=== PATIENT | male | born 1980 | race Two or more races ===

== ENCOUNTER 2024-10-01 05:12 | Inpatient (IN) | payer MEDICAID, SELFPAY ==
[2024-10-01] VITALS (96 sets, daily range): BP systolic 46–151; BP diastolic 32–135; PULSE 30–187; RESP 13–54; TEMP 36.1–38.1; O2SAT 85–100; BMI 24.4
--- NOTE | 2024-10-01 05:17 | XR_ITS ---
Examination: CT brain head without contrast. 2-D sagittal coronal reconstructions Date and time of exam:October 01, 2024, 0542 hours INDICATIONS: Onset altered mental status today CTDI: vol (mGy):58.2 DLP: (mGycm):1070 Technique: Multiple CT axial sections of the brain have been obtained, 5 mm slice thickness. Contrast has not been administered. 2-D sagittal, coronal reconstructions have been obtained Low dose protocols were performed. One or more of the following dose reduction techniques were used; automated exposure control, adjustment of the mA and/or KV according to patient size, use of iterative reconstruction technique. Findings: No significant ventricular enlargement. Intra-axial or extra-axial hemorrhage density is not seen. No mass effect or midline shift Basal cisterns are not remarkable. Fourth ventricle is midline. Cranial vault intact. Impression: Negative for acute hemorrhage, mass effect or midline shift Advise clinical correlation and follow up accordingly
--- NOTE | 2024-10-01 05:17 | XR_ITS ---
Examination: AP chest single view TECHNIQUE: AP portable semiupright chest single view Exam date and time: October 01, 2024 0558 hours Comparison January 14, 2024 INDICATIONS: Altered mental status SOB today. FINDINGS: Poor inspiratory effort Normal heart size Mild vascular congestion. No aspiration pneumonia IMPRESSION: Poor inspiratory effort chest x-ray
--- NOTE | 2024-10-01 05:20 | PD.EDAMS ---
Altered Mental Status RME/HPI General Chief Complaint: Altered Mental Status Stated Complaint: AMS Time Seen by Provider: 10/01/24 05:16 Arrival date/time: 10/01/24 05:12 RME / HPI RME / HPI narrative: Dr. Horvath?s Main ED Evaluation: 43yo male with a history of DM, HTN, HLD BIBA from home presents to the ED for a chief complaint of AMS. Patient was seen by me immediately upon arrival. Per EMS, patient was possibly drinking alcohol for the last 2 days. Family called 911 due to the patient having persistent AMS for the last 2 days. Blood sugar en route read as high . Full ROS is unobtainable due to the patient being altered. Related Data Home Medications ?Medication ?Instructions ?Recorded ?Confirmed amlodipine 10 mg tablet 10 mg PO QDAY 01/15/24 01/15/24 lisinopril 20 mg tablet 20 mg PO DAILY 01/15/24 01/15/24 ondansetron 8 mg disintegrating 8 mg PO Q12H PRN Nausea 01/15/24 01/15/24 tablet tadalafil 5 mg tablet 5 mg PO DAILY 01/15/24 01/15/24 Held on 01/16/24. Instructions: hold until follow up with pcp Allergies Allergy/AdvReac Type Severity Reaction Status Date / Time No Known Allergies Allergy Verified 10/01/24 05:21 Review of Systems Review of Systems ROS Unobtainable: unobtainable due to mental status Past Medical History Past Medical History NEUROLOGIC: Negative Neurological Disorders or Cerebrovascular Accident CARDIAC: Positive Cardiac Disorders, Hypercholesterolemia and Hypertension; Negative Congestive Heart Failure RESPIRATORY: Negative Chronic Obstructive Pulmonary Disease (COPD) or Asthma GASTROINTESTINAL: Positive Gastrointestinal Disorders and Pancreatitis GENITOURINARY: Negative Renal Disease MUSCULOSKELETAL: Negative Musculoskeletal Disorders or Arthritis ENDOCRINE: Positive Diabetes Mellitus Type 2; Negative Diabetes Mellitus Type 1, Hyperthyroidism or Hypothyroidism HEMATOLOGIC: Negative Blood Disorders, Anemia or Sickle Cell Disease PSYCHO/SOCIAL: Positive Anxiety OTHER HISTORY: Negative Cancer Social History SMOKING STATUS: Unknown if ever smoked ED Exam Narrative Physical exam: GENERAL APPEARANCE: Awake, eyes are open, does not respond to his name, generally well-appearing, no acute distress. HEENT: NC, AT. MMM. EOMI, clear conjunctiva, oropharynx clear. NECK: Supple without lymphadenopathy. No stiffness or restricted ROM. HEART: Normal rate and regular rhythm, normal S1/S1, no m/r/g LUNGS: CTAB, moving air well. No crackles or wheezes are heard. Tachypneic without Kussmaul's breathing. ABDOMEN: Soft, nontender, nondistended with good bowel sounds heard. BACK: No midline C/T/L spine pain or deformity, No CVAT, no obvious deformity. EXTREMITIES: Without cyanosis, clubbing or edema. MUSCULOSKELETAL: Slow spontaneous movements of all 4 extremities, no chest tenderness NEUROLOGICAL: Awake, does not respond to his name. Skin: Warm and dry without any rash. Course Course Course Narrative: CXR is ordered for determining the etiology of AMS. Quality Measures none Orders Category Date Time Status Bedside Blood Glucose NOW Care 10/01/24 05:17 Active COVID-19 Screening Questionnaire NOW Care 10/01/24 07:41 Active Decision to Admit X1 Care 10/01/24 07:41 Completed EKG (ED ONLY) *Do not use* NOW Care 10/01/24 05:17 Completed Rodriguez [Urinary Catheter] QS Care 10/01/24 06:42 Active Insert IV NOW Care 10/01/24 05:[address] head/brain wo con Stat Exams 10/01/24 05:17 Completed EKG (ED Only) Stat Exams 10/01/24 05:17 Ordered XR chest 1V Stat Exams 10/01/24 05:17 Completed Alcohol, Blood Medical Stat Lab 10/01/24 05:30 Completed Beta Hydroxybutyrate Stat Lab 10/01/24 05:30 Completed Blood Culture (Lab) Stat Lab 10/01/24 08:00 Received CBC Stat Lab 10/01/24 05:30 Completed CMP [Comprehensive Metabolic Panel] Stat Lab 10/01/24 05:30 Completed Drug Screen,Urine Stat Lab 10/01/24 05:30 Completed Lactate (Lactic Acid) Stat Lab 10/01/24 05:30 Completed Partial Thromboplastin Time Stat Lab 10/01/24 05:30 Completed Procalcitonin Stat Lab 10/01/24 05:30 Completed Prothrombin Time with INR Stat Lab 10/01/24 05:30 Completed Troponin I Stat Lab 10/01/24 05:30 Completed Urinalysis Stat Lab 10/01/24 05:30 Completed Azithromycin Inj [Zithromax Inj] 500 mg Med 10/02/24 09:00 Active Sodium Chloride 0.9% 250 ml [Ns] 250 ml IV QDAY Azithromycin Inj [Zithromax Inj] 500 mg Med 10/01/24 08:00 Discontinued Sodium Chloride 0.9% 250 ml [Ns] 250 ml IV X1 Insulin Reg 100 Units/100 ml [Myxredlin] Med 10/01/24 07:40 Active 100 unit in 100 ml IV 0.1 unit/kg/hr Insulin Regular Med 10/01/24 07:39 Discontinued 10 unit IV X1 ONE LORazepam [Ativan Inj] Med 10/01/24 05:48 Discontinued 1 mg IVP X1 ONE Sodium Chloride 0.9% 1000 ml [Ns] 1,000 ml Med 10/01/24 05:16 Discontinued IV 999 mls/hr Sodium Chloride 0.9% 1000 ml [Ns] 1,000 ml Med 10/01/24 05:33 Discontinued IV 999 mls/hr cefTRIAXone [Rocephin] 2 gm Med 10/01/24 07:45 Discontinued SODIUM CHLORIDE 0.9% (Popper) [Ns 0.9% (P)] 50 ml IV X1 cefTRIAXone/D5w 2gm [Rocephin/d5w 2gm] Med 10/02/24 09:00 Discontinued 2 gm in 50 ml IV QDAY Vital Signs Vital signs: Vital Signs Temperature 98.1 F 10/01/24 05:21 Pulse Rate 117 H 10/01/24 05:21 Respiratory Rate 54 H 10/01/24 05:21 Blood Pressure 96/60 10/01/24 05:21 Pulse Oximetry (%) 99 10/01/24 05:21 Oxygen Delivery Method Room Air 10/01/24 05:21 Altered Mental Status MDM Narrative MDM Narrative:: Scribe Attestation: 10/01/24 Becca Bates am scribing for and in the presence of Dr. Horvath. Patient data External records reviewed:: [facility] previous records (Per chart review, patient was admitted here on 01/14/24 for VEL.) Clinical information provided by:: EMS Social determinants that could affect healthcare access:: alcohol use (possible) Patient has the following chronic illnesses:: DM, HTN, HLD How is presenting disease/condition affected by chronic disease/condition?: uneffected by Evaluation data The following diagnostics were reviewed and interpreted by me:: lab results, radiology exam(s) and EKG tracing(s) Lab and/or radiology exams considered but not ordered:: none Interpretation Summary: Labs and imaging are pending at signout. EKG done at 0524, sinus tachycardia, rate of 117, normal intervals, normal axis, no acute ST or T wave changes, according to my interpretation. Medications / Prescriptions Medications or Prescriptions considered but not ordered:: none Medication administrations:: Medication Administration History Acetaminophen (Acetaminophen 325 Mg Tablet) 650 mg PO Q6HR PRN PRN Reason: FEVER >101 Stop: 10/31/24 21:34 Last Admin: 10/02/24 01:47 Dose: 650 mg Documented By: Dextrose (Dextrose 50%-Water Inj 50 Ml Syringe) 25 ml IV [id number] PRN PRN Reason: Blood Sugar - Low Folic Acid (Folic Acid 1 Mg Tablet) 1 mg NG QDAY [facility] Stop: 10/31/24 14:44 Last Admin: 10/01/24 15:01 Dose: 1 mg Documented By: Heparin Sodium (Porcine) (Heparin Sod Inj 5000 Unit/Ml Vial) 5,000 unit SC Q8HR [facility] Stop: 10/15/24 14:59 Last Admin: 10/01/24 21:11 Dose: 5,000 unit Documented By: Co-signed By: ELPIDIO Admin: 10/01/24 15:01 Dose: 5,000 unit Documented By: Co-signed By: YESENIA Insulin Human Regular (Myxredlin) 100 unit in 100 mls @ 6.89 mls/hr IV .[id number] PRN; Protocol PRN Reason: PER PROTOCOL Stop: 10/31/24 07:39 Last Titration: 10/02/24 02:00 Dose: 0.05 unit/kg/hr, 3.445 mls/hr Documented By: Co-signed By: CHIP Titration: 10/02/24 01:00 Dose: 0.05 unit/kg/hr, 3.445 mls/hr Documented By: Co-signed By: SRIKANTH Titration: 10/02/24 00:00 Dose: 0.05 unit/kg/hr, 3.445 mls/hr Documented By: Co-signed By: SRIKANTH Admin: 10/01/24 23:14 Dose: 0.025 unit/kg/hr, 1.723 mls/hr Documented By: Co-signed By: SRIKANTH Titration: 10/01/24 23:14 Dose: Infused Documented By: Co-signed By: RH Titration: 10/01/24 23:00 Dose: 0.025 unit/kg/hr, 1.723 mls/hr Documented By: Co-signed By: CMN Titration: 10/01/24 22:00 Dose: 0.1 unit/kg/hr, 6.89 mls/hr Documented By: Co-signed By: MAGALLANES Titration: 10/01/24 21:00 Dose: 0.05 unit/kg/hr, 3.445 mls/hr Documented By: Co-signed By: MAGALLANES Titration: 10/01/24 20:00 Dose: 0.05 unit/kg/hr, 3.445 mls/hr Documented By: Co-signed By: RH Titration: 10/01/24 19:00 Dose: 0.025 unit/kg/hr, 1.723 mls/hr Documented By: Co-signed By: GE Titration: 10/01/24 18:00 Dose: 0.05 unit/kg/hr, 3.445 mls/hr Documented By: GE Co-signed By: MR Titration: 10/01/24 17:00 Dose: 0.05 unit/kg/hr, 3.445 mls/hr Documented By: GE Co-signed By: MR Titration: 10/01/24 16:00 Dose: 0.05 unit/kg/hr, 3.445 mls/hr Documented By: GE Co-signed By: MR Titration: 10/01/24 15:00 Dose: 0.1 unit/kg/hr, 6.89 mls/hr Documented By: GE Co-signed By: MR Titration: 10/01/24 14:00 Dose: 0.1 unit/kg/hr, 6.89 mls/hr Documented By: GE Co-signed By: MR Titration: 10/01/24 13:00 Dose: 0.1 unit/kg/hr, 6.89 mls/hr Documented By: GE Co-signed By: MR Titration: 10/01/24 12:00 Dose: 0.1 unit/kg/hr, 6.89 mls/hr Documented By: GE Co-signed By: MR Titration: 10/01/24 11:00 Dose: 0.1 unit/kg/hr, 6.89 mls/hr Documented By: GE Co-signed By: MR Titration: 10/01/24 09:47 Dose: 0.1 unit/kg/hr, 6.89 mls/hr Documented By: BRODY Co-signed By: MM Admin: 10/01/24 08:40 Dose: 0.1 unit/kg/hr, 6.89 mls/hr Documented By: CG Co-signed By: FC Azithromycin 500 mg/ Sodium (Chloride) 250 mls @ 250 mls/hr IV QDAY [facility] Stop: 10/09/24 08:59 Norepinephrine/Dextrose (Levophed In D5w 8mg/250ml) 8 mg in 250 mls @ 6.459 mls/hr IV .Q24H PRN; Protocol PRN Reason: PER PROTOCOL Stop: 10/31/24 09:51 Last Titration: 10/02/24 01:45 Dose: 0 mcg/kg/min, 0 mls/hr Documented By: Titration: 10/02/24 01:00 Dose: 0.01 mcg/kg/min, 1.292 mls/hr Documented By: Titration: 10/02/24 00:30 Dose: 0.03 mcg/kg/min, 3.876 mls/hr Documented By: Titration: 10/02/24 00:15 Dose: 0.05 mcg/kg/min, 6.459 mls/hr Documented By: Titration: 10/01/24 16:00 Dose: 0 mcg/kg/min, 0 mls/hr Documented By: Titration: 10/01/24 15:37 Dose: 0.02 mcg/kg/min, 2.584 mls/hr Documented By: Titration: 10/01/24 15:00 Dose: 0.04 mcg/kg/min, 5.168 mls/hr Documented By: Titration: 10/01/24 14:15 Dose: 0.04 mcg/kg/min, 5.168 mls/hr Documented By: Titration: 10/01/24 13:27 Dose: 0.06 mcg/kg/min, 7.751 mls/hr Documented By: Titration: 10/01/24 13:15 Dose: 0.08 mcg/kg/min, 10.335 mls/hr Documented By: Titration: 10/01/24 12:45 Dose: 0.1 mcg/kg/min, 12.919 mls/hr Documented By: Titration: 10/01/24 12:15 Dose: 0.12 mcg/kg/min, 15.503 mls/hr Documented By: Titration: 10/01/24 12:10 Dose: 0.14 mcg/kg/min, 18.087 mls/hr Documented By: Titration: 10/01/24 12:00 Dose: 0.16 mcg/kg/min, 20.67 mls/hr Documented By: Titration: 10/01/24 11:58 Dose: 0.16 mcg/kg/min, 20.67 mls/hr Documented By: Titration: 10/01/24 11:49 Dose: 0.18 mcg/kg/min, 23.254 mls/hr Documented By: Titration: 10/01/24 11:04 Dose: 0.2 mcg/kg/min, 25.838 mls/hr Documented By: Titration: 10/01/24 11:00 Dose: 0.15 mcg/kg/min, 19.378 mls/hr Documented By: Titration: 10/01/24 10:30 Dose: 0.1 mcg/kg/min, 12.919 mls/hr Documented By: Titration: 10/01/24 10:22 Dose: 0.1 mcg/kg/min, 12.919 mls/hr Documented By: Titration: 10/01/24 10:01 Dose: 0.5 mcg/kg/min, 64.595 mls/hr Documented By: Admin: 10/01/24 09:51 Dose: 0.05 mcg/kg/min, 6.459 mls/hr Documented By: BRODY Potassium Chloride (Kcl Ivpb) 10 meq in 100 mls @ 100 mls/hr IV .Q1H PRN PRN Reason: IF POTASSIUM LESS THAN 3.3 Stop: 10/31/24 11:01 Magnesium Sulfate (Magnesium Sulfate Ivpb) 2 gm in 50 mls @ 25 mls/hr IV .Q2H PRN PRN Reason: PER DKA PROTOCOL Stop: 10/31/24 11:01 Dextrose/Lactated Ringer's (D5-Lr) 1,000 mls @ 250 mls/hr IV .Q4H PRN PRN Reason: PER PROTOCOL Stop: 10/31/24 11:01 Lactated Ringer's (Lactated Ringers) 1,000 mls @ 250 mls/hr IV .Q4H PRN PRN Reason: PER PROTOCOL Stop: 10/02/24 11:01 Potassium Chloride 20 meq/ (Lactated Ringer's) 1,010 mls @ 250 mls/hr IV .Q4H3M PRN PRN Reason: K LEVEL 3.3 TO 5.3mM/L Stop: 10/31/24 11:01 Last Infusion: 10/01/24 23:00 Dose: 0 mls/hr Documented By: Infusion: 10/01/24 22:00 Dose: 250 mls/hr Documented By: Infusion: 10/01/24 19:05 Dose: 0 mls/hr Documented By: Admin: 10/01/24 16:16 Dose: 250 mls/hr Documented By: Infusion: 10/01/24 15:37 Dose: Infused Documented By: Admin: 10/01/24 11:34 Dose: 250 mls/hr Documented By: Potassium Chloride 40 meq/ (Lactated Ringer's) 1,020 mls @ 250 mls/hr IV .Q4H5M PRN PRN Reason: K LEVEL < 3.3 mM/L Stop: 10/31/24 11:01 Potassium Chloride 40 meq/ (Dextrose/Lactated Ringer's) 1,020 mls @ 250 mls/hr IV .Q4H5M PRN PRN Reason: K LEVEL < 3.3mM/L Stop: 10/31/24 11:01 Potassium Cl/Dextrose/Lact Ringer's (Kcl 20 Meq/L In D5-Lr) 20 meq in 1,000 mls @ 250 mls/hr IV .Q4H PRN PRN Reason: K LEVEL 3.3 TO 5.3 mM/L Stop: 10/31/24 11:01 Last Admin: 10/02/24 00:55 Dose: 250 mls/hr Documented By: Infusion: 10/02/24 00:05 Dose: Infused Documented By: Infusion: 10/01/24 23:00 Dose: 250 mls/hr Documented By: Infusion: 10/01/24 22:00 Dose: 0 mls/hr Documented By: Admin: 10/01/24 19:05 Dose: 250 mls/hr Documented By: Potassium Chloride (Kcl Ivpb) 10 meq in 100 mls @ 50 mls/hr IV PRN PRN PRN Reason: K LEVEL 3.3 to 5.3 & BG > 200 Stop: 10/31/24 11:01 Potassium Phosphate (Pot Phos 15 Mmol In Ns 250 Ml) 15 mmol in 250 mls @ 62.5 mls/hr IV PRN PRN PRN Reason: Phosphate <= 1mg/dL Stop: 10/31/24 11:01 Sodium Phosphate 15 mmol/ (Sodium Chloride) 255 mls @ 62.5 mls/hr IV .Q4H5M PRN PRN Reason: Phosphate <= 1mg/dL and K> than 5.3 Stop: 10/31/24 11:01 Vasopressin/Sodium Chloride (Vasostrict/Ns Ivpb) 20 unit in 100 mls @ 9 mls/hr IV .Q11H7M PRN; Protocol PRN Reason: PER PROTOCOL Stop: 10/31/24 11:02 Last Admin: 10/01/24 20:39 Dose: 0.03 unit/min, 9 mls/hr Documented By: Titration: 10/01/24 20:39 Dose: Infused Documented By: Admin: 10/01/24 11:00 Dose: 0.03 unit/min, 9 mls/hr Documented By: Fentanyl Citrate (Sublimaze Inj 2,500 Mcg/250 Ml Bag) 2,500 mcg in 250 mls @ 2.5 mls/hr IV .Q24H PRN; Protocol PRN Reason: PER PROTOCOL Stop: 10/06/24 11:24 Last Admin: 10/02/24 01:52 Dose: 250 mcg/hr, 25 mls/hr Documented By: Co-signed By: CHIP Titration: 10/02/24 01:52 Dose: Infused Documented By: Co-signed By: CHIP Titration: 10/02/24 01:00 Dose: 250 mcg/hr, 25 mls/hr Documented By: Titration: 10/02/24 00:00 Dose: 250 mcg/hr, 25 mls/hr Documented By: Titration: 10/01/24 23:00 Dose: 200 mcg/hr, 20 mls/hr Documented By: Titration: 10/01/24 22:00 Dose: 200 mcg/hr, 20 mls/hr Documented By: Titration: 10/01/24 21:00 Dose: 200 mcg/hr, 20 mls/hr Documented By: Titration: 10/01/24 20:00 Dose: 150 mcg/hr, 15 mls/hr Documented By: Titration: 10/01/24 19:00 Dose: 150 mcg/hr, 15 mls/hr Documented By: Titration: 10/01/24 18:00 Dose: 150 mcg/hr, 15 mls/hr Documented By: Titration: 10/01/24 17:30 Dose: 150 mcg/hr, 15 mls/hr Documented By: Titration: 10/01/24 17:00 Dose: 100 mcg/hr, 10 mls/hr Documented By: Titration: 10/01/24 16:00 Dose: 100 mcg/hr, 10 mls/hr Documented By: Titration: 10/01/24 15:00 Dose: 100 mcg/hr, 10 mls/hr Documented By: Titration: 10/01/24 14:00 Dose: 100 mcg/hr, 10 mls/hr Documented By: Titration: 10/01/24 13:00 Dose: 100 mcg/hr, 10 mls/hr Documented By: Titration: 10/01/24 12:00 Dose: 100 mcg/hr, 10 mls/hr Documented By: Admin: 10/01/24 10:48 Dose: 100 mcg/hr, 10 mls/hr Documented By: Co-signed By: ANATOLY Thiamine HCl 500 mg/ Sodium (Chloride) 105 mls @ 205 mls/hr IV Q8HR [facility] Stop: 10/31/24 14:44 Last Admin: 10/01/24 21:11 Dose: 205 mls/hr Documented By: Infusion: 10/01/24 15:33 Dose: Infused Documented By: Admin: 10/01/24 15:02 Dose: 205 mls/hr Documented By: Ceftriaxone Sodium/Dextrose (Rocephin/D5w 1gm Iv Premix) 1 gm in 50 mls @ 100 mls/hr IV QDAY [facility] Stop: 10/09/24 08:59 Propofol (Diprivan Ivpb) 1,000 mg in 100 mls @ 2.067 mls/hr IV .Q24H PRN; Protocol PRN Reason: PER PROTOCOL Stop: 11/01/24 00:09 Last Titration: 10/02/24 01:00 Dose: 20 mcg/kg/min, 8.268 mls/hr Documented By: Admin: 10/02/24 00:26 Dose: 20 mcg/kg/min, 8.268 mls/hr Documented By: Co-signed By: SRIKANTH Pantoprazole Sodium (Pantoprazole Inj 40 Mg Vial) 40 mg IVP QDAY [facility] Stop: 10/31/24 14:59 Last Admin: 10/01/24 15:01 Dose: 40 mg Documented By: Pharmacy Consult (Pharmacy Renal Dose Adjustment 1 Ea) 1 each XX QDAY PRN PRN Reason: CONSULT Stop: 10/31/24 08:59 Phenobarbital (Phenobarbital Elix 20 Mg/5 Ml Udc) 65 mg NG TID [facility] Stop: 10/15/24 21:59 Last Admin: 10/01/24 21:10 Dose: 65 mg Documented By: Sodium Bicarbonate (Sodium Bicarb Inj 8.4% Syr 50 Ml Syringe) 50 ml IV PRN PRN PRN Reason: For ph <= to 7.0 Stop: 10/31/24 11:01 Discontinued Medications Amiodarone HCl (Amiodarone Inj 50 Mg/Ml Vial 3 Ml) Confirm Administered Dose 150 mg IV .STK-MED ONE Stop: 10/01/24 10:49 Last Admin: 10/01/24 11:20 Dose: Not Given Documented By: Non-Admin Reason: STK MED Atropine Sulfate (Atropine Sulf Inj 0.1 Mg/Ml Syr 10 Ml) 1 mg IV X1 ONE Stop: 10/01/24 09:59 Last Admin: 10/01/24 09:58 Dose: 1 mg Documented By: SHREE Epinephrine HCl (Epinephrine Inj 0.1 Mg/Ml Syringe 10ml) 1 mg IV X1 ONE Stop: 10/01/24 09:59 Last Admin: 10/01/24 09:58 Dose: 1 mg Documented By: SHREE Etomidate (Etomidate Inj 2 Mg/Ml Vial 10 Ml) 20 mg IVP X1 ONE Stop: 10/01/24 10:01 Last Admin: 10/01/24 10:05 Dose: 20 mg Documented By: SHREE Etomidate (Etomidate Inj 2 Mg/Ml Vial 10 Ml) Confirm Administered Dose 20 mg .ROUTE .STK-MED ONE Stop: 10/01/24 09:58 Last Admin: 10/01/24 10:51 Dose: Not Given Documented By: CG Non-Admin Reason: Duplicate Medication on eMAR Fentanyl Citrate (Fentanyl Cit Inj 50 Mcg/Ml Amp 2ml) 50 mcg IVP X1 ONE Stop: 10/01/24 10:19 Last Admin: 10/01/24 10:20 Dose: 50 mcg Documented By: SHREE Fentanyl Citrate (Fentanyl Cit Inj 50 Mcg/Ml Amp 2ml) Confirm Administered Dose 100 mcg .ROUTE .STK-MED ONE Stop: 10/01/24 10:17 Last Admin: 10/01/24 10:52 Dose: Not Given Documented By: CG Non-Admin Reason: Duplicate Medication on eMAR Folic Acid (Folic Acid 1 Mg Tablet) 1 mg PO QDAY [facility] Stop: 10/31/24 14:44 Sodium Chloride (Ns) 1,000 mls @ 999 mls/hr IV .Q1H1M ONE Stop: 10/01/24 06:16 Last Infusion: 10/01/24 08:14 Dose: Infused Documented By: Admin: 10/01/24 06:05 Dose: 999 mls/hr Documented By: EDGAR Sodium Chloride (Ns) 1,000 mls @ 999 mls/hr IV .Q1H1M ONE Stop: 10/01/24 06:33 Last Infusion: 10/01/24 08:14 Dose: Infused Documented By: Admin: 10/01/24 06:06 Dose: 999 mls/hr Documented By: EDGAR Ceftriaxone Sodium 2 gm/ (Sodium Chloride) 50 mls @ 100 mls/hr IV X1 ONE Stop: 10/01/24 08:14 Last Infusion: 10/01/24 08:35 Dose: Infused Documented By: Admin: 10/01/24 08:07 Dose: 100 mls/hr Documented By: SHREE Ceftriaxone Sodium/Dextrose (Rocephin/D5w 2gm) 2 gm in 50 mls @ 100 mls/hr IV QDAY [facility] Stop: 10/08/24 07:35 Azithromycin 500 mg/ Sodium (Chloride) 250 mls @ 250 mls/hr IV X1 ONE Stop: 10/01/24 08:59 Last Infusion: 10/01/24 09:26 Dose: Infused Documented By: Admin: 10/01/24 08:22 Dose: 250 mls/hr Documented By: CG Lactated Ringer's (Lactated Ringers) 1,000 mls @ 999 mls/hr IV .Q1H1M ONE Stop: 10/01/24 09:17 Last Infusion: 10/01/24 10:00 Dose: Infused Documented By: Admin: 10/01/24 08:40 Dose: 999 mls/hr Documented By: CG Lactated Ringer's (Lactated Ringers) 1,000 mls @ 999 mls/hr IV .Q1H1M ONE Stop: 10/01/24 10:22 Last Infusion: 10/01/24 10:00 Dose: Infused Documented By: Admin: 10/01/24 09:24 Dose: 999 mls/hr Documented By: SHREE Sodium Bicarbonate (Sodium Bicarb 8.4% 50ml Vial*) Confirm Administered Dose 100 mls @ ud .ROUTE .STK-MED ONE Stop: 10/01/24 09:39 Last Admin: 10/01/24 10:35 Dose: Not Given Documented By: BRODY Non-Admin Reason: Duplicate Medication on eMAR Norepinephrine/Dextrose (Levophed In D5w 8mg/250ml) Confirm Administered Dose 8 mg in 250 mls @ ud IV .STK-MED ONE Stop: 10/01/24 09:39 Last Admin: 10/01/24 10:34 Dose: Not Given Documented By: BRODY Non-Admin Reason: Duplicate Medication on eMAR Fentanyl Citrate (Sublimaze Inj 2,500 Mcg/250 Ml Bag) Confirm Administered Dose 2,500 mcg in 250 mls @ ud IV .STK-MED ONE Stop: 10/01/24 10:36 Last Admin: 10/01/24 11:20 Dose: Not Given Documented By: Non-Admin Reason: STK MED Amiodarone HCl/Dextrose (Nexterone Ivpb) 150 mg in 100 mls @ 600 mls/hr IV .Q10M ONE Stop: 10/01/24 11:10 Last Infusion: 10/01/24 12:13 Dose: Infused Documented By: Admin: 10/01/24 11:08 Dose: 600 mls/hr Documented By: MR Amiodarone HCl/Dextrose (Nexterone Ivpb) 360 mg in 200 mls @ 33.333 mls/hr IV .Q6H ONE Stop: 10/01/24 17:10 Last Admin: 10/01/24 11:22 Dose: 33.333 mls/hr Documented By: MR Amiodarone HCl/Dextrose (Nexterone Ivpb) 360 mg in 200 mls @ 16.667 mls/hr IV .Q12H [facility] Stop: 10/02/24 17:10 Insulin Human Regular 100 unit (/ IV Miscellaneous Supplies) 100 mls @ 6.89 mls/hr IV .[id number] PRN; Protocol PRN Reason: PER PROTOCOL Stop: 10/31/24 11:01 Vasopressin/Sodium Chloride (Vasostrict/Ns Ivpb) Confirm Administered Dose 20 unit in 100 mls @ ud IV .STK-MED ONE Stop: 10/01/24 10:57 Last Admin: 10/01/24 11:14 Dose: Not Given Documented By: MR Non-Admin Reason: STK MED Amiodarone HCl 150 mg/ (Dextrose) 103 mls @ 600 mls/hr IV X1 ONE Stop: 10/01/24 10:58 Last Admin: 10/01/24 11:22 Dose: Not Given Documented By: MR Non-Admin Reason: Discontinued Potassium Phosphate 15 mmol/ (Sodium Chloride) 250 mls @ 62.5 mls/hr IV X1 ONE Stop: 10/01/24 20:13 Potassium Phosphate (Pot Phos 15 Mmol In Ns 250 Ml) 15 mmol in 250 mls @ 62.5 mls/hr IV X1 ONE Stop: 10/01/24 20:14 Last Admin: 10/01/24 16:21 Dose: 62.5 mls/hr Documented By: ANATOLY Propofol (Diprivan Ivpb) Confirm Administered Dose 1,000 mg in 100 mls @ ud IV .STK-MED ONE Stop: 10/01/24 23:59 Last Admin: 10/02/24 00:53 Dose: Not Given Documented By: Non-Admin Reason: stock med Insulin Human Regular (Insulin Hum Regular 1 Unit/0.01 Ml (Per Unit)) 10 unit IV X1 ONE Stop: 10/01/24 07:40 Last Admin: 10/01/24 08:14 Dose: 10 unit Documented By: CG Co-signed By: SHANIA Lorazepam (Lorazepam 2 Mg/Ml Vial) 1 mg IVP X1 ONE Stop: 10/01/24 05:49 Last Admin: 10/01/24 08:06 Dose: 1 mg Documented By: Admin: 10/01/24 06:31 Dose: Not Given Documented By: Non-Admin Reason: Other, see note Midazolam HCl (Midazolam Inj 1 Mg/Ml Vial 2 Ml) 5 mg IVP X1 ONE Stop: 10/01/24 10:01 Last Admin: 10/01/24 10:10 Dose: 5 mg Documented By: CG Midazolam HCl (Midazolam Inj 1 Mg/Ml Vial 2 Ml) Confirm Administered Dose 6 mg .ROUTE .STK-MED ONE Stop: 10/01/24 10:00 Last Admin: 10/01/24 10:51 Dose: Not Given Documented By: SHREE Non-Admin Reason: Duplicate Medication on eMAR Phenobarbital Sodium (Phenobarbital Inj 130 Mg/1 Ml Vial) 130 mg IVP X1 ONE Stop: 10/01/24 15:01 Last Admin: 10/01/24 15:02 Dose: 130 mg Documented By: Potassium Chloride (Potassium Chloride 10% 20 Meq/15 Ml Udc) 40 meq GT X1 ONE Stop: 10/01/24 16:15 Last Admin: 10/01/24 16:20 Dose: 40 meq Documented By: ANATOLY Rocuronium [place] (Rocuronium Inj 10 Mg/Ml Vial 10 Ml) 70 mg IV X1 ONE Stop: 10/01/24 10:02 Last Admin: 10/01/24 10:05 Dose: 70 mg Documented By: SHREE Co-signed By: SHANIA Rocuronium [place] (Rocuronium Inj 10 Mg/Ml Vial 10 Ml) Confirm Administered Dose 100 mg .ROUTE .STK-MED ONE Stop: 10/01/24 10:02 Last Admin: 10/01/24 10:52 Dose: Not Given Documented By: SHREE Non-Admin Reason: Duplicate Medication on eMAR Sodium Bicarbonate (Sodium Bicarb Inj 8.4% Syr 50 Ml Syringe) 50 ml IV X1 ONE Stop: 10/01/24 09:47 Last Admin: 10/01/24 09:47 Dose: 50 ml Documented By: BRODY Sodium Bicarbonate (Sodium Bicarb Inj 8.4% Syr 50 Ml Syringe) 50 ml IV X1 ONE Stop: 10/01/24 09:49 Last Admin: 10/01/24 09:48 Dose: 50 ml Documented By: BRODY Sodium Chloride (Sodium Chloride Rt 10% 15 Ml Nebu) 5 ml INH X1 ONE Stop: 10/01/24 10:48 Last Admin: 10/01/24 14:50 Dose: Not Given Documented By: MR Non-Admin Reason: pt arrived to unit at 1030 see above Consultations Consultation(s) initiated? (list below): No Diagnosis Differential diagnosis altered mental status: other (hyperglycemia, hyperosmolar state, DKA, alcohol intoxication, ICH, seizure) Most likely diagnosis given after review of the tests above:: final dx pending at signout Admission Indicated Admission indicated?: not indicated Admission Request Was there a request for admission?: No Disposition Plan Disposition Plan: other (specify) (Signed out to Dr. Bosch at [phone] pending work-up.) Critical Care Time Critical Care Time Critical Care Time: Yes Total Critical Care Time (min.): 35 Attestation: excluding billable procedures for the rapid response, analysis, management, treatment and documentation to prevent the very possible risk of metabolic decompensation and/or Discharge Plan Plan Patient Disposition: Admit Acute Care w/in Hospital Problem List Clinical Impression: Altered mental status, DKA (diabetic ketoacidosis), Elevated troponin, Acute renal failure, UTI (urinary tract infection), Right lower lobe pneumonia
[2024-10-01 05:38] LABS: Collection Type, Urine Catheter; Squamous Epithelial Cell,Urine 0 /hpf (0-5)
[2024-10-01 05:41] LABS: Lactate (Lactic Acid) 1.5 mMol/L (0.4-2.0)
[2024-10-01 05:51] LABS: Basophils # (Auto) 0.1 Thou/mm3 (0.0-0.2); Basophils % (Auto) 0 % (0-2.5); Eosinophils # (Auto) 0.3 Thou/mm3 (0.0-0.5); Eosinophils % (Auto) 2 % (0-10); Hematocrit 38.2 % (41.0-53.0); Hemoglobin 13.5 g/dL (13.5-16.0); Immature Granulocytes % (Auto) 3 % (0-0); Immature Granulocytes Auto 0.56 Thou/mm3 (0.00-0.00); Lymphocytes # (Auto) 0.4 Thou/mm3 (1.0-4.8); Lymphocytes % (Auto) 2 % (10-50); Mean Corpuscular HGB Conc 35.3 g/dl (31.0-37.0); Mean Corpuscular Hemoglobin 31.5 pg (25.0-35.0); Mean Corpuscular Volume 89 fL (80-100); Monocytes # (Auto) 1.9 Thou/mm3 (0.0-0.8); Monocytes % (Auto) 10 % (0-12); Neutrophils # (Auto) 15.1 Thou/mm3 (1.8-7.7); Neutrophils % (Auto) 82 % (37-80); Nucleated Red Blood Cell # 0.08 Thou/mm3 (0.00-0.00); Nucleated Red Blood Cell % 0 /100 WBC (0); Platelet Count 126 Thou/mm3 (140-440); RDW Standard Deviation 41.8 fL (35.1-43.9); Red Blood Count 4.29 Miln/mm3 (4.50-5.90); White Blood Count 18.3 Thou/mm3 (3.8-10.6)
[2024-10-01 05:53] LABS: Bilirubin,Urine 1+ (Negative); Blood,Urine 3+ (Negative); Clarity,Urine Turbid (Clear/Hazy); Color,Urine Yellow (Lt Yel-Yel); Glucose, Urine 4+ (Negative); Ketones,Urine 1+ (Negative); Leukocyte Esterase,Urine Positive (Negative); Nitrite,Urine Negative (Negative); Protein,Urine 2+ (Neg - Trace); RBC,Urine 635 /hpf (0-3); Specific Gravity,Urine 1.022 (1.001-1.035); Transitional Epi Cells,Urine 3 /hpf (0-5); Urobilinogen,Urine Negative mg/dL (0.0-1.0); WBC,Urine 63 /hpf (0-5)
[2024-10-01 05:56] LABS: Amphetamine/Methamp Scrn,U Negative (Negative); Barbiturate Screen,Urine Negative (Negative); Benzodiazepines Screen,Urine Negative (Negative); Benzoylecgonine Screen, Ur Negative (Negative); Fentanyl Screen,Urine Negative (Negative); Opiate Screen,Urine Negative (Negative); THC Screen,Urine Negative (Negative)
[2024-10-01 05:59] LABS: Partial Thromboplastin Time 26.8 Seconds (22.0-36.0)
[2024-10-01] MEDS: SODIUM CHLORIDE 0.9% 1000 ML 1,000 ML 999 ML IV ×2 (06:05→06:06)
[2024-10-01 06:28] LABS: Alanine Aminotransferase 29 U/L (10-49); Albumin, Serum 4.8 gm/dL (3.5-5.0); Albumin/Globulin Ratio 1.6 (1.2-2.2); Alcohol, Blood Medical < 10.0 mg/dL (0-10.0); Alkaline Phosphatase 113 U/L (46-116); Anion Gap 25 (7-16); Aspartate Amino Transferase 26 U/L (0-34); BUN/Creatinine Ratio 16 Ratio (12-20); Bilirubin,Total 0.8 mg/dL (0.3-1.2); Blood Urea Nitrogen 81 mg/dL (9-23); Calcium 8.1 mg/dL (8.3-10.6); Calcium (Corrected) 8.1 mg/dL (8.5-10.1); Chloride 94 mMol/L (98-107); Creatinine (Component) 5.2 mg/dL (0.6-1.3); Procalcitonin 5.09 ng/ml (0.0-0.49); Sodium 129 mMol/L (136-145); Total Protein 7.8 gm/dL (5.7-8.2); eGFR 13 See Note
--- NOTE | 2024-10-01 06:34 | PRELIM_ITS ---
CT scan of the head without intravenous contrast (axial sections with sagittal and coronal reformats). October 01, 2024 at 0542 hours Clinical History: Altered mental status. Comparison: No prior study is available for comparison. Findings: There is no evidence of intracranial hemorrhage, mass effect or midline shift. The ventricles, sulci and basal cisterns are unremarkable. The mastoid air cells and visualized paranasal sinuses are clear. Impression: No evidence of intracranial hemorrhage or mass effect. Report Electronically Signed By: Malcolm Bennett 10/01/2024 6:33:53 AM [EST]
--- NOTE | 2024-10-01 06:45 | PD.EDADDENDU ---
Emergency Room Addendum Addendum Narrative: 0600: Care assumed from Dr. Horvath, the previous shift emergency physician. Past medical, surgical, social and family history reviewed. Vitals and home medications reviewed. I will assume the care of the patient at this time, pending work-up and final disposition. Please refer to the emergency department record for history and examination from initial visit.?The following addendum documentation note is intended to reflect any pending information, findings, or radiology results not included in the patient?s initial chart. EMS notes reviewed by me. Nursing notes reviewed by me. Vital signs reviewed by me. [place] medical records reviewed by me. I reviewed admission from through for DKA and VEL. DIAGNOSIS: Altered mental status Acute DKA Acute renal failure Elevated troponin UTI Right lower lobe pneumonia
[2024-10-01 06:55] LABS: Osmolality,Calculated 317 (275-295)
[2024-10-01 07:06] LABS: Carbon Dioxide < 10.0 mMol/L (20.0-31.0)
[2024-10-01 07:07] LABS: Troponin I 0.127 ng/mL (0.0-0.045)
[2024-10-01 07:08] LABS: Beta Hydroxybutyrate 4.9 mmol/L (<0.6)
[2024-10-01 08:00] LABS: Glucose > 700 mg/dL (74-106)
[2024-10-01] MEDS: LORazepam 2 MG/ML VIAL 1 MG IVP (08:06)
[2024-10-01] MEDS: cefTRIAXone 2 GM in SODIUM CHLORIDE 0.9% (Popper) 50 ML IV (08:07)
[2024-10-01] MEDS: INSULIN HUM REGULAR 1 UNIT/0.01 ML (PER UNIT) 10 UNIT IV (08:14)
[2024-10-01] MEDS: AZITHROMYCIN INJ 500 MG in SODIUM CHLORIDE 0.9% 250 ML 250 ML 250 MG IV (08:22)
[2024-10-01] MEDS: INSULIN REG 100 UNITS/100 ML 100 UNIT/100 ML BAG 6.89 UNIT IV (08:40)
[2024-10-01] MEDS: RINGERS LACTATED 1000 ML 1,000 ML 999 ML IV ×2 (08:40→09:24)
--- NOTE | 2024-10-01 09:12 | PC.NURSE ---
Called ICU Dr Arroyo. Notified that pt has had 2L of NS and is now on LR bolus. Cureent B/P is 74/38. Pt is currently in [facility].
--- NOTE | 2024-10-01 09:37 | PC.NURSE ---
ICU Dr Arroyo at bedside. Plan to insert central line.
[2024-10-01] MEDS: Sodium Bicarb Inj 8.4% SYR 50 ML SYRINGE IV ×2 (09:47→09:48)
[2024-10-01] MEDS: Norepinephrine/D5W 8mg/250ml 8 MG/250 ML BAG 6.459 MG IV (09:51)
--- NOTE | 2024-10-01 09:57 | PC.NURSE ---
Central Line inserted. Patient became bradycardic and started agonal breathing. ICU Dr Tellez currently still at bedside. Verbal orders being received.
[2024-10-01] MEDS: ATROPINE SULF INJ 0.1 MG/ML SYR 10 ML 1 MG IV (09:58)
[2024-10-01] MEDS: EPINEPHrine INJ 0.1 MG/ML SYRINGE 10ML 1 MG IV (09:58)
[2024-10-01] MEDS: ROCURONIUM INJ 10 MG/ML VIAL 10 ML 70 MG IV (10:05)
[2024-10-01] MEDS: ETOMIDATE INJ 2 MG/ML VIAL 10 ML 20 MG IVP (10:05)
--- NOTE | 2024-10-01 10:08 | PC.NURSE ---
Patient intubated at this time.
[2024-10-01] MEDS: MIDAZOLAM INJ 1 MG/ML VIAL 2 ML 5 MG IVP (10:10)
[2024-10-01] MEDS: fentaNYL CIT INJ 50 mCg/ML AMP 2ML IVP (10:20)
--- NOTE | 2024-10-01 10:22 | PC.NURSE ---
Patient connected to [facility]. Peer Dr Arroyo order patient received shock at 100 joles.
--- NOTE | 2024-10-01 10:30 | PC.NURSE ---
Patient moved to ICU. Updated report given to [employer] CLERK at bedside.
[2024-10-01 10:40] LABS: Anion Gap 19 (7-16); BUN/Creatinine Ratio 15 Ratio (12-20); Blood Urea Nitrogen 76 mg/dL (9-23); Chloride 106 mMol/L (98-107); Magnesium 2.3 mg/dL (1.6-2.6); Phosphorous 4.4 mg/dL (2.4-5.1); Potassium 3.5 mMol/L (3.4-5.1); Sodium 138 mMol/L (136-145); eGFR 14 See Note
[2024-10-01 10:45] LABS: Carbon Dioxide 12.7 mMol/L (20.0-31.0)
[2024-10-01] MEDS: fentaNYL 2,500 MCG/250 ML BAG 2,500 MCG/250 ML BAG 10 MCG IV (10:48)
[2024-10-01] MEDS: VASOPRESSIN IN NS IVPB 20 UNIT/100 ML BAG 9 UNIT IV ×2 (11:00→20:39)
--- NOTE | 2024-10-01 11:02 | XR_ITS ---
Examination: AP chest single view Technique one AP portable semiupright chest single view Exam date and time: October 01, 2024 1134 hours Comparison October 01, 2024 0558 hours INDICATIONS: Coughing congestion this week. FINDINGS: Early bibasilar pneumonia Endotracheal tube tip 4.9 cm above jacqui Orogastric tube in stomach IMPRESSION: Bibasilar pneumonia
[2024-10-01] MEDS: AMIODARONE 150 MG IVPB 150 MG/100 ML BAG 600 MG IV (11:08)
[2024-10-01 11:09] LABS: Base Excess -17 (-3-3); HCO3 13 mEq/L (20-26); Inspired Oxygen, FIO2 50 %; O2 Saturation 93 % (91-98); PCO2 46 mmHg (32.0-48.0); PO2 70 mmHg (83-108)
[2024-10-01 11:16] LABS: Allen Test Not Performed; Puncture Site Arterial Line; pH, Arterial 7.05 (7.35-7.45)
[2024-10-01 11:19] LABS: Osmolality,Calculated 318 (275-295)
[2024-10-01] MEDS: AMIODARONE 360 MG IVPB 360 MG/200 ML BAG 33.333 MG IV (11:22)
[2024-10-01 11:29] LABS: Glucose 462 mg/dL (74-106)
[2024-10-01] MEDS: POT CHL ADDITIVE 20 MEQ in RINGERS LACTATED 1000 ML 1,000 ML 250 MEQ IV ×2 (11:34→16:16)
--- NOTE | 2024-10-01 14:27 | PD.INTHP ---
Documentation for date of: 10/01/24 Collator HPI History of Present Illness History of present illness: Patient is a 43-year-old male with past medical history significant for hypertension, diabetes, alcohol use disorder, and pancreatitis who presented with acute encephalopathy. Patient emergent department was found to be altered with moderate agitation. Required multiple doses of Ativan for potential alcohol withdrawal syndrome. Patient also found to have significant diabetic ketoacidosis with potential underlying infection as precipitant. Notably patient has been drinking heavily for the last 3 to 4 days and was found altered by family who brought him into. He is unable to provide any additional history at this time. Unclear when was last drink. He typically drinks beer. Patient was staying with his parents last few days though family at bedside is unable to corroborate what may have changed. Arcelia? was able to relate that about 1 month ago he did have a seizure after he tried to cut back on alcohol. Patient's course in ED complicated by impending respiratory failure and arrest. Patient had severe bradycardia though he did not lose his pulse. Required 1 mg of atropine and 1 mg of epinephrine with maintenance of circulation but subsequently requiring intubation for airway protection and ventilatory support. Patient started on vasopressor support with Levophed and given 2 amp of bicarb to compensate for metabolic acidosis secondary to DKA. Patient's course further complicated by SVT with initial failed cardioversion. Amiodarone was subsequently given as likely 150 mg bolus with reattempt at cardioversion with 250 J which returned rhythm to sinus tachycardia. Patient without evidence of focal neurologic deficit. Pupillary reflex remains intact. Not sedated after the use of etomidate and rocuronium with follow-up Versed for patient's comfort. Remained stable on fentanyl drip at this point unable to provide any additional history. Review of Systems Review of Systems ROS Unobtainable: unobtainable due to mental status, unobtainable due to medical condition and due to endotracheal tube Past Medical History Past Medical History NEUROLOGIC: Positive Seizures CARDIAC: Positive Hypertension GASTROINTESTINAL: Positive Pancreatitis ENDOCRINE: Positive Diabetes Mellitus Type 1 Family History OTHER FAMILY HX: No significant family history of alcohol abuse Surgical History OTHER SURGICAL HX: No pertinent surgical history Social History SMOKING STATUS: Never smoker ALCOHOL: Current ALCOHOL FREQUENCY: 3 or More Drinks per Day ALCOHOL LAST INTAKE: Days (ago) (1) HOUSING: House LIVES WITH: Family Meds Home Medications and Allergies Home Medications ?Medication ?Instructions ?Recorded ?Confirmed ?Type amlodipine 10 mg tablet 10 mg PO QDAY 01/15/24 01/15/24 History lisinopril 20 mg tablet 20 mg PO DAILY 01/15/24 01/15/24 History ondansetron 8 mg disintegrating 8 mg PO Q12H PRN Nausea 01/15/24 01/15/24 History tablet tadalafil 5 mg tablet 5 mg PO DAILY 01/15/24 01/15/24 History Held on 01/16/24. Instructions: hold until follow up with pcp Allergies Allergy/AdvReac Type Severity Reaction Status Date / Time No Known Allergies Allergy Verified 10/01/24 05:21 Exam Vital Signs Temp Pulse Resp BP Pulse Ox O2 Del Method FiO2 98 F 103 H 25 H 111/51 L 97 Room Air 60 10/01/24 06:35 10/01/24 14:21 10/01/24 09:50 10/01/24 11:22 10/01/24 14:21 10/01/24 06:29 10/01/24 14:21 Narrative Exam General: Intubated and sedated HEENT: Moist mucous membranes, conjunctiva clear, PERRL Cardiovascular: S1, S2, radial pulses +2 bilat, tachycardic with regular rhythm Pulmonary: CTAB bilat GI: bowel sounds present in all four quadrants, nontender to palpation, no significant distention Extremities: No presence of trace or pitting edema in lower extremities bilaterally, dorsalis pedis pulses +2 bilaterally Neuro: Not responsive to verbal command, spontaneous movement of all limbs but not opening eyes. Grossly no focal motor deficit. Gag/cough reflex intact Psych: Unable to participate Physical Exam Completion Physical Exam Complete?: Yes Results: Labs 10/01/24 05:30 10/01/24 10:00 Labs: Short CBC 10/01/24 Range/Units 05:30 WBC 18.3 H (3.8-10.6) Thou/mm3 Hgb 13.5 (13.5-16.0) g/dL Hct 38.2 L (41.0-53.0) % Plt Count 126 L (140-440) Thou/mm3 BMP 10/01/24 10/01/24 05:30 10:00 Sodium 129 L 138 Potassium 4.0 3.5 D Chloride 94 L 106 Carbon Dioxide < 10.0 L* 12.7 L* BUN 81 H 76 H Creatinine 5.2 H* 5.0 H* Glucose > 700 H* 462 H* D Calcium 8.1 L 7.0 L Cardiac Enzymes 10/01/24 Range/Units 05:30 Troponin I 0.127 H* (0.0-0.045) ng/mL Liver Function 10/01/24 Range/Units 05:30 Total Bilirubin 0.8 (0.3-1.2) mg/dL AST 26 (0-34) U/L ALT 29 (10-49) U/L Alkaline Phosphatase 113 (46-116) U/L Albumin 4.8 (3.5-5.0) gm/dL Urine 10/01/24 Range/Units 05:30 Urine Color Yellow (Lt Yel-Yel) Urine Clarity Turbid A (Clear/Hazy) Urine pH 5.0 (5.0-7.0) Ur Specific Adams 1.022 (1.001-1.035) Urine Protein 2+ A (Neg - Trace) Urine Glucose (UA) 4+ A (Negative) ABG Interpretation ABG results: 10/01/24 11:00 ABG pH 7.05 L* ABG pCO2 46 ABG pO2 70 L ABG HCO3 13 L ABG O2 Saturation 93 ABG Base Excess -17 L Assessment & Plan Additional Assessment Additional Assessment: Patient is a 43-year-old male with past medical history significant for hyperlipidemia, alcoholic use disorder/alcoholic pancreatitis, hypertension, and diabetic ketoacidosis who presented with acute encephalopathy secondary to DKA and alcohol abuse/possible alcohol withdrawal syndrome. Patient given multiple doses of Ativan in the emergency department and found to have significant DKA and acute renal failure. Patient with respiratory failure requiring intubation. Patient with hypovolemic/distributive shock secondary to severe acidosis. Patient with empiric antibiotic coverage for potential trigger from UTI. Additional Plan Additional Plan: Neuro Alcohol use disorder/alcohol withdrawal syndrome Acute metabolic encephalopathy Will initiate on phenobarbital with PO tapering beginning with 3 times daily Started on high-dose thiamine, folate supplementation Aggressive volume resuscitation with treatment of underlying metabolic disorder including DKA/acute kidney injury Uremia is significant enough to likely not alone a reason for encephalopathy Check ammonia though LFTs within normal limits Will check TSH CVS SVT Sinus bradycardia Distributive shock/Septic shock Hypovolemic shock Aggressive volume resuscitation?4 L of NS/LR given in the ED on admission Additional fluids as per protocol for DKA wean off vasopressor support, high dose requirement likely in the setting of severe acidosis which is starting to improve Underlying treatment for potential infectious etiology as reason for septic shock Sinus bradycardia secondary to hypoventilation and severe acidosis which has normalized, was complicated by SVT Successfully cardioverted after second attempt with 150 J and amiodarone, will stop after first bag is administered Follow-up troponin, though do not suspect acute ischemic event, likely demand ischemia-initial EKG with no significant ST-T wave changes despite sinus tachycardia PULM Acute hypoxic respiratory failure Secondary to respiratory arrest from exhaustion from metabolic acidosis Patient on lung protective mechanical ventilation at 8 mL/kg ideal body weight, plateau pressure remains less than 30 Serial ABGs with arterial line in place for monitoring and adjustments as needed to ventilation as metabolic acidosis improved and respiratory compensation may not be required. Notably remains hypoxic though there is not significant pneumonia but this may be evolving after aspiration event during near cardiac arrest GI Patient has enteral access in place, will hold off on tube feeds at this point until DKA is resolved Okay to administer medications PPI prophylaxis initiated while on mechanical ventilation Will check lipase, patient is NPO and getting aggressive volume which we typically use for acute pancreatitis anyways Renal Acute renal failure Diabetic ketoacidosis/anion gap metabolic acidosis Elevated beta hydroxybutyrate and severe hyperkalemia with prerenal ATN Aggressive volume resuscitation ongoing with some urine output being noted with tea colored urine suggestive of ATN Maintain MAP greater than 65 to provide adequate renal perfusion Maintain normal electrolyte balance given cardiac dysfunction including potassium greater than 4 and magnesium greater than 2 Initial replacement given based on morning labs with serial labs to every 4 hours per protocol for DKA Monitor closely for need for hemodialysis though likely will be temporary and may be avoidable with aggressive management ID Septic shock Possible urinary tract infection Lactic acid was negative suggesting adequate clearance Empiric antibiotics with ceftriaxone Follow cultures to help direct antibiotic selection in coming days ENDO Type 1 diabetes with diabetic ketoacidosis Volume resuscitation, insulin drip, and labs as per protocol Monitor potassium closely given insulin use and replace aggressively Likely precipitant due to noncompliance as well as potential poor p.o. intake and alcohol use DVT prophylaxis: Heparin subQ SUP prophylaxis: PPI daily CODE STATUS: Full code Family notified at bedside and over telephone, sister is surrogate decision maker Dispo: Patient will remain in the intensive care unit due to multiple needs Total critical care time: I personally spent 80 minutes for review of physiologic parameters, directing plan of care throughout the day, coordination of care with other subspecialist, and extensive counseling of multiple family members at bedside. This is exclusive of time spent teaching housestaff performing separate billable procedures. Patient remains at significant risk for further morbidity and mortality warranting close monitoring and care when available in the intensive care unit. Critical care services required for acute encephalopathy, diabetic ketoacidosis, acute renal failure, acute hypoxic respiratory failure and alcohol withdrawal syndrome. Provider Notation Provider Notation: Although this document has been carefully reviewed, there may still be some phonetic and other typographical errors. These errors are purely grammatical due to imperfections in the software program and should not be construed in any way to compromise the substance of the patient's medical care during this visit. Thank you for the opportunity and privilege in assisting you with this patient's care and management. Quality Measures Quality Measures none
[2024-10-01 14:53] LABS: Lactate (Lactic Acid) 1.5 mMol/L (0.4-2.0)
[2024-10-01] MEDS: FOLIC ACID 1 MG TABLET NG (15:01)
[2024-10-01] MEDS: PANTOPRAZOLE INJ 40 MG VIAL IVP (15:01)
[2024-10-01] MEDS: HEPARIN SOD INJ 5000 UNIT/ML VIAL SC ×2 (15:01→21:11)
[2024-10-01] MEDS: THIAMINE INJ 500 MG in SODIUM CHLORIDE 0.9% 100 ML 205 MG IV ×2 (15:02→21:11)
[2024-10-01] MEDS: PHENobarbital INJ 130 MG/1 ML VIAL IVP (15:02)
--- NOTE | 2024-10-01 15:09 | PD.INTPROC ---
Procedures Procedure Date / Time 10/01/24 1509 Central Line Placement Right Femoral: Indication(s): shock Informed consent obtained: procedure done urgently Time out done, and the following verified: correct patient, side and site, procedure and patient position Patient placed on monitor/pulse ox: Yes Hand Hygiene: alcohol-based hand rub Max Sterile Barrier Techniques used: cap, mask, sterile gown, sterile gloves and sterile full body drape Central line prep: Chlorhexidine scrub Local anesthesia used: lidocaine 1% Amount of anesthesia used (mL): 5 Ultrasound used for placement: No Sterile Technique if Ultrasound used, including sterile gel: n/a Central line lumen inserted: triple Post procedure: sutured in place, good blood return, all ports aspirated, flushed, capped and sterile dressing applied Post procedure x-ray: other Patient tolerated procedure: no complications EBL(ml): 5 Complications: none
--- NOTE | 2024-10-01 15:11 | PD.INTPROC ---
Procedures Procedure Date / Time 10/01/24 1511 Arterial Line Indication(s): frequent arterial line sampling and shock Informed consent obtained: procedure done urgently Time out done, and the following verified: correct patient, side and site, procedure and patient position Size (Gauge): 20 Technique used: guide wire technique Post-Procedure: line sutured into place and dry sterile dressing placed Patient tolerated procedure: well and no complications EBL(ml): 30 Complications: none Site: right and femoral
--- NOTE | 2024-10-01 15:11 | PD.INTPROC ---
Procedures Procedure Date / Time 10/01/24 1511 Arterial Line Size (Gauge): 20 Intubation Indication(s): acute Resp Failure Informed consent obtained: procedure done urgently Time out done, and the following verified: correct patient, side and site, procedure and patient position Sedative: etomidate Mg given: 20 Sedative #2: versed Mg Given (sedative #2): 5 Paralytic: rocuronium Mg given: 70 Laryngoscope: fiber optic video scope Assist device used: fiber optic device ET tube size: 7.5 ET tube uncuffed: No Tube secured depth (cm): 24 Tube secured location: teeth Tube placement confirmation: visualized tube passing through cords, equal breath sounds bilaterally, no breath sounds over epigastrium and confirmation by capnometry Patient tolerated procedure: no complications EBL(ml): 0 Intubation complications: none
--- NOTE | 2024-10-01 15:13 | PD.INTPROC ---
Procedures Procedure Date / Time 10/01/24 1513 Procedure Narrative Procedure Narrative: Emergent Electric Cardioversion Indication: SVT with hemodynamic instability Patient post intubation on vasopressor support with significant SVT most consistent with atrial fibrillation. Patient had already received Versed 5 mg and additional 50 mcg of fentanyl were administered prior to placement of pads on their chest after chest tube was shaved to maintain adequate contact. Heart rate into the 170s requiring vasopressor support due to hypotension. Despite adjustments in vasopressors patient continued to be tachycardic with subsequent attempt with 100 J of synchronized cardioversion which failed to return patient to sinus tachycardia or sinus rhythm. Patient remained on vasopressor support and was transferred to the intensive care unit. In the ICU patient was placed on fentanyl drip. Arterial access was obtained see separate note for this. Patient was given 150 mg bolus of amiodarone via IV push. Repeat cardioversion attempted synchronized, 150 J shock delivered. Patient returned to sinus tachycardia with improvement in blood pressure. Continue vasopressor support for optimization. Arterial Line Size (Gauge): 20
--- NOTE | 2024-10-01 15:52 | PC.DIETICIAN ---
Nutrition prescription If EN is indicated, consider: Glucerna 1.2 at 20 ml/hr via OG tube by pump. Advance 10 ml every 8 hrs to goal rate of 60 ml/hr x 24 hrs. If no IV fluids, water flushes of 25 ml/hr (or per MD).
[2024-10-01 16:09] LABS: Acetaminophen < 2.0 mcg/mL (10.0-20.0); Albumin, Serum 3.6 gm/dL (3.5-5.0); Anion Gap 18 (7-16); BUN/Creatinine Ratio 16 Ratio (12-20); Blood Urea Nitrogen 72 mg/dL (9-23); Calcium 7.2 mg/dL (8.3-10.6); Calcium (Corrected) 7.5 mg/dL (8.5-10.1); Chloride 108 mMol/L (98-107); Creatinine (Component) 4.4 mg/dL (0.6-1.3); Estimated Creatinine Clearance 19.7 mL/min (>60); Glucose 290 mg/dL (74-106); Lipase 185 U/L (12-53); Osmolality,Calculated 311 (275-295); Phosphorous 1.8 mg/dL (2.4-5.1); Potassium 3.2 mMol/L (3.4-5.1); Sodium 140 mMol/L (136-145); eGFR 16 See Note
[2024-10-01 16:10] LABS: Carbon Dioxide 14.3 mMol/L (20.0-31.0)
[2024-10-01 16:11] LABS: Troponin I 1.607 ng/mL (0.0-0.045)
[2024-10-01] MEDS: POTASSIUM CHLORIDE 10% 20 MEQ/15 ML UDC 40 MEQ GT (16:20)
[2024-10-01] MEDS: POT PHOS 15 mMol in NS 250 ML 15 MMOL/250 ML BAG 62.5 MMOL IV (16:21)
[2024-10-01 16:27] LABS: Thyroid Stimulating Hormone 0.07 uIU/mL (0.55-4.78)
[2024-10-01 19:02] LABS: Lactate (Lactic Acid) 1.6 mMol/L (0.4-2.0)
[2024-10-01] MEDS: KCL 20 mEq/L in D5-LR 20 MEQ/1,000 ML BAG 250 MEQ IV (19:05)
[2024-10-01 19:27] LABS: Albumin, Serum 3.4 gm/dL (3.5-5.0); Anion Gap 15 (7-16); BUN/Creatinine Ratio 16 Ratio (12-20); Blood Urea Nitrogen 67 mg/dL (9-23); Calcium 7.4 mg/dL (8.3-10.6); Calcium (Corrected) 7.9 mg/dL (8.5-10.1); Carbon Dioxide 15.9 mMol/L (20.0-31.0); Chloride 108 mMol/L (98-107); Creatinine (Component) 4.1 mg/dL (0.6-1.3); Estimated Creatinine Clearance 21.2 mL/min (>60); Glucose 141 mg/dL (74-106); Magnesium 1.9 mg/dL (1.6-2.6); Osmolality,Calculated 298 (275-295); Phosphorous 1.7 mg/dL (2.4-5.1); Potassium 3.6 mMol/L (3.4-5.1); Sodium 139 mMol/L (136-145); eGFR 18 See Note
[2024-10-01] MEDS: PHENOBARBITAL ELIX 20 MG/5 ML 65 MG NG (21:10)
[2024-10-01] MEDS: INSULIN REG 100 UNITS/100 ML 100 UNIT/100 ML BAG IV (23:14)
[2024-10-01 23:20] LABS: Lactate (Lactic Acid) 1.1 mMol/L (0.4-2.0)
[2024-10-01 23:41] LABS: Albumin, Serum 3.2 gm/dL (3.5-5.0); Anion Gap 12 (7-16); BUN/Creatinine Ratio 17 Ratio (12-20); Blood Urea Nitrogen 70 mg/dL (9-23); Calcium (Corrected) 7.6 mg/dL (8.5-10.1); Chloride 115 mMol/L (98-107); Creatinine (Component) 4.2 mg/dL (0.6-1.3); Estimated Creatinine Clearance 20.7 mL/min (>60); Glucose 159 mg/dL (74-106); Magnesium 1.8 mg/dL (1.6-2.6); Osmolality,Calculated 306 (275-295); Potassium 4.1 mMol/L (3.4-5.1); Sodium 142 mMol/L (136-145); eGFR 17 See Note
[2024-10-02] VITALS (104 sets, daily range): BP systolic 81–150; BP diastolic 23–90; PULSE 98–119; RESP 14–36; TEMP 36.8–38.3; O2SAT 91–100; BMI 26.9
[2024-10-02] MEDS: PROPOFOL 1,000 MG IVPB 1,000 MG/100 ML VIAL 8.268 MG IV (00:26)
[2024-10-02] MEDS: KCL 20 mEq/L in D5-LR 20 MEQ/1,000 ML BAG 250 MEQ IV ×3 (00:55→18:12)
[2024-10-02] MEDS: ACETAMINOPHEN 325 MG TABLET 650 MG PO (01:47)
[2024-10-02] MEDS: fentaNYL 2,500 MCG/250 ML BAG 2,500 MCG/250 ML BAG 25 MCG IV (01:52)
[2024-10-02 03:52] LABS: Albumin, Serum 3.2 gm/dL (3.5-5.0); Anion Gap 9 (7-16); BUN/Creatinine Ratio 16 Ratio (12-20); Blood Urea Nitrogen 64 mg/dL (9-23); Calcium 7.3 mg/dL (8.3-10.6); Calcium (Corrected) 7.9 mg/dL (8.5-10.1); Chloride 115 mMol/L (98-107); Creatinine (Component) 4.1 mg/dL (0.6-1.3); Estimated Creatinine Clearance 21.2 mL/min (>60); Glucose 200 mg/dL (74-106); Magnesium 1.8 mg/dL (1.6-2.6); Osmolality,Calculated 301 (275-295); Potassium 4.1 mMol/L (3.4-5.1); Sodium 139 mMol/L (136-145); eGFR 18 See Note
[2024-10-02 03:53] LABS: Carbon Dioxide 14.7 mMol/L (20.0-31.0)
[2024-10-02] MEDS: THIAMINE INJ 500 MG in SODIUM CHLORIDE 0.9% 100 ML 205 MG IV ×3 (05:20→21:24)
[2024-10-02] MEDS: HEPARIN SOD INJ 5000 UNIT/ML VIAL SC ×3 (05:20→21:25)
[2024-10-02] MEDS: PHENOBARBITAL ELIX 20 MG/5 ML 65 MG NG (05:20)
[2024-10-02 05:32] LABS: Base Excess -10 (-3-3); HCO3 15 mEq/L (20-26); Inspired Oxygen, FIO2 21 %; O2 Saturation 100 % (91-98); PCO2 29 mmHg (32.0-48.0); PO2 129 mmHg (83-108); pH, Arterial 7.32 (7.35-7.45)
[2024-10-02 05:36] LABS: Puncture Site Arterial Line
[2024-10-02] MEDS: PROPOFOL 1,000 MG IVPB 1,000 MG/100 ML VIAL 14.469 MG IV (07:19)
[2024-10-02 08:19] LABS: Albumin, Serum 3.2 gm/dL (3.5-5.0); Anion Gap 9 (7-16); BUN/Creatinine Ratio 18 Ratio (12-20); Blood Urea Nitrogen 79 mg/dL (9-23); Calcium 7.1 mg/dL (8.3-10.6); Calcium (Corrected) 7.7 mg/dL (8.5-10.1); Carbon Dioxide 15.4 mMol/L (20.0-31.0); Chloride 118 mMol/L (98-107); Creatinine (Component) 4.3 mg/dL (0.6-1.3); Estimated Creatinine Clearance 20.2 mL/min (>60); Glucose 190 mg/dL (74-106); Magnesium 1.7 mg/dL (1.6-2.6); Osmolality,Calculated 311 (275-295); Potassium 4.1 mMol/L (3.4-5.1); Sodium 142 mMol/L (136-145); eGFR 17 See Note
[2024-10-02 08:21] LABS: Phosphorous 0.9 mg/dL (2.4-5.1)
[2024-10-02] MEDS: PHENobarbital INJ 130 MG/1 ML VIAL IVP (08:39)
[2024-10-02] MEDS: INSULIN HUM REGULAR 1 UNIT/0.01 ML (PER UNIT) 5 UNIT IV (08:52)
[2024-10-02] MEDS: PANTOPRAZOLE INJ 40 MG VIAL IVP (09:08)
[2024-10-02] MEDS: AZITHROMYCIN INJ 500 MG in SODIUM CHLORIDE 0.9% 250 ML 250 ML 250 MG IV (09:08)
[2024-10-02] MEDS: SOD PHOS ADDITIVE 30 MMOL in SODIUM CHLORIDE 0.9% 500 ML 500 ML 62.5 MMOL IV (09:08)
[2024-10-02] MEDS: FOLIC ACID 1 MG TABLET NG (09:09)
[2024-10-02] MEDS: cefTRIAXone/D5w 1gm IV premix 1 GM/50 ML BAG IV (09:09)
[2024-10-02] MEDS: INSULIN GLARGINE (Lantus) 5 UNIT/0.05 ML (PER 5 UNITS) 15 UNIT SC ×2 (09:28→18:25)
[2024-10-02] MEDS: PHENobarbital INJ 130 MG/1 ML VIAL 65 MG IV (09:45)
--- NOTE | 2024-10-02 10:49 | ESPR_ITS ---
Documentation for date of: 10/02/24 Subjective Subjective Interval history: Patient is a 43-year-old male with past medical history significant for hypertension, diabetes, alcohol use disorder, and pancreatitis who presented with acute encephalopathy. Patient emergent department was found to be altered with moderate agitation. Required multiple doses of Ativan for potential alcohol withdrawal syndrome. Patient also found to have significant diabetic ketoacidosis with potential underlying infection as precipitant. Notably patient has been drinking heavily for the last 3 to 4 days and was found altered by family who brought him into. He is unable to provide any additional history at this time. Unclear when was last drink. He typically drinks beer. Patient was staying with his parents last few days though family at bedside is unable to corroborate what may have changed. Arcelia? was able to relate that about 1 month ago he did have a seizure after he tried to cut back on alcohol. Patient's course in ED complicated by impending respiratory failure and arrest. Patient had severe bradycardia though he did not lose his pulse. Required 1 mg of atropine and 1 mg of epinephrine with maintenance of circulation but subsequently requiring intubation for airway protection and ventilatory support. Patient started on vasopressor support with Levophed and given 2 amp of bicarb to compensate for metabolic acidosis secondary to DKA. Patient's course further complicated by SVT with initial failed cardioversion. Amiodarone was subsequently given as likely 150 mg bolus with reattempt at cardioversion with 250 J which returned rhythm to sinus tachycardia. Patient without evidence of focal neurologic deficit. Pupillary reflex remains intact. Not sedated after the use of etomidate and rocuronium with follow-up Versed for patient's comfort. Remained stable on fentanyl drip at this point unable to provide any additional history. 10/02/2024: Overnight, patient had fever of 101. He patient was agitated and was started on propofol. This morning, vasopressin discotninued. During SAT and SBT, he was agitated and so was placed back on sedation. Labs show hypophosphatemia so insulin drip was discontinued and phosphate repleted. Oliguric overnight. Patient with metabolic acidosis likely improving from a DKA standpoint but remains acidotic from acute renal injury. ABG shows acidosis is adequately compensated. Overall, patient's mentation not improved from alcohol withdrawal so will keep on ventilator for airway protection. Will increase phenobarbital to 130mg TID with phenobarbital pushes, to not exceed 20-30cc/kg of TBW (1520- 2280mg) Exam Vital Signs Temp Pulse Resp BP Pulse Ox O2 Del Method FiO2 99.7 F 112 H 25 H 98/67 97 Mechanical Ventilation 50 10/02/24 08:00 10/02/24 10:30 10/01/24 09:50 10/02/24 10:30 10/02/24 10:30 10/02/24 08:00 10/02/24 10:22 Narrative Exam Constitutional: Sedated, intubated. HEENT: NCAT. ET tube in place. Respiratory: CTAB bilaterally. Cardiac: Tachycardic, regular rhythm. Abdomen: Soft, non-distended, non-tender. : Rodriguez draining concentrated urine. MSK: No B/L LE edema. Skin: Warm, dry, intact. Tattoos noted. Neuro: GCS E(4) V(NT) M(5) Objective Labs 10/01/24 05:30 10/02/24 16:07 Labs: Laboratory Results - last 24 hr 10/01/24 10/01/24 10/01/24 10:00 11:00 14:47 Puncture Site Arterial Line ABG pH 7.05 L* ABG pCO2 46 ABG pO2 70 L ABG HCO3 13 L ABG O2 Saturation 93 ABG Base Excess -17 L FiO2 50 Sodium 138 140 Potassium 3.5 D 3.2 L Chloride 106 108 H Carbon Dioxide 12.7 L* 14.3 L* Anion Gap 19 H 18 H BUN 76 H 72 H Creatinine 5.0 H* 4.4 H* D Estim Creat Clear Calc 19.7 L eGFR 14 L* 16 L BUN/Creatinine Ratio 15 16 Glucose 462 H* D 290 H D Calculated Osmolality 318 H 311 H Lactic Acid 1.5 Calcium 7.0 L 7.2 L Corrected Calcium 7.5 L Phosphorus 4.4 1.8 L Magnesium 2.3 2.0 Troponin I 1.607 H* D Albumin 3.6 D Lipase 185 H TSH 0.07 L* Acetaminophen < 2.0 L 10/01/24 10/01/24 10/02/24 18:55 23:13 03:30 Puncture Site ABG pH ABG pCO2 ABG pO2 ABG HCO3 ABG O2 Saturation ABG Base Excess FiO2 Sodium 139 142 139 Potassium 3.6 4.1 D 4.1 Chloride 108 H 115 H 115 H Carbon Dioxide 15.9 L 15.0 L 14.7 L* Anion Gap 15 12 9 BUN 67 H 70 H 64 H Creatinine 4.1 H* 4.2 H* 4.1 H* Estim Creat Clear Calc 21.2 L 20.7 L 21.2 L eGFR 18 L 17 L 18 L BUN/Creatinine Ratio 16 17 16 Glucose 141 H D 159 H 200 H Calculated Osmolality 298 H 306 H 301 H Lactic Acid 1.6 1.1 1.0 Calcium 7.4 L 7.0 L 7.3 L Corrected Calcium 7.9 L 7.6 L 7.9 L Phosphorus 1.7 L 1.0 L 1.0 L Magnesium 1.9 1.8 1.8 Troponin I Albumin 3.4 L 3.2 L 3.2 L Lipase TSH Acetaminophen 10/02/24 10/02/24 05:24 07:20 Puncture Site Arterial Line ABG pH 7.32 L D ABG pCO2 29 L D ABG pO2 129 H D ABG HCO3 15 L ABG O2 Saturation 100 H ABG Base Excess -10 L FiO2 21 Sodium 142 Potassium 4.1 Chloride 118 H Carbon Dioxide 15.4 L Anion Gap 9 BUN 79 H Creatinine 4.3 H* Estim Creat Clear Calc 20.2 L eGFR 17 L BUN/Creatinine Ratio 18 Glucose 190 H Calculated Osmolality 311 H Lactic Acid 1.0 Calcium 7.1 L Corrected Calcium 7.7 L Phosphorus 0.9 L* Magnesium 1.7 Troponin I Albumin 3.2 L Lipase TSH Acetaminophen ABG Interpretation ABG results: 10/01/24 10/02/24 11:00 05:24 ABG pH 7.05 L* 7.32 L D ABG pCO2 46 29 L D ABG pO2 70 L 129 H D ABG HCO3 13 L 15 L ABG O2 Saturation 93 100 H ABG Base Excess -17 L -10 L Quality Measures Quality Measures none Assessment & Plan Assessment Current Active Medications: Generic Name Dose Route Start Last Admin Trade Name Freq PRN Reason Stop Dose Admin Acetaminophen 650 mg 10/01/24 21:35 10/02/24 01:47 Acetaminophen 325 Mg Tablet PO 10/31/24 21:34 650 mg Q6HR PRN Administration FEVER >101 Dextrose 25 ml 10/01/24 11:02 Dextrose 50%-Water Inj 50 Ml Syringe IV [id number] PRN Blood Sugar - Low Folic Acid 1 mg 10/01/24 15:00 10/02/24 09:09 Folic Acid 1 Mg Tablet NG 10/31/24 14:44 1 mg QDAY BREE Administration Heparin Sodium (Porcine) 5,000 unit 10/01/24 15:00 10/02/24 05:20 Heparin Sod Inj 5000 Unit/Ml Vial SC 10/15/24 14:59 5,000 unit Q8HR BREE Administration Insulin Human Regular 100 unit in 100 mls @ 6.89 mls/hr 10/01/24 07:40 10/02/24 08:33 Myxredlin IV 10/31/24 07:39 0 unit/kg/hr .[id number] PRN 0 mls/hr PER PROTOCOL Titration Protocol 0.1 UNIT/KG/HR Azithromycin 500 mg/ Sodium 250 mls @ 250 mls/hr 10/02/24 09:00 10/02/24 09:08 Chloride IV 10/09/24 08:59 250 mls/hr QDAY BREE Administration Norepinephrine/Dextrose 8 mg in 250 mls @ 6.459 mls/hr 10/01/24 09:52 10/02/24 01:45 Levophed In D5w 8mg/250ml IV 10/31/24 09:51 0 mcg/kg/min .Q24H PRN 0 mls/hr PER PROTOCOL Titration Protocol 0.05 MCG/KG/MIN Potassium Chloride 10 meq in 100 mls @ 100 mls/hr 10/01/24 11:02 Kcl Ivpb IV 10/31/24 11:01 .Q1H PRN IF POTASSIUM LESS THAN 3.3 Magnesium Sulfate 2 gm in 50 mls @ 25 mls/hr 10/01/24 11:02 Magnesium Sulfate Ivpb IV 10/31/24 11:01 .Q2H PRN PER DKA PROTOCOL Dextrose/Lactated Ringer's 1,000 mls @ 250 mls/hr 10/01/24 11:02 D5-Lr IV 10/31/24 11:01 .Q4H PRN PER PROTOCOL Lactated Ringer's 1,000 mls @ 250 mls/hr 10/01/24 11:02 Lactated Ringers IV 10/02/24 11:01 .Q4H PRN PER PROTOCOL Potassium Chloride 20 meq/ 1,010 mls @ 250 mls/hr 10/01/24 11:02 10/01/24 23:00 Lactated Ringer's IV 10/31/24 11:01 0 mls/hr .Q4H3M PRN Infusion K LEVEL 3.3 TO 5.3mM/L Potassium Chloride 40 meq/ 1,020 mls @ 250 mls/hr 10/01/24 11:02 Lactated Ringer's IV 10/31/24 11:01 .Q4H5M PRN K LEVEL < 3.3 mM/L Potassium Chloride 40 meq/ 1,020 mls @ 250 mls/hr 10/01/24 11:02 Dextrose/Lactated Ringer's IV 10/31/24 11:01 .Q4H5M PRN K LEVEL < 3.3mM/L Potassium Cl/Dextrose/Lact Ringer's 20 meq in 1,000 mls @ 250 mls/hr 10/01/24 11:02 10/02/24 06:00 Kcl 20 Meq/L In D5-Lr IV 10/31/24 11:01 250 mls/hr .Q4H PRN Infusion K LEVEL 3.3 TO 5.3 mM/L Potassium Chloride 10 meq in 100 mls @ 50 mls/hr 10/01/24 11:02 Kcl Ivpb IV 10/31/24 11:01 PRN PRN K LEVEL 3.3 to 5.3 & BG > 200 Potassium Phosphate 15 mmol in 250 mls @ 62.5 mls/hr 10/01/24 11:02 Pot Phos 15 Mmol In Ns 250 Ml IV 10/31/24 11:01 PRN PRN Phosphate <= 1mg/dL Sodium Phosphate 15 mmol/ 255 mls @ 62.5 mls/hr 10/01/24 11:02 Sodium Chloride IV 10/31/24 11:01 .Q4H5M PRN Phosphate <= 1mg/dL and K> than 5.3 Vasopressin/Sodium Chloride 20 unit in 100 mls @ 9 mls/hr 10/01/24 11:03 10/01/24 20:39 Vasostrict/Ns Ivpb IV 10/31/24 11:02 0.03 unit/min .Q11H7M PRN 9 mls/hr PER PROTOCOL Administration Protocol 0.03 UNIT/MIN Fentanyl Citrate 2,500 mcg in 250 mls @ 2.5 mls/hr 10/01/24 11:25 10/02/24 06:00 Sublimaze Inj 2,500 Mcg/250 Ml Bag IV 10/06/24 11:24 200 mcg/hr .Q24H PRN 20 mls/hr PER PROTOCOL Titration Protocol 25 MCG/HR Thiamine HCl 500 mg/ Sodium 105 mls @ 205 mls/hr 10/01/24 14:45 10/02/24 05:20 Chloride IV 10/31/24 14:44 205 mls/hr Q8HR BREE Administration Ceftriaxone Sodium/Dextrose 1 gm in 50 mls @ 100 mls/hr 10/02/24 09:00 10/02/24 09:09 Rocephin/D5w 1gm Iv Premix IV 10/09/24 08:59 100 mls/hr QDAY BREE Administration Propofol 1,000 mg in 100 mls @ 2.067 mls/hr 10/02/24 00:10 10/02/24 07:19 Diprivan Ivpb IV 11/01/24 00:09 35 mcg/kg/min .Q24H PRN 14.469 mls/hr PER PROTOCOL Administration Protocol 5 MCG/KG/MIN Sodium Phosphate 30 mmol/ 510 mls @ 62.5 mls/hr 10/02/24 08:34 10/02/24 09:08 Sodium Chloride IV 10/02/24 16:43 62.5 mls/hr X1 ONE Administration Pantoprazole Sodium 40 mg 10/01/24 15:00 10/02/24 09:08 Pantoprazole Inj 40 Mg Vial IVP 10/31/24 14:59 40 mg QDAY BREE Administration Pharmacy Consult 1 each 10/01/24 09:00 Pharmacy Renal Dose Adjustment 1 Ea XX 10/31/24 08:59 QDAY PRN CONSULT Phenobarbital 130 mg 10/02/24 14:00 Phenobarbital Elix 20 Mg/5 Ml Udc NG 10/16/24 13:59 TID BREE Sodium Bicarbonate 50 ml 10/01/24 11:02 Sodium Bicarb Inj 8.4% Syr 50 Ml Syringe IV 10/31/24 11:01 PRN PRN For ph <= to 7.0 Plan 43 year old male with PMH of DM2, alcohol use disorder, admitted to the ICU for DKA, acute hypoxic respiratory failure and alcohol withdrawal. 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 On thiamine, folate. Sedated for ventilator synchrony. Treatment Review: Head CT negative. SAT in AM and plan to phenobarbital tomorrow. If still encephalopathic and with elevated uremia from VEL, may consider starting temporary dialysis; will also check T4 since for true hyperthyroidism versus euthyroid sick syndrome, and NH4 if LFTs elevated. CVS Problem: distributive/septic shock, improved DDx: distributive due to phenobarbital, Diagnostic Test: IVC ultrasound, arterial line Treatment Plan: Discontinue vasopressin. Continue antibiotics. Treatment Review: Patient was aggressively fluid resuscitated. If continues to be hypotensive, will check IVF ultrasound if fluid responsive or if patient requires levophed. Problem: sinus bradycardia, SVT, resolved DDx: sinus bradycardia due to hypoventilation and SVT after levophed with epinephrine Diagnostic Test: Treatment Plan: Treatment Review: Patient was cardioverted and started on amiodarone, SVT resolved. Amiodarone was discontinued. PULM Problem: Acute hypoxic respiratory failure DDx: respiratory arrest from metabolic acidosis, improving Diagnostic Test: ABG, SBT Treatment Plan: Continue ventilator for airway protection Treatment Review: Patient appropriately compensating for metabolic acidosis. Daily SBT with SAT. Once mentation improves, anticipate extubation. RENAL Problem: Metabolic acidosis, VEL, electrolyte imbalances DDx: Anion gap from DKA, improving and from decreased renal clearance due to VEL, ATN Diagnostic Test: hourly urine output, renal panel, elevated BHB, Treatment Plan: Continue IVF. Replete phosphate, electrolytes. Check renal panel Q4H Treatment Review: Oliguric but anticipate urine output to improve. If remains oliguric and BUN/Cr worsening, will consider nephrology consult for temporary dialysis. GI Problem: DDx: Diagnostic Test: Treatment Plan: on PPI. Start Glucerna for tube feeds. Treatment Review: ENDO Problem: DKA, DM 1 DDx: Diagnostic Test: blood glucose, A1c, BHB Treatment Plan: Stop insulin drip. Start basal insulin 15 with ISS, check blood sugar Q6H. Start tube feeds. Treatment Review: Anion gap closed twice. If patient continues to be hyperglycemic, will increase insulin. HEME Problem: Leukocytosis DDx: stress from withdrawal, infection Diagnostic Test: Treatment Plan: continue antibiotics (see ID) Treatment Review: ID Problem: Septic shock due to UTI DDx: Diagnostic Test: blood, urine culture Treatment Plan: Continue empiric antibiotics ceftriaxone, azithromycin Treatment Review: Prelim blood culture negative x 2 hours. Narrow antibiotics when cultures return Health Maintenance Diet and fluids: Glucerna DVT prophylaxis: heparin GI prophylaxis: PPI Lines: OG, ET, Rodriguez, PIV, right femoral and arterial line CODE STATUS: FULL I have reviewed and discussed the patient's care with my attending, Dr. Arroyo, Zuleika Osman MD PGY-3 Attending Provider Attestation/Addendum Patient seen and examined with the above resident, Zuleika Osman MD. I agree with the findings, assessment, and plan of care as documented except for any differences below. Patient underwent SAT, started on propofol last night for agitation. Delirium persists with diaphoresis/ tachycardia consistent with ongoing alcohol withdrawal. Increased phenobarbital and minimize propofol for now. Purposeful as he does try to reach for ET tube but not following commands at this time. Nonfocal on gross neurologic exam. Monitor abdominal exam as concern for potential pancreatitis which can worsen with propofol use though benign abdominal exam at this point. Can start on trickle feeds with transition off of DKA protocol to long acting/ Q6 SSI. Replace electrolytes aggressively. Thiamine ongoing as well. Remains restrained for safety. Fluids can be stopped at time of transition as well. Suspect elevated lipase due to DKA/ dehydration more so than true pancreatitis as well. Low UO in settin of ATN. Suspect he is near euvolemia. Expectant improvement as urine is starting to clear of brown casts. Patient's family not at bedside this AM for update but aware of plan of care as I updated them yesterday. Total critical care time: I personally spent 30 minutes for review of physiologic parameters and directing plan of care throughout the day. This is exclusive of time spent teaching housestaff or performing any separate billable procedures. Patient remains at significant risk for further morbidity and mortality warranting close monitoring and care in the ICU. Critical care services required for VEL/ ATN, Acute encephalopathy, acute hypoxic respiratory failure, diabetic ketoacidosis with coma.
[2024-10-02] MEDS: INSULIN HUM REGULAR 1 UNIT/0.01 ML (PER UNIT) SC (12:25)
[2024-10-02 12:27] LABS: Base Excess, Venous -16 (-3-3); Lactate (Lactic Acid) 0.9 mMol/L (0.4-2.0); O2 Saturation, Venous 100 % (96-97); PCO2, Venous 26 mmHg (36-56); PO2, Venous 176 mmHg (15-58); pH, Venous 7.21 (7.33-7.66)
[2024-10-02] MEDS: fentaNYL 2,500 MCG/250 ML BAG 2,500 MCG/250 ML BAG 30 MCG IV ×2 (12:46→21:25)
[2024-10-02 12:52] LABS: Glucose Estimated Average 321 mg/dL (80-131); Hemoglobin A1C 12.8 % Hgb (4.8-6.0)
[2024-10-02 12:56] LABS: Albumin, Serum 3.2 gm/dL (3.5-5.0); Anion Gap 14 (7-16); BUN/Creatinine Ratio 18 Ratio (12-20); Blood Urea Nitrogen 81 mg/dL (9-23); Calcium 7.2 mg/dL (8.3-10.6); Calcium (Corrected) 7.8 mg/dL (8.5-10.1); Chloride 117 mMol/L (98-107); Creatinine (Component) 4.4 mg/dL (0.6-1.3); Estimated Creatinine Clearance 19.7 mL/min (>60); Free T4 (Free Thyroxine) 1.33 ng/dL (0.89-1.76); Glucose 268 mg/dL (74-106); Magnesium 1.8 mg/dL (1.6-2.6); Osmolality,Calculated 314 (275-295); Phosphorous 2.2 mg/dL (2.4-5.1); Potassium 4.4 mMol/L (3.4-5.1); Sodium 141 mMol/L (136-145); eGFR 16 See Note
[2024-10-02 13:00] LABS: Carbon Dioxide 10.2 mMol/L (20.0-31.0)
[2024-10-02] MEDS: INSULIN REG 100 UNITS/100 ML 100 UNIT/100 ML BAG 6.89 UNIT IV (13:36)
[2024-10-02] MEDS: Sodium Bicarb 8.4% 50ml Vial* 88.23 MEQ in DEXTROSE 5%-WATER 500 ML 100 MEQ IV ×2 (13:46→20:34)
[2024-10-02] MEDS: PHENOBARBITAL ELIX 20 MG/5 ML 130 MG NG ×2 (13:50→22:01)
[2024-10-02] MEDS: POT CHL ADDITIVE 20 MEQ in RINGERS LACTATED 1000 ML 1,000 ML 250 MEQ IV (14:00)
[2024-10-02] MEDS: CALCIUM GLUC/NS 1000MG IVPB 1,000 MG/50 ML BAG 50 MG IV ×2 (14:54→17:51)
[2024-10-02 16:42] LABS: Lactate (Lactic Acid) 1.3 mMol/L (0.4-2.0)
[2024-10-02 17:06] LABS: Albumin, Serum 3.1 gm/dL (3.5-5.0); Anion Gap 12 (7-16); BUN/Creatinine Ratio 17 Ratio (12-20); Blood Urea Nitrogen 74 mg/dL (9-23); Calcium 7.2 mg/dL (8.3-10.6); Calcium (Corrected) 7.9 mg/dL (8.5-10.1); Chloride 118 mMol/L (98-107); Creatinine (Component) 4.4 mg/dL (0.6-1.3); Estimated Creatinine Clearance 19.7 mL/min (>60); Glucose 275 mg/dL (74-106); Magnesium 1.7 mg/dL (1.6-2.6); Osmolality,Calculated 315 (275-295); Phosphorous 2.4 mg/dL (2.4-5.1); Potassium 4.1 mMol/L (3.4-5.1); Sodium 142 mMol/L (136-145); eGFR 16 See Note
[2024-10-02 17:25] LABS: Carbon Dioxide 12.3 mMol/L (20.0-31.0)
[2024-10-02] MEDS: PROPOFOL 1,000 MG IVPB 1,000 MG/100 ML VIAL 12.402 MG IV (17:51)
[2024-10-02 21:25] LABS: Lactate (Lactic Acid) 1.4 mMol/L (0.4-2.0)
[2024-10-02 21:26] LABS: Base Excess, Venous -9 (-3-3); O2 Saturation, Venous 97 % (96-97); PCO2, Venous 33 mmHg (36-56); PO2, Venous 74 mmHg (15-58)
[2024-10-02 22:10] LABS: Albumin, Serum 2.9 gm/dL (3.5-5.0); Anion Gap 11 (7-16); BUN/Creatinine Ratio 18 Ratio (12-20); Blood Urea Nitrogen 84 mg/dL (9-23); Calcium 7.1 mg/dL (8.3-10.6); Carbon Dioxide 16.7 mMol/L (20.0-31.0); Chloride 117 mMol/L (98-107); Creatinine (Component) 4.6 mg/dL (0.6-1.3); Estimated Creatinine Clearance 18.9 mL/min (>60); Glucose 215 mg/dL (74-106); Magnesium 1.6 mg/dL (1.6-2.6); Osmolality,Calculated 320 (275-295); Phosphorous 2.6 mg/dL (2.4-5.1); Potassium 4.1 mMol/L (3.4-5.1); Sodium 145 mMol/L (136-145); eGFR 15 See Note
[2024-10-03] VITALS (92 sets, daily range): BP systolic 64–187; BP diastolic 52–122; PULSE 88–120; RESP 16–44; TEMP 37.1–37.4; O2SAT 88–100; BMI 29.1
[2024-10-03] MEDS: INSULIN LISPRO (AdmeLOG) 1 UNIT/0.01 ML UNIT SC ×2 (01:10→06:13)
[2024-10-03 01:11] LABS: Lactate (Lactic Acid) 1.4 mMol/L (0.4-2.0)
[2024-10-03 01:12] LABS: Base Excess, Venous -9 (-3-3); O2 Saturation, Venous 95 % (96-97); PCO2, Venous 31 mmHg (36-56); PO2, Venous 65 mmHg (15-58); pH, Venous 7.33 (7.33-7.66)
[2024-10-03] MEDS: PROPOFOL 1,000 MG IVPB 1,000 MG/100 ML VIAL 12.402 MG IV ×3 (01:15→18:48)
[2024-10-03 01:31] LABS: Albumin, Serum 2.9 gm/dL (3.5-5.0); Anion Gap 10 (7-16); BUN/Creatinine Ratio 18 Ratio (12-20); Blood Urea Nitrogen 84 mg/dL (9-23); Calcium 7.2 mg/dL (8.3-10.6); Calcium (Corrected) 8.1 mg/dL (8.5-10.1); Carbon Dioxide 17.7 mMol/L (20.0-31.0); Chloride 115 mMol/L (98-107); Creatinine (Component) 4.6 mg/dL (0.6-1.3); Estimated Creatinine Clearance 18.9 mL/min (>60); Glucose 293 mg/dL (74-106); Magnesium 1.6 mg/dL (1.6-2.6); Osmolality,Calculated 321 (275-295); Phosphorous 2.7 mg/dL (2.4-5.1); Potassium 4.1 mMol/L (3.4-5.1); Sodium 143 mMol/L (136-145); eGFR 15 See Note
[2024-10-03] MEDS: Sodium Bicarb 8.4% 50ml Vial* 88.23 MEQ in DEXTROSE 5%-WATER 500 ML 100 MEQ IV (01:38)
[2024-10-03 05:14] LABS: Base Excess -2 (-3-3); HCO3 22 mEq/L (20-26); Inspired Oxygen, FIO2 50 %; O2 Saturation 100 % (91-98); PCO2 34 mmHg (32.0-48.0); PO2 141 mmHg (83-108); pH, Arterial 7.42 (7.35-7.45)
[2024-10-03 05:21] LABS: Allen Test Not Performed; Puncture Site Right Femoral
--- NOTE | 2024-10-03 06:00 | XR_ITS ---
Examination: AP chest single view TECHNIQUE: AP portable semiupright chest single view Exam date: October 03, 2024 0616 hours Comparison October 01, 2024 INDICATIONS: Diabetic ketoacidosis alcohol intoxication hypoxic respiratory right postintubation FINDINGS: Reduced inspiratory effort Opacities at the lung bases suspicious for pneumonia, consider aspiration pneumonia Orogastric tube tip in the stomach satisfactory position Endotracheal tube tip 4.6 cm above jacqui Impression: Poor inspiratory effort chest x-ray Suspicious for pneumonia at the lung bases, consider aspiration pneumonia Endotracheal tube tip 4.6 cm above jacqui
[2024-10-03] MEDS: PHENOBARBITAL ELIX 20 MG/5 ML 130 MG NG ×3 (06:05→21:43)
[2024-10-03] MEDS: HEPARIN SOD INJ 5000 UNIT/ML VIAL SC ×3 (06:06→21:43)
[2024-10-03] MEDS: THIAMINE INJ 500 MG in SODIUM CHLORIDE 0.9% 100 ML 205 MG IV ×3 (06:06→21:56)
[2024-10-03 06:09] LABS: Lactate (Lactic Acid) 1.3 mMol/L (0.4-2.0)
[2024-10-03 06:10] LABS: Base Excess, Venous -6 (-3-3); O2 Saturation, Venous 83 % (96-97); PCO2, Venous 38 mmHg (36-56); PO2, Venous 45 mmHg (15-58); pH, Venous 7.33 (7.33-7.66)
[2024-10-03 06:14] LABS: Beta Hydroxybutyrate 0.2 mmol/L (<0.6)
[2024-10-03 06:16] LABS: Basophils # (Auto) 0.1 Thou/mm3 (0.0-0.2); Basophils % (Auto) 1 % (0-2.5); Eosinophils # (Auto) 0.2 Thou/mm3 (0.0-0.5); Eosinophils % (Auto) 3 % (0-10); Hemoglobin 10.2 g/dL (13.5-16.0); Immature Granulocytes % (Auto) 1 % (0-0); Immature Granulocytes Auto 0.08 Thou/mm3 (0.00-0.00); Lymphocytes # (Auto) 0.5 Thou/mm3 (1.0-4.8); Lymphocytes % (Auto) 5 % (10-50); Mean Corpuscular HGB Conc 35.2 g/dl (31.0-37.0); Mean Corpuscular Volume 88 fL (80-100); Monocytes # (Auto) 1.1 Thou/mm3 (0.0-0.8); Monocytes % (Auto) 12 % (0-12); Neutrophils # (Auto) 7.1 Thou/mm3 (1.8-7.7); Neutrophils % (Auto) 78 % (37-80); Nucleated Red Blood Cell % 0 /100 WBC (0); Platelet Count 91 Thou/mm3 (140-440); RDW Standard Deviation 45.3 fL (35.1-43.9); Red Blood Count 3.29 Miln/mm3 (4.50-5.90); White Blood Count 9.1 Thou/mm3 (3.8-10.6)
[2024-10-03] MEDS: fentaNYL 2,500 MCG/250 ML BAG 2,500 MCG/250 ML BAG 30 MCG IV (06:39)
[2024-10-03 06:47] LABS: Alanine Aminotransferase 29 U/L (10-49); Albumin, Serum 3.1 gm/dL (3.5-5.0); Albumin/Globulin Ratio 1.3 (1.2-2.2); Alkaline Phosphatase 69 U/L (46-116); Anion Gap 11 (7-16); Aspartate Amino Transferase 28 U/L (0-34); BUN/Creatinine Ratio 17 Ratio (12-20); Bilirubin,Total 0.6 mg/dL (0.3-1.2); Blood Urea Nitrogen 76 mg/dL (9-23); Calcium 7.4 mg/dL (8.3-10.6); Calcium (Corrected) 8.1 mg/dL (8.5-10.1); Carbon Dioxide 19.2 mMol/L (20.0-31.0); Chloride 114 mMol/L (98-107); Creatinine (Component) 4.6 mg/dL (0.6-1.3); Estimated Creatinine Clearance 18.9 mL/min (>60); Globulin 2.3 gm/dL (2.3-3.5); Glucose 310 mg/dL (74-106); Magnesium 1.5 mg/dL (1.6-2.6); Osmolality,Calculated 321 (275-295); Phosphorous 2.2 mg/dL (2.4-5.1); Potassium 3.5 mMol/L (3.4-5.1); Sodium 144 mMol/L (136-145); Total Protein 5.4 gm/dL (5.7-8.2); eGFR 15 See Note
--- NOTE | 2024-10-03 07:38 | ESPR_ITS ---
<Statement entered by Bertrand Huynh MD - 10/04/24 10:49> TOTAL CC TIME: 45 MIN I saw and evaluated the patient. I reviewed the resident?s note and agree with findings and plan as documented in the resident?s note. Upon my evaluation, this patient had a high probability of imminent or life- threatening deterioration due to delirium tremens, acute hypoxic respiratory failure, acute kidney injury with ATN, DKA which required my direct attention, intervention, and personal management. This time is exclusive of time spent on procedures, which are documented separately if performed. Attempts at weaning sedation have resulted in severe agitation. He remains on propofol and we added a Versed drip. I would like to wean off the fentanyl drip if possible. Additional adjustments in the enteral sedation with phenobarbital will be made as needed. Continue enteral nutrition Low lung volumes on chest x-ray difficult to interpret. Initial sputum culture was poor sampling with excess epithelial cells. No fevers. Repeat sputum sample has been ordered. Renal function is improving I agree with Bumex. Placed back on insulin drip due to to improve blood glucose control. Family updated at bedside Documentation for date of: 10/03/24 Subjective Subjective Interval history: Patient is a 43-year-old male with past medical history significant for hypertension, diabetes, alcohol use disorder, and pancreatitis who presented with acute encephalopathy. Patient emergent department was found to be altered with moderate agitation. Required multiple doses of Ativan for potential alcohol withdrawal syndrome. Patient also found to have significant diabetic ketoacidosis with potential underlying infection as precipitant. Notably patient has been drinking heavily for the last 3 to 4 days and was found altered by family who brought him into. He is unable to provide any additional history at this time. Unclear when was last drink. He typically drinks beer. Patient was staying with his parents last few days though family at bedside is unable to corroborate what may have changed. Arcelia? was able to relate that about 1 month ago he did have a seizure after he tried to cut back on alcohol. Patient's course in ED complicated by impending respiratory failure and arrest. Patient had severe bradycardia though he did not lose his pulse. Required 1 mg of atropine and 1 mg of epinephrine with maintenance of circulation but subsequently requiring intubation for airway protection and ventilatory support. Patient started on vasopressor support with Levophed and given 2 amp of bicarb to compensate for metabolic acidosis secondary to DKA. Patient's course further complicated by SVT with initial failed cardioversion. Amiodarone was subsequently given as likely 150 mg bolus with reattempt at cardioversion with 250 J which returned rhythm to sinus tachycardia. Patient without evidence of focal neurologic deficit. Pupillary reflex remains intact. Not sedated after the use of etomidate and rocuronium with follow-up Versed for patient's comfort. Remained stable on fentanyl drip at this point unable to provide any additional history. 10/02/2024: Overnight, patient had fever of 101. He patient was agitated and was started on propofol. This morning, vasopressin discotninued. During SAT and SBT, he was agitated and so was placed back on sedation. Labs show hypophosphatemia so insulin drip was discontinued and phosphate repleted. Oliguric overnight. Patient with metabolic acidosis likely improving from a DKA standpoint but remains acidotic from acute renal injury. ABG shows acidosis is adequately compensated. Overall, patient's mentation not improved from alcohol withdrawal so will keep on ventilator for airway protection. Will increase phenobarbital to 130mg TID with phenobarbital pushes, to not exceed 20-30cc/kg of TBW (1520- 2280mg) 10/03/2024: Overnight patient's insulin drip was DCd and he received 15 additional units of lantus. Patient is maxed out on fentanyl and propofol. There was a concern about patient being very sensitive to Benzos which made him hypoxic due to decreased respiratory drive and subsequently bradycardic and therefore fentanyl was chosen for sedation and phenobarbital was used. We will wean off of fentanyl drip and transition to versed drip as patient seems to be tolerating versed now and he is intubated. Patient's glucose remains in the 300s and his bicarb still bellow 20, we will restart on insulin drip for better metabolic control. Patient's urine output has slowly improved over night to 500cc all night which is better than the previous day. Nephrology was consulted. Patient is edematous. Nephrology will try bumex. Will continue to monitor renal function closely. Will continue phenobarbital and wean off. Exam Vital Signs Temp Pulse Resp BP Pulse Ox O2 Del Method FiO2 98.2 F 110 H 25 H 156/99 H 99 Mechanical Ventilation 50 10/02/24 16:00 10/03/24 06:30 10/01/24 09:50 10/03/24 06:30 10/03/24 06:30 10/02/24 16:00 10/03/24 04:00 Narrative Exam Constitutional: Well nourished, sedated and in no acute distress ENMT: Moist Mucous Membranes, No trauma or injury. Neck: Supple to palpation, No JVD CVS: RRR, S1 and S2 present, no murmurs, rubs or gallops . RESP: CTAB, no SOB, no rales, rhonchi or wheezing. No respiratory Distress GI: Normal BS, Nontender/Nondistended. MSK: Full range of motion, No trauma or deformities or masses. Skin: Warm to touch, Dry. No rashes or lesions. No hematomas. Tattoos noted Neuro: Sedating, good gag reflex, withdraws from noxious stimuli Objective Labs 10/03/24 05:51 10/03/24 08:23 Labs: Laboratory Results - last 24 hr 10/02/24 10/02/24 10/02/24 07:20 12:05 12:05 WBC RBC Hgb Hct MCV MCH MCHC RDW Std Deviation Plt Count Neut % (Auto) Lymph % (Auto) [place] % (Auto) Eos % (Auto) Baso % (Auto) Neut # (Auto) Lymph # (Auto) [place] # (Auto) Eos # (Auto) Baso # (Auto) Immature Gran # (Auto) Absolute Nucleated RBC Immature Gran % Nucleated RBC % Puncture Site ABG pH ABG pCO2 ABG pO2 ABG HCO3 ABG O2 Saturation ABG Base Excess VBG pH 7.21 L VBG pCO2 26 L VBG pO2 176 H VBG O2 Sat (Sunita) 100 H VBG Base Excess -16 L FiO2 Sodium 142 141 Potassium 4.1 4.4 Chloride 118 H 117 H Carbon Dioxide 15.4 L 10.2 L* Anion Gap 9 14 BUN 79 H 81 H Creatinine 4.3 H* 4.4 H* Estim Creat Clear Calc 20.2 L 19.7 L eGFR 17 L 16 L BUN/Creatinine Ratio 18 18 Glucose [address] Glu mg/dL 321 H Hemoglobin A1c 12.8 H Calculated Osmolality 311 H 314 H Lactic Acid 1.0 0.9 Calcium 7.1 L 7.2 L Corrected Calcium 7.7 L 7.8 L Phosphorus 0.9 L* 2.2 L Magnesium 1.7 1.8 Total Bilirubin AST ALT Alkaline Phosphatase Total Protein Albumin 3.2 L 3.2 L Globulin Albumin/Globulin Ratio Beta-Hydroxybutyrate/Acetoacetate Free T4 1.33 Cancelled 10/02/24 10/02/24 10/03/24 16:07 21:00 00:40 WBC RBC Hgb Hct MCV MCH MCHC RDW Std Deviation Plt Count Neut % (Auto) Lymph % (Auto) [place] % (Auto) Eos % (Auto) Baso % (Auto) Neut # (Auto) Lymph # (Auto) [place] # (Auto) Eos # (Auto) Baso # (Auto) Immature Gran # (Auto) Absolute Nucleated RBC Immature Gran % Nucleated RBC % Puncture Site ABG pH ABG pCO2 ABG pO2 ABG HCO3 ABG O2 Saturation ABG Base Excess VBG pH 7.30 L 7.33 VBG pCO2 33 L 31 L VBG pO2 74 H D 65 H VBG O2 Sat (Sunita) 97 95 L VBG Base Excess -9 L -9 L FiO2 Sodium 142 145 143 Potassium 4.1 4.1 4.1 Chloride 118 H 117 H 115 H Carbon Dioxide 12.3 L* 16.7 L 17.7 L Anion Gap 12 11 10 BUN 74 H 84 H 84 H Creatinine 4.4 H* 4.6 H* 4.6 H* Estim Creat Clear Calc 19.7 L 18.9 L 18.9 L eGFR 16 L 15 L 15 L BUN/Creatinine Ratio 17 18 18 Glucose 275 H 215 H D [address] Glu mg/dL Hemoglobin A1c Calculated Osmolality 315 H 320 H 321 H Lactic Acid 1.3 1.4 1.4 Calcium 7.2 L 7.1 L 7.2 L Corrected Calcium 7.9 L 8.0 L 8.1 L Phosphorus 2.4 2.6 2.7 Magnesium 1.7 1.6 1.6 Total Bilirubin AST ALT Alkaline Phosphatase Total Protein Albumin 3.1 L 2.9 L 2.9 L Globulin Albumin/Globulin Ratio Beta-Hydroxybutyrate/Acetoacetate Free T4 10/03/24 10/03/24 04:59 05:51 WBC 9.1 D RBC 3.29 L Hgb 10.2 L D Hct 29.0 L MCV 88 MCH 31.0 MCHC 35.2 RDW Std Deviation 45.3 H Plt Count 91 L D Neut % (Auto) 78 Lymph % (Auto) 5 L [place] % (Auto) 12 Eos % (Auto) 3 Baso % (Auto) 1 Neut # (Auto) 7.1 Lymph # (Auto) 0.5 L [place] # (Auto) 1.1 H Eos # (Auto) 0.2 Baso # (Auto) 0.1 Immature Gran # (Auto) 0.08 H Absolute Nucleated RBC 0.00 Immature Gran % 1 H Nucleated RBC % 0 Puncture Site Right Femoral ABG pH 7.42 D ABG pCO2 34 ABG pO2 141 H ABG HCO3 22 ABG O2 Saturation 100 H ABG Base Excess -2 VBG pH 7.33 VBG pCO2 38 VBG pO2 45 D VBG O2 Sat (Sunita) 83 L D VBG Base Excess -6 L FiO2 50 Sodium 144 Potassium 3.5 D Chloride 114 H Carbon Dioxide 19.2 L Anion Gap 11 BUN 76 H Creatinine 4.6 H* Estim Creat Clear Calc 18.9 L eGFR 15 L BUN/Creatinine Ratio 17 [address]ucose [address] Glu mg/dL Hemoglobin A1c Calculated Osmolality 321 H Lactic Acid 1.3 Calcium 7.4 L Corrected Calcium 8.1 L Phosphorus 2.2 L Magnesium 1.5 L Total Bilirubin 0.6 AST 28 ALT 29 Alkaline Phosphatase 69 D Total Protein 5.4 L Albumin 3.1 L Globulin 2.3 Albumin/Globulin Ratio 1.3 Beta-Hydroxybutyrate/Acetoacetate 0.2 Free T4 ABG Interpretation ABG results: 10/01/24 10/02/24 10/02/24 11:00 05:24 12:05 ABG pH 7.05 L* 7.32 L D ABG pCO2 46 29 L D ABG pO2 70 L 129 H D ABG HCO3 13 L 15 L ABG O2 Saturation 93 100 H ABG Base Excess -17 L -10 L VBG pH 7.21 L VBG pCO2 26 L VBG pO2 176 H VBG Base Excess -16 L 10/02/24 10/03/24 10/03/24 21:00 00:40 04:59 ABG pH 7.42 D ABG pCO2 34 ABG pO2 141 H ABG HCO3 22 ABG O2 Saturation 100 H ABG Base Excess -2 VBG pH 7.30 L 7.33 VBG pCO2 33 L 31 L VBG pO2 74 H D 65 H VBG Base Excess -9 L -9 L 10/03/24 05:51 ABG pH ABG pCO2 ABG pO2 ABG HCO3 ABG O2 Saturation ABG Base Excess VBG pH 7.33 VBG pCO2 38 VBG pO2 45 D VBG Base Excess -6 L Quality Measures Quality Measures none Assessment & Plan Assessment Current Active Medications: Generic Name Dose Route Start Last Admin Trade Name Freq PRN Reason Stop Dose Admin Acetaminophen 650 mg 10/01/24 21:35 10/02/24 01:47 Acetaminophen 325 Mg Tablet PO 10/31/24 21:34 650 mg Q6HR PRN Administration FEVER >101 Dextrose 25 ml 10/01/24 11:02 Dextrose 50%-Water Inj 50 Ml Syringe IV [id number] PRN Blood Sugar - Low Dextrose 25 ml 10/03/24 00:59 Dextrose 50%-Water Inj 50 Ml Syringe IV 11/02/24 00:58 Q15MIN PRN BG 50-70 responsive npo pt Dextrose 50 ml 10/03/24 00:59 Dextrose 50%-Water Inj 50 Ml Syringe IV 11/02/24 00:58 Q15MIN PRN BG <50 OR BG <70 & pt unresponsive Folic Acid 1 mg 10/01/24 15:00 10/02/24 09:09 Folic Acid 1 Mg Tablet NG 10/31/24 14:44 1 mg QDAY BREE Administration Glucagon 1 mg 10/03/24 00:59 Glucagon Inj 1 Mg Vial IM Q15MIN PRN BG <70, and no IV access Heparin Sodium (Porcine) 5,000 unit 10/01/24 15:00 10/03/24 06:06 Heparin Sod Inj 5000 Unit/Ml Vial SC 10/15/24 14:59 5,000 unit Q8HR BREE Administration Insulin Human Regular 100 unit in 100 mls @ 6.89 mls/hr 10/01/24 07:40 10/02/24 19:28 Myxredlin IV 10/31/24 07:39 0 unit/kg/hr .[id number] PRN 0 mls/hr PER PROTOCOL Titration Protocol 0.1 UNIT/KG/HR Azithromycin 500 mg/ Sodium 250 mls @ 250 mls/hr 10/02/24 09:00 10/02/24 10:45 Chloride IV 10/09/24 08:59 Infused QDAY BREE Infusion Norepinephrine/Dextrose 8 mg in 250 mls @ 6.459 mls/hr 10/01/24 09:52 10/02/24 01:45 Levophed In D5w 8mg/250ml IV 10/31/24 09:51 0 mcg/kg/min .Q24H PRN 0 mls/hr PER PROTOCOL Titration Protocol 0.05 MCG/KG/MIN Potassium Chloride 10 meq in 100 mls @ 100 mls/hr 10/01/24 11:02 Kcl Ivpb IV 10/31/24 11:01 .Q1H PRN IF POTASSIUM LESS THAN 3.3 Magnesium Sulfate 2 gm in 50 mls @ 25 mls/hr 10/01/24 11:02 Magnesium Sulfate Ivpb IV 10/31/24 11:01 .Q2H PRN PER DKA PROTOCOL Dextrose/Lactated Ringer's 1,000 mls @ 250 mls/hr 10/01/24 11:02 D5-Lr IV 10/31/24 11:01 .Q4H PRN PER PROTOCOL Potassium Chloride 20 meq/ 1,010 mls @ 250 mls/hr 10/01/24 11:02 10/02/24 18:12 Lactated Ringer's IV 10/31/24 11:01 Infused .Q4H3M PRN Infusion K LEVEL 3.3 TO 5.3mM/L Potassium Chloride 40 meq/ 1,020 mls @ 250 mls/hr 10/01/24 11:02 Lactated Ringer's IV 10/31/24 11:01 .Q4H5M PRN K LEVEL < 3.3 mM/L Potassium Chloride 40 meq/ 1,020 mls @ 250 mls/hr 10/01/24 11:02 Dextrose/Lactated Ringer's IV 10/31/24 11:01 .Q4H5M PRN K LEVEL < 3.3mM/L Potassium Cl/Dextrose/Lact Ringer's 20 meq in 1,000 mls @ 250 mls/hr 10/01/24 11:02 10/02/24 19:28 Kcl 20 Meq/L In D5-Lr IV 10/31/24 11:01 0 mls/hr .Q4H PRN Infusion K LEVEL 3.3 TO 5.3 mM/L Potassium Chloride 10 meq in 100 mls @ 50 mls/hr 10/01/24 11:02 Kcl Ivpb IV 10/31/24 11:01 PRN PRN K LEVEL 3.3 to 5.3 & BG > 200 Potassium Phosphate 15 mmol in 250 mls @ 62.5 mls/hr 10/01/24 11:02 Pot Phos 15 Mmol In Ns 250 Ml IV 10/31/24 11:01 PRN PRN Phosphate <= 1mg/dL Sodium Phosphate 15 mmol/ 255 mls @ 62.5 mls/hr 10/01/24 11:02 Sodium Chloride IV 10/31/24 11:01 .Q4H5M PRN Phosphate <= 1mg/dL and K> than 5.3 Vasopressin/Sodium Chloride 20 unit in 100 mls @ 9 mls/hr 10/01/24 11:03 10/02/24 07:48 Vasostrict/Ns Ivpb IV 10/31/24 11:02 Infused .Q11H7M PRN Titration PER PROTOCOL Protocol 0.03 UNIT/MIN Fentanyl Citrate 2,500 mcg in 250 mls @ 2.5 mls/hr 10/01/24 11:25 10/03/24 06:39 Sublimaze Inj 2,500 Mcg/250 Ml Bag IV 10/06/24 11:24 300 mcg/hr .Q24H PRN 30 mls/hr PER PROTOCOL Administration Protocol 25 MCG/HR Thiamine HCl 500 mg/ Sodium 105 mls @ 205 mls/hr 10/01/24 14:45 10/03/24 06:06 Chloride IV 10/31/24 14:44 205 mls/hr Q8HR BREE Administration Ceftriaxone Sodium/Dextrose 1 gm in 50 mls @ 100 mls/hr 10/02/24 09:00 10/02/24 11:00 Rocephin/D5w 1gm Iv Premix IV 10/09/24 08:59 Infused QDAY BREE Infusion Propofol 1,000 mg in 100 mls @ 2.067 mls/hr 10/02/24 00:10 10/03/24 06:15 Diprivan Ivpb IV 11/01/24 00:09 35 mcg/kg/min .Q24H PRN 14.469 mls/hr PER PROTOCOL Titration Protocol 5 MCG/KG/MIN Sodium Bicarbonate 88.23 meq/ 588.23 mls @ 100 mls/hr 10/02/24 13:11 10/03/24 01:38 Dextrose IV 11/01/24 13:10 100 mls/hr .Q5H53M BREE Administration Calcium Gluconate/Sodium Chloride 1,000 mg in 50 mls @ 50 mls/hr 10/03/24 07:00 Calcium Gluc/Ns 1000mg Ivpb IV 10/03/24 07:59 X1 ONE Insulin Glargine 40 unit 10/03/24 07:36 Insulin Glargine (Lantus) 5 Unit/0.05 Ml (Per 5 Units) SC 10/03/24 07:37 X1 ONE Insulin Human Lispro 0 unit 10/03/24 01:00 10/03/24 06:13 Insulin Lispro (Admelog) 1 Unit/0.01 Ml Unit SC 11/02/24 00:59 5 unit Q6HR BREE Administration Protocol Pantoprazole Sodium 40 mg 10/01/24 15:00 10/02/24 09:08 Pantoprazole Inj 40 Mg Vial IVP 10/31/24 14:59 40 mg QDAY BREE Administration Pharmacy Consult 1 each 10/01/24 09:00 Pharmacy Renal Dose Adjustment 1 Ea XX 10/31/24 08:59 QDAY PRN CONSULT Phenobarbital 130 mg 10/02/24 14:00 10/03/24 06:05 Phenobarbital Elix 20 Mg/5 Ml Udc NG 10/16/24 13:59 130 mg TID BREE Administration Sodium Bicarbonate 50 ml 10/01/24 11:02 Sodium Bicarb Inj 8.4% Syr 50 Ml Syringe IV 10/31/24 11:01 PRN PRN For ph <= to 7.0 Plan 43 year old male with PMH of DM2, alcohol use disorder, admitted to the ICU for DKA, acute hypoxic respiratory failure and alcohol withdrawal. 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 Treatment Plan: phenobarbital 130 TID today with phenobarbital pushes for breakthrough withdrawal symptoms. On thiamine, folate. Sedated for ventilator synchrony. Treatment Review: SAT in AM and plan to phenobarbital tomorrow. If still encephalopathic and with elevated uremia from VEL, may consider starting temporary dialysis CVS Problem: distributive/septic shock - improved DDx: distributive due to phenobarbital, Diagnostic Test: IVC ultrasound, arterial line Treatment Plan: Discontinue vasopressin. Continue antibiotics. Treatment Review: Patient was aggressively fluid resuscitated. If continues to be hypotensive, will check IVF ultrasound if fluid responsive or if patient requires levophed. Problem: sinus bradycardia, SVT, resolved DDx: sinus bradycardia due to hypoventilation and SVT after levophed with epinephrine Diagnostic Test: Treatment Plan: Treatment Review: Patient was cardioverted and started on amiodarone, SVT resolved. Amiodarone was discontinued. PULM Problem: Acute hypoxic respiratory failure DDx: respiratory arrest from metabolic acidosis, Bibasilar pneumonia Diagnostic Test: ABG, SBT Treatment Plan: Continue ventilator for airway protection, will wean off of ventilator Treatment Review: Patient appropriately compensating for metabolic acidosis. Daily SBT with SAT. Once mentation improves, anticipate extubation. RENAL VEL ATN due to shock Patient's baseline creatinine is 1.0 and his climbed up to 4.6 with BUN of 80 Urine output has improved somewhat Nephrology consulted, added Bumex 2mg IVP x1. Will continue to follow renal panel and urine output Problem: Metabolic acidosis, electrolyte imbalances DDx: Anion gap from DKA, improving and from decreased renal clearance due to VEL, ATN Diagnostic Test: hourly urine output, renal panel, elevated BHB, Treatment Plan: Continue IVF. Replete phosphate, electrolytes. Check renal panel Q4H Treatment Review: urine output has somewhat improved but remains insignificant. Nephrology on board GI On PPI. Start Glucerna for tube feeds. ENDO Problem: DKA, DM 2 Diagnostic Test: blood glucose, A1c 12.8, BHB Treatment Plan: Restarted insulin drip. Check blood sugar Q1H. Start tube feeds. Treatment Review: Anion gap closed twice, however l glucose remains in the 300s, will continue drip until better glycemic control. If patient continues to be hyperglycemic, will increase insulin. HEME Problem: Leukocytosis DDx: stress from withdrawal, infection Diagnostic Test: Treatment Plan: continue antibiotics (see ID) Treatment Review: ID Problem: Septic shock due to UTI DDx: Diagnostic Test: blood, urine culture Treatment Plan: Continue empiric antibiotics ceftriaxone, azithromycin Treatment Review: Prelim blood culture negative x 2 hours. Narrow antibiotics when cultures return Health Maintenance Diet and fluids: Glucerna DVT prophylaxis: heparin GI prophylaxis: PPI Lines: OG, ET, Rodriguez, PIV, right femoral and arterial line CODE STATUS: FULL I discussed patient's care with attending physician, Dr Lino Bennett PGY3
[2024-10-03 08:38] LABS: Lactate (Lactic Acid) 1.4 mMol/L (0.4-2.0)
[2024-10-03 08:39] LABS: Base Excess, Venous -5 (-3-3); O2 Saturation, Venous 100 % (96-97); PCO2, Venous 26 mmHg (36-56); PO2, Venous 129 mmHg (15-58); pH, Venous 7.45 (7.33-7.66)
[2024-10-03 09:02] LABS: Albumin, Serum 3.1 gm/dL (3.5-5.0); Anion Gap 11 (7-16); BUN/Creatinine Ratio 18 Ratio (12-20); Blood Urea Nitrogen 80 mg/dL (9-23); Calcium 7.3 mg/dL (8.3-10.6); Carbon Dioxide 18.5 mMol/L (20.0-31.0); Chloride 115 mMol/L (98-107); Creatinine (Component) 4.4 mg/dL (0.6-1.3); Glucose 315 mg/dL (74-106); Magnesium 1.5 mg/dL (1.6-2.6); Osmolality,Calculated 322 (275-295); Potassium 3.3 mMol/L (3.4-5.1); Sodium 144 mMol/L (136-145); eGFR 16 See Note
[2024-10-03] MEDS: cefTRIAXone/D5w 1gm IV premix 1 GM/50 ML BAG IV (09:13)
[2024-10-03] MEDS: FOLIC ACID 1 MG TABLET NG (09:14)
[2024-10-03] MEDS: PANTOPRAZOLE INJ 40 MG VIAL IVP (09:14)
[2024-10-03] MEDS: CALCIUM GLUC/NS 1000MG IVPB 1,000 MG/50 ML BAG 50 MG IV (09:14)
[2024-10-03 09:27] LABS: Cardiac Risk Estimate 10.4 RATIO (4.0-6.7); Cholesterol 145 mg/dL (132-200); HDL Cholesterol 14 mg/dL (40-60); LDL Cholesterol,Calculated 62 mg/dL (0-130); Triglycerides 344 mg/dL (30-150)
[2024-10-03] MEDS: AZITHROMYCIN INJ 500 MG in SODIUM CHLORIDE 0.9% 250 ML 250 ML 250 MG IV (09:27)
[2024-10-03] MEDS: MIDAZOLAM INJ 1 MG/ML VIAL 2 ML 2 MG IV ×2 (10:59→12:34)
[2024-10-03] MEDS: INSULIN REG 100 UNITS/100 ML 100 UNIT/100 ML BAG 6.89 UNIT IV (11:11)
[2024-10-03] MEDS: POT CHL ADDITIVE 20 MEQ in RINGERS LACTATED 1000 ML 1,000 ML 250 MEQ IV (11:57)
[2024-10-03 12:12] LABS: Base Excess, Venous -5 (-3-3); O2 Saturation, Venous 100 % (96-97); PCO2, Venous 29 mmHg (36-56); PO2, Venous 156 mmHg (15-58); pH, Venous 7.41 (7.33-7.66)
--- NOTE | 2024-10-03 12:31 | ESCONSULT_ITS ---
HPI Data of Consult Consult date: 10/03/24 Requesting Physician: Miguel Ángel Arroyo MD Admitting Provider: Miguel Ángel Arroyo MD Attending Provider: Miguel Ángel Arroyo MD Primary Care Provider: Physician No Primary/Family Consult Narrative Reason for consult: Acute renal failure History of present illness: Mr. Lorenzo is a 43-year-old male with past medical history significant for hypertension, diabetes, alcohol use disorder, and pancreatitis who presented with acute encephalopathy. Patient in the emergency department was found to be altered with moderate agitation. Required multiple doses of Ativan for potential alcohol withdrawal syndrome. Patient also found to have significant diabetic ketoacidosis with potential underlying infection as precipitant. Notably patient has been drinking heavily for the last 3 to 4 days and was found altered by family who brought him in. He is unable to provide any additional history at this time. Unclear when was last drink. Patient was staying with his parents last few days though family at bedside is unable to corroborate what may have changed. Margarita? was able to relate that about 1 month ago he did have a seizure after he tried to cut back on alcohol. Patient's course in ED complicated by impending respiratory failure and arrest. Patient had severe bradycardia though he did not lose his pulse. Required 1 mg of atropine and 1 mg of epinephrine with maintenance of circulation but subsequently requiring intubation for airway protection and ventilatory support. Patient started on vasopressor support with Levophed and given 2 amp of bicarb to compensate for metabolic acidosis secondary to DKA. Patient's course further complicated by SVT with initial failed cardioversion. Amiodarone was subsequently given as likely 150 mg bolus with reattempt at cardioversion with 250 J which returned rhythm to sinus tachycardia. Patient without evidence of focal neurologic deficit. Pupillary reflex remains intact. Not sedated after the use of etomidate and rocuronium with follow-up Versed for patient's comfort. Remained stable on fentanyl drip at this point unable to provide any additional history. Overnight, patient had fever of 101. He patient was agitated and was started on propofol. Vasopressin discontinued. During SAT and SBT, he was agitated and so was placed back on sedation. Labs show hypophosphatemia so insulin drip was discontinued and phosphate repleted. Oliguric overnight. Patient with metabolic acidosis likely improving from a DKA standpoint but remains acidotic from acute renal injury. ABG shows acidosis is adequately compensated. Overall, patient's mentation not improved from alcohol withdrawal so will keep on ventilator for airway protection. Phenobarbital increased to 130mg TID with phenobarbital pushes, to not exceed 20-30cc/kg of TBW (1520-2280mg) Nephrology consulted due to acute renal failure with renal function significantly decreased from baseline. Patient seen and examined at bedside, remains intubated, on fentanyl and propofol drips. Patient able to withdraw from pain. Appears fluid overloaded, has had poor urinary output, significant IVF in setting of DKA. Not planning on dialysis at this time, will give Bumex x 1 and continue to monitor urine output. May need dialysis if kidneys do not show improvement. WBC 9.1, hemoglobin 10.2. Sodium 145, potassium 3.1, chloride 116, bicarb 19. BUN 78, creatinine 44, EGFR 16, far above baseline. Only 500 cc urinary output despite significant IVF. Will give Bumex, measure urine sodium, continue to monitor. cc:: cc: Miguel Ángel Arroyo MD Review of Systems Review of Systems ROS Unobtainable: unobtainable due to medical condition and due to endotracheal tube Exam Vital Signs Temp Pulse Resp BP Pulse Ox O2 Del Method FiO2 99.3 F 95 25 H 112/80 98 Mechanical Ventilation 40 10/03/24 08:00 10/03/24 08:30 10/01/24 09:50 10/03/24 08:30 10/03/24 08:30 10/03/24 08:00 10/03/24 08:00 Narrative Exam PE: Gen: Well-developed and well-nourished. Intubated and sedated. HEENT: NCAT, PERRLA, EOMI, MMM, anicteric conjunctivae. Mild conjunctival edema. CVS: normal S1 and S2. RRR. No M/R/G. Resp: CTA B/L. No rhonchi, rales, crackles or wheezing. Abd: soft, non-tender, non-distended. MSK: Good ROM in BUE & BLE. No rash. 1+ pitting edema in bilateral hands and feet. Neuro: Intubated and sedated, withdraws from pain. Results Labs 10/03/24 05:51 10/03/24 17:37 Labs: Short CBC 10/03/24 Range/Units 05:51 WBC 9.1 D (3.8-10.6) Thou/mm3 Hgb 10.2 L D (13.5-16.0) g/dL Hct 29.0 L (41.0-53.0) % Plt Count 91 L D (140-440) Thou/mm3 BMP 10/02/24 10/02/24 10/02/24 12:05 16:07 21:00 Sodium 141 142 145 Potassium 4.4 4.1 4.1 Chloride 117 H 118 H 117 H Carbon Dioxide 10.2 L* 12.3 L* 16.7 L BUN 81 H 74 H 84 H Creatinine 4.4 H* 4.4 H* 4.6 H* Glucose 268 H D 275 H 215 H D Calcium 7.2 L 7.2 L 7.1 L 10/03/24 10/03/24 10/03/24 00:40 05:51 08:23 Sodium 143 144 144 Potassium 4.1 3.5 D 3.3 L Chloride 115 H 114 H 115 H Carbon Dioxide 17.7 L 19.2 L 18.5 L BUN 84 H 76 H 80 H Creatinine 4.6 H* 4.6 H* 4.4 H* Glucose 293 H D 310 H 315 H Calcium 7.2 L 7.4 L 7.3 L Liver Function 10/02/24 10/02/24 10/02/24 Range/Units 12:05 16:07 21:00 Total Bilirubin (0.3-1.2) mg/dL AST (0-34) U/L ALT (10-49) U/L Alkaline Phosphatase (46-116) U/L Albumin 3.2 L 3.1 L 2.9 L (3.5-5.0) gm/dL 10/03/24 10/03/24 10/03/24 Range/Units 00:40 05:51 08:23 Total Bilirubin 0.6 (0.3-1.2) mg/dL AST 28 (0-34) U/L ALT 29 (10-49) U/L Alkaline Phosphatase 69 D (46-116) U/L Albumin 2.9 L 3.1 L 3.1 L (3.5-5.0) gm/dL ABG Interpretation ABG results: 10/01/24 10/02/24 10/02/24 11:00 05:24 12:05 ABG pH 7.05 L* 7.32 L D ABG pCO2 46 29 L D ABG pO2 70 L 129 H D ABG HCO3 13 L 15 L ABG O2 Saturation 93 100 H ABG Base Excess -17 L -10 L VBG pH 7.21 L VBG pCO2 26 L VBG pO2 176 H VBG Base Excess -16 L 10/02/24 10/03/24 10/03/24 21:00 00:40 04:59 ABG pH 7.42 D ABG pCO2 34 ABG pO2 141 H ABG HCO3 22 ABG O2 Saturation 100 H ABG Base Excess -2 VBG pH 7.30 L 7.33 VBG pCO2 33 L 31 L VBG pO2 74 H D 65 H VBG Base Excess -9 L -9 L 10/03/24 10/03/24 10/03/24 05:51 08:23 11:50 ABG pH ABG pCO2 ABG pO2 ABG HCO3 ABG O2 Saturation ABG Base Excess VBG pH 7.33 7.45 7.41 VBG pCO2 38 26 L D 29 L VBG pO2 45 D 129 H D 156 H D VBG Base Excess -6 L -5 L -5 L Quality Measures Quality Measures none Medications Home Medications and Allergies Home Medications ?Medication ?Instructions ?Recorded ?Confirmed ?Type amlodipine 10 mg tablet 10 mg PO QDAY 01/15/2401/14 History lisinopril 20 mg tablet 20 mg PO DAILY 01/15/2412/25 History ondansetron 8 mg disintegrating 8 mg PO Q12H PRN Nause a 01/15/24 01/15/24 History tablet tadalafil 5 mg tablet 5 mg PO DAILY 01/15/2401/14 History Held on 01/16/24. Instructions: hold until follow up with pcp Allergies Allergy/AdvReac Type Severity Reaction Status Date / Time No Known Allergies Allergy Verified 10/01/24 05:21 Visit Medications Acetaminophen (Acetaminophen 325 Mg Tablet) 650 mg PO Q6HR PRN PRN Reason: FEVER >101 Stop: 10/31/24 21:34 Last Admin: 10/02/24 01:47 Dose: 650 mg Dextrose (Dextrose 50%-Water Inj 50 Ml Syringe) 25 ml IV [id number] PRN PRN Reason: Blood Sugar - Low Folic Acid (Folic Acid 1 Mg Tablet) 1 mg NG QDAY [facility] Stop: 10/31/24 14:44 Last Admin: 10/03/24 09:14 Dose: 1 mg Heparin Sodium (Porcine) (Heparin Sod Inj 5000 Unit/Ml Vial) 5,000 unit SC Q8HR [facility] Stop: 10/15/24 14:59 Last Admin: 10/03/24 06:06 Dose: 5,000 unit Insulin Human Regular (Myxredlin) 100 unit in 100 mls @ 6.89 mls/hr IV .[id number] PRN; Protocol PRN Reason: PER PROTOCOL Stop: 10/31/24 07:39 Last Titration: 10/03/24 12:00 Dose: 0.1 unit/kg/hr, 6.89 mls/hr Azithromycin 500 mg/ Sodium (Chloride) 250 mls @ 250 mls/hr IV QDAY [facility] Stop: 10/09/24 08:59 Last Admin: 10/03/24 09:27 Dose: 250 mls/hr Norepinephrine/Dextrose (Levophed In D5w 8mg/250ml) 8 mg in 250 mls @ 6.459 mls/hr IV .Q24H PRN; Protocol PRN Reason: PER PROTOCOL Stop: 10/31/24 09:51 Last Titration: 10/02/24 01:45 Dose: 0 mcg/kg/min, 0 mls/hr Potassium Chloride (Kcl Ivpb) 10 meq in 100 mls @ 100 mls/hr IV .Q1H PRN PRN Reason: IF POTASSIUM LESS THAN 3.3 Stop: 10/31/24 11:01 Magnesium Sulfate (Magnesium Sulfate Ivpb) 2 gm in 50 mls @ 25 mls/hr IV .Q2H PRN PRN Reason: PER DKA PROTOCOL Stop: 10/31/24 11:01 Dextrose/Lactated Ringer's (D5-Lr) 1,000 mls @ 250 mls/hr IV .Q4H PRN PRN Reason: PER PROTOCOL Stop: 10/31/24 11:01 Potassium Chloride 20 meq/ (Lactated Ringer's) 1,010 mls @ 250 mls/hr IV .Q4H3M PRN PRN Reason: K LEVEL 3.3 TO 5.3mM/L Stop: 10/31/24 11:01 Last Admin: 10/03/24 11:57 Dose: 250 mls/hr Potassium Chloride 40 meq/ (Lactated Ringer's) 1,020 mls @ 250 mls/hr IV .Q4H5M PRN PRN Reason: K LEVEL < 3.3 mM/L Stop: 10/31/24 11:01 Potassium Chloride 40 meq/ (Dextrose/Lactated Ringer's) 1,020 mls @ 250 mls/hr IV .Q4H5M PRN PRN Reason: K LEVEL < 3.3mM/L Stop: 10/31/24 11:01 Potassium Cl/Dextrose/Lact Ringer's (Kcl 20 Meq/L In D5-Lr) 20 meq in 1,000 mls @ 250 mls/hr IV .Q4H PRN PRN Reason: K LEVEL 3.3 TO 5.3 mM/L Stop: 10/31/24 11:01 Last Infusion: 10/02/24 19:28 Dose: 0 mls/hr Potassium Chloride (Kcl Ivpb) 10 meq in 100 mls @ 50 mls/hr IV PRN PRN PRN Reason: K LEVEL 3.3 to 5.3 & BG > 200 Stop: 10/31/24 11:01 Potassium Phosphate (Pot Phos 15 Mmol In Ns 250 Ml) 15 mmol in 250 mls @ 62.5 mls/hr IV PRN PRN PRN Reason: Phosphate <= 1mg/dL Stop: 10/31/24 11:01 Sodium Phosphate 15 mmol/ (Sodium Chloride) 255 mls @ 62.5 mls/hr IV .Q4H5M PRN PRN Reason: Phosphate <= 1mg/dL and K> than 5.3 Stop: 10/31/24 11:01 Vasopressin/Sodium Chloride (Vasostrict/Ns Ivpb) 20 unit in 100 mls @ 9 mls/hr IV .Q11H7M PRN; Protocol PRN Reason: PER PROTOCOL Stop: 10/31/24 11:02 Last Titration: 10/02/24 07:48 Dose: Infused Fentanyl Citrate (Sublimaze Inj 2,500 Mcg/250 Ml Bag) 2,500 mcg in 250 mls @ 2.5 mls/hr IV .Q24H PRN; Protocol PRN Reason: PER PROTOCOL Stop: 10/06/24 11:24 Last Admin: 10/03/24 06:39 Dose: 300 mcg/hr, 30 mls/hr Thiamine HCl 500 mg/ Sodium (Chloride) 105 mls @ 205 mls/hr IV Q8HR [facility] Stop: 10/31/24 14:44 Last Admin: 10/03/24 06:06 Dose: 205 mls/hr Ceftriaxone Sodium/Dextrose (Rocephin/D5w 1gm Iv Premix) 1 gm in 50 mls @ 100 mls/hr IV QDAY [facility] Stop: 10/09/24 08:59 Last Admin: 10/03/24 09:13 Dose: 100 mls/hr Propofol (Diprivan Ivpb) 1,000 mg in 100 mls @ 2.067 mls/hr IV .Q24H PRN; Protocol PRN Reason: PER PROTOCOL Stop: 11/01/24 00:09 Last Titration: 10/03/24 06:15 Dose: 35 mcg/kg/min, 14.469 mls/hr Midazolam HCl (Versed Pf Inj In Ns Premix) 100 mg in 100 mls @ 1 mls/hr IV .Q24H PRN; Protocol PRN Reason: PER PROTOCOL Stop: 10/08/24 11:27 Pantoprazole Sodium (Pantoprazole Inj 40 Mg Vial) 40 mg IVP QDAY [facility] Stop: 10/31/24 14:59 Last Admin: 10/03/24 09:14 Dose: 40 mg Pharmacy Consult (Pharmacy Renal Dose Adjustment 1 Ea) 1 each XX QDAY PRN PRN Reason: CONSULT Stop: 10/31/24 08:59 Phenobarbital (Phenobarbital Elix 20 Mg/5 Ml Udc) 130 mg NG TID [facility] Stop: 10/16/24 13:59 Last Admin: 10/03/24 06:05 Dose: 130 mg Discontinued Medications Atropine Sulfate (Atropine Sulf Inj 0.1 Mg/Ml Syr 10 Ml) 1 mg IV X1 ONE Stop: 10/01/24 09:59 Last Admin: 10/01/24 09:58 Dose: 1 mg Bumetanide (Bumetanide Inj 0.25 Mg/Ml Vial 4 Ml) 2 mg IVP NOW ONE Stop: 10/03/24 11:16 Dextrose (Dextrose 50%-Water Inj 50 Ml Syringe) 25 ml IV Q15MIN PRN PRN Reason: BG 50-70 responsive npo pt Stop: 11/02/24 00:58 Dextrose (Dextrose 50%-Water Inj 50 Ml Syringe) 50 ml IV Q15MIN PRN PRN Reason: BG <50 OR BG <70 & pt unresponsive Stop: 11/02/24 00:58 Epinephrine HCl (Epinephrine Inj 0.1 Mg/Ml Syringe 10ml) 1 mg IV X1 ONE Stop: 10/01/24 09:59 Last Admin: 10/01/24 09:58 Dose: 1 mg Etomidate (Etomidate Inj 2 Mg/Ml Vial 10 Ml) 20 mg IVP X1 ONE Stop: 10/01/24 10:01 Last Admin: 10/01/24 10:05 Dose: 20 mg Fentanyl Citrate (Fentanyl Cit Inj 50 Mcg/Ml Amp 2ml) 50 mcg IVP X1 ONE Stop: 10/01/24 10:19 Last Admin: 10/01/24 10:20 Dose: 50 mcg Folic Acid (Folic Acid 1 Mg Tablet) 1 mg PO QDAY [facility] Stop: 10/31/24 14:44 Glucagon (Glucagon Inj 1 Mg Vial) 1 mg IM Q15MIN PRN PRN Reason: BG <70, and no IV access Sodium Chloride (Ns) 1,000 mls @ 999 mls/hr IV .Q1H1M ONE Stop: 10/01/24 06:16 Last Infusion: 10/01/24 08:14 Dose: Infused Sodium Chloride (Ns) 1,000 mls @ 999 mls/hr IV .Q1H1M ONE Stop: 10/01/24 06:33 Last Infusion: 10/01/24 08:14 Dose: Infused Ceftriaxone Sodium 2 gm/ (Sodium Chloride) 50 mls @ 100 mls/hr IV X1 ONE Stop: 10/01/24 08:14 Last Infusion: 10/01/24 08:35 Dose: Infused Ceftriaxone Sodium/Dextrose (Rocephin/D5w 2gm) 2 gm in 50 mls @ 100 mls/hr IV QDAY [facility] Stop: 10/08/24 07:35 Azithromycin 500 mg/ Sodium (Chloride) 250 mls @ 250 mls/hr IV X1 ONE Stop: 10/01/24 08:59 Last Infusion: 10/01/24 09:26 Dose: Infused Lactated Ringer's (Lactated Ringers) 1,000 mls @ 999 mls/hr IV .Q1H1M ONE Stop: 10/01/24 09:17 Last Infusion: 10/01/24 10:00 Dose: Infused Lactated Ringer's (Lactated Ringers) 1,000 mls @ 999 mls/hr IV .Q1H1M ONE Stop: 10/01/24 10:22 Last Infusion: 10/01/24 10:00 Dose: Infused Amiodarone HCl/Dextrose (Nexterone Ivpb) 150 mg in 100 mls @ 600 mls/hr IV .Q10M ONE Stop: 10/01/24 11:10 Last Infusion: 10/01/24 12:13 Dose: Infused Amiodarone HCl/Dextrose (Nexterone Ivpb) 360 mg in 200 mls @ 33.333 mls/hr IV .Q6H ONE Stop: 10/01/24 17:10 Last Infusion: 10/02/24 08:00 Dose: Infused Amiodarone HCl/Dextrose (Nexterone Ivpb) 360 mg in 200 mls @ 16.667 mls/hr IV .Q12H [facility] Stop: 10/02/24 17:10 Insulin Human Regular 100 unit (/ IV Miscellaneous Supplies) 100 mls @ 6.89 mls/hr IV .[id number] PRN; Protocol PRN Reason: PER PROTOCOL Stop: 10/31/24 11:01 Lactated Ringer's (Lactated Ringers) 1,000 mls @ 250 mls/hr IV .Q4H PRN PRN Reason: PER PROTOCOL Stop: 10/02/24 11:01 Amiodarone HCl 150 mg/ (Dextrose) 103 mls @ 600 mls/hr IV X1 ONE Stop: 10/01/24 10:58 Last Admin: 10/01/24 11:22 Dose: Not Given Potassium Phosphate 15 mmol/ (Sodium Chloride) 250 mls @ 62.5 mls/hr IV X1 ONE Stop: 10/01/24 20:13 Potassium Phosphate (Pot Phos 15 Mmol In Ns 250 Ml) 15 mmol in 250 mls @ 62.5 mls/hr IV X1 ONE Stop: 10/01/24 20:14 Last Infusion: 10/02/24 18:34 Dose: Infused Sodium Phosphate 30 mmol/ (Sodium Chloride) 510 mls @ 62.5 mls/hr IV X1 ONE Stop: 10/02/24 16:43 Last Admin: 10/02/24 09:08 Dose: 62.5 mls/hr Sodium Bicarbonate 88.23 meq/ (Dextrose) 588.23 mls @ 100 mls/hr IV .Q5H53M [facility] Stop: 11/01/24 13:10 Last Admin: 10/03/24 09:07 Dose: Not Given Calcium Gluconate/Sodium Chloride (Calcium Gluc/Ns 1000mg Ivpb) 1,000 mg in 50 mls @ 50 mls/hr IV X1 ONE Stop: 10/02/24 14:11 Last Infusion: 10/02/24 18:34 Dose: Infused Calcium Gluconate/Sodium Chloride (Calcium Gluc/Ns 1000mg Ivpb) 1,000 mg in 50 mls @ 50 mls/hr IV X1 ONE Stop: 10/02/24 18:28 Last Infusion: 10/02/24 19:28 Dose: Infused Calcium Gluconate/Sodium Chloride (Calcium Gluc/Ns 1000mg Ivpb) 1,000 mg in 50 mls @ 50 mls/hr IV X1 ONE Stop: 10/03/24 07:59 Last Admin: 10/03/24 09:14 Dose: 50 mls/hr Insulin Glargine (Insulin Glargine (Lantus) 5 Unit/0.05 Ml (Per 5 Units)) 15 unit SC X1 ONE Stop: 10/02/24 08:53 Last Admin: 10/02/24 09:28 Dose: 15 unit Insulin Glargine (Insulin Glargine (Lantus) 5 Unit/0.05 Ml (Per 5 Units)) 15 unit SC X1 ONE Stop: 10/02/24 17:51 Last Admin: 10/02/24 18:25 Dose: 15 unit Insulin Glargine (Insulin Glargine (Lantus) 5 Unit/0.05 Ml (Per 5 Units)) 40 unit SC X1 ONE Stop: 10/03/24 07:37 Insulin Human Lispro (Insulin Lispro (Admelog) 1 Unit/0.01 Ml Unit) 0 unit SC Q6HR [facility]; Protocol Stop: 11/02/24 00:59 Last Admin: 10/03/24 06:13 Dose: 5 unit Insulin Human Regular (Insulin Hum Regular 1 Unit/0.01 Ml (Per Unit)) 10 unit IV X1 ONE Stop: 10/01/24 07:40 Last Admin: 10/01/24 08:14 Dose: 10 unit Insulin Human Regular (Insulin Hum Regular 1 Unit/0.01 Ml (Per Unit)) 5 unit IV X1 ONE Stop: 10/02/24 08:34 Last Admin: 10/02/24 08:52 Dose: 5 unit Insulin Human Regular (Insulin Hum Regular 1 Unit/0.01 Ml (Per Unit)) 0 unit SC Q6HR [facility]; Protocol Stop: 11/01/24 11:59 Last Admin: 10/02/24 12:25 Dose: 2 unit Lorazepam (Lorazepam 2 Mg/Ml Vial) 1 mg IVP X1 ONE Stop: 10/01/24 05:49 Last Admin: 10/01/24 08:06 Dose: 1 mg Midazolam HCl (Midazolam Inj 1 Mg/Ml Vial 2 Ml) 5 mg IVP X1 ONE Stop: 10/01/24 10:01 Last Admin: 10/01/24 10:10 Dose: 5 mg Midazolam HCl (Midazolam Inj 1 Mg/Ml Vial 2 Ml) 2 mg IV X1 ONE Stop: 10/03/24 10:06 Last Admin: 10/03/24 10:59 Dose: 2 mg Phenobarbital (Phenobarbital Elix 20 Mg/5 Ml Udc) 65 mg NG TID [facility] Stop: 10/15/24 21:59 Last Admin: 10/02/24 05:20 Dose: 65 mg Phenobarbital Sodium (Phenobarbital Inj 130 Mg/1 Ml Vial) 130 mg IVP X1 ONE Stop: 10/01/24 15:01 Last Admin: 10/01/24 15:02 Dose: 130 mg Phenobarbital Sodium (Phenobarbital Inj 130 Mg/1 Ml Vial) 130 mg IVP X1 ONE Stop: 10/02/24 08:33 Last Admin: 10/02/24 08:39 Dose: 130 mg Phenobarbital Sodium (Phenobarbital Inj 130 Mg/1 Ml Vial) 65 mg IV X1 ONE Stop: 10/02/24 09:39 Last Admin: 10/02/24 09:45 Dose: 65 mg Potassium Chloride (Potassium Chloride 10% 20 Meq/15 Ml Udc) 40 meq GT X1 ONE Stop: 10/01/24 16:15 Last Admin: 10/01/24 16:20 Dose: 40 meq Rocuronium [place] (Rocuronium Inj 10 Mg/Ml Vial 10 Ml) 70 mg IV X1 ONE Stop: 10/01/24 10:02 Last Admin: 10/01/24 10:05 Dose: 70 mg Sodium Bicarbonate (Sodium Bicarb Inj 8.4% Syr 50 Ml Syringe) 50 ml IV X1 ONE Stop: 10/01/24 09:47 Last Admin: 10/01/24 09:47 Dose: 50 ml Sodium Bicarbonate (Sodium Bicarb Inj 8.4% Syr 50 Ml Syringe) 50 ml IV X1 ONE Stop: 10/01/24 09:49 Last Admin: 10/01/24 09:48 Dose: 50 ml Sodium Bicarbonate (Sodium Bicarb Inj 8.4% Syr 50 Ml Syringe) 50 ml IV PRN PRN PRN Reason: For ph <= to 7.0 Stop: 10/31/24 11:01 Sodium Chloride (Sodium Chloride Rt 10% 15 Ml Nebu) 5 ml INH X1 ONE Stop: 10/01/24 10:48 Last Admin: 10/01/24 14:50 Dose: Not Given Sodium Chloride (Sodium Chloride Rt 10% 15 Ml Nebu) 5 ml INH X1 ONE Stop: 10/03/24 09:09 Assessment & Plan Plan 43 year old male with PMH of DM2, alcohol use disorder, admitted to the ICU for DKA, acute hypoxic respiratory failure and alcohol withdrawal. #VEL Suspect ATN due to shock. Patient is show to be placed on pressors, was able to be weaned off. Patient's baseline creatinine is 1.0 and his climbed up to 4.6 with BUN of 80. Patient received significant IVF in the setting of DKA as managed by primary team. Urine output has improved somewhat, 500 cc urinary output overnight. - Bumex 2mg IVP x1 - Strict I's and O's - Avoid nephrotoxins - Renally dose meds - Monitor daily renal function - Urine sodium ordered, follow-up #Metabolic acidosis, electrolyte imbalances Anion gap from DKA, improving, and from decreased renal clearance due to VEL/ATN. Electrolyte imbalances including hypokalemia, hypophosphatemia, hypomagnesemia. Improving with treatment. - Treatment of DKA by protocol has per primary team - Treatment of VEL/ATN as above - Monitor and replete electrolytes as needed #Acute encephalopathy #Distributive/septic shock - improved #Sinus bradycardia, SVT, resolved #Acute hypoxic respiratory failure #DKA, DM 2 #Septic shock due to UTI Management as per primary team. Diet and fluids: Glucerna DVT prophylaxis: heparin GI prophylaxis: PPI Lines: OG, ET, Rodriguez, PIV, right femoral and arterial line CODE STATUS: FULL Thank you for allowing us to participate in the care of this patient. Plan of care discussed with attending Dr. Rodriguez. Armani Leary MD PGY?1 Attending Provider Attestation/Addendum Patient currently seen and examined with resident physician Dr. Leary. Note reviewed, agree with findings and recommendations. Patient currently seen in ICU. On the ventilator. Admitted with DKA. Positive by 14 L. Clinically looks rather hypervolemic. Urine output trending down. Will give 1 dose of Bumex today and monitor his renal function. Patient seems to be in ATN. No need for urgent dialysis today. Plan of care discussed with margarita ortez? at bedside Care discussed with ICU team. Thank you Dr. Huynh for allowing me to participate in the care of Mr. Lorenzo
[2024-10-03 12:34] LABS: Anion Gap 10 (7-16); BUN/Creatinine Ratio 18 Ratio (12-20); Blood Urea Nitrogen 78 mg/dL (9-23); Calcium 7.6 mg/dL (8.3-10.6); Calcium (Corrected) 8.4 mg/dL (8.5-10.1); Chloride 116 mMol/L (98-107); Creatinine (Component) 4.4 mg/dL (0.6-1.3); Glucose 241 mg/dL (74-106); Magnesium 1.5 mg/dL (1.6-2.6); Osmolality,Calculated 320 (275-295); Phosphorous 2.1 mg/dL (2.4-5.1); Potassium 3.1 mMol/L (3.4-5.1); Sodium 145 mMol/L (136-145); eGFR 16 See Note
[2024-10-03] MEDS: MIDAZOLAM/NS 100 MG IVPB 100 MG/100 ML BAG IV (12:34)
[2024-10-03] MEDS: BUMETANIDE INJ 0.25 MG/ML VIAL 4 ML 2 MG IVP (12:46)
[2024-10-03] MEDS: POT CHL ADDITIVE 40 MEQ in DEXTROSE 5%-LACTATED RINGERS 1,000 ML 250 MEQ IV ×2 (13:27→18:30)
[2024-10-03] MEDS: POTASSIUM CHL 10 mEq IVPB 10 MEQ/100 ML BAG 100 MEQ IV (13:34)
[2024-10-03 17:57] LABS: Base Excess, Venous -4 (-3-3); O2 Saturation, Venous 100 % (96-97); PCO2, Venous 30 mmHg (36-56); PO2, Venous 154 mmHg (15-58); pH, Venous 7.43 (7.33-7.66)
--- NOTE | 2024-10-03 18:31 | PC.NURSE ---
labs taken at 1800, per plaoma in pharmacy, cont. with 40meq fluid, do not run 10meq k tiesha, per dr. farooq this is okay
[2024-10-03 19:12] LABS: Albumin, Serum 3.1 gm/dL (3.5-5.0); Anion Gap 10 (7-16); BUN/Creatinine Ratio 17 Ratio (12-20); Blood Urea Nitrogen 75 mg/dL (9-23); Calcium 7.8 mg/dL (8.3-10.6); Calcium (Corrected) 8.5 mg/dL (8.5-10.1); Carbon Dioxide 18.9 mMol/L (20.0-31.0); Chloride 118 mMol/L (98-107); Creatinine (Component) 4.3 mg/dL (0.6-1.3); Estimated Creatinine Clearance 22.5 mL/min (>60); Glucose 188 mg/dL (74-106); Magnesium 1.4 mg/dL (1.6-2.6); Osmolality,Calculated 319 (275-295); Phosphorous 2.1 mg/dL (2.4-5.1); Potassium 3.4 mMol/L (3.4-5.1); Sodium 147 mMol/L (136-145); eGFR 17 See Note
[2024-10-03] MEDS: Magnesium Sulfate 2 GM Ivpb 2 GM/50 ML BAG IV (19:58)
[2024-10-03 21:46] LABS: Albumin, Serum 3.1 gm/dL (3.5-5.0); Anion Gap 10 (7-16); BUN/Creatinine Ratio 17 Ratio (12-20); Blood Urea Nitrogen 71 mg/dL (9-23); Calcium 7.9 mg/dL (8.3-10.6); Calcium (Corrected) 8.6 mg/dL (8.5-10.1); Carbon Dioxide 20.3 mMol/L (20.0-31.0); Chloride 119 mMol/L (98-107); Creatinine (Component) 4.1 mg/dL (0.6-1.3); Estimated Creatinine Clearance 23.6 mL/min (>60); Glucose 182 mg/dL (74-106); Magnesium 1.8 mg/dL (1.6-2.6); Osmolality,Calculated 321 (275-295); Phosphorous 1.8 mg/dL (2.4-5.1); Potassium 3.3 mMol/L (3.4-5.1); Sodium 149 mMol/L (136-145); eGFR 18 See Note
[2024-10-03] MEDS: KCL 20 mEq/L in D5-LR 20 MEQ/1,000 ML BAG 250 MEQ IV (22:45)
[2024-10-04] VITALS (35 sets, daily range): BP systolic 98–183; BP diastolic 56–108; PULSE 86–106; RESP 24–48; TEMP 36.8–37.7; O2SAT 93–98; BMI 27.7
[2024-10-04] MEDS: PROPOFOL 1,000 MG IVPB 1,000 MG/100 ML VIAL 12.402 MG IV ×2 (01:00→07:53)
[2024-10-04 01:58] LABS: Anion Gap 9 (7-16); BUN/Creatinine Ratio 18 Ratio (12-20); Blood Urea Nitrogen 69 mg/dL (9-23); Calcium (Corrected) 8.8 mg/dL (8.5-10.1); Carbon Dioxide 20.9 mMol/L (20.0-31.0); Chloride 119 mMol/L (98-107); Creatinine (Component) 3.9 mg/dL (0.6-1.3); Estimated Creatinine Clearance 24.8 mL/min (>60); Glucose 211 mg/dL (74-106); Magnesium 1.6 mg/dL (1.6-2.6); Osmolality,Calculated 322 (275-295); Phosphorous 1.8 mg/dL (2.4-5.1); Potassium 3.2 mMol/L (3.4-5.1); Sodium 149 mMol/L (136-145); eGFR 19 See Note
[2024-10-04] MEDS: Magnesium Sulfate 2 GM Ivpb 2 GM/50 ML BAG IV (02:12)
[2024-10-04] MEDS: POTASSIUM CHL 10 mEq IVPB 10 MEQ/100 ML BAG 100 MEQ IV ×2 (02:18→07:18)
[2024-10-04] MEDS: KCL 20 mEq/L in D5-LR 20 MEQ/1,000 ML BAG 250 MEQ IV (03:18)
[2024-10-04] MEDS: POT CHL ADDITIVE 20 MEQ in RINGERS LACTATED 1000 ML 1,000 ML 250 MEQ IV (05:00)
[2024-10-04] MEDS: THIAMINE INJ 500 MG in SODIUM CHLORIDE 0.9% 100 ML 205 MG IV ×3 (05:34→22:08)
[2024-10-04] MEDS: HEPARIN SOD INJ 5000 UNIT/ML VIAL SC ×3 (05:34→22:09)
[2024-10-04] MEDS: PHENOBARBITAL ELIX 20 MG/5 ML 130 MG NG (05:42)
[2024-10-04] MEDS: POTASSIUM CHLORIDE 10% 20 MEQ/15 ML UDC 40 MEQ GT (06:25)
[2024-10-04] MEDS: MIDAZOLAM/NS 100 MG IVPB 100 MG/100 ML BAG IV (06:29)
--- NOTE | 2024-10-04 06:45 | XR_ITS ---
Examination: AP chest single view Technique one AP portable semiupright chest single view Date and time: October 04, 2024 0721 hours Comparison October 03, 2024 INDICATIONS: Acute hypoxic respiratory failure this week post intubation, pneumonia left base on earlier chest imaging FINDINGS: Pneumonia left base with air bronchograms Mild prominence left ventricle Endotracheal tube tip 3.9 cm above Sanna Orogastric tube in the stomach satisfactory position Mild elevation right hemidiaphragm Moderate vascular congestion IMPRESSION: Pneumonia left base Moderate vascular congestion
[2024-10-04 06:54] LABS: Basophils % (Auto) 0 % (0-2.5); Eosinophils # (Auto) 0.3 Thou/mm3 (0.0-0.5); Eosinophils % (Auto) 3 % (0-10); Hematocrit 26.3 % (41.0-53.0); Hemoglobin 9.6 g/dL (13.5-16.0); Immature Granulocytes % (Auto) 1 % (0-0); Immature Granulocytes Auto 0.13 Thou/mm3 (0.00-0.00); Lymphocytes # (Auto) 0.7 Thou/mm3 (1.0-4.8); Lymphocytes % (Auto) 6 % (10-50); Mean Corpuscular HGB Conc 36.5 g/dl (31.0-37.0); Mean Corpuscular Hemoglobin 30.9 pg (25.0-35.0); Mean Corpuscular Volume 85 fL (80-100); Monocytes # (Auto) 1.2 Thou/mm3 (0.0-0.8); Monocytes % (Auto) 11 % (0-12); Neutrophils # (Auto) 8.5 Thou/mm3 (1.8-7.7); Neutrophils % (Auto) 78 % (37-80); Nucleated Red Blood Cell % 0 /100 WBC (0); Platelet Count 106 Thou/mm3 (140-440); RDW Standard Deviation 43.9 fL (35.1-43.9); Red Blood Count 3.11 Miln/mm3 (4.50-5.90); White Blood Count 10.9 Thou/mm3 (3.8-10.6)
[2024-10-04 07:00] LABS: Alanine Aminotransferase 24 U/L (10-49); Albumin/Globulin Ratio 1.4 (1.2-2.2); Alkaline Phosphatase 86 U/L (46-116); Anion Gap 10 (7-16); Aspartate Amino Transferase 22 U/L (0-34); BUN/Creatinine Ratio 17 Ratio (12-20); Bilirubin,Total 0.5 mg/dL (0.3-1.2); Blood Urea Nitrogen 64 mg/dL (9-23); Calcium 8.1 mg/dL (8.3-10.6); Calcium (Corrected) 8.9 mg/dL (8.5-10.1); Carbon Dioxide 20.3 mMol/L (20.0-31.0); Chloride 120 mMol/L (98-107); Creatinine (Component) 3.7 mg/dL (0.6-1.3); Estimated Creatinine Clearance 25.6 mL/min (>60); Globulin 2.2 gm/dL (2.3-3.5); Glucose 206 mg/dL (74-106); Osmolality,Calculated 322 (275-295); Phosphorous 1.6 mg/dL (2.4-5.1); Potassium 3.1 mMol/L (3.4-5.1); Sodium 150 mMol/L (136-145); Total Protein 5.2 gm/dL (5.7-8.2); eGFR 20 See Note
[2024-10-04] MEDS: INSULIN GLARGINE (Lantus) 5 UNIT/0.05 ML (PER 5 UNITS) 43 UNIT SC (07:37)
[2024-10-04] MEDS: BUMETANIDE INJ 0.25 MG/ML VIAL 4 ML 2 MG IVP (07:53)
[2024-10-04 07:54] LABS: Base Excess, Venous -3 (-3-3); O2 Saturation, Venous 91 % (96-97); PCO2, Venous 35 mmHg (36-56); PO2, Venous 56 mmHg (15-58)
[2024-10-04] MEDS: PANTOPRAZOLE INJ 40 MG VIAL IVP ×2 (08:46→22:00)
[2024-10-04] MEDS: FOLIC ACID 1 MG TABLET NG (08:46)
[2024-10-04] MEDS: cefTRIAXone/D5w 1gm IV premix 1 GM/50 ML BAG IV (08:46)
[2024-10-04] MEDS: PHENOBARBITAL ELIX 20 MG/5 ML 130 MG PO (08:46)
[2024-10-04] MEDS: KCL 20 mEq/L in D5-LR 20 MEQ/1,000 ML BAG 100 MEQ IV (09:06)
[2024-10-04 09:11] LABS: Albumin, Serum 3.4 gm/dL (3.5-5.0); Anion Gap 9 (7-16); BUN/Creatinine Ratio 16 Ratio (12-20); Blood Urea Nitrogen 58 mg/dL (9-23); Calcium (Corrected) 9.5 mg/dL (8.5-10.1); Carbon Dioxide 21.4 mMol/L (20.0-31.0); Chloride 117 mMol/L (98-107); Creatinine (Component) 3.6 mg/dL (0.6-1.3); Estimated Creatinine Clearance 26.3 mL/min (>60); Glucose 205 mg/dL (74-106); Magnesium 2.1 mg/dL (1.6-2.6); Osmolality,Calculated 314 (275-295); Phosphorous 1.8 mg/dL (2.4-5.1); Potassium 3.7 mMol/L (3.4-5.1); Sodium 147 mMol/L (136-145); eGFR 21 See Note
--- NOTE | 2024-10-04 09:13 | ESPR_ITS ---
<Statement entered by Bertrand Huynh MD - 10/05/24 07:57> TOTAL CC TIME: 45 MIN I saw and evaluated the patient. I reviewed the resident?s note and agree with findings and plan as documented in the resident?s note. Upon my evaluation, this patient had a high probability of imminent or life- threatening deterioration due to severe DTs which required my direct attention, intervention, and personal management. This time is exclusive of time spent on procedures, which are documented separately if performed. Remains severely encephalopathic with sedation withdrawal. We increased phenobarbital and Versed. Wean off fentanyl. Continue attempts at weaning sedation at least daily. Not able to extubate or placed on pressure support ventilation due to sedation needs at this time. Follow-up repeat sputum culture. Continue full supportive care. Remove central line arterial line and Mejias. Bladder scan with straight cath as needed Documentation for date of: 10/04/24 Subjective Subjective Interval history: Patient is a 43-year-old male with past medical history significant for hypertension, diabetes, alcohol use disorder, and pancreatitis who presented with acute encephalopathy. Patient emergent department was found to be altered with moderate agitation. Required multiple doses of Ativan for potential alcohol withdrawal syndrome. Patient also found to have significant diabetic ketoacidosis with potential underlying infection as precipitant. Notably patient has been drinking heavily for the last 3 to 4 days and was found altered by family who brought him into. He is unable to provide any additional history at this time. Unclear when was last drink. He typically drinks beer. Patient was staying with his parents last few days though family at bedside is unable to corroborate what may have changed. Arcelia? was able to relate that about 1 month ago he did have a seizure after he tried to cut back on alcohol. Patient's course in ED complicated by impending respiratory failure and arrest. Patient had severe bradycardia though he did not lose his pulse. Required 1 mg of atropine and 1 mg of epinephrine with maintenance of circulation but subsequently requiring intubation for airway protection and ventilatory support. Patient started on vasopressor support with Levophed and given 2 amp of bicarb to compensate for metabolic acidosis secondary to DKA. Patient's course further complicated by SVT with initial failed cardioversion. Amiodarone was subsequently given as likely 150 mg bolus with reattempt at cardioversion with 250 J which returned rhythm to sinus tachycardia. Patient without evidence of focal neurologic deficit. Pupillary reflex remains intact. Not sedated after the use of etomidate and rocuronium with follow-up Versed for patient's comfort. Remained stable on fentanyl drip at this point unable to provide any additional history. 10/02/2024: Overnight, patient had fever of 101. He patient was agitated and was started on propofol. This morning, vasopressin discotninued. During SAT and SBT, he was agitated and so was placed back on sedation. Labs show hypophosphatemia so insulin drip was discontinued and phosphate repleted. Oliguric overnight. Patient with metabolic acidosis likely improving from a DKA standpoint but remains acidotic from acute renal injury. ABG shows acidosis is adequately compensated. Overall, patient's mentation not improved from alcohol withdrawal so will keep on ventilator for airway protection. Will increase phenobarbital to 130mg TID with phenobarbital pushes, to not exceed 20-30cc/kg of TBW (1520- 2280mg) 10/03/2024: Overnight patient's insulin drip was DCd and he received 15 additional units of lantus. Patient is maxed out on fentanyl and propofol. There was a concern about patient being very sensitive to Benzos which made him hypoxic due to decreased respiratory drive and subsequently bradycardic and therefore fentanyl was chosen for sedation and phenobarbital was used. We will wean off of fentanyl drip and transition to versed drip as patient seems to be tolerating versed now and he is intubated. Patient's glucose remains in the 300s and his bicarb still bellow 20, we will restart on insulin drip for better metabolic control. Patient's urine output has slowly improved over night to 500cc all night which is better than the previous day. Nephrology was consulted. Patient is edematous. Nephrology will try bumex. Will continue to monitor renal function closely. Will continue phenobarbital and wean off. 10/04/2024: Patient was seen and examined in the ICU today. There were no major overnight events and patient had a better glycemic control overnight on the drip. We discontinued the insulin drip and gave lantus 43 units bolus and started sliding scale insulin. Will start short acting boluses at 10 TID. Patient failed SAT trial as we attempted to decrease propofol and patient begun waking up but unable to follow commands and he was tachycardic and tachypneic. Will increase versed infusion rate and increase phenobarbital to 260 TID and re evaluate tomorrow. Patient's unrine output has been great overnight with 300- 400cc/hr and nephrology added an additional 2mg bumax today. Createnine is tredning down to 3.6 today and patient will likely not need dialysis at this time. Patient had a dark stool today that was positive for fecal occult blood. His hemoglobin has dropped however it is likely dilutional as he has gotten over 10 litters of fluids. Will continue to monitor hemoglobin now that we have D/C de insulin drip and fluids and transitioned to tube feeds and free water flushes. Exam Vital Signs Temp Pulse Resp BP Pulse Ox O2 Del Method FiO2 99.1 F 106 H 25 H 170/92 H 96 Mechanical Ventilation 30 10/04/24 04:00 10/04/24 07:53 10/01/24 09:50 10/04/24 07:53 10/04/24 06:07 10/03/24 16:00 10/04/24 07:06 Narrative Exam Constitutional: Well nourished, sedated and in no acute distress ENMT: Moist Mucous Membranes, No trauma or injury. Neck: Supple to palpation, No JVD CVS: RRR, S1 and S2 present, no murmurs, rubs or gallops . RESP: CTAB, no SOB, no rales, rhonchi or wheezing. No respiratory Distress GI: Normal BS, Nontender/Nondistended. MSK: Full range of motion, No trauma or deformities or masses. Skin: Warm to touch, Dry. No rashes or lesions. No hematomas. Tattoos noted Neuro: Sedating, good gag reflex, withdraws from noxious stimuli Objective Labs 10/04/24 04:36 10/04/24 08:36 Labs: Laboratory Results - last 24 hr 10/03/24 10/03/24 10/03/24 08:23 11:50 13:52 WBC RBC Hgb Hct MCV MCH MCHC RDW Std Deviation Plt Count Neut % (Auto) Lymph % (Auto) Towns % (Auto) Eos % (Auto) Baso % (Auto) Neut # (Auto) Lymph # (Auto) Towns # (Auto) Eos # (Auto) Baso # (Auto) Immature Gran # (Auto) Absolute Nucleated RBC Immature Gran % Nucleated RBC % VBG pH 7.41 VBG pCO2 29 L VBG pO2 156 H D VBG O2 Sat (Sunita) 100 H VBG Base Excess -5 L Sodium 145 Potassium 3.1 L Chloride 116 H Carbon Dioxide 19.0 L Anion Gap 10 BUN 78 H Creatinine 4.4 H* Estim Creat Clear Calc 22.0 L eGFR 16 L BUN/Creatinine Ratio 18 Glucose 241 H D Calculated Osmolality 320 H Calcium 7.6 L Corrected Calcium 8.4 L Phosphorus 2.1 L Magnesium 1.5 L Total Bilirubin AST ALT Alkaline Phosphatase Total Protein Albumin 3.0 L Globulin Albumin/Globulin Ratio Triglycerides 344 H Cholesterol 145 LDL Cholesterol, Calc 62 HDL Cholesterol 14 L Cholesterol/HDL Ratio 10.4 H Ur Random Sodium 123.0 H 10/03/24 10/03/24 10/04/24 17:37 21:04 01:23 WBC RBC Hgb Hct MCV MCH MCHC RDW Std Deviation Plt Count Neut % (Auto) Lymph % (Auto) Towns % (Auto) Eos % (Auto) Baso % (Auto) Neut # (Auto) Lymph # (Auto) Towns # (Auto) Eos # (Auto) Baso # (Auto) Immature Gran # (Auto) Absolute Nucleated RBC Immature Gran % Nucleated RBC % VBG pH 7.43 VBG pCO2 30 L VBG pO2 154 H VBG O2 Sat (Sunita) 100 H VBG Base Excess -4 L Sodium 147 H 149 H 149 H Potassium 3.4 3.3 L 3.2 L Chloride 118 H 119 H 119 H Carbon Dioxide 18.9 L 20.3 20.9 Anion Gap 10 10 9 BUN 75 H 71 H 69 H Creatinine 4.3 H* 4.1 H* 3.9 H Estim Creat Clear Calc 22.5 L 23.6 L 24.8 L eGFR 17 L 18 L 19 L BUN/Creatinine Ratio 17 17 18 Glucose 188 H D 182 H 211 H Calculated Osmolality 319 H 321 H 322 H Calcium 7.8 L 7.9 L 8.0 L Corrected Calcium 8.5 8.6 8.8 Phosphorus 2.1 L 1.8 L 1.8 L Magnesium 1.4 L 1.8 1.6 Total Bilirubin AST ALT Alkaline Phosphatase Total Protein Albumin 3.1 L 3.1 L 3.0 L Globulin Albumin/Globulin Ratio Triglycerides Cholesterol LDL Cholesterol, Calc HDL Cholesterol Cholesterol/HDL Ratio Ur Random Sodium 05/12/25 05/12/25 04:36 07:30 WBC 10.9 H RBC 3.11 L Hgb 9.6 L Hct 26.3 L MCV 85 MCH 30.9 MCHC 36.5 RDW Std Deviation 43.9 Plt Count 106 L Neut % (Auto) 78 Lymph % (Auto) 6 L Towns % (Auto) 11 Eos % (Auto) 3 Baso % (Auto) 0 Neut # (Auto) 8.5 H Lymph # (Auto) 0.7 L Towns # (Auto) 1.2 H Eos # (Auto) 0.3 Baso # (Auto) 0.0 Immature Gran # (Auto) 0.13 H Absolute Nucleated RBC 0.00 Immature Gran % 1 H Nucleated RBC % 0 VBG pH 7.40 VBG pCO2 35 L VBG pO2 56 D VBG O2 Sat (Sunita) 91 L VBG Base Excess -3 Sodium 150 H Potassium 3.1 L Chloride 120 H Carbon Dioxide 20.3 Anion Gap 10 BUN 64 H Creatinine 3.7 H Estim Creat Clear Calc 25.6 L eGFR 20 L BUN/Creatinine Ratio 17 Glucose 206 H Calculated Osmolality 322 H Calcium 8.1 L Corrected Calcium 8.9 Phosphorus 1.6 L Magnesium 2.0 Total Bilirubin 0.5 AST 22 ALT 24 Alkaline Phosphatase 86 D Total Protein 5.2 L Albumin 3.0 L Globulin 2.2 L Albumin/Globulin Ratio 1.4 Triglycerides Cholesterol LDL Cholesterol, Calc HDL Cholesterol Cholesterol/HDL Ratio Ur Random Sodium ABG Interpretation ABG results: 10/01/24 10/02/24 10/02/24 11:00 05:24 12:05 ABG pH 7.05 L* 7.32 L D ABG pCO2 46 29 L D ABG pO2 70 L 129 H D ABG HCO3 13 L 15 L ABG O2 Saturation 93 100 H ABG Base Excess -17 L -10 L VBG pH 7.21 L VBG pCO2 26 L VBG pO2 176 H VBG Base Excess -16 L 10/02/24 10/03/24 10/03/24 21:00 00:40 04:59 ABG pH 7.42 D ABG pCO2 34 ABG pO2 141 H ABG HCO3 22 ABG O2 Saturation 100 H ABG Base Excess -2 VBG pH 7.30 L 7.33 VBG pCO2 33 L 31 L VBG pO2 74 H D 65 H VBG Base Excess -9 L -9 L 10/03/24 10/03/24 10/03/24 05:51 08:23 11:50 ABG pH ABG pCO2 ABG pO2 ABG HCO3 ABG O2 Saturation ABG Base Excess VBG pH 7.33 7.45 7.41 VBG pCO2 38 26 L D 29 L VBG pO2 45 D 129 H D 156 H D VBG Base Excess -6 L -5 L -5 L 10/03/24 10/04/24 17:37 07:30 ABG pH ABG pCO2 ABG pO2 ABG HCO3 ABG O2 Saturation ABG Base Excess VBG pH 7.43 7.40 VBG pCO2 30 L 35 L VBG pO2 154 H 56 D VBG Base Excess -4 L -3 Quality Measures Quality Measures none Assessment & Plan Assessment Current Active Medications: Generic Name Dose Route Start Last Admin Trade Name Freq PRN Reason Stop Dose Admin Acetaminophen 650 mg 10/01/24 21:35 10/02/24 01:47 Acetaminophen 325 Mg Tablet PO 10/31/24 21:34 650 mg Q6HR PRN Administration FEVER >101 Dextrose 25 ml 10/01/24 11:02 Dextrose 50%-Water Inj 50 Ml Syringe IV [id number] PRN Blood Sugar - Low Dextrose 25 ml 10/04/24 09:03 Dextrose 50%-Water Inj 50 Ml Syringe IV 11/03/24 09:02 Q15MIN PRN BG 50-70 responsive npo pt Dextrose 50 ml 10/04/24 09:03 Dextrose 50%-Water Inj 50 Ml Syringe IV 11/03/24 09:02 Q15MIN PRN BG <50 OR BG <70 & pt unresponsive Folic Acid 1 mg 10/01/24 15:00 10/04/24 08:46 Folic Acid 1 Mg Tablet NG 10/31/24 14:44 1 mg QDAY BREE Administration Glucagon 1 mg 10/04/24 09:03 Glucagon Inj 1 Mg Vial IM Q15MIN PRN BG <70, and no IV access Heparin Sodium (Porcine) 5,000 unit 10/01/24 15:00 10/04/24 05:34 Heparin Sod Inj 5000 Unit/Ml Vial SC 10/15/24 14:59 5,000 unit Q8HR BREE Administration Insulin Human Regular 100 unit in 100 mls @ 6.89 mls/hr 10/01/24 07:40 10/04/24 08:57 Myxredlin IV 10/31/24 07:39 0 unit/kg/hr .[id number] PRN 0 mls/hr PER PROTOCOL Titration Protocol 0.1 UNIT/KG/HR Norepinephrine/Dextrose 8 mg in 250 mls @ 6.459 mls/hr 10/01/24 09:52 10/02/24 01:45 Levophed In D5w 8mg/250ml IV 10/31/24 09:51 0 mcg/kg/min .Q24H PRN 0 mls/hr PER PROTOCOL Titration Protocol 0.05 MCG/KG/MIN Potassium Chloride 10 meq in 100 mls @ 100 mls/hr 10/01/24 11:02 10/04/24 07:18 Kcl Ivpb IV 10/31/24 11:01 100 mls/hr .Q1H PRN Administration IF POTASSIUM LESS THAN 3.3 Magnesium Sulfate 2 gm in 50 mls @ 25 mls/hr 10/01/24 11:02 10/04/24 02:12 Magnesium Sulfate Ivpb IV 10/31/24 11:01 25 mls/hr .Q2H PRN Administration PER DKA PROTOCOL Potassium Chloride 10 meq in 100 mls @ 50 mls/hr 10/01/24 11:02 Kcl Ivpb IV 10/31/24 11:01 PRN PRN K LEVEL 3.3 to 5.3 & BG > 200 Potassium Phosphate 15 mmol in 250 mls @ 62.5 mls/hr 10/01/24 11:02 Pot Phos 15 Mmol In Ns 250 Ml IV 10/31/24 11:01 PRN PRN Phosphate <= 1mg/dL Sodium Phosphate 15 mmol/ 255 mls @ 62.5 mls/hr 10/01/24 11:02 Sodium Chloride IV 10/31/24 11:01 .Q4H5M PRN Phosphate <= 1mg/dL and K> than 5.3 Vasopressin/Sodium Chloride 20 unit in 100 mls @ 9 mls/hr 10/01/24 11:03 10/02/24 07:48 Vasostrict/Ns Ivpb IV 10/31/24 11:02 Infused .Q11H7M PRN Titration PER PROTOCOL Protocol 0.03 UNIT/MIN Fentanyl Citrate 2,500 mcg in 250 mls @ 2.5 mls/hr 10/01/24 11:25 10/03/24 14:49 Sublimaze Inj 2,500 Mcg/250 Ml Bag IV 10/06/24 11:24 0 mcg/hr .Q24H PRN 0 mls/hr PER PROTOCOL Titration Protocol 25 MCG/HR Thiamine HCl 500 mg/ Sodium 105 mls @ 205 mls/hr 10/01/24 14:45 10/04/24 05:34 Chloride IV 10/31/24 14:44 205 mls/hr Q8HR BREE Administration Ceftriaxone Sodium/Dextrose 1 gm in 50 mls @ 100 mls/hr 10/02/24 09:00 10/04/24 08:46 Rocephin/D5w 1gm Iv Premix IV 10/09/24 08:59 100 mls/hr QDAY BREE Administration Propofol 1,000 mg in 100 mls @ 2.067 mls/hr 10/02/24 00:10 10/04/24 08:00 Diprivan Ivpb IV 11/01/24 00:09 35 mcg/kg/min .Q24H PRN 14.469 mls/hr PER PROTOCOL Titration Protocol 5 MCG/KG/MIN Midazolam HCl 100 mg in 100 mls @ 1 mls/hr 10/03/24 11:28 10/04/24 08:00 Versed Pf Inj In Ns Premix IV 10/08/24 11:27 4 mg/hr .Q24H PRN 4 mls/hr PER PROTOCOL Titration Protocol 1 MG/HR Magnesium Sulfate 4 gm in 50 mls @ 12.5 mls/hr 10/04/24 06:18 10/04/24 07:33 Magnesium Sulfate Ivpb IV 10/04/24 10:17 Not Given X1 ONE Dextrose/Lactated Ringer's 1,000 mls @ 100 mls/hr 10/04/24 08:05 D5-Lr IV 10/31/24 11:01 .Q10H PRN PER PROTOCOL Potassium Chloride 20 meq/ 1,010 mls @ 100 mls/hr 10/04/24 08:05 Lactated Ringer's IV 10/31/24 11:01 .Q10H6M PRN K LEVEL 3.3 TO 5.3mM/L Potassium Chloride 40 meq/ 1,020 mls @ 100 mls/hr 10/04/24 08:05 Lactated Ringer's IV 10/31/24 11:01 .[id number] PRN K LEVEL < 3.3 mM/L Potassium Chloride 40 meq/ 1,020 mls @ 100 mls/hr 10/04/24 08:05 Dextrose/Lactated Ringer's IV 10/31/24 11:01 .[id number] PRN K LEVEL < 3.3mM/L Potassium Cl/Dextrose/Lact Ringer's 20 meq in 1,000 mls @ 100 mls/hr 10/04/24 08:05 10/04/24 09:06 Kcl 20 Meq/L In D5-Lr IV 10/31/24 11:01 100 mls/hr .Q10H PRN Administration K LEVEL 3.3 TO 5.3 mM/L Insulin Glargine 40 unit 10/05/24 09:00 Insulin Glargine (Lantus) 5 Unit/0.05 Ml (Per 5 Units) SC 11/04/24 08:59 QDAY [facility] Insulin Human Lispro 0 unit 10/04/24 12:00 Insulin Lispro (Admelog) 1 Unit/0.01 Ml Unit SC 11/03/24 11:59 Q6HR [facility] Protocol Pantoprazole Sodium 40 mg 10/01/24 15:00 10/04/24 08:46 Pantoprazole Inj 40 Mg Vial IVP 10/31/24 14:59 40 mg QDAY BREE Administration Pharmacy Consult 1 each 10/01/24 09:00 Pharmacy Renal Dose Adjustment 1 Ea XX 10/31/24 08:59 QDAY PRN CONSULT Phenobarbital 259.2 mg 10/04/24 14:00 Phenobarbital 32.4 Mg Tablet NG 10/18/24 13:59 TID BREE Plan 43 year old male with PMH of DM2, alcohol use disorder, admitted to the ICU for DKA, acute hypoxic respiratory failure and alcohol withdrawal. 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 Treatment Plan: Phenobarbital was increased to 260mg via NG TID Patient remains on prop and versed, will increased versed and try to come off of prop On thiamine, folate. Treatment Review: SAT in AM. CVS Problem: distributive/septic shock - resolved DDx: distributive due to phenobarbital, Problem: sinus bradycardia, SVT, resolved DDx: sinus bradycardia due to hypoventilation and SVT after levophed with epinephrine Diagnostic Test: Treatment Plan: Treatment Review: Patient was cardioverted and started on amiodarone, SVT resolved. Amiodarone was discontinued. PULM Problem: Acute hypoxic respiratory failure DDx: respiratory arrest from metabolic acidosis, Bibasilar pneumonia Diagnostic Test: ABG, SBT, Sputum cultures Treatment Plan: Continue ventilator for airway protection, will wean off of ventilator Treatment Review: Patient appropriately compensating for metabolic acidosis. Daily SBT with SAT. Once mentation improves, anticipate extubation. RENAL VEL - improving ATN due to shock Patient's baseline creatinine is 1.0 and his climbed up to 4.6 with BUN of 80 Urine output has improved greatly after bumex yesterday Nephrology consulted, added another Bumex 2mg IVP x1. Will continue to follow renal panel and urine output Problem: Metabolic acidosis - resolved DDx: Anion gap from DKA, improving and from decreased renal clearance due to VEL, ATN GI Melena Likely erosive gastritis vs esophagitis vs UGIB Patient had a BM that was dark today and possitive for FOBT. Hg has dropped but he has been diluted with 10L possitive on PETER PPI 40 IV BID, Will trend Hg daily, Will monitor closely for worsening bleed ENDO Problem: DKA- resolved, Hx of DM 2 Diagnostic Test: blood glucose, A1c 12.8, Treatment Plan: Transitioned to lantus 43 and lispro 10 TID. Will continue sliding scale and adjust as needed HEME Problem: Leukocytosis DDx: stress from withdrawal, infection Diagnostic Test: Treatment Plan: continue antibiotics (see ID) Treatment Review: ID Problem: Septic shock due to UTI DDx: UTI vs PNA Diagnostic Test: blood, urine culture, CXR showed worsening left base pna, however patient is also fluid overloaded, Vent requirements have not increased Treatment Plan: Continue empiric antibiotics ceftriaxone, azithromycin completed, D/Cd mejias, arterial and central line Treatment Review: Prelim blood culture negative x 48 hours. Narrow antibiotics when cultures return Health Maintenance Diet and fluids: Glucerna DVT prophylaxis: heparin GI prophylaxis: PPI 40 IV BID Lines: OG, ET, D/C mejias, D/C arterial and central line CODE STATUS: FULL I discussed patient's care with attending physician, Dr Lino Bennett PGY3
--- NOTE | 2024-10-04 11:48 | PC.LAC ---
Dr Bennett aware of positive occult.
[2024-10-04] MEDS: INSULIN LISPRO (AdmeLOG) 1 UNIT/0.01 ML UNIT 10 UNIT SC ×2 (12:16→22:27)
--- NOTE | 2024-10-04 13:14 | ESPR_ITS ---
Documentation for date of: 10/04/24 Subjective Subjective Interval history: Mr. Lorenzo is a 43-year-old male with past medical history significant for hypertension, diabetes, alcohol use disorder, and pancreatitis who presented with acute encephalopathy. Patient in the emergency department was found to be altered with moderate agitation. Required multiple doses of Ativan for potential alcohol withdrawal syndrome. Patient also found to have significant diabetic ketoacidosis with potential underlying infection as precipitant. Notably patient has been drinking heavily for the last 3 to 4 days and was found altered by family who brought him in. He is unable to provide any additional history at this time. Unclear when was last drink. Patient was staying with his parents last few days though family at bedside is unable to corroborate what may have changed. Margarita? was able to relate that about 1 month ago he did have a seizure after he tried to cut back on alcohol. Patient's course in ED complicated by impending respiratory failure and arrest. Patient had severe bradycardia though he did not lose his pulse. Required 1 mg of atropine and 1 mg of epinephrine with maintenance of circulation but subsequently requiring intubation for airway protection and ventilatory support. Patient started on vasopressor support with Levophed and given 2 amp of bicarb to compensate for metabolic acidosis secondary to DKA. Patient's course further complicated by SVT with initial failed cardioversion. Amiodarone was subsequently given as likely 150 mg bolus with reattempt at cardioversion with 250 J which returned rhythm to sinus tachycardia. Patient without evidence of focal neurologic deficit. Pupillary reflex remains intact. Not sedated after the use of etomidate and rocuronium with follow-up Versed for patient's comfort. Remained stable on fentanyl drip at this point unable to provide any additional history. Overnight, patient had fever of 101. He patient was agitated and was started on propofol. Vasopressin discontinued. During SAT and SBT, he was agitated and so was placed back on sedation. Labs show hypophosphatemia so insulin drip was discontinued and phosphate repleted. Oliguric overnight. Patient with metabolic acidosis likely improving from a DKA standpoint but remains acidotic from acute renal injury. ABG shows acidosis is adequately compensated. Overall, patient's mentation not improved from alcohol withdrawal so will keep on ventilator for airway protection. Phenobarbital increased to 130mg TID with phenobarbital pushes, to not exceed 20-30cc/kg of TBW (1520-2280mg) Nephrology consulted due to acute renal failure with renal function significantly decreased from baseline. Patient seen and examined at bedside, remains intubated, on fentanyl and propofol drips. Patient able to withdraw from pain. Appears fluid overloaded, has had poor urinary output, significant IVF in setting of DKA. Not planning on dialysis at this time, will give Bumex x 1 and continue to monitor urine output. May need dialysis if kidneys do not show improvement. WBC 9.1, hemoglobin 10.2. Sodium 145, potassium 3.1, chloride 116, bicarb 19. BUN 78, creatinine 44, EGFR 16, far above baseline. Only 500 cc urinary output despite significant IVF. Will give Bumex, measure urine sodium, continue to monitor. 10/04/2024: Patient seen and examined at bedside, remains intubated. Able to withdraw from pain. Per ICU team may attempt to extubate today, depending on how patient's progresses. Patient has significant urinary output after 1 dose Bumex yesterday, 7.6 L output. Might significantly fluid positive due to DKA protocol. Sodium 150, potassium 3.1, bicarb 20.3, BUN 64, creatinine 3.7, EGFR 20. Showing improvement with diuretics, will give additional Bumex and continue to monitor. Exam Vital Signs Temp Pulse Resp BP Pulse Ox O2 Del Method FiO2 99.1 F 99 25 H 146/91 H 94 L Mechanical Ventilation 30 10/04/24 08:01 10/04/24 10:20 10/01/24 09:50 10/04/24 10:20 10/04/24 10:20 10/03/24 16:00 10/04/24 11:33 Narrative Exam PE: Gen: Well-developed and well-nourished. Intubated and sedated. HEENT: NCAT, PERRLA, EOMI, MMM, anicteric conjunctivae. Mild conjunctival edema. CVS: normal S1 and S2. RRR. No M/R/G. Resp: CTA B/L. No rhonchi, rales, crackles or wheezing. Abd: soft, non-tender, non-distended. MSK: Good ROM in BUE & BLE. No rash. 1+ pitting edema in bilateral hands and feet. Neuro: Intubated and sedated, withdraws from pain. Objective Labs 10/04/24 04:36 10/04/24 08:36 Labs: Laboratory Results - last 24 hr 10/03/24 10/03/24 10/03/24 13:52 17:37 21:04 WBC RBC Hgb Hct MCV MCH MCHC RDW Std Deviation Plt Count Neut % (Auto) Lymph % (Auto) Dillon % (Auto) Eos % (Auto) Baso % (Auto) Neut # (Auto) Lymph # (Auto) Dillon # (Auto) Eos # (Auto) Baso # (Auto) Immature Gran # (Auto) Absolute Nucleated RBC Immature Gran % Nucleated RBC % VBG pH 7.43 VBG pCO2 30 L VBG pO2 154 H VBG O2 Sat (Sunita) 100 H VBG Base Excess -4 L Sodium 147 H 149 H Potassium 3.4 3.3 L Chloride 118 H 119 H Carbon Dioxide 18.9 L 20.3 Anion Gap 10 10 BUN 75 H 71 H Creatinine 4.3 H* 4.1 H* Estim Creat Clear Calc 22.5 L 23.6 L eGFR 17 L 18 L BUN/Creatinine Ratio 17 17 Glucose 188 H D 182 H Calculated Osmolality 319 H 321 H Calcium 7.8 L 7.9 L Corrected Calcium 8.5 8.6 Phosphorus 2.1 L 1.8 L Magnesium 1.4 L 1.8 Total Bilirubin AST ALT Alkaline Phosphatase Total Protein Albumin 3.1 L 3.1 L Globulin Albumin/Globulin Ratio Ur Random Sodium 123.0 H 10/04/24 10/04/24 10/04/24 01:23 04:36 07:30 WBC 10.9 H RBC 3.11 L Hgb 9.6 L Hct 26.3 L MCV 85 MCH 30.9 MCHC 36.5 RDW Std Deviation 43.9 Plt Count 106 L Neut % (Auto) 78 Lymph % (Auto) 6 L Dillon % (Auto) 11 Eos % (Auto) 3 Baso % (Auto) 0 Neut # (Auto) 8.5 H Lymph # (Auto) 0.7 L Dillon # (Auto) 1.2 H Eos # (Auto) 0.3 Baso # (Auto) 0.0 Immature Gran # (Auto) 0.13 H Absolute Nucleated RBC 0.00 Immature Gran % 1 H Nucleated RBC % 0 VBG pH 7.40 VBG pCO2 35 L VBG pO2 56 D VBG O2 Sat (Sunita) 91 L VBG Base Excess -3 Sodium 149 H 150 H Potassium 3.2 L 3.1 L Chloride 119 H 120 H Carbon Dioxide 20.9 20.3 Anion Gap 9 10 BUN 69 H 64 H Creatinine 3.9 H 3.7 H Estim Creat Clear Calc 24.8 L 25.6 L eGFR 19 L 20 L BUN/Creatinine Ratio 18 17 Glucose 211 H 206 H Calculated Osmolality 322 H 322 H Calcium 8.0 L 8.1 L Corrected Calcium 8.8 8.9 Phosphorus 1.8 L 1.6 L Magnesium 1.6 2.0 Total Bilirubin 0.5 AST 22 ALT 24 Alkaline Phosphatase 86 D Total Protein 5.2 L Albumin 3.0 L 3.0 L Globulin 2.2 L Albumin/Globulin Ratio 1.4 Ur Random Sodium 10/04/24 08:36 WBC RBC Hgb Hct MCV MCH MCHC RDW Std Deviation Plt Count Neut % (Auto) Lymph % (Auto) Dillon % (Auto) Eos % (Auto) Baso % (Auto) Neut # (Auto) Lymph # (Auto) Dillon # (Auto) Eos # (Auto) Baso # (Auto) Immature Gran # (Auto) Absolute Nucleated RBC Immature Gran % Nucleated RBC % VBG pH VBG pCO2 VBG pO2 VBG O2 Sat (Sunita) VBG Base Excess Sodium 147 H Potassium 3.7 D Chloride 117 H Carbon Dioxide 21.4 Anion Gap 9 BUN 58 H Creatinine 3.6 H Estim Creat Clear Calc 26.3 L eGFR 21 L BUN/Creatinine Ratio 16 Glucose 205 H Calculated Osmolality 314 H Calcium 9.0 Corrected Calcium 9.5 Phosphorus 1.8 L Magnesium 2.1 Total Bilirubin AST ALT Alkaline Phosphatase Total Protein Albumin 3.4 L Globulin Albumin/Globulin Ratio Ur Random Sodium ABG Interpretation ABG results: 10/01/24 10/02/24 10/02/24 11:00 05:24 12:05 ABG pH 7.05 L* 7.32 L D ABG pCO2 46 29 L D ABG pO2 70 L 129 H D ABG HCO3 13 L 15 L ABG O2 Saturation 93 100 H ABG Base Excess -17 L -10 L VBG pH 7.21 L VBG pCO2 26 L VBG pO2 176 H VBG Base Excess -16 L 10/02/24 10/03/24 10/03/24 21:00 00:40 04:59 ABG pH 7.42 D ABG pCO2 34 ABG pO2 141 H ABG HCO3 22 ABG O2 Saturation 100 H ABG Base Excess -2 VBG pH 7.30 L 7.33 VBG pCO2 33 L 31 L VBG pO2 74 H D 65 H VBG Base Excess -9 L -9 L 10/03/24 10/03/24 10/03/24 05:51 08:23 11:50 ABG pH ABG pCO2 ABG pO2 ABG HCO3 ABG O2 Saturation ABG Base Excess VBG pH 7.33 7.45 7.41 VBG pCO2 38 26 L D 29 L VBG pO2 45 D 129 H D 156 H D VBG Base Excess -6 L -5 L -5 L 10/03/24 10/04/24 17:37 07:30 ABG pH ABG pCO2 ABG pO2 ABG HCO3 ABG O2 Saturation ABG Base Excess VBG pH 7.43 7.40 VBG pCO2 30 L 35 L VBG pO2 154 H 56 D VBG Base Excess -4 L -3 Quality Measures Quality Measures none Assessment & Plan Assessment Current Active Medications: Generic Name Dose Route Start Last Admin Trade Name Freq PRN Reason Stop Dose Admin Acetaminophen 650 mg 10/01/24 21:35 10/02/24 01:47 Acetaminophen 325 Mg Tablet PO 10/31/24 21:34 650 mg Q6HR PRN Administration FEVER >101 Dextrose 25 ml 10/04/24 09:03 Dextrose 50%-Water Inj 50 Ml Syringe IV 11/03/24 09:02 Q15MIN PRN BG 50-70 responsive npo pt Dextrose 50 ml 10/04/24 09:03 Dextrose 50%-Water Inj 50 Ml Syringe IV 11/03/24 09:02 Q15MIN PRN BG <50 OR BG <70 & pt unresponsive Folic Acid 1 mg 10/01/24 15:00 10/04/24 08:46 Folic Acid 1 Mg Tablet NG 10/31/24 14:44 1 mg QDAY BREE Administration Glucagon 1 mg 10/04/24 09:03 Glucagon Inj 1 Mg Vial IM Q15MIN PRN BG <70, and no IV access Heparin Sodium (Porcine) 5,000 unit 10/01/24 15:00 10/04/24 05:34 Heparin Sod Inj 5000 Unit/Ml Vial SC 10/15/24 14:59 5,000 unit Q8HR BREE Administration Thiamine HCl 500 mg/ Sodium 105 mls @ 205 mls/hr 10/01/24 14:45 10/04/24 05:34 Chloride IV 10/31/24 14:44 205 mls/hr Q8HR BREE Administration Ceftriaxone Sodium/Dextrose 1 gm in 50 mls @ 100 mls/hr 10/02/24 09:00 10/04/24 08:46 Rocephin/D5w 1gm Iv Premix IV 10/09/24 08:59 100 mls/hr QDAY BREE Administration Propofol 1,000 mg in 100 mls @ 2.067 mls/hr 10/02/24 00:10 10/04/24 12:00 Diprivan Ivpb IV 11/01/24 00:09 35 mcg/kg/min .Q24H PRN 14.469 mls/hr PER PROTOCOL Titration Protocol 5 MCG/KG/MIN Midazolam HCl 100 mg in 100 mls @ 1 mls/hr 10/03/24 11:28 10/04/24 12:00 Versed Pf Inj In Ns Premix IV 10/08/24 11:27 6 mg/hr .Q24H PRN 6 mls/hr PER PROTOCOL Titration Protocol 1 MG/HR Insulin Glargine 40 unit 10/05/24 09:00 Insulin Glargine (Lantus) 5 Unit/0.05 Ml (Per 5 Units) SC 11/04/24 08:59 QDAY [facility] Insulin Human Lispro 10 unit 10/04/24 11:40 10/04/24 12:27 Insulin Lispro (Admelog) 1 Unit/0.01 Ml Unit SC 11/03/24 11:39 Not Given TID [facility] Insulin Human Lispro 0 unit 10/04/24 12:00 10/04/24 11:44 Insulin Lispro (Admelog) 1 Unit/0.01 Ml Unit SC 11/03/24 11:59 Not Given Q6HR [facility] Protocol Pantoprazole Sodium 40 mg 10/04/24 21:00 Pantoprazole Inj 40 Mg Vial IVP 11/03/24 20:59 BID [facility] Pharmacy Consult 1 each 10/01/24 09:00 Pharmacy Renal Dose Adjustment 1 Ea XX 10/31/24 08:59 QDAY PRN CONSULT Phenobarbital 259.2 mg 10/04/24 14:00 Phenobarbital 32.4 Mg Tablet NG 10/18/24 13:59 TID BREE Plan 43 year old male with PMH of DM2, alcohol use disorder, admitted to the ICU for DKA, acute hypoxic respiratory failure and alcohol withdrawal. #VEL Suspect ATN due to shock. Patient is show to be placed on pressors, was able to be weaned off. Patient's baseline creatinine is 1.0 and his climbed up to 4.6 with BUN of 80. Patient received significant IVF in the setting of DKA as managed by primary team. Urine output has improved somewhat, 500 cc urinary output overnight. Patient received 2 mg Bumex x 1 yesterday, had significant urine output 7.6 L. Still remains 12.6 L positive throughout the stay due to DKA protocol. Random urine sodium 123 - Bumex 2mg IVP x1 - Strict I's and O's - Avoid nephrotoxins - Renally dose meds - Monitor daily renal function #Metabolic acidosis, electrolyte imbalances Anion gap from DKA, improving, and from decreased renal clearance due to VEL/ATN. Electrolyte imbalances including hypokalemia, hypophosphatemia, hypomagnesemia. Improving with treatment. - Treatment of DKA by protocol has per primary team - Treatment of VEL/ATN as above - Monitor and replete electrolytes as needed #Acute encephalopathy #Distributive/septic shock - improved #Sinus bradycardia, SVT, resolved #Acute hypoxic respiratory failure #DKA, DM 2 #Septic shock due to UTI Management as per primary team. Diet and fluids: Glucerna DVT prophylaxis: heparin GI prophylaxis: PPI Lines: OG, ET, Rodriguez, PIV, right femoral and arterial line CODE STATUS: FULL Thank you for allowing us to participate in the care of this patient. Plan of care discussed with attending Dr. Rodriguez. Armani Leary MD PGY?1 Attending Provider Attestation/Addendum Patient currently seen and examined with resident physician Dr. Leary. Note reviewed, agree with findings and recommendations. Patient currently seen in ICU. On the ventilator. Admitted with DKA. Positive by 14 L. Clinically looks rather hypervolemic. Urine output trending down. Will give 1 dose of Bumex today and monitor his renal function. Patient seems to be in ATN. No need for urgent dialysis today. Plan of care discussed with margarita ortez? at bedside. 10/04/2024 patient currently seen in ICU. Remains on ventilator. Spoke to Dr. Huynh-cut back on fluids and give more insulin. Clinically patient looks rather hypervolemic. Will give an additional dose of Bumex today.
[2024-10-04] MEDS: PHENobarbitaL 32.4 MG TABLET 259.2 MG NG ×2 (14:22→22:09)
[2024-10-04] MEDS: PROPOFOL 1,000 MG IVPB 1,000 MG/100 ML VIAL 16.536 MG IV (14:39)
--- NOTE | 2024-10-04 15:02 | PC.SS ---
SS update: patient remains intubated, possible extubation today pending patient's improvement.
[2024-10-04] MEDS: INSULIN LISPRO (AdmeLOG) 1 UNIT/0.01 ML UNIT SC (17:18)
[2024-10-04] MEDS: PROPOFOL 1,000 MG IVPB 1,000 MG/100 ML VIAL 18.603 MG IV (19:00)
[2024-10-05] VITALS (31 sets, daily range): BP systolic 97–144; BP diastolic 66–100; PULSE 56–106; RESP 18–43; TEMP 35.9–37.6; O2SAT 91–97; BMI 27.3
[2024-10-05] MEDS: INSULIN LISPRO (AdmeLOG) 1 UNIT/0.01 ML UNIT SC ×3 (00:20→11:34)
[2024-10-05] MEDS: PROPOFOL 1,000 MG IVPB 1,000 MG/100 ML VIAL 16.536 MG IV (01:41)
[2024-10-05 04:38] LABS: Base Excess 4 (-3-3); HCO3 27 mEq/L (20-26); Inspired Oxygen, FIO2 30 %; O2 Saturation 97 % (91-98); PCO2 34 mmHg (32.0-48.0); PO2 75 mmHg (83-108); pH, Arterial 7.51 (7.35-7.45)
[2024-10-05 04:46] LABS: Allen Test Performed/OK; Puncture Site Right Radial
[2024-10-05] MEDS: MIDAZOLAM/NS 100 MG IVPB 100 MG/100 ML BAG IV (05:00)
[2024-10-05] MEDS: THIAMINE INJ 500 MG in SODIUM CHLORIDE 0.9% 100 ML 205 MG IV ×3 (05:15→21:56)
[2024-10-05] MEDS: HEPARIN SOD INJ 5000 UNIT/ML VIAL SC ×3 (05:18→21:57)
[2024-10-05] MEDS: PHENobarbitaL 32.4 MG TABLET 259.2 MG NG ×2 (05:20→14:17)
[2024-10-05] MEDS: INSULIN LISPRO (AdmeLOG) 1 UNIT/0.01 ML UNIT 10 UNIT SC ×2 (05:34→21:57)
[2024-10-05 06:28] LABS: Basophils % (Auto) 1 % (0-2.5); Eosinophils % (Auto) 5 % (0-10); Immature Granulocytes % (Auto) 2 % (0-0); Immature Granulocytes Auto 0.17 Thou/mm3 (0.00-0.00); Lymphocytes # (Auto) 1.4 Thou/mm3 (1.0-4.8); Lymphocytes % (Auto) 16 % (10-50); Mean Corpuscular Hemoglobin 31.6 pg (25.0-35.0); Mean Corpuscular Volume 85 fL (80-100); Monocytes # (Auto) 1.2 Thou/mm3 (0.0-0.8); Monocytes % (Auto) 14 % (0-12); Neutrophils # (Auto) 5.6 Thou/mm3 (1.8-7.7); Neutrophils % (Auto) 64 % (37-80); Nucleated Red Blood Cell % 0 /100 WBC (0); Platelet Count 75 Thou/mm3 (140-440); RDW Standard Deviation 44.1 fL (35.1-43.9); Red Blood Count 3.16 Miln/mm3 (4.50-5.90); White Blood Count 8.8 Thou/mm3 (3.8-10.6)
--- NOTE | 2024-10-05 06:52 | XR_ITS ---
Examination: AP chest single view Technique one AP portable semiupright chest single view Date and time: October 05, 2024 0722 hours Comparison October 04, 2024 INDICATIONS: Hypoxic respiratory failure, pneumonia or ARDS on imaging this week FINDINGS: Pneumonia at the lung bases with air bronchograms left base retrocardiac Normal heart size Endotracheal tube tip 6.8 cm above Sanna. The orogastric tube is in the stomach, the tip is below the level of the film Moderate vascular congestion IMPRESSION: Bibasilar pneumonia
[2024-10-05 07:09] LABS: Base Excess 1 (-3-3); HCO3 25 mEq/L (20-26); Inspired Oxygen, FIO2 30 %; O2 Saturation 92 % (91-98); PCO2 37 mmHg (32.0-48.0); PO2 60 mmHg (83-108); pH, Arterial 7.45 (7.35-7.45)
[2024-10-05 07:10] LABS: Alanine Aminotransferase 21 U/L (10-49); Albumin, Serum 3.2 gm/dL (3.5-5.0); Albumin/Globulin Ratio 1.5 (1.2-2.2); Alkaline Phosphatase 117 U/L (46-116); Anion Gap 13 (7-16); Aspartate Amino Transferase 32 U/L (0-34); BUN/Creatinine Ratio 16 Ratio (12-20); Bilirubin,Total 0.5 mg/dL (0.3-1.2); Blood Urea Nitrogen 50 mg/dL (9-23); Calcium 8.2 mg/dL (8.3-10.6); Calcium (Corrected) 8.8 mg/dL (8.5-10.1); Carbon Dioxide 24.4 mMol/L (20.0-31.0); Chloride 114 mMol/L (98-107); Creatinine (Component) 3.1 mg/dL (0.6-1.3); Estimated Creatinine Clearance 30.4 mL/min (>60); Globulin 2.2 gm/dL (2.3-3.5); Glucose 199 mg/dL (74-106); Osmolality,Calculated 319 (275-295); Sodium 151 mMol/L (136-145); Total Protein 5.4 gm/dL (5.7-8.2); eGFR 25 See Note
[2024-10-05 07:14] LABS: Allen Test Performed/OK; Puncture Site Right Radial
[2024-10-05] MEDS: PROPOFOL 1,000 MG IVPB 1,000 MG/100 ML VIAL 14.469 MG IV (07:14)
[2024-10-05] MEDS: INSULIN GLARGINE (Lantus) 5 UNIT/0.05 ML (PER 5 UNITS) 45 UNIT SC (08:58)
[2024-10-05] MEDS: PANTOPRAZOLE INJ 40 MG VIAL IVP ×2 (08:58→21:57)
[2024-10-05] MEDS: FOLIC ACID 1 MG TABLET NG (08:58)
[2024-10-05] MEDS: cefTRIAXone/D5w 1gm IV premix 1 GM/50 ML BAG IV (08:58)
[2024-10-05 09:15] LABS: Magnesium 1.7 mg/dL (1.6-2.6); Phosphorous 3.7 mg/dL (2.4-5.1)
--- NOTE | 2024-10-05 09:35 | PD.RESPRO ---
Documentation for date of: 10/05/24 Subjective Subjective Interval history: Mr. Lorenzo is a 43-year-old male with past medical history significant for hypertension, diabetes, alcohol use disorder, and pancreatitis who presented with acute encephalopathy. Patient in the emergency department was found to be altered with moderate agitation. Required multiple doses of Ativan for potential alcohol withdrawal syndrome. Patient also found to have significant diabetic ketoacidosis with potential underlying infection as precipitant. Notably patient has been drinking heavily for the last 3 to 4 days and was found altered by family who brought him in. He is unable to provide any additional history at this time. Unclear when was last drink. Patient was staying with his parents last few days though family at bedside is unable to corroborate what may have changed. Margarita? was able to relate that about 1 month ago he did have a seizure after he tried to cut back on alcohol. Patient's course in ED complicated by impending respiratory failure and arrest. Patient had severe bradycardia though he did not lose his pulse. Required 1 mg of atropine and 1 mg of epinephrine with maintenance of circulation but subsequently requiring intubation for airway protection and ventilatory support. Patient started on vasopressor support with Levophed and given 2 amp of bicarb to compensate for metabolic acidosis secondary to DKA. Patient's course further complicated by SVT with initial failed cardioversion. Amiodarone was subsequently given as likely 150 mg bolus with reattempt at cardioversion with 250 J which returned rhythm to sinus tachycardia. Patient without evidence of focal neurologic deficit. Pupillary reflex remains intact. Not sedated after the use of etomidate and rocuronium with follow-up Versed for patient's comfort. Remained stable on fentanyl drip at this point unable to provide any additional history. Overnight, patient had fever of 101. He patient was agitated and was started on propofol. Vasopressin discontinued. During SAT and SBT, he was agitated and so was placed back on sedation. Labs show hypophosphatemia so insulin drip was discontinued and phosphate repleted. Oliguric overnight. Patient with metabolic acidosis likely improving from a DKA standpoint but remains acidotic from acute renal injury. ABG shows acidosis is adequately compensated. Overall, patient's mentation not improved from alcohol withdrawal so will keep on ventilator for airway protection. Phenobarbital increased to 130mg TID with phenobarbital pushes, to not exceed 20-30cc/kg of TBW (1520-2280mg) Nephrology consulted due to acute renal failure with renal function significantly decreased from baseline. Patient seen and examined at bedside, remains intubated, on fentanyl and propofol drips. Patient able to withdraw from pain. Appears fluid overloaded, has had poor urinary output, significant IVF in setting of DKA. Not planning on dialysis at this time, will give Bumex x 1 and continue to monitor urine output. May need dialysis if kidneys do not show improvement. WBC 9.1, hemoglobin 10.2. Sodium 145, potassium 3.1, chloride 116, bicarb 19. BUN 78, creatinine 44, EGFR 16, far above baseline. Only 500 cc urinary output despite significant IVF. Will give Bumex, measure urine sodium, continue to monitor. 10/04/2024: Patient seen and examined at bedside, remains intubated. Able to withdraw from pain. Per ICU team may attempt to extubate today, depending on how patient's progresses. Patient has significant urinary output after 1 dose Bumex yesterday, 7.6 L output. Might significantly fluid positive due to DKA protocol. Sodium 150, potassium 3.1, bicarb 20.3, BUN 64, creatinine 3.7, EGFR 20. Showing improvement with diuretics, will give additional Bumex and continue to monitor. 10/05/2024: Patient seen and examined at bedside, remains intubated. Able to off pain. Patient significant urinary output, assessment 1 L. At 3.9 L fluid intake, 10.6 L net positive for length of stay. Sodium remains high at 151, potassium 4.0, bicarb 24.4, BUN 50, creatinine 3.1, EGFR 25. Kidney function improving, will hold diuresis today and continue to monitor output. Exam Vital Signs Temp Pulse Resp BP Pulse Ox O2 Del Method FiO2 99.0 F 91 25 H 118/75 95 Mechanical Ventilation 30 10/05/24 04:00 10/05/24 06:03 10/01/24 09:50 10/05/24 06:03 10/05/24 06:03 10/04/24 18:00 10/05/24 06:03 Narrative Exam PE: Gen: Well-developed and well-nourished. Intubated and sedated. HEENT: NCAT, PERRLA, EOMI, MMM, anicteric conjunctivae. Mild conjunctival edema. CVS: normal S1 and S2. RRR. No M/R/G. Resp: CTA B/L. No rhonchi, rales, crackles or wheezing. Abd: soft, non-tender, non-distended. MSK: Good ROM in BUE & BLE. No rash. 1+ pitting edema in bilateral hands and feet, Mildly improved. Neuro: Intubated and sedated, withdraws from pain. Objective Labs 10/06/24 04:50 10/05/24 18:26 Labs: Laboratory Results - last 24 hr 10/04/24 10/05/24 10/05/24 08:36 04:15 04:42 WBC 8.8 RBC 3.16 L Hgb 10.0 L Hct 27.0 L MCV 85 MCH 31.6 MCHC 37.0 RDW Std Deviation 44.1 H Plt Count 75 L D Neut % (Auto) 64 Lymph % (Auto) 16 [place] % (Auto) 14 H Eos % (Auto) 5 Baso % (Auto) 1 Neut # (Auto) 5.6 Lymph # (Auto) 1.4 [place] # (Auto) 1.2 H Eos # (Auto) 0.4 Baso # (Auto) 0.0 Immature Gran # (Auto) 0.17 H Absolute Nucleated RBC 0.00 Immature Gran % 2 H Nucleated RBC % 0 Puncture Site Right Radial ABG pH 7.51 H ABG pCO2 34 ABG pO2 75 L D ABG HCO3 27 H ABG O2 Saturation 97 ABG Base Excess 4 H FiO2 30 Sodium 147 H 151 H Potassium 3.7 D 4.0 Chloride 117 H 114 H Carbon Dioxide 21.4 24.4 Anion Gap 9 13 BUN 58 H 50 H Creatinine 3.6 H 3.1 H D Estim Creat Clear Calc 26.3 L 30.4 L eGFR 21 L 25 L BUN/Creatinine Ratio 16 16 Glucose 205 H 199 H Calculated Osmolality 314 H 319 H Calcium 9.0 8.2 L Corrected Calcium 9.5 8.8 Phosphorus 1.8 L Magnesium 2.1 Total Bilirubin 0.5 AST 32 ALT 21 Alkaline Phosphatase 117 H D Total Protein 5.4 L Albumin 3.4 L 3.2 L Globulin 2.2 L Albumin/Globulin Ratio 1.5 10/05/24 10/05/24 06:49 08:25 WBC RBC Hgb Hct MCV MCH MCHC RDW Std Deviation Plt Count Neut % (Auto) Lymph % (Auto) [place] % (Auto) Eos % (Auto) Baso % (Auto) Neut # (Auto) Lymph # (Auto) [place] # (Auto) Eos # (Auto) Baso # (Auto) Immature Gran # (Auto) Absolute Nucleated RBC Immature Gran % Nucleated RBC % Puncture Site Right Radial ABG pH 7.45 ABG pCO2 37 ABG pO2 60 L ABG HCO3 25 ABG O2 Saturation 92 ABG Base Excess 1 FiO2 30 Sodium Potassium Chloride Carbon Dioxide Anion Gap BUN Creatinine Estim Creat Clear Calc eGFR BUN/Creatinine Ratio Glucose Calculated Osmolality Calcium Corrected Calcium Phosphorus 3.7 Magnesium 1.7 Total Bilirubin AST ALT Alkaline Phosphatase Total Protein Albumin Globulin Albumin/Globulin Ratio ABG Interpretation ABG results: 10/01/24 10/02/24 10/02/24 11:00 05:24 12:05 ABG pH 7.05 L* 7.32 L D ABG pCO2 46 29 L D ABG pO2 70 L 129 H D ABG HCO3 13 L 15 L ABG O2 Saturation 93 100 H ABG Base Excess -17 L -10 L VBG pH 7.21 L VBG pCO2 26 L VBG pO2 176 H VBG Base Excess -16 L 10/02/24 10/03/24 10/03/24 21:00 00:40 04:59 ABG pH 7.42 D ABG pCO2 34 ABG pO2 141 H ABG HCO3 22 ABG O2 Saturation 100 H ABG Base Excess -2 VBG pH 7.30 L 7.33 VBG pCO2 33 L 31 L VBG pO2 74 H D 65 H VBG Base Excess -9 L -9 L 10/03/24 10/03/24 10/03/24 05:51 08:23 11:50 ABG pH ABG pCO2 ABG pO2 ABG HCO3 ABG O2 Saturation ABG Base Excess VBG pH 7.33 7.45 7.41 VBG pCO2 38 26 L D 29 L VBG pO2 45 D 129 H D 156 H D VBG Base Excess -6 L -5 L -5 L 10/03/24 10/04/24 10/05/24 17:37 07:30 04:15 ABG pH 7.51 H ABG pCO2 34 ABG pO2 75 L D ABG HCO3 27 H ABG O2 Saturation 97 ABG Base Excess 4 H VBG pH 7.43 7.40 VBG pCO2 30 L 35 L VBG pO2 154 H 56 D VBG Base Excess -4 L -3 10/05/24 06:49 ABG pH 7.45 ABG pCO2 37 ABG pO2 60 L ABG HCO3 25 ABG O2 Saturation 92 ABG Base Excess 1 VBG pH VBG pCO2 VBG pO2 VBG Base Excess Quality Measures Quality Measures none Assessment & Plan Assessment Current Active Medications: Generic Name Dose Route Start Last Admin Trade Name Freq PRN Reason Stop Dose Admin Acetaminophen 650 mg 10/01/24 21:35 10/02/24 01:47 Acetaminophen 325 Mg Tablet PO 10/31/24 21:34 650 mg Q6HR PRN Administration FEVER >101 Dextrose 25 ml 10/04/24 09:03 Dextrose 50%-Water Inj 50 Ml Syringe IV 11/03/24 09:02 Q15MIN PRN BG 50-70 responsive npo pt Dextrose 50 ml 10/04/24 09:03 Dextrose 50%-Water Inj 50 Ml Syringe IV 11/03/24 09:02 Q15MIN PRN BG <50 OR BG <70 & pt unresponsive Folic Acid 1 mg 10/01/24 15:00 10/05/24 08:58 Folic Acid 1 Mg Tablet NG 10/31/24 14:44 1 mg QDAY BREE Administration Glucagon 1 mg 10/04/24 09:03 Glucagon Inj 1 Mg Vial IM Q15MIN PRN BG <70, and no IV access Heparin Sodium (Porcine) 5,000 unit 10/01/24 15:00 10/05/24 05:18 Heparin Sod Inj 5000 Unit/Ml Vial SC 10/15/24 14:59 5,000 unit Q8HR BREE Administration Thiamine HCl 500 mg/ Sodium 105 mls @ 205 mls/hr 10/01/24 14:45 10/05/24 05:15 Chloride IV 10/31/24 14:44 205 mls/hr Q8HR BREE Administration Ceftriaxone Sodium/Dextrose 1 gm in 50 mls @ 100 mls/hr 10/02/24 09:00 10/05/24 08:58 Rocephin/D5w 1gm Iv Premix IV 10/09/24 08:59 100 mls/hr QDAY BREE Administration Propofol 1,000 mg in 100 mls @ 2.067 mls/hr 10/02/24 00:10 10/05/24 09:00 Diprivan Ivpb IV 11/01/24 00:09 35 mcg/kg/min .Q24H PRN 14.469 mls/hr PER PROTOCOL Titration Protocol 5 MCG/KG/MIN Midazolam HCl 100 mg in 100 mls @ 1 mls/hr 10/03/24 11:28 10/05/24 09:00 Versed Pf Inj In Ns Premix IV 10/08/24 11:27 3 mg/hr .Q24H PRN 3 mls/hr PER PROTOCOL Titration Protocol 1 MG/HR Dexmedetomidine/Sodium Chloride 400 mcg in 100 mls @ 3.86 mls/hr 10/05/24 09:19 Precedex Ivpb IV 11/04/24 09:18 .Q24H PRN Per PROTOCOL Protocol 0.2 MCG/KG/HR Vancomycin/Sodium Chloride 200 mls @ 120 mls/hr 10/05/24 09:45 Vancomycin/Ns 1 Gm Ivpb IV 10/05/24 11:24 X1 ONE Insulin Glargine 45 unit 10/05/24 09:00 10/05/24 08:58 Insulin Glargine (Lantus) 5 Unit/0.05 Ml (Per 5 Units) SC 11/04/24 08:59 45 unit QDAY BREE Administration Insulin Human Lispro 10 unit 10/04/24 11:40 10/05/24 05:34 Insulin Lispro (Admelog) 1 Unit/0.01 Ml Unit SC 11/03/24 11:39 10 unit TID BREE Administration Insulin Human Lispro 0 unit 10/04/24 12:00 10/05/24 05:35 Insulin Lispro (Admelog) 1 Unit/0.01 Ml Unit SC 11/03/24 11:59 3 unit Q6HR BREE Administration Protocol Pantoprazole Sodium 40 mg 10/04/24 21:00 10/05/24 08:58 Pantoprazole Inj 40 Mg Vial IVP 11/03/24 20:59 40 mg BID BREE Administration Pharmacy Consult 1 each 10/01/24 09:00 Pharmacy Renal Dose Adjustment 1 Ea XX 10/31/24 08:59 QDAY PRN CONSULT Pharmacy Consult 1 each 10/05/24 09:30 Vancomycin Pharmacy To Dose 1 Each Each IV 11/04/24 09:29 QDAY PRN CONSULT Phenobarbital 259.2 mg 10/04/24 14:00 10/05/24 05:20 Phenobarbital 32.4 Mg Tablet NG 10/18/24 13:59 259.2 mg TID BREE Administration Plan 43 year old male with PMH of DM2, alcohol use disorder, admitted to the ICU for DKA, acute hypoxic respiratory failure and alcohol withdrawal. #VEL Suspect ATN due to shock. Patient is show to be placed on pressors, was able to be weaned off. Patient's baseline creatinine is 1.0 and his climbed up to 4.6 with BUN of 80. Patient received significant IVF in the setting of DKA as managed by primary team. Urine output has improved somewhat, 500 cc urinary output overnight. Patient received 2 mg Bumex x 1 yesterday, had significant urine output 7.6 L. Still remains 12.6 L positive throughout the stay due to DKA protocol. Random urine sodium 123. Kidney function improved, patient having good urine output with Bumex. Will hold diuresis and monitor urine output to assess kidney function. - Strict I's and O's - Avoid nephrotoxins - Renally dose meds - Monitor daily renal function #Metabolic acidosis, electrolyte imbalances Anion gap from DKA, improving, and from decreased renal clearance due to VEL/ATN. Electrolyte imbalances including hypokalemia, hypophosphatemia, hypomagnesemia. Improving with treatment. - Treatment of DKA by protocol has per primary team - Treatment of VEL/ATN as above - Monitor and replete electrolytes as needed #Acute encephalopathy #Distributive/septic shock - improved #Sinus bradycardia, SVT, resolved #Acute hypoxic respiratory failure #DKA, DM 2 #Septic shock due to UTI Management as per primary team. Diet and fluids: Glucerna DVT prophylaxis: heparin GI prophylaxis: PPI Lines: OG, ET, Rodriguez, PIV, right femoral and arterial line CODE STATUS: FULL Thank you for allowing us to participate in the care of this patient. Plan of care discussed with attending Dr. Rodriguez. Armani Leary MD PGY?1 Attending Provider Attestation/Addendum Patient currently seen and examined with resident physician Dr. Leary. Note reviewed, agree with findings and recommendations. Patient currently seen in ICU. On the ventilator. Admitted with DKA. Positive by 14 L. Clinically looks rather hypervolemic. Urine output trending down. Will give 1 dose of Bumex today and monitor his renal function. Patient seems to be in ATN. No need for urgent dialysis today. Plan of care discussed with dadmargarita? at bedside. 10/04/2024 patient currently seen in ICU. Remains on ventilator. Spoke to Dr. Huynh-cut back on fluids and give more insulin. Clinically patient looks rather hypervolemic. Will give an additional dose of Bumex today. 10/05/2024 patient currently seen in ICU. Remains on ventilator. Creatinine started to improve. Patient made more than 5 L of urine. Hold off on Bumex today. Continue with free water flushes. Edema slightly better.
[2024-10-05] MEDS: DEXMEDETOMIDINE 400 MCG IVPB 400 MCG/100 ML BAG IV (09:38)
[2024-10-05] MEDS: VANCOMYCIN/NS 1 GM IVPB 200 ML IV (09:38)
--- NOTE | 2024-10-05 09:57 | ESPR_ITS ---
<Statement entered by Bertrand Huynh MD - 10/06/24 09:58> TOTAL CC TIME: 45 MIN TOTAL TIME: 45MINUTES ON DIRECT MEDICAL CARE, MANAGEMENT - COORDINATION AND COUNSELING > 50% OF TOTAL TIME I saw and evaluated the patient. I reviewed the resident?s note and agree with findings and plan as documented in the resident?s note. Upon my evaluation, this patient had a high probability of imminent or life- threatening deterioration due to severe delirium tremens and pneumonia which required my direct attention, intervention, and personal management. This time is exclusive of time spent on procedures, which are documented separately if performed. Added Precedex. Successfully able to finally wean down propofol and Versed. Adjusted phenobarbital for bradycardia. Added vancomycin due to prior fever and increasing secretions with gram-positive cocci on ETA. Continue tube feeds adjust free water monitor renal function. Not a candidate to extubate due to mental status but we are hoping he will improve over the next couple days and we can switch proceed to a spontaneous breathing trial Documentation for date of: 10/05/24 Subjective Subjective Interval history: Patient is a 43-year-old male with past medical history significant for hypertension, diabetes, alcohol use disorder, and pancreatitis who presented with acute encephalopathy. Patient emergent department was found to be altered with moderate agitation. Required multiple doses of Ativan for potential alcohol withdrawal syndrome. Patient also found to have significant diabetic ketoacidosis with potential underlying infection as precipitant. Notably patient has been drinking heavily for the last 3 to 4 days and was found altered by family who brought him into. He is unable to provide any additional history at this time. Unclear when was last drink. He typically drinks beer. Patient was staying with his parents last few days though family at bedside is unable to corroborate what may have changed. Arcelia? was able to relate that about 1 month ago he did have a seizure after he tried to cut back on alcohol. Patient's course in ED complicated by impending respiratory failure and arrest. Patient had severe bradycardia though he did not lose his pulse. Required 1 mg of atropine and 1 mg of epinephrine with maintenance of circulation but subsequently requiring intubation for airway protection and ventilatory support. Patient started on vasopressor support with Levophed and given 2 amp of bicarb to compensate for metabolic acidosis secondary to DKA. Patient's course further complicated by SVT with initial failed cardioversion. Amiodarone was subsequently given as likely 150 mg bolus with reattempt at cardioversion with 250 J which returned rhythm to sinus tachycardia. Patient without evidence of focal neurologic deficit. Pupillary reflex remains intact. Not sedated after the use of etomidate and rocuronium with follow-up Versed for patient's comfort. Remained stable on fentanyl drip at this point unable to provide any additional history. 10/02/2024: Overnight, patient had fever of 101. He patient was agitated and was started on propofol. This morning, vasopressin discotninued. During SAT and SBT, he was agitated and so was placed back on sedation. Labs show hypophosphatemia so insulin drip was discontinued and phosphate repleted. Oliguric overnight. Patient with metabolic acidosis likely improving from a DKA standpoint but remains acidotic from acute renal injury. ABG shows acidosis is adequately compensated. Overall, patient's mentation not improved from alcohol withdrawal so will keep on ventilator for airway protection. Will increase phenobarbital to 130mg TID with phenobarbital pushes, to not exceed 20-30cc/kg of TBW (1520- 2280mg) 10/03/2024: Overnight patient's insulin drip was DCd and he received 15 additional units of lantus. Patient is maxed out on fentanyl and propofol. There was a concern about patient being very sensitive to Benzos which made him hypoxic due to decreased respiratory drive and subsequently bradycardic and therefore fentanyl was chosen for sedation and phenobarbital was used. We will wean off of fentanyl drip and transition to versed drip as patient seems to be tolerating versed now and he is intubated. Patient's glucose remains in the 300s and his bicarb still bellow 20, we will restart on insulin drip for better metabolic control. Patient's urine output has slowly improved over night to 500cc all night which is better than the previous day. Nephrology was consulted. Patient is edematous. Nephrology will try bumex. Will continue to monitor renal function closely. Will continue phenobarbital and wean off. 10/04/2024: Patient was seen and examined in the ICU today. There were no major overnight events and patient had a better glycemic control overnight on the drip. We discontinued the insulin drip and gave lantus 43 units bolus and started sliding scale insulin. Will start short acting boluses at 10 TID. Patient failed SAT trial as we attempted to decrease propofol and patient begun waking up but unable to follow commands and he was tachycardic and tachypneic. Will increase versed infusion rate and increase phenobarbital to 260 TID and re evaluate tomorrow. Patient's unrine output has been great overnight with 300- 400cc/hr and nephrology added an additional 2mg bumax today. Createnine is tredning down to 3.6 today and patient will likely not need dialysis at this time. Patient had a dark stool today that was positive for fecal occult blood. His hemoglobin has dropped however it is likely dilutional as he has gotten over 10 litters of fluids. Will continue to monitor hemoglobin now that we have D/C de insulin drip and fluids and transitioned to tube feeds and free water flushes. 10/05/2024: Patient seen and examined in the ICU today. There were no major overnight events patient continues to be intubated this morning. He had a temperature of 100. At bedside patient seems to have increasing secretions from his ET tube that were foul-smelling. Sputum secretions that were initially obtained.On 10/01/2024 was not a good sample and grew strep agalactiae and yeast. Repeat secretions on 10/03/24 does show GPC's so will await the final results of that. Will add vancomycin empirically. Patient's x-ray showed improvement today with better area aeration in bilateral lung whittaker. His urine output is adequate at about 200 cc/h. We discontinued the IV fluids yesterday and patient's sodium was 151 today. We are currently at a rate of 100 cc/h on the free water flushes and will add to 50 bolus flushes every 8 hours. Will repeat a renal panel this afternoon. Creatinine function continues to improve at that is 3.1 today. Lantus was increased to 45. Patient did not have any more tarry dark stools and his hemoglobin has been stable at 10. Patient's spontaneous awakening trial continues to be difficult as he begins biting on the vent and not following commands when Versed is decreased. Phenobarbital is up 260 3 times daily. Will add Precedex and attempt to decrease propofol and will decrease Versed gradually as tolerated. Exam Vital Signs Temp Pulse Resp BP Pulse Ox O2 Del Method FiO2 99.0 F 91 25 H 118/75 95 Mechanical Ventilation 30 10/05/24 04:00 10/05/24 06:03 10/01/24 09:50 10/05/24 06:03 10/05/24 06:03 10/04/24 18:00 10/05/24 06:03 Narrative Exam Constitutional: Well nourished, sedated and in no acute distress ENMT: Moist Mucous Membranes, No trauma or injury. Neck: Supple to palpation, No JVD CVS: RRR, S1 and S2 present, no murmurs, rubs or gallops . RESP: CTAB, no SOB, no wheezing. No respiratory Distress. There are some Rales heard bilaterally GI: Normal BS, Nontender/Nondistended. MSK: Full range of motion, No trauma or deformities or masses. Skin: Warm to touch, Dry. No rashes or lesions. No hematomas. Tattoos noted Neuro: Sedate, good gag reflex, withdraws from noxious stimuli. Unable to follow commands on SAT Objective Labs 10/05/24 04:42 10/05/24 04:42 Labs: Laboratory Results - last 24 hr 10/04/24 10/05/24 10/05/24 08:36 04:15 04:42 WBC 8.8 RBC 3.16 L Hgb 10.0 L Hct 27.0 L MCV 85 MCH 31.6 MCHC 37.0 RDW Std Deviation 44.1 H Plt Count 75 L D Neut % (Auto) 64 Lymph % (Auto) 16 [place] % (Auto) 14 H Eos % (Auto) 5 Baso % (Auto) 1 Neut # (Auto) 5.6 Lymph # (Auto) 1.4 [place] # (Auto) 1.2 H Eos # (Auto) 0.4 Baso # (Auto) 0.0 Immature Gran # (Auto) 0.17 H Absolute Nucleated RBC 0.00 Immature Gran % 2 H Nucleated RBC % 0 Puncture Site Right Radial ABG pH 7.51 H ABG pCO2 34 ABG pO2 75 L D ABG HCO3 27 H ABG O2 Saturation 97 ABG Base Excess 4 H FiO2 30 Sodium 147 H 151 H Potassium 3.7 D 4.0 Chloride 117 H 114 H Carbon Dioxide 21.4 24.4 Anion Gap 9 13 BUN 58 H 50 H Creatinine 3.6 H 3.1 H D Estim Creat Clear Calc 26.3 L 30.4 L eGFR 21 L 25 L BUN/Creatinine Ratio 16 16 Glucose 205 H 199 H Calculated Osmolality 314 H 319 H Calcium 9.0 8.2 L Corrected Calcium 9.5 8.8 Phosphorus 1.8 L Magnesium 2.1 Total Bilirubin 0.5 AST 32 ALT 21 Alkaline Phosphatase 117 H D Total Protein 5.4 L Albumin 3.4 L 3.2 L Globulin 2.2 L Albumin/Globulin Ratio 1.5 10/05/24 10/05/24 06:49 08:25 WBC RBC Hgb Hct MCV MCH MCHC RDW Std Deviation Plt Count Neut % (Auto) Lymph % (Auto) [place] % (Auto) Eos % (Auto) Baso % (Auto) Neut # (Auto) Lymph # (Auto) [place] # (Auto) Eos # (Auto) Baso # (Auto) Immature Gran # (Auto) Absolute Nucleated RBC Immature Gran % Nucleated RBC % Puncture Site Right Radial ABG pH 7.45 ABG pCO2 37 ABG pO2 60 L ABG HCO3 25 ABG O2 Saturation 92 ABG Base Excess 1 FiO2 30 Sodium Potassium Chloride Carbon Dioxide Anion Gap BUN Creatinine Estim Creat Clear Calc eGFR BUN/Creatinine Ratio Glucose Calculated Osmolality Calcium Corrected Calcium Phosphorus 3.7 Magnesium 1.7 Total Bilirubin AST ALT Alkaline Phosphatase Total Protein Albumin Globulin Albumin/Globulin Ratio ABG Interpretation ABG results: 10/01/24 10/02/24 10/02/24 11:00 05:24 12:05 ABG pH 7.05 L* 7.32 L D ABG pCO2 46 29 L D ABG pO2 70 L 129 H D ABG HCO3 13 L 15 L ABG O2 Saturation 93 100 H ABG Base Excess -17 L -10 L VBG pH 7.21 L VBG pCO2 26 L VBG pO2 176 H VBG Base Excess -16 L 10/02/24 10/03/24 10/03/24 21:00 00:40 04:59 ABG pH 7.42 D ABG pCO2 34 ABG pO2 141 H ABG HCO3 22 ABG O2 Saturation 100 H ABG Base Excess -2 VBG pH 7.30 L 7.33 VBG pCO2 33 L 31 L VBG pO2 74 H D 65 H VBG Base Excess -9 L -9 L 10/03/24 10/03/24 10/03/24 05:51 08:23 11:50 ABG pH ABG pCO2 ABG pO2 ABG HCO3 ABG O2 Saturation ABG Base Excess VBG pH 7.33 7.45 7.41 VBG pCO2 38 26 L D 29 L VBG pO2 45 D 129 H D 156 H D VBG Base Excess -6 L -5 L -5 L 10/03/24 10/04/24 10/05/24 17:37 07:30 04:15 ABG pH 7.51 H ABG pCO2 34 ABG pO2 75 L D ABG HCO3 27 H ABG O2 Saturation 97 ABG Base Excess 4 H VBG pH 7.43 7.40 VBG pCO2 30 L 35 L VBG pO2 154 H 56 D VBG Base Excess -4 L -3 10/05/24 06:49 ABG pH 7.45 ABG pCO2 37 ABG pO2 60 L ABG HCO3 25 ABG O2 Saturation 92 ABG Base Excess 1 VBG pH VBG pCO2 VBG pO2 VBG Base Excess Quality Measures Quality Measures none Assessment & Plan Assessment Current Active Medications: Generic Name Dose Route Start Last Admin Trade Name Tiffanie PRN Reason Stop Dose Admin Acetaminophen 650 mg 10/01/24 21:35 10/02/24 01:47 Acetaminophen 325 Mg Tablet PO 10/31/24 21:34 650 mg Q6HR PRN Administration FEVER >101 Dextrose 25 ml 10/04/24 09:03 Dextrose 50%-Water Inj 50 Ml Syringe IV 11/03/24 09:02 Q15MIN PRN BG 50-70 responsive npo pt Dextrose 50 ml 10/04/24 09:03 Dextrose 50%-Water Inj 50 Ml Syringe IV 11/03/24 09:02 Q15MIN PRN BG <50 OR BG <70 & pt unresponsive Folic Acid 1 mg 10/01/24 15:00 10/05/24 08:58 Folic Acid 1 Mg Tablet NG 10/31/24 14:44 1 mg QDAY BREE Administration Glucagon 1 mg 10/04/24 09:03 Glucagon Inj 1 Mg Vial IM Q15MIN PRN BG <70, and no IV access Heparin Sodium (Porcine) 5,000 unit 10/01/24 15:00 10/05/24 05:18 Heparin Sod Inj 5000 Unit/Ml Vial SC 10/15/24 14:59 5,000 unit Q8HR BREE Administration Thiamine HCl 500 mg/ Sodium 105 mls @ 205 mls/hr 10/01/24 14:45 10/05/24 05:15 Chloride IV 10/31/24 14:44 205 mls/hr Q8HR BREE Administration Ceftriaxone Sodium/Dextrose 1 gm in 50 mls @ 100 mls/hr 10/02/24 09:00 10/05/24 08:58 Rocephin/D5w 1gm Iv Premix IV 10/09/24 08:59 100 mls/hr QDAY BREE Administration Propofol 1,000 mg in 100 mls @ 2.067 mls/hr 10/02/24 00:10 10/05/24 09:00 Diprivan Ivpb IV 11/01/24 00:09 35 mcg/kg/min .Q24H PRN 14.469 mls/hr PER PROTOCOL Titration Protocol 5 MCG/KG/MIN Midazolam HCl 100 mg in 100 mls @ 1 mls/hr 10/03/24 11:28 10/05/24 09:00 Versed Pf Inj In Ns Premix IV 10/08/24 11:27 3 mg/hr .Q24H PRN 3 mls/hr PER PROTOCOL Titration Protocol 1 MG/HR Dexmedetomidine/Sodium Chloride 400 mcg in 100 mls @ 3.86 mls/hr 10/05/24 09:19 10/05/24 09:38 Precedex Ivpb IV 11/04/24 09:18 0.2 mcg/kg/hr .Q24H PRN 3.86 mls/hr Per PROTOCOL Administration Protocol 0.2 MCG/KG/HR Vancomycin/Sodium Chloride 200 mls @ 120 mls/hr 10/05/24 09:45 10/05/24 09:38 Vancomycin/Ns 1 Gm Ivpb IV 10/05/24 11:24 120 mls/hr X1 ONE Administration Insulin Glargine 45 unit 10/05/24 09:00 10/05/24 08:58 Insulin Glargine (Lantus) 5 Unit/0.05 Ml (Per 5 Units) SC 11/04/24 08:59 45 unit QDAY BREE Administration Insulin Human Lispro 10 unit 10/04/24 11:40 10/05/24 05:34 Insulin Lispro (Admelog) 1 Unit/0.01 Ml Unit SC 11/03/24 11:39 10 unit TID BREE Administration Insulin Human Lispro 0 unit 10/04/24 12:00 10/05/24 05:35 Insulin Lispro (Admelog) 1 Unit/0.01 Ml Unit SC 11/03/24 11:59 3 unit Q6HR BREE Administration Protocol Pantoprazole Sodium 40 mg 10/04/24 21:00 10/05/24 08:58 Pantoprazole Inj 40 Mg Vial IVP 11/03/24 20:59 40 mg BID BREE Administration Pharmacy Consult 1 each 10/01/24 09:00 Pharmacy Renal Dose Adjustment 1 Ea XX 10/31/24 08:59 QDAY PRN CONSULT Pharmacy Consult 1 each 10/05/24 09:30 Vancomycin Pharmacy To Dose 1 Each Each IV 11/04/24 09:29 QDAY PRN CONSULT Phenobarbital 259.2 mg 10/04/24 14:00 10/05/24 05:20 Phenobarbital 32.4 Mg Tablet NG 10/18/24 13:59 259.2 mg TID BREE Administration Plan 43 year old male with PMH of DM2, alcohol use disorder, admitted to the ICU for DKA, acute hypoxic respiratory failure and alcohol withdrawal. 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 Treatment Plan: Phenobarbital was increased to 260mg via NG TID Patient remains on prop and versed. Added Precedex today, will attempt to titrate off of prop On thiamine, folate. Treatment Review: SAT in AM. CVS Problem: distributive/septic shock - resolved DDx: distributive due to phenobarbital, Problem: sinus bradycardia, SVT, resolved DDx: sinus bradycardia due to hypoventilation and SVT after levophed with epinephrine Treatment Review: Patient was cardioverted and started on amiodarone, SVT resolved. Amiodarone was discontinued. PULM Problem: Acute hypoxic respiratory failure DDx: respiratory arrest from metabolic acidosis, Bibasilar pneumonia Diagnostic Test:Sputum cultures first grew strep agalactiae from an unreliable sputum sample. Repeated sample obtained on 10/03/2024 preliminarily growing GPC. Treatment Plan: Continue ventilator for airway protection, will wean off of ventilator, added vancomycin to the Rocephin today. Treatment Review:Daily SAT. Once mentation improves, anticipate extubation. RENAL VEL - improving ATN due to shock Patient's baseline creatinine is 1.0 and his climbed up to 4.6 with BUN of 80 Urine output has has been adequate at 200 cc/h Will hold off on Bumex today. Nephrology consult on board. Will continue to follow renal panel and urine output Problem: Metabolic acidosis - resolved DDx: Anion gap from DKA, improving and from decreased renal clearance due to VEL, ATN Hypernatremia Sodium climbed up to the 151 likely concentrated as patient received 2 days of Bumex pushes Patient is currently alert free water flushes 100 cc/h and will add an additional 250 bolus pushes of free water flushes every 8 hours Will follow-up with repeat renal panel and continue to monitor urine output GI Melena Likely erosive gastritis vs esophagitis vs UGIB Patient had a BM that was dark and possitive for FOBT on 10/04/2024. Hg is stable at 10 today without any more signs of bleeding. PPI 40 IV BID, Will trend Hg daily, Will monitor closely for worsening bleed ENDO Problem: DKA- resolved, Hx of DM 2 Diagnostic Test: blood glucose, A1c 12.8, Treatment Plan: lantus 45 and lispro 10 TID. Will continue sliding scale and adjust as needed HEME Problem: Leukocytosis DDx: stress from withdrawal, infection Diagnostic Test: Treatment Plan: continue antibiotics (see ID) Treatment Review: ID Problem: Septic shock due to UTI DDx: UTI vs PNA Diagnostic Test: blood, urine culture, CXR showed worsening left base pna, however patient is also fluid overloaded, Vent requirements have not increased Treatment Plan: Continue empiric antibiotics ceftriaxone and added vanco, azithromycin completed, D/Cd mejias, arterial and central line Treatment Review: Prelim blood culture negative x 48 hours. Narrow antibiotics when cultures return Health Maintenance Diet and fluids: Glucerna DVT prophylaxis: heparin GI prophylaxis: PPI 40 IV BID Lines: OG, ET, D/C mejias, D/C arterial and central line CODE STATUS: FULL I discussed patient's care with attending physician, Dr Lino Bennett PGY3
[2024-10-05 10:18] LABS: Triglycerides 160 mg/dL (30-150)
[2024-10-05 11:08] LABS: Slide Review Platelets confirmed
--- NOTE | 2024-10-05 13:13 | PC.NURSE ---
Attempted to call the patients POC multiple times for the medication reconciliation without response. Unable to complete med rec at this time.
[2024-10-05] MEDS: PROPOFOL 1,000 MG IVPB 1,000 MG/100 ML VIAL 8.268 MG IV (15:11)
[2024-10-05] MEDS: DEXMEDETOMIDINE 400 MCG IVPB 400 MCG/100 ML BAG 19.3 MCG IV (16:12)
[2024-10-05 19:12] LABS: Albumin, Serum 3.2 gm/dL (3.5-5.0); Anion Gap 10 (7-16); BUN/Creatinine Ratio 20 Ratio (12-20); Blood Urea Nitrogen 51 mg/dL (9-23); Calcium 7.8 mg/dL (8.3-10.6); Calcium (Corrected) 8.4 mg/dL (8.5-10.1); Carbon Dioxide 26.2 mMol/L (20.0-31.0); Chloride 114 mMol/L (98-107); Creatinine (Component) 2.6 mg/dL (0.6-1.3); Estimated Creatinine Clearance 36.2 mL/min (>60); Glucose 141 mg/dL (74-106); Osmolality,Calculated 313 (275-295); Phosphorous 5.1 mg/dL (2.4-5.1); Potassium 3.2 mMol/L (3.4-5.1); Sodium 150 mMol/L (136-145); eGFR 31 See Note
[2024-10-05] MEDS: PHENobarbitaL 32.4 MG TABLET 129.6 MG NG (21:56)
[2024-10-05] MEDS: DEXMEDETOMIDINE 400 MCG IVPB 400 MCG/100 ML BAG 15.44 MCG IV (23:49)
[2024-10-06] VITALS (36 sets, daily range): BP systolic 113–172; BP diastolic 80–113; PULSE 58–91; RESP 18–41; TEMP 36.2–37.6; O2SAT 92–100; BMI 27.1
[2024-10-06] MEDS: INSULIN LISPRO (AdmeLOG) 1 UNIT/0.01 ML UNIT SC ×2 (00:10→18:04)
[2024-10-06] MEDS: THIAMINE INJ 500 MG in SODIUM CHLORIDE 0.9% 100 ML 205 MG IV ×3 (05:49→21:30)
[2024-10-06] MEDS: HEPARIN SOD INJ 5000 UNIT/ML VIAL SC ×3 (05:49→21:30)
[2024-10-06] MEDS: PHENobarbitaL 32.4 MG TABLET 129.6 MG NG ×3 (05:49→21:31)
[2024-10-06 05:53] LABS: Basophils % (Auto) 0 % (0-2.5); Eosinophils # (Auto) 0.5 Thou/mm3 (0.0-0.5); Eosinophils % (Auto) 6 % (0-10); Hematocrit 35.2 % (41.0-53.0); Hemoglobin 12.2 g/dL (13.5-16.0); Immature Granulocytes % (Auto) 3 % (0-0); Immature Granulocytes Auto 0.25 Thou/mm3 (0.00-0.00); Lymphocytes % (Auto) 22 % (10-50); Mean Corpuscular HGB Conc 34.7 g/dl (31.0-37.0); Mean Corpuscular Volume 90 fL (80-100); Monocytes # (Auto) 1.9 Thou/mm3 (0.0-0.8); Monocytes % (Auto) 21 % (0-12); Neutrophils # (Auto) 4.4 Thou/mm3 (1.8-7.7); Neutrophils % (Auto) 48 % (37-80); Nucleated Red Blood Cell % 0 /100 WBC (0); Platelet Count 101 Thou/mm3 (140-440); RDW Standard Deviation 46.7 fL (35.1-43.9); Red Blood Count 3.93 Miln/mm3 (4.50-5.90); White Blood Count 9.2 Thou/mm3 (3.8-10.6)
[2024-10-06 06:42] LABS: Alanine Aminotransferase 22 U/L (10-49); Albumin, Serum 3.7 gm/dL (3.5-5.0); Albumin/Globulin Ratio 1.3 (1.2-2.2); Alkaline Phosphatase 130 U/L (46-116); Anion Gap 12 (7-16); Aspartate Amino Transferase 22 U/L (0-34); BUN/Creatinine Ratio 21 Ratio (12-20); Bilirubin,Total 0.5 mg/dL (0.3-1.2); Blood Urea Nitrogen 51 mg/dL (9-23); Calcium 8.3 mg/dL (8.3-10.6); Calcium (Corrected) 8.5 mg/dL (8.5-10.1); Carbon Dioxide 27.1 mMol/L (20.0-31.0); Chloride 112 mMol/L (98-107); Creatinine (Component) 2.4 mg/dL (0.6-1.3); Estimated Creatinine Clearance 39.3 mL/min (>60); Globulin 2.8 gm/dL (2.3-3.5); Glucose 145 mg/dL (74-106); Magnesium 1.7 mg/dL (1.6-2.6); Osmolality,Calculated 316 (275-295); Phosphorous 4.7 mg/dL (2.4-5.1); Potassium 3.7 mMol/L (3.4-5.1); Sodium 151 mMol/L (136-145); Total Protein 6.5 gm/dL (5.7-8.2); eGFR 34 See Note
--- NOTE | 2024-10-06 07:09 | PD.RESPRO ---
Documentation for date of: 10/06/24 Subjective Subjective Interval history: Patient is a 43-year-old male with past medical history significant for hypertension, diabetes, alcohol use disorder, and pancreatitis who presented with acute encephalopathy. Patient emergent department was found to be altered with moderate agitation. Required multiple doses of Ativan for potential alcohol withdrawal syndrome. Patient also found to have significant diabetic ketoacidosis with potential underlying infection as precipitant. Notably patient has been drinking heavily for the last 3 to 4 days and was found altered by family who brought him into. He is unable to provide any additional history at this time. Unclear when was last drink. He typically drinks beer. Patient was staying with his parents last few days though family at bedside is unable to corroborate what may have changed. Arcelia? was able to relate that about 1 month ago he did have a seizure after he tried to cut back on alcohol. Patient's course in ED complicated by impending respiratory failure and arrest. Patient had severe bradycardia though he did not lose his pulse. Required 1 mg of atropine and 1 mg of epinephrine with maintenance of circulation but subsequently requiring intubation for airway protection and ventilatory support. Patient started on vasopressor support with Levophed and given 2 amp of bicarb to compensate for metabolic acidosis secondary to DKA. Patient's course further complicated by SVT with initial failed cardioversion. Amiodarone was subsequently given as likely 150 mg bolus with reattempt at cardioversion with 250 J which returned rhythm to sinus tachycardia. Patient without evidence of focal neurologic deficit. Pupillary reflex remains intact. Not sedated after the use of etomidate and rocuronium with follow-up Versed for patient's comfort. Remained stable on fentanyl drip at this point unable to provide any additional history. 10/02/2024: Overnight, patient had fever of 101. He patient was agitated and was started on propofol. This morning, vasopressin discotninued. During SAT and SBT, he was agitated and so was placed back on sedation. Labs show hypophosphatemia so insulin drip was discontinued and phosphate repleted. Oliguric overnight. Patient with metabolic acidosis likely improving from a DKA standpoint but remains acidotic from acute renal injury. ABG shows acidosis is adequately compensated. Overall, patient's mentation not improved from alcohol withdrawal so will keep on ventilator for airway protection. Will increase phenobarbital to 130mg TID with phenobarbital pushes, to not exceed 20-30cc/kg of TBW (1520-2280mg) 10/03/2024: Overnight patient's insulin drip was DCd and he received 15 additional units of lantus. Patient is maxed out on fentanyl and propofol. There was a concern about patient being very sensitive to Benzos which made him hypoxic due to decreased respiratory drive and subsequently bradycardic and therefore fentanyl was chosen for sedation and phenobarbital was used. We will wean off of fentanyl drip and transition to versed drip as patient seems to be tolerating versed now and he is intubated. Patient's glucose remains in the 300s and his bicarb still bellow 20, we will restart on insulin drip for better metabolic control. Patient's urine output has slowly improved over night to 500cc all night which is better than the previous day. Nephrology was consulted. Patient is edematous. Nephrology will try bumex. Will continue to monitor renal function closely. Will continue phenobarbital and wean off. 10/04/2024: Patient was seen and examined in the ICU today. There were no major overnight events and patient had a better glycemic control overnight on the drip. We discontinued the insulin drip and gave lantus 43 units bolus and started sliding scale insulin. Will start short acting boluses at 10 TID. Patient failed SAT trial as we attempted to decrease propofol and patient begun waking up but unable to follow commands and he was tachycardic and tachypneic. Will increase versed infusion rate and increase phenobarbital to 260 TID and re evaluate tomorrow. Patient's unrine output has been great overnight with 300-400cc/hr and nephrology added an additional 2mg bumax today. Createnine is tredning down to 3.6 today and patient will likely not need dialysis at this time. Patient had a dark stool today that was positive for fecal occult blood. His hemoglobin has dropped however it is likely dilutional as he has gotten over 10 litters of fluids. Will continue to monitor hemoglobin now that we have D/C de insulin drip and fluids and transitioned to tube feeds and free water flushes. 10/05/2024: Patient seen and examined in the ICU today. There were no major overnight events patient continues to be intubated this morning. He had a temperature of 100. At bedside patient seems to have increasing secretions from his ET tube that were foul-smelling. Sputum secretions that were initially obtained.On 10/01/2024 was not a good sample and grew strep agalactiae and yeast. Repeat secretions on 10/03/24 does show GPC's so will await the final results of that. Will add vancomycin empirically. Patient's x-ray showed improvement today with better area aeration in bilateral lung whittaker. His urine output is adequate at about 200 cc/h. We discontinued the IV fluids yesterday and patient's sodium was 151 today. We are currently at a rate of 100 cc/h on the free water flushes and will add to 50 bolus flushes every 8 hours. Will repeat a renal panel this afternoon. Creatinine function continues to improve at that is 3.1 today. Lantus was increased to 45. Patient did not have any more tarry dark stools and his hemoglobin has been stable at 10. Patient's spontaneous awakening trial continues to be difficult as he begins biting on the vent and not following commands when Versed is decreased. Phenobarbital is up 260 3 times daily. Will add Precedex and attempt to decrease propofol and will decrease Versed gradually as tolerated. 10/06/2024: Patient seen and examined in the ICU today. Over night patient had good urine output however he needed to be straight cath 4 times. His propofol was stopped at 15:00 and his versed was stopped at 6:00 am this morning. Precedex was at 1.0 and patient was waking up, opening his eyes to voice and trying to mouth however he did not trace with his eyes as they were rolling back and patient was not following commands to squeeze hands. Patient was given a push of versed and placed back on versed drip which immediately sedated him. Versed drip was stopped and we will manage with pushes instead to allow for washout. Patient's Saturation is dropping to the low 90s on the same vent settings. Given his increased secretions there is concern for worsening of his PNA. Phenobarbital was decreased to 130mg TID lest evening as patient was becoming bradycardic with the oversedation. Will continues vanco and DC rochephin on 10/08/24 to complete 7 day treatment for UTI. Will increase water flushes to 150cc/hr as his sodium continues to be 151. Exam Vital Signs Temp Pulse Resp BP Pulse Ox O2 Del Method FiO2 97.2 F 79 25 H 161/108 H 95 Mechanical Ventilation 30 10/06/24 00:00 10/06/24 06:56 10/01/24 09:50 10/06/24 06:56 10/06/24 06:56 10/04/24 18:00 10/06/24 06:56 Narrative Exam Constitutional: Well nourished, sedated and in no acute distress ENMT: Moist Mucous Membranes, No trauma or injury. Neck: Supple to palpation, No JVD CVS: RRR, S1 and S2 present, no murmurs, rubs or gallops . RESP: CTAB, no SOB, no wheezing. No respiratory Distress. There are some Rales heard bilaterally GI: Normal BS, Nontender/Nondistended. MSK: Full range of motion, No trauma or deformities or masses. Skin: Warm to touch, Dry. No rashes or lesions. No hematomas. Tattoos noted Neuro: Sedate, good gag reflex, withdraws from noxious stimuli. Unable to follow commands on SAT Objective Labs 10/06/24 04:50 10/06/24 04:50 Labs: Laboratory Results - last 24 hr 10/05/24 10/05/24 10/05/24 04:42 06:49 08:25 WBC 8.8 RBC 3.16 L Hgb 10.0 L Hct 27.0 L MCV 85 MCH 31.6 MCHC 37.0 RDW Std Deviation 44.1 H Plt Count 75 L D Neut % (Auto) 64 Lymph % (Auto) 16 Lares % (Auto) 14 H Eos % (Auto) 5 Baso % (Auto) 1 Neut # (Auto) 5.6 Lymph # (Auto) 1.4 Lares # (Auto) 1.2 H Eos # (Auto) Baso # (Auto) 0.0 Immature Gran # (Auto) 0.17 H Absolute Nucleated RBC 0.00 Immature Gran % 2 H Nucleated RBC % 0 Puncture Site Right Radial ABG pH 7.45 ABG pCO2 37 ABG pO2 60 L ABG HCO3 25 ABG O2 Saturation 92 ABG Base Excess 1 FiO2 30 Sodium 151 H Potassium 4.0 Chloride 114 H Carbon Dioxide 24.4 Anion Gap 13 BUN 50 H Creatinine 3.1 H D Estim Creat Clear Calc 30.4 L eGFR 25 L BUN/Creatinine Ratio 16 Glucose 199 H Calculated Osmolality 319 H Calcium 8.2 L Corrected Calcium 8.8 Phosphorus 3.7 Magnesium 1.7 Total Bilirubin 0.5 AST 32 ALT 21 Alkaline Phosphatase 117 H D Total Protein 5.4 L Albumin 3.2 L Globulin 2.2 L Albumin/Globulin Ratio 1.5 Triglycerides 160 H Misc Test Result Platelets confirmed 10/05/24 10/06/24 18:26 04:50 WBC 9.2 RBC 3.93 L Hgb 12.2 L D Hct 35.2 L MCV 90 MCH 31.0 MCHC 34.7 RDW Std Deviation 46.7 H Plt Count 101 L D Neut % (Auto) 48 Lymph % (Auto) 22 Lares % (Auto) 21 H Eos % (Auto) 6 Baso % (Auto) 0 Neut # (Auto) 4.4 Lymph # (Auto) 2.0 Lares # (Auto) 1.9 H Eos # (Auto) 0.5 Baso # (Auto) 0.0 Immature Gran # (Auto) 0.25 H Absolute Nucleated RBC 0.00 Immature Gran % 3 H Nucleated RBC % 0 Puncture Site ABG pH ABG pCO2 ABG pO2 ABG HCO3 ABG O2 Saturation ABG Base Excess FiO2 Sodium 150 H 151 H Potassium 3.2 L D 3.7 D Chloride 114 H 112 H Carbon Dioxide 26.2 27.1 Anion Gap 10 12 BUN 51 H 51 H Creatinine 2.6 H D 2.4 H Estim Creat Clear Calc 36.2 L 39.3 L eGFR 31 L 34 L BUN/Creatinine Ratio 20 21 H Glucose 141 H D 145 H Calculated Osmolality 313 H 316 H Calcium 7.8 L 8.3 Corrected Calcium 8.4 L 8.5 Phosphorus 5.1 4.7 Magnesium 1.7 Total Bilirubin 0.5 AST 22 ALT 22 Alkaline Phosphatase 130 H Total Protein 6.5 Albumin 3.2 L 3.7 D Globulin 2.8 Albumin/Globulin Ratio 1.3 Triglycerides Misc Test Result ABG Interpretation ABG results: 10/01/24 10/02/24 10/02/24 11:00 05:24 12:05 ABG pH 7.05 L* 7.32 L D ABG pCO2 46 29 L D ABG pO2 70 L 129 H D ABG HCO3 13 L 15 L ABG O2 Saturation 93 100 H ABG Base Excess -17 L -10 L VBG pH 7.21 L VBG pCO2 26 L VBG pO2 176 H VBG Base Excess -16 L 10/02/24 10/03/24 10/03/24 21:00 00:40 04:59 ABG pH 7.42 D ABG pCO2 34 ABG pO2 141 H ABG HCO3 22 ABG O2 Saturation 100 H ABG Base Excess -2 VBG pH 7.30 L 7.33 VBG pCO2 33 L 31 L VBG pO2 74 H D 65 H VBG Base Excess -9 L -9 L 10/03/24 10/03/24 10/03/24 05:51 08:23 11:50 ABG pH ABG pCO2 ABG pO2 ABG HCO3 ABG O2 Saturation ABG Base Excess VBG pH 7.33 7.45 7.41 VBG pCO2 38 26 L D 29 L VBG pO2 45 D 129 H D 156 H D VBG Base Excess -6 L -5 L -5 L 10/03/24 10/04/24 10/05/24 17:37 07:30 04:15 ABG pH 7.51 H ABG pCO2 34 ABG pO2 75 L D ABG HCO3 27 H ABG O2 Saturation 97 ABG Base Excess 4 H VBG pH 7.43 7.40 VBG pCO2 30 L 35 L VBG pO2 154 H 56 D VBG Base Excess -4 L -3 10/05/24 06:49 ABG pH 7.45 ABG pCO2 37 ABG pO2 60 L ABG HCO3 25 ABG O2 Saturation 92 ABG Base Excess 1 VBG pH VBG pCO2 VBG pO2 VBG Base Excess Quality Measures Quality Measures none Assessment & Plan Assessment Current Active Medications: Generic Name Dose Route Start Last Admin Trade Name Freq PRN Reason Stop Dose Admin Acetaminophen 650 mg 10/01/24 21:35 10/02/24 01:47 Acetaminophen 325 Mg Tablet PO 10/31/24 21:34 650 mg Q6HR PRN Administration FEVER >101 Dextrose 25 ml 10/04/24 09:03 Dextrose 50%-Water Inj 50 Ml Syringe IV 11/03/24 09:02 Q15MIN PRN BG 50-70 responsive npo pt Dextrose 50 ml 10/04/24 09:03 Dextrose 50%-Water Inj 50 Ml Syringe IV 11/03/24 09:02 Q15MIN PRN BG <50 OR BG <70 & pt unresponsive Folic Acid 1 mg 10/01/24 15:00 10/05/24 08:58 Folic Acid 1 Mg Tablet NG 10/31/24 14:44 1 mg QDAY BREE Administration Glucagon 1 mg 10/04/24 09:03 Glucagon Inj 1 Mg Vial IM Q15MIN PRN BG <70, and no IV access Heparin Sodium (Porcine) 5,000 unit 10/01/24 15:00 10/06/24 05:49 Heparin Sod Inj 5000 Unit/Ml Vial SC 10/15/24 14:59 5,000 unit Q8HR BREE Administration Thiamine HCl 500 mg/ Sodium 105 mls @ 205 mls/hr 10/01/24 14:45 10/06/24 05:49 Chloride IV 10/31/24 14:44 205 mls/hr Q8HR BREE Administration Ceftriaxone Sodium/Dextrose 1 gm in 50 mls @ 100 mls/hr 10/02/24 09:00 10/05/24 08:58 Rocephin/D5w 1gm Iv Premix IV 10/09/24 08:59 100 mls/hr QDAY BREE Administration Propofol 1,000 mg in 100 mls @ 2.067 mls/hr 10/02/24 00:10 10/05/24 15:57 Diprivan Ivpb IV 11/01/24 00:09 0 mcg/kg/min .Q24H PRN 0 mls/hr PER PROTOCOL Titration Protocol 5 MCG/KG/MIN Dexmedetomidine/Sodium Chloride 400 mcg in 100 mls @ 3.86 mls/hr 10/05/24 09:19 10/06/24 06:00 Precedex Ivpb IV 11/04/24 09:18 Infused .Q24H PRN Titration Per PROTOCOL Protocol 0.2 MCG/KG/HR Insulin Glargine 40 unit 10/06/24 09:00 Insulin Glargine (Lantus) 5 Unit/0.05 Ml (Per 5 Units) SC 11/05/24 08:59 QDAY BREE Insulin Human Lispro 10 unit 10/04/24 11:40 10/06/24 05:53 Insulin Lispro (Admelog) 1 Unit/0.01 Ml Unit SC 11/03/24 11:39 Not Given TID BREE Insulin Human Lispro 0 unit 10/04/24 12:00 10/06/24 05:53 Insulin Lispro (Admelog) 1 Unit/0.01 Ml Unit SC 11/03/24 11:59 Not Given Q6HR [facility] Protocol Pantoprazole Sodium 40 mg 10/04/24 21:00 10/05/24 21:57 Pantoprazole Inj 40 Mg Vial IVP 11/03/24 20:59 40 mg BID BREE Administration Pharmacy Consult 1 each 10/01/24 09:00 Pharmacy Renal Dose Adjustment 1 Ea XX 10/31/24 08:59 QDAY PRN CONSULT Pharmacy Consult 1 each 10/05/24 09:30 Vancomycin Pharmacy To Dose 1 Each Each IV 11/04/24 09:29 QDAY PRN CONSULT Phenobarbital 129.6 mg 10/05/24 22:00 10/06/24 05:49 Phenobarbital 32.4 Mg Tablet NG 10/19/24 21:59 129.6 mg TID BREE Administration Plan 43 year old male with PMH of DM2, alcohol use disorder, admitted to the ICU for DKA, acute hypoxic respiratory failure and alcohol withdrawal. [employer] Problem: Acute encephalopathy DDx: Alcohol withdrawal, metabolic Diagnostic Test:CIWA score, BUN, Head CT negative. Treatment Plan: Phenobarbital decreased to 130 TID Propofol and versed drip stopped yesteday. Will continue preceddedx and add versed pushes as we attempt to wean off and allow washout. On thiamine, folate. Treatment Review: SAT in AM. CVS Problem: distributive/septic shock - resolved DDx: distributive due to phenobarbital, Problem: sinus bradycardia, SVT, resolved DDx: sinus bradycardia due to hypoventilation and SVT after levophed with epinephrine Treatment Review: Patient was cardioverted and started on amiodarone, SVT resolved. Amiodarone was discontinued. PULM Problem: Acute hypoxic respiratory failure DDx: respiratory arrest from metabolic acidosis, Bibasilar pneumonia Diagnostic Test:Sputum cultures first grew strep agalactiae from an unreliable sputum sample. Repeated sample obtained on 10/03/2024 preliminarily growing GPC. CXR repeat ordered Treatment Plan: Continue ventilator for airway protection, will wean off of ventilator, added vancomycin Treatment Review:Daily SAT. Once mentation improves, anticipate extubation. RENAL VEL - improving ATN due to shock Patient's baseline creatinine is 1.0 and his climbed up to 4.6 with BUN of 80 Urine output has been good with straight cath collecting at least 400 cc Nephrology consult on board. Will continue to follow renal panel and urine output Problem: Metabolic acidosis - resolved DDx: Anion gap from DKA, improving and from decreased renal clearance due to VEL, ATN Hypernatremia Sodium climbed up to the 151 likely concentrated as patient received 2 days of Bumex pushes Increased free water flushes to 150cc/h and additional 250 bolus pushes of free water flushes every 8 hours Will follow-up with repeat renal panel and continue to monitor urine output GI 1 episode of melena - resolved Likely erosive gastritis vs esophagitis vs UGIB Patient had a BM that was dark and possitive for FOBT on 10/04/2024. Hg is stable at 10 today without any more signs of bleeding. PPI 40 IV BID, Will trend Hg daily, Will monitor closely for worsening bleed ENDO Problem: DKA- resolved, Hx of DM 2 Diagnostic Test: blood glucose, A1c 12.8, Patient BG have been around 100 Treatment Plan: Will adjust lantus and lispro as needed HEME Problem: Leukocytosis DDx: stress from withdrawal, infection Diagnostic Test: Treatment Plan: continue antibiotics (see ID) Treatment Review: ID Problem: Septic shock due to UTI DDx: UTI vs PNA Diagnostic Test: blood, urine culture, CXR showed worsening left base pna, however patient is also fluid overloaded, Vent requirements have increased as we increased peep Treatment Plan: Continue empiric antibiotics ceftriaxone (Until 10/08/24) and added vanco, azithromycin completed, D/Cd mejias, arterial and central line Treatment Review: Prelim blood culture negative x 48 hours. Health Maintenance Diet and fluids: Glucerna DVT prophylaxis: heparin GI prophylaxis: PPI 40 IV BID Lines: OG, ET, D/C mejias, D/C arterial and central line CODE STATUS: FULL I discussed patient's care with attending physician, Dr Lino Bennett PGY3
[2024-10-06] MEDS: MIDAZOLAM INJ 1 MG/ML VIAL 2 ML 2 MG IV ×8 (07:59→22:53)
[2024-10-06] MEDS: MIDAZOLAM/NS 100 MG IVPB 100 MG/100 ML BAG IV (08:00)
[2024-10-06] MEDS: DEXMEDETOMIDINE 400 MCG IVPB 400 MCG/100 ML BAG 19.3 MCG IV (08:12)
--- NOTE | 2024-10-06 09:09 | XR_ITS ---
Examination: AP chest single view Technique one AP portable semiupright chest single view Date and time: October 06, 2024 0942 hours Comparison October 05, 2024 INDICATIONS: Hypoxic respiratory failure, bilateral pneumonia on earlier chest imaging FINDINGS: Poor inspiratory effort Bilateral pneumonia Normal heart size Endotracheal tube tip 4 cm above jacqui. The orogastric tube is in the stomach IMPRESSION: Poor inspiratory effort chest x-ray
[2024-10-06] MEDS: cefTRIAXone/D5w 1gm IV premix 1 GM/50 ML BAG IV (09:32)
[2024-10-06] MEDS: FOLIC ACID 1 MG TABLET NG (09:33)
[2024-10-06] MEDS: PANTOPRAZOLE INJ 40 MG VIAL IVP ×2 (09:33→21:29)
--- NOTE | 2024-10-06 09:49 | PD.RESPRO ---
Documentation for date of: 10/06/24 Subjective Subjective Interval history: Mr. Lorenzo is a 43-year-old male with past medical history significant for hypertension, diabetes, alcohol use disorder, and pancreatitis who presented with acute encephalopathy. Patient in the emergency department was found to be altered with moderate agitation. Required multiple doses of Ativan for potential alcohol withdrawal syndrome. Patient also found to have significant diabetic ketoacidosis with potential underlying infection as precipitant. Notably patient has been drinking heavily for the last 3 to 4 days and was found altered by family who brought him in. He is unable to provide any additional history at this time. Unclear when was last drink. Patient was staying with his parents last few days though family at bedside is unable to corroborate what may have changed. Margarita? was able to relate that about 1 month ago he did have a seizure after he tried to cut back on alcohol. Patient's course in ED complicated by impending respiratory failure and arrest. Patient had severe bradycardia though he did not lose his pulse. Required 1 mg of atropine and 1 mg of epinephrine with maintenance of circulation but subsequently requiring intubation for airway protection and ventilatory support. Patient started on vasopressor support with Levophed and given 2 amp of bicarb to compensate for metabolic acidosis secondary to DKA. Patient's course further complicated by SVT with initial failed cardioversion. Amiodarone was subsequently given as likely 150 mg bolus with reattempt at cardioversion with 250 J which returned rhythm to sinus tachycardia. Patient without evidence of focal neurologic deficit. Pupillary reflex remains intact. Not sedated after the use of etomidate and rocuronium with follow-up Versed for patient's comfort. Remained stable on fentanyl drip at this point unable to provide any additional history. Overnight, patient had fever of 101. He patient was agitated and was started on propofol. Vasopressin discontinued. During SAT and SBT, he was agitated and so was placed back on sedation. Labs show hypophosphatemia so insulin drip was discontinued and phosphate repleted. Oliguric overnight. Patient with metabolic acidosis likely improving from a DKA standpoint but remains acidotic from acute renal injury. ABG shows acidosis is adequately compensated. Overall, patient's mentation not improved from alcohol withdrawal so will keep on ventilator for airway protection. Phenobarbital increased to 130mg TID with phenobarbital pushes, to not exceed 20-30cc/kg of TBW (1520-2280mg) Nephrology consulted due to acute renal failure with renal function significantly decreased from baseline. Patient seen and examined at bedside, remains intubated, on fentanyl and propofol drips. Patient able to withdraw from pain. Appears fluid overloaded, has had poor urinary output, significant IVF in setting of DKA. Not planning on dialysis at this time, will give Bumex x 1 and continue to monitor urine output. May need dialysis if kidneys do not show improvement. WBC 9.1, hemoglobin 10.2. Sodium 145, potassium 3.1, chloride 116, bicarb 19. BUN 78, creatinine 44, EGFR 16, far above baseline. Only 500 cc urinary output despite significant IVF. Will give Bumex, measure urine sodium, continue to monitor. 10/04/2024: Patient seen and examined at bedside, remains intubated. Able to withdraw from pain. Per ICU team may attempt to extubate today, depending on how patient's progresses. Patient has significant urinary output after 1 dose Bumex yesterday, 7.6 L output. Might significantly fluid positive due to DKA protocol. Sodium 150, potassium 3.1, bicarb 20.3, BUN 64, creatinine 3.7, EGFR 20. Showing improvement with diuretics, will give additional Bumex and continue to monitor. 10/05/2024: Patient seen and examined at bedside, remains intubated. Able to withdraw from pain. Patient significant urinary output, assessment 1 L. At 3.9 L fluid intake, 10.6 L net positive for length of stay. Sodium remains high at 151, potassium 4.0, bicarb 24.4, BUN 50, creatinine 3.1, EGFR 25. Kidney function improving, will hold diuresis today and continue to monitor output. 10/06/2024: Patient seen examined at bedside, remains intubated. ICU team is weaning down sedation with plans to extubate. Maintains good urinary output without diuretics, 3.6 L in 24 hours. Sodium 151, potassium 3.7, chloride 112, bicarb 27.1, BUN 51, creatinine 2.4, EGFR 34. Can increase free water flushes for hypernatremia, as patient is making good urine. Exam Vital Signs Temp Pulse Resp BP Pulse Ox O2 Del Method FiO2 99.2 F 90 25 H 141/99 H 92 L Mechanical Ventilation 30 10/06/24 08:00 10/06/24 08:00 10/01/24 09:50 10/06/24 08:00 10/06/24 08:00 10/06/24 08:00 10/06/24 08:00 Narrative Exam PE: Gen: Well-developed and well-nourished. Intubated and sedated. HEENT: NCAT, PERRLA, EOMI, MMM, anicteric conjunctivae. Mild conjunctival edema. CVS: normal S1 and S2. RRR. No M/R/G. Resp: CTA B/L. No rhonchi, rales, crackles or wheezing. Abd: soft, non-tender, non-distended. MSK: Good ROM in BUE & BLE. No rash. 1+ pitting edema in bilateral hands and feet. Neuro: Intubated and sedated, withdraws from pain. Objective Labs 10/06/24 04:50 10/06/24 04:50 Labs: Laboratory Results - last 24 hr 10/05/24 10/05/24 10/05/24 04:42 08:25 18:26 WBC RBC Hgb Hct MCV MCH MCHC RDW Std Deviation Plt Count Neut % (Auto) Lymph % (Auto) [place] % (Auto) Eos % (Auto) Baso % (Auto) Neut # (Auto) Lymph # (Auto) [place] # (Auto) Eos # (Auto) Baso # (Auto) Immature Gran # (Auto) Absolute Nucleated RBC Immature Gran % Nucleated RBC % Sodium 150 H Potassium 3.2 L D Chloride 114 H Carbon Dioxide 26.2 Anion Gap 10 BUN 51 H Creatinine 2.6 H D Estim Creat Clear Calc 36.2 L eGFR 31 L BUN/Creatinine Ratio 20 Glucose 141 H D Calculated Osmolality 313 H Calcium 7.8 L Corrected Calcium 8.4 L Phosphorus 5.1 Magnesium Total Bilirubin AST ALT Alkaline Phosphatase Total Protein Albumin 3.2 L Globulin Albumin/Globulin Ratio Triglycerides 160 H Misc Test Result Platelets confirmed 10/06/24 04:50 WBC 9.2 RBC 3.93 L Hgb 12.2 L D Hct 35.2 L MCV 90 MCH 31.0 MCHC 34.7 RDW Std Deviation 46.7 H Plt Count 101 L D Neut % (Auto) 48 Lymph % (Auto) 22 [place] % (Auto) 21 H Eos % (Auto) 6 Baso % (Auto) 0 Neut # (Auto) 4.4 Lymph # (Auto) 2.0 [place] # (Auto) 1.9 H Eos # (Auto) 0.5 Baso # (Auto) 0.0 Immature Gran # (Auto) 0.25 H Absolute Nucleated RBC 0.00 Immature Gran % 3 H Nucleated RBC % 0 Sodium 151 H Potassium 3.7 D Chloride 112 H Carbon Dioxide 27.1 Anion Gap 12 BUN 51 H Creatinine 2.4 H Estim Creat Clear Calc 39.3 L eGFR 34 L BUN/Creatinine Ratio 21 H Glucose 145 H Calculated Osmolality 316 H Calcium 8.3 Corrected Calcium 8.5 Phosphorus 4.7 Magnesium 1.7 Total Bilirubin 0.5 AST 22 ALT 22 Alkaline Phosphatase 130 H Total Protein 6.5 Albumin 3.7 D Globulin 2.8 Albumin/Globulin Ratio 1.3 Triglycerides Misc Test Result ABG Interpretation ABG results: 10/01/24 10/02/24 10/02/24 11:00 05:24 12:05 ABG pH 7.05 L* 7.32 L D ABG pCO2 46 29 L D ABG pO2 70 L 129 H D ABG HCO3 13 L 15 L ABG O2 Saturation 93 100 H ABG Base Excess -17 L -10 L VBG pH 7.21 L VBG pCO2 26 L VBG pO2 176 H VBG Base Excess -16 L 10/02/24 10/03/24 10/03/24 21:00 00:40 04:59 ABG pH 7.42 D ABG pCO2 34 ABG pO2 141 H ABG HCO3 22 ABG O2 Saturation 100 H ABG Base Excess -2 VBG pH 7.30 L 7.33 VBG pCO2 33 L 31 L VBG pO2 74 H D 65 H VBG Base Excess -9 L -9 L 10/03/24 10/03/24 10/03/24 05:51 08:23 11:50 ABG pH ABG pCO2 ABG pO2 ABG HCO3 ABG O2 Saturation ABG Base Excess VBG pH 7.33 7.45 7.41 VBG pCO2 38 26 L D 29 L VBG pO2 45 D 129 H D 156 H D VBG Base Excess -6 L -5 L -5 L 10/03/24 10/04/24 10/05/24 17:37 07:30 04:15 ABG pH 7.51 H ABG pCO2 34 ABG pO2 75 L D ABG HCO3 27 H ABG O2 Saturation 97 ABG Base Excess 4 H VBG pH 7.43 7.40 VBG pCO2 30 L 35 L VBG pO2 154 H 56 D VBG Base Excess -4 L -3 10/05/24 06:49 ABG pH 7.45 ABG pCO2 37 ABG pO2 60 L ABG HCO3 25 ABG O2 Saturation 92 ABG Base Excess 1 VBG pH VBG pCO2 VBG pO2 VBG Base Excess Quality Measures Quality Measures none Assessment & Plan Assessment Current Active Medications: Generic Name Dose Route Start Last Admin Trade Name Freq PRN Reason Stop Dose Admin Acetaminophen 650 mg 10/01/24 21:35 10/02/24 01:47 Acetaminophen 325 Mg Tablet PO 10/31/24 21:34 650 mg Q6HR PRN Administration FEVER >101 Dextrose 25 ml 10/04/24 09:03 Dextrose 50%-Water Inj 50 Ml Syringe IV 11/03/24 09:02 Q15MIN PRN BG 50-70 responsive npo pt Dextrose 50 ml 10/04/24 09:03 Dextrose 50%-Water Inj 50 Ml Syringe IV 11/03/24 09:02 Q15MIN PRN BG <50 OR BG <70 & pt unresponsive Folic Acid 1 mg 10/01/24 15:00 10/06/24 09:33 Folic Acid 1 Mg Tablet NG 10/31/24 14:44 1 mg QDAY BREE Administration Glucagon 1 mg 10/04/24 09:03 Glucagon Inj 1 Mg Vial IM Q15MIN PRN BG <70, and no IV access Heparin Sodium (Porcine) 5,000 unit 10/01/24 15:00 10/06/24 05:49 Heparin Sod Inj 5000 Unit/Ml Vial SC 10/15/24 14:59 5,000 unit Q8HR BREE Administration Thiamine HCl 500 mg/ Sodium 105 mls @ 205 mls/hr 10/01/24 14:45 10/06/24 05:49 Chloride IV 10/31/24 14:44 205 mls/hr Q8HR BREE Administration Ceftriaxone Sodium/Dextrose 1 gm in 50 mls @ 100 mls/hr 10/02/24 09:00 10/06/24 09:32 Rocephin/D5w 1gm Iv Premix IV 10/09/24 08:59 100 mls/hr QDAY BREE Administration Propofol 1,000 mg in 100 mls @ 2.067 mls/hr 10/02/24 00:10 10/05/24 15:57 Diprivan Ivpb IV 11/01/24 00:09 0 mcg/kg/min .Q24H PRN 0 mls/hr PER PROTOCOL Titration Protocol 5 MCG/KG/MIN Dexmedetomidine/Sodium Chloride 400 mcg in 100 mls @ 3.86 mls/hr 10/05/24 09:19 10/06/24 08:45 Precedex Ivpb IV 11/04/24 09:18 1.2 mcg/kg/hr .Q24H PRN 23.16 mls/hr Per PROTOCOL Titration Protocol 0.2 MCG/KG/HR Vancomycin/Sodium Chloride 200 mls @ 120 mls/hr 10/06/24 10:00 Vancomycin/Ns 1 Gm Ivpb IV 10/13/24 09:59 Q24H BREE Midazolam HCl 100 mg in 100 mls @ 1 mls/hr 10/06/24 07:55 10/06/24 09:00 Versed Pf Inj In Ns Premix IV 10/11/24 07:54 0 mg/hr .Q24H PRN 0 mls/hr PER PROTOCOL Titration Protocol 1 MG/HR Insulin Glargine 40 unit 10/06/24 09:00 10/06/24 09:12 Insulin Glargine (Lantus) 5 Unit/0.05 Ml (Per 5 Units) SC 11/05/24 08:59 Not Given QDAY [facility] Insulin Human Lispro 10 unit 10/04/24 11:40 10/06/24 05:53 Insulin Lispro (Admelog) 1 Unit/0.01 Ml Unit SC 11/03/24 11:39 Not Given TID [facility] Insulin Human Lispro 0 unit 10/04/24 12:00 10/06/24 05:53 Insulin Lispro (Admelog) 1 Unit/0.01 Ml Unit SC 11/03/24 11:59 Not Given Q6HR [facility] Protocol Midazolam HCl 2 mg 10/06/24 09:04 Midazolam Inj 1 Mg/Ml Vial 2 Ml IV 10/11/24 09:03 Q1HR PRN AGITATION OR ANXIETY Pantoprazole Sodium 40 mg 10/04/24 21:00 10/06/24 09:33 Pantoprazole Inj 40 Mg Vial IVP 11/03/24 20:59 40 mg BID BREE Administration Pharmacy Consult 1 each 10/01/24 09:00 Pharmacy Renal Dose Adjustment 1 Ea XX 10/31/24 08:59 QDAY PRN CONSULT Pharmacy Consult 1 each 10/05/24 09:30 Vancomycin Pharmacy To Dose 1 Each Each IV 11/04/24 09:29 QDAY PRN CONSULT Phenobarbital 129.6 mg 10/05/24 22:00 10/06/24 05:49 Phenobarbital 32.4 Mg Tablet NG 10/19/24 21:59 129.6 mg TID BREE Administration Plan 43 year old male with PMH of DM2, alcohol use disorder, admitted to the ICU for DKA, acute hypoxic respiratory failure and alcohol withdrawal. #VEL Suspect ATN due to shock. Patient is show to be placed on pressors, was able to be weaned off. Patient's baseline creatinine is 1.0 and his climbed up to 4.6 with BUN of 80. Patient received significant IVF in the setting of DKA as managed by primary team. Urine output has improved somewhat, 500 cc urinary output overnight. Patient received 2 mg Bumex x 1 yesterday, had significant urine output 7.6 L. Still remains 12.6 L positive throughout the stay due to DKA protocol. Random urine sodium 123. Kidney function improved, patient having good urine output with Bumex. Will hold diuresis and monitor urine output to assess kidney function. Patient making good urine, 3.6 L output in 24 hours without additional diuretics. - Strict I's and O's - Avoid nephrotoxins - Renally dose meds - Monitor daily renal function #Metabolic acidosis, electrolyte imbalances #Hyponatremia Anion gap from DKA, improving, and from decreased renal clearance due to VEL/ATN. Electrolyte imbalances including hypokalemia, hypophosphatemia, hypomagnesemia. Improving with treatment. DKA treatment completed by primary team. Patient is receiving free water flushes, however patient remains hypernatremic, sodium 151. - Treatment of VEL/ATN as above - Monitor and replete electrolytes as needed - Free water flushes for hypernatremia #Acute encephalopathy #Distributive/septic shock - improved #Sinus bradycardia, SVT, resolved #Acute hypoxic respiratory failure #DKA, DM 2 #Septic shock due to UTI Management as per primary team. Diet and fluids: Glucerna DVT prophylaxis: heparin GI prophylaxis: PPI Lines: OG, ET, Rodriguez, PIV, right femoral and arterial line CODE STATUS: FULL Thank you for allowing us to participate in the care of this patient. Plan of care discussed with attending Dr. Rodriguez. Armani Leary MD PGY?1 Attending Provider Attestation/Addendum Patient currently seen and examined with resident physician Dr. Leary. Note reviewed, agree with findings and recommendations. Patient currently seen in ICU. On the ventilator. Admitted with DKA. Positive by 14 L. Clinically looks rather hypervolemic. Urine output trending down. Will give 1 dose of Bumex today and monitor his renal function. Patient seems to be in ATN. No need for urgent dialysis today. Plan of care discussed with margarita ortez? at bedside. 10/04/2024 patient currently seen in ICU. Remains on ventilator. Spoke to Dr. Huynh-cut back on fluids and give more insulin. Clinically patient looks rather hypervolemic. Will give an additional dose of Bumex today. 10/06/2024 patient currently seen in ICU. Remains on ventilator. Creatinine started to improve. Patient made more than 3.5 L of urine. Hold off on Bumex today. Continue with free water flushes. Edema slightly better.
[2024-10-06] MEDS: BUMETANIDE INJ 0.25 MG/ML VIAL 4 ML 1 MG IVP (11:05)
[2024-10-06] MEDS: VANCOMYCIN/NS 1 GM IVPB 200 ML IV (11:31)
[2024-10-06] MEDS: DEXMEDETOMIDINE 400 MCG IVPB 400 MCG/100 ML BAG 23.16 MCG IV (13:13)
--- NOTE | 2024-10-06 17:05 | PC.SS ---
BOX BLANK MACHINE OPERATOR conducted bedside contact with the patient conduct initial assessment and to discuss discharge planning.? At bedside with patient was sister, Divina Lorenzo .? Information obtained from patient?s sister.? Patient currently admitted to ICU on mechanical ventilator.? Patient resides at home with [employer] bonds. Patient does not utilize any form of DME to assist with ambulation.? Patient does not utilize home oxygen.? Patient possesses the ability to complete ADL?s independently.? Patient?s medical surrogate decision maker is sister, Divina Lorenzo.? Patient is not aligned with PCP services.? Patient will obtain resources to address alcohol abuse.? Per sister, patient began drinking heavily approximately 5 years.? Alcohol abuse has resulted in employment termination and relationship issues per patient?s daughter.? BOX BLANK MACHINE OPERATOR informed patient?s sister that services will be offered but it will be at the patient?s discretion to follow up on services.? Patient?s sister acknowledged patient?s need to follow up. Discharge plan is for the patient to return home.? Family will provide transportation on behalf of the patient.? No further discharge needs identified by the patient.? No further intervention required at this time, rn social work will be available to address any further concerns.? Next of Kin: Divina Lorenzo D/C Plan: Home
[2024-10-06] MEDS: DEXMEDETOMIDINE 400 MCG IVPB 400 MCG/100 ML BAG 27.02 MCG IV ×2 (17:33→21:48)
[2024-10-06] MEDS: INSULIN LISPRO (AdmeLOG) 1 UNIT/0.01 ML UNIT 10 UNIT SC (21:34)
[2024-10-07] VITALS (28 sets, daily range): BP systolic 112–165; BP diastolic 64–118; PULSE 63–102; RESP 7–34; TEMP 36.7–37.5; O2SAT 94–99; BMI 26.2; BMI 27.3
[2024-10-07] MEDS: MIDAZOLAM INJ 1 MG/ML VIAL 2 ML 2 MG IV ×2 (00:09→02:39)
[2024-10-07] MEDS: DEXMEDETOMIDINE 400 MCG IVPB 400 MCG/100 ML BAG 27.02 MCG IV ×2 (01:21→05:10)
[2024-10-07] MEDS: PHENobarbitaL 32.4 MG TABLET 129.6 MG NG (05:26)
[2024-10-07] MEDS: THIAMINE INJ 500 MG in SODIUM CHLORIDE 0.9% 100 ML 205 MG IV (05:26)
[2024-10-07] MEDS: HEPARIN SOD INJ 5000 UNIT/ML VIAL SC ×3 (05:27→21:14)
[2024-10-07] MEDS: INSULIN LISPRO (AdmeLOG) 1 UNIT/0.01 ML UNIT 10 UNIT SC ×3 (05:44→21:13)
[2024-10-07] MEDS: INSULIN LISPRO (AdmeLOG) 1 UNIT/0.01 ML UNIT SC ×3 (05:45→17:57)
[2024-10-07 05:47] LABS: Basophils # (Auto) 0.1 Thou/mm3 (0.0-0.2); Basophils % (Auto) 1 % (0-2.5); Eosinophils # (Auto) 0.4 Thou/mm3 (0.0-0.5); Eosinophils % (Auto) 3 % (0-10); Hematocrit 30.3 % (41.0-53.0); Hemoglobin 10.2 g/dL (13.5-16.0); Immature Granulocytes % (Auto) 2 % (0-0); Immature Granulocytes Auto 0.28 Thou/mm3 (0.00-0.00); Lymphocytes # (Auto) 1.9 Thou/mm3 (1.0-4.8); Lymphocytes % (Auto) 14 % (10-50); Mean Corpuscular HGB Conc 33.7 g/dl (31.0-37.0); Mean Corpuscular Hemoglobin 30.4 pg (25.0-35.0); Mean Corpuscular Volume 90 fL (80-100); Monocytes # (Auto) 2.5 Thou/mm3 (0.0-0.8); Monocytes % (Auto) 19 % (0-12); Neutrophils # (Auto) 7.9 Thou/mm3 (1.8-7.7); Neutrophils % (Auto) 61 % (37-80); Nucleated Red Blood Cell % 0 /100 WBC (0); Platelet Count 114 Thou/mm3 (140-440); RDW Standard Deviation 44.5 fL (35.1-43.9); Red Blood Count 3.36 Miln/mm3 (4.50-5.90); White Blood Count 12.9 Thou/mm3 (3.8-10.6)
[2024-10-07 06:16] LABS: Alanine Aminotransferase 15 U/L (10-49); Albumin, Serum 3.3 gm/dL (3.5-5.0); Albumin/Globulin Ratio 1.2 (1.2-2.2); Alkaline Phosphatase 134 U/L (46-116); Anion Gap 13 (7-16); Aspartate Amino Transferase 19 U/L (0-34); BUN/Creatinine Ratio 22 Ratio (12-20); Bilirubin,Total 0.4 mg/dL (0.3-1.2); Blood Urea Nitrogen 35 mg/dL (9-23); Calcium 8.3 mg/dL (8.3-10.6); Calcium (Corrected) 8.9 mg/dL (8.5-10.1); Carbon Dioxide 30.4 mMol/L (20.0-31.0); Chloride 111 mMol/L (98-107); Creatinine (Component) 1.6 mg/dL (0.6-1.3); Estimated Creatinine Clearance 58.9 mL/min (>60); Globulin 2.7 gm/dL (2.3-3.5); Glucose 186 mg/dL (74-106); Magnesium 1.3 mg/dL (1.6-2.6); Osmolality,Calculated 318 (275-295); Phosphorous 4.3 mg/dL (2.4-5.1); Sodium 154 mMol/L (136-145); eGFR 55 See Note
[2024-10-07 06:23] LABS: Potassium 2.7 mMol/L (3.4-5.1)
--- NOTE | 2024-10-07 06:45 | XR_ITS ---
Examination: AP chest single view TECHNIQUE: AP portable sitting chest single view Date and time: October 07, 2024 0744 hours Comparison October 06, 2024 INDICATIONS: Diagnosis acute hypoxic respiratory failure, postintubation, bilateral pneumonia on earlier chest films FINDINGS: No significant cardiac enlargement Extensive right lung pneumonia consider aspiration pneumonia Prominent vascular congestion Endotracheal tube tip 5.2 cm above Sanna Orogastric tube in the stomach IMPRESSION: Extensive right lung pneumonia, consider aspiration pneumonia Prominent vascular congestion
[2024-10-07] MEDS: POTASSIUM CHLORIDE 10% 20 MEQ/15 ML UDC 60 MEQ GT (07:21)
[2024-10-07] MEDS: Magnesium Sulfate 2 GM Ivpb 2 GM/50 ML BAG IV (07:22)
[2024-10-07] MEDS: POTASSIUM CHL 10 mEq IVPB 10 MEQ/100 ML BAG 100 MEQ IV ×4 (07:22→10:51)
[2024-10-07] MEDS: FOLIC ACID 1 MG TABLET NG (08:09)
[2024-10-07] MEDS: cefTRIAXone/D5w 1gm IV premix 1 GM/50 ML BAG IV (08:09)
[2024-10-07] MEDS: PANTOPRAZOLE INJ 40 MG VIAL IVP ×2 (08:09→21:14)
[2024-10-07] MEDS: DEXTROSE 5%-0.45% NS 1,000 ML 75 ML IV ×2 (08:48→23:17)
--- NOTE | 2024-10-07 09:13 | PD.RESPRO ---
Documentation for date of: 10/07/24 Subjective Subjective Interval history: Mr. Lorenzo is a 43-year-old male with past medical history significant for hypertension, diabetes, alcohol use disorder, and pancreatitis who presented with acute encephalopathy. Patient in the emergency department was found to be altered with moderate agitation. Required multiple doses of Ativan for potential alcohol withdrawal syndrome. Patient also found to have significant diabetic ketoacidosis with potential underlying infection as precipitant. Notably patient has been drinking heavily for the last 3 to 4 days and was found altered by family who brought him in. He is unable to provide any additional history at this time. Unclear when was last drink. Patient was staying with his parents last few days though family at bedside is unable to corroborate what may have changed. Arcelia? was able to relate that about 1 month ago he did have a seizure after he tried to cut back on alcohol. Patient's course in ED complicated by impending respiratory failure and arrest. Patient had severe bradycardia though he did not lose his pulse. Required 1 mg of atropine and 1 mg of epinephrine with maintenance of circulation but subsequently requiring intubation for airway protection and ventilatory support. Patient started on vasopressor support with Levophed and given 2 amp of bicarb to compensate for metabolic acidosis secondary to DKA. Patient's course further complicated by SVT with initial failed cardioversion. Amiodarone was subsequently given as likely 150 mg bolus with reattempt at cardioversion with 250 J which returned rhythm to sinus tachycardia. Patient without evidence of focal neurologic deficit. Pupillary reflex remains intact. Not sedated after the use of etomidate and rocuronium with follow-up Versed for patient's comfort. Remained stable on fentanyl drip at this point unable to provide any additional history. Overnight, patient had fever of 101. He patient was agitated and was started on propofol. Vasopressin discontinued. During SAT and SBT, he was agitated and so was placed back on sedation. Labs show hypophosphatemia so insulin drip was discontinued and phosphate repleted. Oliguric overnight. Patient with metabolic acidosis likely improving from a DKA standpoint but remains acidotic from acute renal injury. ABG shows acidosis is adequately compensated. Overall, patient's mentation not improved from alcohol withdrawal so will keep on ventilator for airway protection. Phenobarbital increased to 130mg TID with phenobarbital pushes, to not exceed 20-30cc/kg of TBW (1520-2280mg) Nephrology consulted due to acute renal failure with renal function significantly decreased from baseline. Patient seen and examined at bedside, remains intubated, on fentanyl and propofol drips. Patient able to withdraw from pain. Appears fluid overloaded, has had poor urinary output, significant IVF in setting of DKA. Not planning on dialysis at this time, will give Bumex x 1 and continue to monitor urine output. May need dialysis if kidneys do not show improvement. WBC 9.1, hemoglobin 10.2. Sodium 145, potassium 3.1, chloride 116, bicarb 19. BUN 78, creatinine 44, EGFR 16, far above baseline. Only 500 cc urinary output despite significant IVF. Will give Bumex, measure urine sodium, continue to monitor. 10/04/2024: Patient seen and examined at bedside, remains intubated. Able to withdraw from pain. Per ICU team may attempt to extubate today, depending on how patient's progresses. Patient has significant urinary output after 1 dose Bumex yesterday, 7.6 L output. Might significantly fluid positive due to DKA protocol. Sodium 150, potassium 3.1, bicarb 20.3, BUN 64, creatinine 3.7, EGFR 20. Showing improvement with diuretics, will give additional Bumex and continue to monitor. 10/05/2024: Patient seen and examined at bedside, remains intubated. Able to withdraw from pain. Patient significant urinary output, assessment 1 L. At 3.9 L fluid intake, 10.6 L net positive for length of stay. Sodium remains high at 151, potassium 4.0, bicarb 24.4, BUN 50, creatinine 3.1, EGFR 25. Kidney function improving, will hold diuresis today and continue to monitor output. 10/06/2024: Patient seen examined at bedside, remains intubated. ICU team is weaning down sedation with plans to extubate. Maintains good urinary output without diuretics, 3.6 L in 24 hours. Sodium 151, potassium 3.7, chloride 112, bicarb 27.1, BUN 51, creatinine 2.4, EGFR 34. Can increase free water flushes for hypernatremia, as patient is making good urine. 10/07/2024: Patient seen examined at bedside, sedated and intubated. ICU team is weaning down sedation with plans to extubate, probable extubation this afternoon. Patient did receive additional 2 mg Bumex yesterday, had significant urinary output. 1.5 L urinary output with 2 large unmeasured voids. Will hold off on diuresis today, continue to monitor urinary output. WBC 12.9, hemoglobin 10.2, sodium 154, potassium 2.7, bicarb 30.4, BUN 35, creatinine 1.6, EGFR 55. Potassium repleted, patient receiving increased free water flushes due to hyponatremia. Exam Vital Signs Temp Pulse Resp BP Pulse Ox O2 Del Method FiO2 98.0 F 89 14 114/79 97 Mechanical Ventilation 30 10/07/24 07:00 10/07/24 09:00 10/07/24 09:00 10/07/24 09:00 10/07/24 09:00 10/06/24 08:00 10/07/24 06:44 Narrative Exam PE: Gen: Well-developed and well-nourished. Intubated and sedated. HEENT: NCAT, PERRLA, EOMI, MMM, anicteric conjunctivae. CVS: normal S1 and S2. RRR. No M/R/G. Resp: CTA B/L. No rhonchi, rales, crackles or wheezing. Abd: soft, non-tender, non-distended. MSK: Good ROM in BUE & BLE. No rash. Edema of upper and lower extremities resolved. Neuro: Intubated and sedated, withdraws from pain. Objective Labs 10/11/24 05:02 10/11/24 05:02 Labs: Laboratory Results - last 24 hr 10/07/24 04:40 WBC 12.9 H D RBC 3.36 L Hgb 10.2 L D Hct 30.3 L MCV 90 MCH 30.4 MCHC 33.7 RDW Std Deviation 44.5 H Plt Count 114 L Neut % (Auto) 61 Lymph % (Auto) 14 Nicholas % (Auto) 19 H Eos % (Auto) 3 Baso % (Auto) 1 Neut # (Auto) 7.9 H Lymph # (Auto) 1.9 Nicholas # (Auto) 2.5 H Eos # (Auto) 0.4 Baso # (Auto) 0.1 Immature Gran # (Auto) 0.28 H Absolute Nucleated RBC 0.00 Immature Gran % 2 H Nucleated RBC % 0 Sodium 154 H Potassium 2.7 L* D Chloride 111 H Carbon Dioxide 30.4 Anion Gap 13 BUN 35 H Creatinine 1.6 H D Estim Creat Clear Calc 58.9 L eGFR 55 L BUN/Creatinine Ratio 22 H Glucose 186 H Calculated Osmolality 318 H Calcium 8.3 Corrected Calcium 8.9 Phosphorus 4.3 Magnesium 1.3 L Total Bilirubin 0.4 AST 19 ALT 15 Alkaline Phosphatase 134 H Total Protein 6.0 Albumin 3.3 L Globulin 2.7 Albumin/Globulin Ratio 1.2 ABG Interpretation ABG results: 10/01/24 10/02/24 10/02/24 11:00 05:24 12:05 ABG pH 7.05 L* 7.32 L D ABG pCO2 46 29 L D ABG pO2 70 L 129 H D ABG HCO3 13 L 15 L ABG O2 Saturation 93 100 H ABG Base Excess -17 L -10 L VBG pH 7.21 L VBG pCO2 26 L VBG pO2 176 H VBG Base Excess -16 L 10/02/24 10/03/24 10/03/24 21:00 00:40 04:59 ABG pH 7.42 D ABG pCO2 34 ABG pO2 141 H ABG HCO3 22 ABG O2 Saturation 100 H ABG Base Excess -2 VBG pH 7.30 L 7.33 VBG pCO2 33 L 31 L VBG pO2 74 H D 65 H VBG Base Excess -9 L -9 L 10/03/24 10/03/24 10/03/24 05:51 08:23 11:50 ABG pH ABG pCO2 ABG pO2 ABG HCO3 ABG O2 Saturation ABG Base Excess VBG pH 7.33 7.45 7.41 VBG pCO2 38 26 L D 29 L VBG pO2 45 D 129 H D 156 H D VBG Base Excess -6 L -5 L -5 L 10/03/24 10/04/24 10/05/24 17:37 07:30 04:15 ABG pH 7.51 H ABG pCO2 34 ABG pO2 75 L D ABG HCO3 27 H ABG O2 Saturation 97 ABG Base Excess 4 H VBG pH 7.43 7.40 VBG pCO2 30 L 35 L VBG pO2 154 H 56 D VBG Base Excess -4 L -3 10/05/24 06:49 ABG pH 7.45 ABG pCO2 37 ABG pO2 60 L ABG HCO3 25 ABG O2 Saturation 92 ABG Base Excess 1 VBG pH VBG pCO2 VBG pO2 VBG Base Excess Quality Measures Quality Measures none Assessment & Plan Assessment Current Active Medications: Generic Name Dose Route Start Last Admin Trade Name Freq PRN Reason Stop Dose Admin Acetaminophen 650 mg 10/01/24 21:35 10/02/24 01:47 Acetaminophen 325 Mg Tablet PO 10/31/24 21:34 650 mg Q6HR PRN Administration FEVER >101 Dextrose 25 ml 10/04/24 09:03 Dextrose 50%-Water Inj 50 Ml Syringe IV 11/03/24 09:02 Q15MIN PRN BG 50-70 responsive npo pt Dextrose 50 ml 10/04/24 09:03 Dextrose 50%-Water Inj 50 Ml Syringe IV 11/03/24 09:02 Q15MIN PRN BG <50 OR BG <70 & pt unresponsive Folic Acid 1 mg 10/01/24 15:00 10/07/24 08:09 Folic Acid 1 Mg Tablet NG 10/31/24 14:44 1 mg QDAY BREE Administration Glucagon 1 mg 10/04/24 09:03 Glucagon Inj 1 Mg Vial IM Q15MIN PRN BG <70, and no IV access Heparin Sodium (Porcine) 5,000 unit 10/01/24 15:00 10/07/24 05:27 Heparin Sod Inj 5000 Unit/Ml Vial SC 10/15/24 14:59 5,000 unit Q8HR BREE Administration Thiamine HCl 500 mg/ Sodium 105 mls @ 205 mls/hr 10/01/24 14:45 10/07/24 05:26 Chloride IV 10/31/24 14:44 205 mls/hr Q8HR BREE Administration Ceftriaxone Sodium/Dextrose 1 gm in 50 mls @ 100 mls/hr 10/02/24 09:00 10/07/24 08:09 Rocephin/D5w 1gm Iv Premix IV 10/09/24 08:59 100 mls/hr QDAY BREE Administration Propofol 1,000 mg in 100 mls @ 2.067 mls/hr 10/02/24 00:10 10/05/24 15:57 Diprivan Ivpb IV 11/01/24 00:09 0 mcg/kg/min .Q24H PRN 0 mls/hr PER PROTOCOL Titration Protocol 5 MCG/KG/MIN Dexmedetomidine/Sodium Chloride 400 mcg in 100 mls @ 3.86 mls/hr 10/05/24 09:19 10/07/24 06:00 Precedex Ivpb IV 11/04/24 09:18 1.4 mcg/kg/hr .Q24H PRN 27.02 mls/hr Per PROTOCOL Titration Protocol 0.2 MCG/KG/HR Vancomycin/Sodium Chloride 200 mls @ 120 mls/hr 10/06/24 10:00 10/06/24 11:31 Vancomycin/Ns 1 Gm Ivpb IV 10/13/24 09:59 120 mls/hr Q24H BREE Administration Protocol Midazolam HCl 100 mg in 100 mls @ 1 mls/hr 10/06/24 07:55 10/06/24 09:00 Versed Pf Inj In Ns Premix IV 10/11/24 07:54 0 mg/hr .Q24H PRN 0 mls/hr PER PROTOCOL Titration Protocol 1 MG/HR Potassium Chloride 10 meq in 100 mls @ 100 mls/hr 10/07/24 06:24 10/07/24 08:35 Kcl Ivpb IV 10/07/24 10:23 100 mls/hr Q1H BREE Administration Dextrose/Sodium Chloride 1,000 mls @ 75 mls/hr 10/07/24 08:35 10/07/24 08:48 D5-1/2ns IV 11/06/24 08:34 75 mls/hr .[id number] BREE Administration Trimethoprim/Sulfamethoxazole 520 mls @ 520 mls/hr 10/07/24 14:00 20 ml/ Dextrose IV 10/14/24 13:59 Q8HR BREE Insulin Glargine 30 unit 10/07/24 09:00 Insulin Glargine (Lantus) 5 Unit/0.05 Ml (Per 5 Units) SC 11/06/24 08:59 QDAY BREE Insulin Human Lispro 10 unit 10/04/24 11:40 10/07/24 05:44 Insulin Lispro (Admelog) 1 Unit/0.01 Ml Unit SC 11/03/24 11:39 10 unit TID BREE Administration Insulin Human Lispro 0 unit 10/04/24 12:00 10/07/24 05:45 Insulin Lispro (Admelog) 1 Unit/0.01 Ml Unit SC 11/03/24 11:59 3 unit Q6HR BREE Administration Protocol Midazolam HCl 2 mg 10/07/24 07:07 Midazolam Inj 1 Mg/Ml Vial 2 Ml IV 10/11/24 09:03 Q4HR PRN AGITATION OR ANXIETY Pantoprazole Sodium 40 mg 10/04/24 21:00 10/07/24 08:09 Pantoprazole Inj 40 Mg Vial IVP 11/03/24 20:59 40 mg BID BREE Administration Pharmacy Consult 1 each 10/01/24 09:00 Pharmacy Renal Dose Adjustment 1 Ea XX 10/31/24 08:59 QDAY PRN CONSULT Pharmacy Consult 1 each 10/05/24 09:30 Vancomycin Pharmacy To Dose 1 Each Each IV 11/04/24 09:29 QDAY PRN CONSULT Phenobarbital 64.8 mg 10/07/24 14:00 Phenobarbital 32.4 Mg Tablet NG 10/21/24 13:59 TID BREE Plan 43 year old male with PMH of DM2, alcohol use disorder, admitted to the ICU for DKA, acute hypoxic respiratory failure and alcohol withdrawal. #VEL Suspect ATN due to shock. Patient is show to be placed on pressors, was able to be weaned off. Patient's baseline creatinine is 1.0 and his climbed up to 4.6 with BUN of 80. Patient received significant IVF in the setting of DKA as managed by primary team. Urine output has improved somewhat, 500 cc urinary output overnight. Patient received 2 mg Bumex x 1 yesterday, had significant urine output 7.6 L. Still remains 12.6 L positive throughout the stay due to DKA protocol. Random urine sodium 123. Kidney function improved, patient having good urine output with Bumex. Will hold diuresis and monitor urine output to assess kidney function. Patient making good urine, 3.6 L output in 24 hours without additional diuretics. Patient appears significantly better, with improved renal function and edema on exam. - Strict I's and O's - Avoid nephrotoxins - Renally dose meds - Monitor daily renal function - Hold diuresis today #Metabolic acidosis, electrolyte imbalances #Hyponatremia Anion gap from DKA, improving, and from decreased renal clearance due to VEL/ATN. Electrolyte imbalances including hypokalemia, hypophosphatemia, hypomagnesemia. Improving with treatment. DKA treatment completed by primary team. Patient is receiving free water flushes, however patient remains hypernatremic, sodium 151. - Treatment of VEL/ATN as above - Monitor and replete electrolytes as needed - Free water flushes for hypernatremia #Acute encephalopathy #Distributive/septic shock - improved #Sinus bradycardia, SVT, resolved #Acute hypoxic respiratory failure #DKA, DM 2 #Septic shock due to UTI Management as per primary team. Diet and fluids: Glucerna DVT prophylaxis: heparin GI prophylaxis: PPI Lines: OG, ET, Rodriguez, PIV, right femoral and arterial line CODE STATUS: FULL Thank you for allowing us to participate in the care of this patient. Plan of care discussed with attending Dr. Rodriguez. Armani Leary MD PGY?1 Attending Provider Attestation/Addendum Patient seen and examined with resident physician Dr. Glynn. Note reviewed, agree with findings and recommendations.
[2024-10-07] MEDS: DEXMEDETOMIDINE 400 MCG IVPB 400 MCG/100 ML BAG 11.58 MCG IV ×2 (10:28→18:59)
--- NOTE | 2024-10-07 10:56 | ESPR_ITS ---
<Statement entered by Bertrand Huynh MD - 10/08/24 07:59> TOTAL TIME: 45MINUTES ON DIRECT MEDICAL CARE, MANAGEMENT - COORDINATION AND COUNSELING > 50% OF TOTAL TIME I saw and evaluated the patient. I reviewed the resident?s note and agree with findings and plan as documented in the resident?s note. remains off versed/prop gtt on precedex gtt can follow some commands passed SBT and extubated Has STM pneumonia - high dose bactrim ordered Keep in ICU for continued monitoring IVFs needed as unable to pass swallow eval. Documentation for date of: 10/07/24 Subjective Subjective Interval history: Patient is a 43-year-old male with past medical history significant for hypertension, diabetes, alcohol use disorder, and pancreatitis who presented with acute encephalopathy. Patient emergent department was found to be altered with moderate agitation. Required multiple doses of Ativan for potential alcohol withdrawal syndrome. Patient also found to have significant diabetic ketoacidosis with potential underlying infection as precipitant. Notably patient has been drinking heavily for the last 3 to 4 days and was found altered by family who brought him into. He is unable to provide any additional history at this time. Unclear when was last drink. He typically drinks beer. Patient was staying with his parents last few days though family at bedside is unable to corroborate what may have changed. Arcelia? was able to relate that about 1 month ago he did have a seizure after he tried to cut back on alcohol. Patient's course in ED complicated by impending respiratory failure and arrest. Patient had severe bradycardia though he did not lose his pulse. Required 1 mg of atropine and 1 mg of epinephrine with maintenance of circulation but subsequently requiring intubation for airway protection and ventilatory support. Patient started on vasopressor support with Levophed and given 2 amp of bicarb to compensate for metabolic acidosis secondary to DKA. Patient's course further complicated by SVT with initial failed cardioversion. Amiodarone was subsequently given as likely 150 mg bolus with reattempt at cardioversion with 250 J which returned rhythm to sinus tachycardia. Patient without evidence of focal neurologic deficit. Pupillary reflex remains intact. Not sedated after the use of etomidate and rocuronium with follow-up Versed for patient's comfort. Remained stable on fentanyl drip at this point unable to provide any additional history. 10/02/2024: Overnight, patient had fever of 101. He patient was agitated and was started on propofol. This morning, vasopressin discotninued. During SAT and SBT, he was agitated and so was placed back on sedation. Labs show hypophosphatemia so insulin drip was discontinued and phosphate repleted. Oliguric overnight. Patient with metabolic acidosis likely improving from a DKA standpoint but remains acidotic from acute renal injury. ABG shows acidosis is adequately compensated. Overall, patient's mentation not improved from alcohol withdrawal so will keep on ventilator for airway protection. Will increase phenobarbital to 130mg TID with phenobarbital pushes, to not exceed 20-30cc/kg of TBW (1520- 2280mg) 10/03/2024: Overnight patient's insulin drip was DCd and he received 15 additional units of lantus. Patient is maxed out on fentanyl and propofol. There was a concern about patient being very sensitive to Benzos which made him hypoxic due to decreased respiratory drive and subsequently bradycardic and therefore fentanyl was chosen for sedation and phenobarbital was used. We will wean off of fentanyl drip and transition to versed drip as patient seems to be tolerating versed now and he is intubated. Patient's glucose remains in the 300s and his bicarb still bellow 20, we will restart on insulin drip for better metabolic control. Patient's urine output has slowly improved over night to 500cc all night which is better than the previous day. Nephrology was consulted. Patient is edematous. Nephrology will try bumex. Will continue to monitor renal function closely. Will continue phenobarbital and wean off. 10/04/2024: Patient was seen and examined in the ICU today. There were no major overnight events and patient had a better glycemic control overnight on the drip. We discontinued the insulin drip and gave lantus 43 units bolus and started sliding scale insulin. Will start short acting boluses at 10 TID. Patient failed SAT trial as we attempted to decrease propofol and patient begun waking up but unable to follow commands and he was tachycardic and tachypneic. Will increase versed infusion rate and increase phenobarbital to 260 TID and re evaluate tomorrow. Patient's unrine output has been great overnight with 300- 400cc/hr and nephrology added an additional 2mg bumax today. Createnine is tredning down to 3.6 today and patient will likely not need dialysis at this time. Patient had a dark stool today that was positive for fecal occult blood. His hemoglobin has dropped however it is likely dilutional as he has gotten over 10 litters of fluids. Will continue to monitor hemoglobin now that we have D/C de insulin drip and fluids and transitioned to tube feeds and free water flushes. 10/05/2024: Patient seen and examined in the ICU today. There were no major overnight events patient continues to be intubated this morning. He had a temperature of 100. At bedside patient seems to have increasing secretions from his ET tube that were foul-smelling. Sputum secretions that were initially obtained.On 10/01/2024 was not a good sample and grew strep agalactiae and yeast. Repeat secretions on 10/03/24 does show GPC's so will await the final results of that. Will add vancomycin empirically. Patient's x-ray showed improvement today with better area aeration in bilateral lung whittaker. His urine output is adequate at about 200 cc/h. We discontinued the IV fluids yesterday and patient's sodium was 151 today. We are currently at a rate of 100 cc/h on the free water flushes and will add to 50 bolus flushes every 8 hours. Will repeat a renal panel this afternoon. Creatinine function continues to improve at that is 3.1 today. Lantus was increased to 45. Patient did not have any more tarry dark stools and his hemoglobin has been stable at 10. Patient's spontaneous awakening trial continues to be difficult as he begins biting on the vent and not following commands when Versed is decreased. Phenobarbital is up 260 3 times daily. Will add Precedex and attempt to decrease propofol and will decrease Versed gradually as tolerated. 10/06/2024: Patient seen and examined in the ICU today. Over night patient had good urine output however he needed to be straight cath 4 times. His propofol was stopped at 15:00 and his versed was stopped at 6:00 am this morning. Precedex was at 1.0 and patient was waking up, opening his eyes to voice and trying to mouth however he did not trace with his eyes as they were rolling back and patient was not following commands to squeeze hands. Patient was given a push of versed and placed back on versed drip which immediately sedated him. Versed drip was stopped and we will manage with pushes instead to allow for washout. Patient's Saturation is dropping to the low 90s on the same vent settings. Given his increased secretions there is concern for worsening of his PNA. Phenobarbital was decreased to 130mg TID lest evening as patient was becoming bradycardic with the oversedation. Will continues vanco and DC rochephin on 10/08/24 to complete 7 day treatment for UTI. Will increase water flushes to 150cc/hr as his sodium continues to be 151. 10/07/2024: Patient was seen and examined in the ICU today. Overnight the versed pushes were prolonged in timing and his last one was at 2:30 am. This morning he was awake and able to follow commands on precedex only. Patient was placed on SBT and he successfully passed the trial and was subsequently extubated at around 9 am this morning. Patient was placed on a nasal cannula and patient remained saturating well taking deep slow breaths. His sputum cultures obtained on 10/03/24 grew Stenotrophomonas maltophilia which was sensitive to bactrim. Given patient had fevers during his stay and his chest imaging does show extensive pneumonia, we switched patient from vancomycin to Bactrim. Will discontinue phenobarbital today and continue monitoring patient as we reorient him. Discontinued folate and thiamine. Will talk to social work about resources for alcohol cessation. Patient may be downgraded to floors in the next 24-48 hours. Exam Vital Signs Temp Pulse Resp BP Pulse Ox O2 Del Method FiO2 98.0 F 94 17 147/90 H 94 L Mechanical Ventilation 35 10/07/24 07:00 10/07/24 10:10/07/24 10:10/07/24 10:10/07/24 10:10/06/24 08:10/07/24 08:00 Narrative Exam Constitutional: Well nourished, sedated and in no acute distress ENMT: Moist Mucous Membranes, No trauma or injury. Neck: Supple to palpation, No JVD CVS: RRR, S1 and S2 present, no murmurs, rubs or gallops . RESP: CTAB, no SOB, no wheezing. No respiratory Distress. There are some Rales heard bilaterally GI: Normal BS, Nontender/Nondistended. MSK: Full range of motion, No trauma or deformities or masses. Skin: Warm to touch, Dry. No rashes or lesions. No hematomas. Tattoos noted Neuro: Sedate, good gag reflex, withdraws from noxious stimuli. Unable to follow commands on SAT Objective Labs 10/07/24 04:40 10/07/24 04:40 Labs: Laboratory Results - last 24 hr 10/07/24 04:40 WBC 12.9 H D RBC 3.36 L Hgb 10.2 L D Hct 30.3 L MCV 90 MCH 30.4 MCHC 33.7 RDW Std Deviation 44.5 H Plt Count 114 L Neut % (Auto) 61 Lymph % (Auto) 14 [place] % (Auto) 19 H Eos % (Auto) 3 Baso % (Auto) 1 Neut # (Auto) 7.9 H Lymph # (Auto) 1.9 [place] # (Auto) 2.5 H Eos # (Auto) 0.4 Baso # (Auto) 0.1 Immature Gran # (Auto) 0.28 H Absolute Nucleated RBC 0.00 Immature Gran % 2 H Nucleated RBC % 0 Sodium 154 H Potassium 2.7 L* D Chloride 111 H Carbon Dioxide 30.4 Anion Gap 13 BUN 35 H Creatinine 1.6 H D Estim Creat Clear Calc 58.9 L eGFR 55 L BUN/Creatinine Ratio 22 H Glucose 186 H Calculated Osmolality 318 H Calcium 8.3 Corrected Calcium 8.9 Phosphorus 4.3 Magnesium 1.3 L Total Bilirubin 0.4 AST 19 ALT 15 Alkaline Phosphatase 134 H Total Protein 6.0 Albumin 3.3 L Globulin 2.7 Albumin/Globulin Ratio 1.2 ABG Interpretation ABG results: 10/01/24 10/02/24 10/02/24 11:00 05:24 12:05 ABG pH 7.05 L* 7.32 L D ABG pCO2 46 29 L D ABG pO2 70 L 129 H D ABG HCO3 13 L 15 L ABG O2 Saturation 93 100 H ABG Base Excess -17 L -10 L VBG pH 7.21 L VBG pCO2 26 L VBG pO2 176 H VBG Base Excess -16 L 10/02/24 10/03/24 10/03/24 21:00 00:40 04:59 ABG pH 7.42 D ABG pCO2 34 ABG pO2 141 H ABG HCO3 22 ABG O2 Saturation 100 H ABG Base Excess -2 VBG pH 7.30 L 7.33 VBG pCO2 33 L 31 L VBG pO2 74 H D 65 H VBG Base Excess -9 L -9 L 10/03/24 10/03/24 10/03/24 05:51 08:23 11:50 ABG pH ABG pCO2 ABG pO2 ABG HCO3 ABG O2 Saturation ABG Base Excess VBG pH 7.33 7.45 7.41 VBG pCO2 38 26 L D 29 L VBG pO2 45 D 129 H D 156 H D VBG Base Excess -6 L -5 L -5 L 10/03/24 10/04/24 10/05/24 17:37 07:30 04:15 ABG pH 7.51 H ABG pCO2 34 ABG pO2 75 L D ABG HCO3 27 H ABG O2 Saturation 97 ABG Base Excess 4 H VBG pH 7.43 7.40 VBG pCO2 30 L 35 L VBG pO2 154 H 56 D VBG Base Excess -4 L -3 10/05/24 06:49 ABG pH 7.45 ABG pCO2 37 ABG pO2 60 L ABG HCO3 25 ABG O2 Saturation 92 ABG Base Excess 1 VBG pH VBG pCO2 VBG pO2 VBG Base Excess Quality Measures Quality Measures none Assessment & Plan Assessment Current Active Medications: Generic Name Dose Route Start Last Admin Trade Name Freq PRN Reason Stop Dose Admin Acetaminophen 650 mg 10/01/24 21:35 10/02/24 01:47 Acetaminophen 325 Mg Tablet PO 10/31/24 21:34 650 mg Q6HR PRN Administration FEVER >101 Dextrose 25 ml 10/04/24 09:03 Dextrose 50%-Water Inj 50 Ml Syringe IV 11/03/24 09:02 Q15MIN PRN BG 50-70 responsive npo pt Dextrose 50 ml 10/04/24 09:03 Dextrose 50%-Water Inj 50 Ml Syringe IV 11/03/24 09:02 Q15MIN PRN BG <50 OR BG <70 & pt unresponsive Folic Acid 1 mg 10/01/24 15:00 10/07/24 08:09 Folic Acid 1 Mg Tablet NG 10/31/24 14:44 1 mg QDAY BREE Administration Glucagon 1 mg 10/04/24 09:03 Glucagon Inj 1 Mg Vial IM Q15MIN PRN BG <70, and no IV access Heparin Sodium (Porcine) 5,000 unit 10/01/24 15:00 10/07/24 05:27 Heparin Sod Inj 5000 Unit/Ml Vial SC 10/15/24 14:59 5,000 unit Q8HR BREE Administration Thiamine HCl 500 mg/ Sodium 105 mls @ 205 mls/hr 10/01/24 14:45 10/07/24 05:26 Chloride IV 10/31/24 14:44 205 mls/hr Q8HR BREE Administration Ceftriaxone Sodium/Dextrose 1 gm in 50 mls @ 100 mls/hr 10/02/24 09:00 10/07/24 08:09 Rocephin/D5w 1gm Iv Premix IV 10/09/24 08:59 100 mls/hr QDAY BREE Administration Propofol 1,000 mg in 100 mls @ 2.067 mls/hr 10/02/24 00:10 10/05/24 15:57 Diprivan Ivpb IV 11/01/24 00:09 0 mcg/kg/min .Q24H PRN 0 mls/hr PER PROTOCOL Titration Protocol 5 MCG/KG/MIN Dexmedetomidine/Sodium Chloride 400 mcg in 100 mls @ 3.86 mls/hr 10/05/24 09:19 10/07/24 10:28 Precedex Ivpb IV 11/04/24 09:18 0.6 mcg/kg/hr .Q24H PRN 11.58 mls/hr Per PROTOCOL Administration Protocol 0.2 MCG/KG/HR Midazolam HCl 100 mg in 100 mls @ 1 mls/hr 10/06/24 07:55 10/06/24 09:00 Versed Pf Inj In Ns Premix IV 10/11/24 07:54 0 mg/hr .Q24H PRN 0 mls/hr PER PROTOCOL Titration Protocol 1 MG/HR Dextrose/Sodium Chloride 1,000 mls @ 75 mls/hr 10/07/24 08:35 10/07/24 08:48 D5-1/2ns IV 11/06/24 08:34 75 mls/hr .[id number] BREE Administration Trimethoprim/Sulfamethoxazole 520 mls @ 520 mls/hr 10/07/24 14:00 20 ml/ Dextrose IV 10/14/24 13:59 Q8HR BREE Insulin Glargine 30 unit 10/07/24 09:00 Insulin Glargine (Lantus) 5 Unit/0.05 Ml (Per 5 Units) SC 11/06/24 08:59 QDAY BREE Insulin Human Lispro 10 unit 10/04/24 11:40 10/07/24 05:44 Insulin Lispro (Admelog) 1 Unit/0.01 Ml Unit SC 11/03/24 11:39 10 unit TID BREE Administration Insulin Human Lispro 0 unit 10/04/24 12:00 10/07/24 05:45 Insulin Lispro (Admelog) 1 Unit/0.01 Ml Unit SC 11/03/24 11:59 3 unit Q6HR BREE Administration Protocol Midazolam HCl 2 mg 10/07/24 07:07 Midazolam Inj 1 Mg/Ml Vial 2 Ml IV 10/11/24 09:03 Q4HR PRN AGITATION OR ANXIETY Pantoprazole Sodium 40 mg 10/04/24 21:00 10/07/24 08:09 Pantoprazole Inj 40 Mg Vial IVP 11/03/24 20:59 40 mg BID BREE Administration Pharmacy Consult 1 each 10/01/24 09:00 Pharmacy Renal Dose Adjustment 1 Ea XX 10/31/24 08:59 QDAY PRN CONSULT Phenobarbital 64.8 mg 10/07/24 14:00 Phenobarbital 32.4 Mg Tablet NG 10/21/24 13:59 TID BREE Plan 43 year old male with PMH of DM2, alcohol use disorder, admitted to the ICU for DKA, acute hypoxic respiratory failure and alcohol withdrawal. [employer] Problem: Acute encephalopathy - improving DDx: Alcohol withdrawal, metabolic Diagnostic Test:CIWA score, BUN, Head CT negative. Treatment Plan: Phenobarbital discontinued today Will continue precedex and titrate down as patient becomes more cooperative Treatment Review: will continue reorientation as patient metabolises the sedatives and will likely downgrade in 24-48 hours CVS Problem: distributive/septic shock - resolved DDx: distributive due to phenobarbital Problem: sinus bradycardia, SVT, resolved DDx: sinus bradycardia due to hypoventilation and SVT after levophed with epinephrine Treatment Review: Patient was cardioverted and started on amiodarone, SVT resolved. Amiodarone was discontinued. PULM Problem: Acute hypoxic respiratory failure DDx: Bibasilar pneumonia Diagnostic Test:Sputum cultures first grew strep agalactiae from an unreliable sputum sample. Repeated sputum cultures 10/03/2024 grew Stenotrophomonas maltophilia sensitive to bactrim CXR today showed persistent pneumonia bilaterally, there were no overnight fevers Treatment Plan: extubated. Discontinued vanco, Started bactrim RENAL VEL - improving ATN due to shock Patient's baseline creatinine is 1.0 and his climbed up to 4.6 with BUN of 80 Patient urinating well on his own. Will continue to follow renal panel and urine output. Appreciate nephrology recommendations Problem: Metabolic acidosis - resolved DDx: Anion gap from DKA, improving and from decreased renal clearance due to VEL, ATN Hypernatremia Sodium climbed up to the 154 likely concentrated Since patient was extubated and we cannot do more water flushes we added D5 1/2 NS at 75cc/hr Will follow-up with repeat renal panel and continue to monitor urine output GI 1 episode of melena - resolved Likely erosive gastritis vs esophagitis vs UGIB Patient had a BM that was dark and possitive for FOBT on 10/04/2024. Hg is stable at 10 today without any more signs of bleeding. PPI 40 IV BID, Will trend Hg daily ENDO Problem: DKA- resolved, Hx of DM 2 Diagnostic Test: blood glucose, A1c 12.8, Patient BG have been around 100 Treatment Plan: hold lantus and continue lispro sliding scale HEME Problem: Leukocytosis DDx: stress from withdrawal, infection Diagnostic Test: Treatment Plan: continue antibiotics (see ID) Treatment Review: ID Problem: Septic shock due to UTI DDx: Stenotrophomonas maltophilia pneumonia Diagnostic Test: CXR showed worsening left base pna, sputum on 10/03/24 grew the stenotrophomonas Treatment Plan: Continue empiric antibiotics ceftriaxone (Until 10/08/24) Discontinued vanco and added bactrim Treatment Review: patient is saturating well now that he is extubated and is clearing his secretions with strong coughs. Will continue to monitor for signs of worsening infection Health Maintenance Diet and fluids: speech evel then we will start with full liquid diet, d51/2 ns at 75 cc/hr for now DVT prophylaxis: heparin GI prophylaxis: PPI 40 IV BID Lines: OG, ET, D/C mejias, D/C arterial and central line CODE STATUS: FULL I discussed patient's care with attending physician, Dr Lino Bennett PGY3
[2024-10-07] MEDS: DEXTROSE 5% IV ×2 (13:57→21:14)
[2024-10-07] MEDS: TMP IV ×2 (13:57→21:14)
[2024-10-07] MEDS: WATER IV ×2 (13:57→21:14)
[2024-10-07] MEDS: SMX IV ×2 (13:57→21:14)
[2024-10-07 14:16] LABS: Albumin, Serum 3.9 gm/dL (3.5-5.0); Anion Gap 13 (7-16); BUN/Creatinine Ratio 18 Ratio (12-20); Blood Urea Nitrogen 28 mg/dL (9-23); Calcium (Corrected) 9.1 mg/dL (8.5-10.1); Carbon Dioxide 25.5 mMol/L (20.0-31.0); Chloride 109 mMol/L (98-107); Creatinine (Component) 1.6 mg/dL (0.6-1.3); Estimated Creatinine Clearance 58.8 mL/min (>60); Glucose 231 mg/dL (74-106); Osmolality,Calculated 304 (275-295); Phosphorous 3.9 mg/dL (2.4-5.1); Potassium 3.5 mMol/L (3.4-5.1); Sodium 147 mMol/L (136-145); eGFR 55 See Note
[2024-10-07] MEDS: LORazepam 2 MG/ML VIAL 1 MG IVP (20:56)
[2024-10-08] VITALS (32 sets, daily range): BP systolic 107–166; BP diastolic 59–95; PULSE 75–122; RESP 10–39; TEMP 36.5–37.6; O2SAT 90–98; BMI 24.8
[2024-10-08] MEDS: INSULIN LISPRO (AdmeLOG) 1 UNIT/0.01 ML UNIT SC ×3 (00:28→11:54)
[2024-10-08] MEDS: DEXMEDETOMIDINE 400 MCG IVPB 400 MCG/100 ML BAG 11.58 MCG IV ×2 (04:09→15:06)
[2024-10-08] MEDS: HEPARIN SOD INJ 5000 UNIT/ML VIAL SC ×3 (06:02→21:36)
[2024-10-08] MEDS: INSULIN LISPRO (AdmeLOG) 1 UNIT/0.01 ML UNIT 10 UNIT SC ×3 (06:06→21:48)
[2024-10-08 06:21] LABS: Basophils # (Auto) 0.1 Thou/mm3 (0.0-0.2); Basophils % (Auto) 1 % (0-2.5); Eosinophils # (Auto) 0.1 Thou/mm3 (0.0-0.5); Eosinophils % (Auto) 1 % (0-10); Hemoglobin 12.1 g/dL (13.5-16.0); Immature Granulocytes % (Auto) 2 % (0-0); Immature Granulocytes Auto 0.37 Thou/mm3 (0.00-0.00); Lymphocytes # (Auto) 2.5 Thou/mm3 (1.0-4.8); Lymphocytes % (Auto) 15 % (10-50); Mean Corpuscular HGB Conc 32.7 g/dl (31.0-37.0); Mean Corpuscular Hemoglobin 30.7 pg (25.0-35.0); Mean Corpuscular Volume 94 fL (80-100); Monocytes # (Auto) 3.5 Thou/mm3 (0.0-0.8); Monocytes % (Auto) 20 % (0-12); Neutrophils # (Auto) 10.9 Thou/mm3 (1.8-7.7); Neutrophils % (Auto) 63 % (37-80); Nucleated Red Blood Cell % 0 /100 WBC (0); Platelet Count 118 Thou/mm3 (140-440); RDW Standard Deviation 46.3 fL (35.1-43.9); Red Blood Count 3.94 Miln/mm3 (4.50-5.90); White Blood Count 17.4 Thou/mm3 (3.8-10.6)
[2024-10-08 06:56] LABS: Alanine Aminotransferase 15 U/L (10-49); Albumin, Serum 3.8 gm/dL (3.5-5.0); Albumin/Globulin Ratio 1.3 (1.2-2.2); Alkaline Phosphatase 124 U/L (46-116); Anion Gap 16 (7-16); Aspartate Amino Transferase 23 U/L (0-34); BUN/Creatinine Ratio 14 Ratio (12-20); Bilirubin,Total 0.4 mg/dL (0.3-1.2); Blood Urea Nitrogen 21 mg/dL (9-23); Calcium 8.5 mg/dL (8.3-10.6); Calcium (Corrected) 8.7 mg/dL (8.5-10.1); Carbon Dioxide 30.2 mMol/L (20.0-31.0); Chloride 108 mMol/L (98-107); Creatinine (Component) 1.5 mg/dL (0.6-1.3); Estimated Creatinine Clearance 57.9 mL/min (>60); Glucose 267 mg/dL (74-106); Magnesium 1.3 mg/dL (1.6-2.6); Osmolality,Calculated 317 (275-295); Phosphorous 3.7 mg/dL (2.4-5.1); Potassium 3.3 mMol/L (3.4-5.1); Sodium 154 mMol/L (136-145); Total Protein 6.8 gm/dL (5.7-8.2); eGFR 59 See Note
[2024-10-08] MEDS: DEXTROSE 5% IV ×3 (07:37→21:34)
[2024-10-08] MEDS: SMX IV ×3 (07:37→21:34)
[2024-10-08] MEDS: TMP IV ×3 (07:37→21:34)
[2024-10-08] MEDS: WATER IV ×3 (07:37→21:34)
[2024-10-08 08:40] LABS: Ammonia 34 uMol/L (11-32)
--- NOTE | 2024-10-08 09:10 | ESPR_ITS ---
<Statement entered by Bertrand Huynh MD - 10/08/24 21:32> TOTAL TIME: 45MINUTES ON DIRECT MEDICAL CARE, MANAGEMENT - COORDINATION AND COUNSELING > 50% OF TOTAL TIME I saw and evaluated the patient. I reviewed the resident?s note and agree with findings and plan as documented in the resident?s note. slowly improving still on precedex - but more awake speaking more clearly - but remains confused restarted home antipsychotic but at reduced dose although cleared for pureed diet - pt appears to struggle quite a bit with po intake and we will defer po intake for now, val as he is contending w/ STM pna Cont IV bactrim Documentation for date of: 10/08/24 Subjective Subjective Interval history: Patient is a 43-year-old male with past medical history significant for hypertension, diabetes, alcohol use disorder, and pancreatitis who presented with acute encephalopathy. Patient emergent department was found to be altered with moderate agitation. Required multiple doses of Ativan for potential alcohol withdrawal syndrome. Patient also found to have significant diabetic ketoacidosis with potential underlying infection as precipitant. Notably patient has been drinking heavily for the last 3 to 4 days and was found altered by family who brought him into. He is unable to provide any additional history at this time. Unclear when was last drink. He typically drinks beer. Patient was staying with his parents last few days though family at bedside is unable to corroborate what may have changed. Arcelia? was able to relate that about 1 month ago he did have a seizure after he tried to cut back on alcohol. Patient's course in ED complicated by impending respiratory failure and arrest. Patient had severe bradycardia though he did not lose his pulse. Required 1 mg of atropine and 1 mg of epinephrine with maintenance of circulation but subsequently requiring intubation for airway protection and ventilatory support. Patient started on vasopressor support with Levophed and given 2 amp of bicarb to compensate for metabolic acidosis secondary to DKA. Patient's course further complicated by SVT with initial failed cardioversion. Amiodarone was subsequently given as likely 150 mg bolus with reattempt at cardioversion with 250 J which returned rhythm to sinus tachycardia. Patient without evidence of focal neurologic deficit. Pupillary reflex remains intact. Not sedated after the use of etomidate and rocuronium with follow-up Versed for patient's comfort. Remained stable on fentanyl drip at this point unable to provide any additional history. 10/02/2024: Overnight, patient had fever of 101. He patient was agitated and was started on propofol. This morning, vasopressin discotninued. During SAT and SBT, he was agitated and so was placed back on sedation. Labs show hypophosphatemia so insulin drip was discontinued and phosphate repleted. Oliguric overnight. Patient with metabolic acidosis likely improving from a DKA standpoint but remains acidotic from acute renal injury. ABG shows acidosis is adequately compensated. Overall, patient's mentation not improved from alcohol withdrawal so will keep on ventilator for airway protection. Will increase phenobarbital to 130mg TID with phenobarbital pushes, to not exceed 20-30cc/kg of TBW (1520- 2280mg) 10/03/2024: Overnight patient's insulin drip was DCd and he received 15 additional units of lantus. Patient is maxed out on fentanyl and propofol. There was a concern about patient being very sensitive to Benzos which made him hypoxic due to decreased respiratory drive and subsequently bradycardic and therefore fentanyl was chosen for sedation and phenobarbital was used. We will wean off of fentanyl drip and transition to versed drip as patient seems to be tolerating versed now and he is intubated. Patient's glucose remains in the 300s and his bicarb still bellow 20, we will restart on insulin drip for better metabolic control. Patient's urine output has slowly improved over night to 500cc all night which is better than the previous day. Nephrology was consulted. Patient is edematous. Nephrology will try bumex. Will continue to monitor renal function closely. Will continue phenobarbital and wean off. 10/04/2024: Patient was seen and examined in the ICU today. There were no major overnight events and patient had a better glycemic control overnight on the drip. We discontinued the insulin drip and gave lantus 43 units bolus and started sliding scale insulin. Will start short acting boluses at 10 TID. Patient failed SAT trial as we attempted to decrease propofol and patient begun waking up but unable to follow commands and he was tachycardic and tachypneic. Will increase versed infusion rate and increase phenobarbital to 260 TID and re evaluate tomorrow. Patient's unrine output has been great overnight with 300- 400cc/hr and nephrology added an additional 2mg bumax today. Createnine is tredning down to 3.6 today and patient will likely not need dialysis at this time. Patient had a dark stool today that was positive for fecal occult blood. His hemoglobin has dropped however it is likely dilutional as he has gotten over 10 litters of fluids. Will continue to monitor hemoglobin now that we have D/C de insulin drip and fluids and transitioned to tube feeds and free water flushes. 10/05/2024: Patient seen and examined in the ICU today. There were no major overnight events patient continues to be intubated this morning. He had a temperature of 100. At bedside patient seems to have increasing secretions from his ET tube that were foul-smelling. Sputum secretions that were initially obtained.On 10/01/2024 was not a good sample and grew strep agalactiae and yeast. Repeat secretions on 10/03/24 does show GPC's so will await the final results of that. Will add vancomycin empirically. Patient's x-ray showed improvement today with better area aeration in bilateral lung whittaker. His urine output is adequate at about 200 cc/h. We discontinued the IV fluids yesterday and patient's sodium was 151 today. We are currently at a rate of 100 cc/h on the free water flushes and will add to 50 bolus flushes every 8 hours. Will repeat a renal panel this afternoon. Creatinine function continues to improve at that is 3.1 today. Lantus was increased to 45. Patient did not have any more tarry dark stools and his hemoglobin has been stable at 10. Patient's spontaneous awakening trial continues to be difficult as he begins biting on the vent and not following commands when Versed is decreased. Phenobarbital is up 260 3 times daily. Will add Precedex and attempt to decrease propofol and will decrease Versed gradually as tolerated. 10/06/2024: Patient seen and examined in the ICU today. Over night patient had good urine output however he needed to be straight cath 4 times. His propofol was stopped at 15:00 and his versed was stopped at 6:00 am this morning. Precedex was at 1.0 and patient was waking up, opening his eyes to voice and trying to mouth however he did not trace with his eyes as they were rolling back and patient was not following commands to squeeze hands. Patient was given a push of versed and placed back on versed drip which immediately sedated him. Versed drip was stopped and we will manage with pushes instead to allow for washout. Patient's Saturation is dropping to the low 90s on the same vent settings. Given his increased secretions there is concern for worsening of his PNA. Phenobarbital was decreased to 130mg TID lest evening as patient was becoming bradycardic with the oversedation. Will continues vanco and DC rochephin on 10/08/24 to complete 7 day treatment for UTI. Will increase water flushes to 150cc/hr as his sodium continues to be 151. 10/07/2024: Patient was seen and examined in the ICU today. Overnight the versed pushes were prolonged in timing and his last one was at 2:30 am. This morning he was awake and able to follow commands on precedex only. Patient was placed on SBT and he successfully passed the trial and was subsequently extubated at around 9 am this morning. Patient was placed on a nasal cannula and patient remained saturating well taking deep slow breaths. His sputum cultures obtained on 10/03/24 grew Stenotrophomonas maltophilia which was sensitive to bactrim. Given patient had fevers during his stay and his chest imaging does show extensive pneumonia, we switched patient from vancomycin to Bactrim. Will discontinue phenobarbital today and continue monitoring patient as we reorient him. Discontinued folate and thiamine. Will talk to social work about resources for alcohol cessation. Patient may be downgraded to floors in the next 24-48 hours. 10/08/24: Patient was seen and examined in the ICU today. Overnight there were no major events. There were no reported temperatures however they were not recorded. He had three large voids and 5 bowel movements. He is awake and alert only to self this morning. He refused to answer other question and was not cooperative with the nurse swallow eval. He is calm and easily reoriented. Ammonia was 34 and he is on small dose of precedex. Will continue to titrate precedex down and have family help reorient patient as he might have ICU delirium. The sodium continues to be elevated at 154 and patient seems dry with thickened secretions. Will give a bolus of 1/2 NS and increase the D51/2 NS. White count continued to elevate to 17.4 this morning. He continues to be on Bactrim. Will monitor for any new fevers. Exam Vital Signs Temp Pulse Resp BP Pulse Ox O2 Del Method O2 Flow Rate 99.5 F 105 H 18 147/83 H 96 Mechanical Ventilation 4 10/07/24 17:00 10/08/24 09:04 10/08/24 09:04 10/08/24 06:00 10/08/24 09:04 10/06/24 08:00 10/08/24 09:04 FiO2 35 10/07/24 08:00 Narrative Exam Constitutional: Well nourished, in no acute distress ENMT: Moist Mucous Membranes, No trauma or injury. Neck: Supple to palpation, No JVD CVS: RRR, S1 and S2 present, no murmurs, rubs or gallops . RESP: CTAB, no SOB, no wheezing. No respiratory Distress. GI: Normal BS, Nontender/Nondistended. MSK: Full range of motion, No trauma or deformities or masses. Skin: Warm to touch, Dry. No rashes or lesions. No hematomas. Tattoos noted Neuro: AAOx1. Refusing to answer questions but remains calm but mildly restless. Objective Labs 10/08/24 05:26 10/08/24 05:26 Labs: Laboratory Results - last 24 hr 10/07/24 10/08/24 10/08/24 13:10 05: 07:57 WBC 17.4 H RBC 3.94 L Hgb 12.1 L Hct 37.0 L MCV 94 MCH 30.7 MCHC 32.7 RDW Std Deviation 46.3 H Plt Count 118 L Neut % (Auto) 63 Lymph % (Auto) 15 [place] % (Auto) 20 H Eos % (Auto) 1 Baso % (Auto) 1 Neut # (Auto) 10.9 H Lymph # (Auto) 2.5 [place] # (Auto) 3.5 H Eos # (Auto) 0.1 Baso # (Auto) 0.1 Immature Gran # (Auto) 0.37 H Absolute Nucleated RBC 0.00 Immature Gran % 2 H Nucleated RBC % 0 Sodium 147 H 154 H Potassium 3.5 D 3.3 L Chloride 109 H 108 H Carbon Dioxide 25.5 30.2 Anion Gap 13 16 BUN 28 H 21 Creatinine 1.6 H 1.5 H Estim Creat Clear Calc 58.8 L 57.9 L eGFR 55 L 59 L BUN/Creatinine Ratio 18 14 Glucose 231 H 267 H Calculated Osmolality 304 H 317 H Calcium 9.0 8.5 Corrected Calcium 9.1 8.7 Phosphorus 3.9 3.7 Magnesium 1.3 L Total Bilirubin 0.4 AST 23 ALT 15 Alkaline Phosphatase 124 H Ammonia 34 H Total Protein 6.8 Albumin 3.9 D 3.8 Globulin 3.0 Albumin/Globulin Ratio 1.3 ABG Interpretation ABG results: 10/01/24 10/02/24 10/02/24 11:00 05:24 12:05 ABG pH 7.05 L* 7.32 L D ABG pCO2 46 29 L D ABG pO2 70 L 129 H D ABG HCO3 13 L 15 L ABG O2 Saturation 93 100 H ABG Base Excess -17 L -10 L VBG pH 7.21 L VBG pCO2 26 L VBG pO2 176 H VBG Base Excess -16 L 10/02/24 10/03/24 10/03/24 21:00 00:40 04:59 ABG pH 7.42 D ABG pCO2 34 ABG pO2 141 H ABG HCO3 22 ABG O2 Saturation 100 H ABG Base Excess -2 VBG pH 7.30 L 7.33 VBG pCO2 33 L 31 L VBG pO2 74 H D 65 H VBG Base Excess -9 L -9 L 10/03/24 10/03/24 10/03/24 05:51 08:23 11:50 ABG pH ABG pCO2 ABG pO2 ABG HCO3 ABG O2 Saturation ABG Base Excess VBG pH 7.33 7.45 7.41 VBG pCO2 38 26 L D 29 L VBG pO2 45 D 129 H D 156 H D VBG Base Excess -6 L -5 L -5 L 10/03/24 10/04/24 10/05/24 17:37 07:30 04:15 ABG pH 7.51 H ABG pCO2 34 ABG pO2 75 L D ABG HCO3 27 H ABG O2 Saturation 97 ABG Base Excess 4 H VBG pH 7.43 7.40 VBG pCO2 30 L 35 L VBG pO2 154 H 56 D VBG Base Excess -4 L -3 10/05/24 06:49 ABG pH 7.45 ABG pCO2 37 ABG pO2 60 L ABG HCO3 25 ABG O2 Saturation 92 ABG Base Excess 1 VBG pH VBG pCO2 VBG pO2 VBG Base Excess Quality Measures Quality Measures none Assessment & Plan Assessment Current Active Medications: Generic Name Dose Route Start Last Admin Trade Name Freq PRN Reason Stop Dose Admin Acetaminophen 650 mg 10/01/24 21:35 10/02/24 01:47 Acetaminophen 325 Mg Tablet PO 10/31/24 21:34 650 mg Q6HR PRN Administration FEVER >101 Dextrose 25 ml 10/04/24 09:03 Dextrose 50%-Water Inj 50 Ml Syringe IV 11/03/24 09:02 Q15MIN PRN BG 50-70 responsive npo pt Dextrose 50 ml 10/04/24 09:03 Dextrose 50%-Water Inj 50 Ml Syringe IV 11/03/24 09:02 Q15MIN PRN BG <50 OR BG <70 & pt unresponsive Glucagon 1 mg 10/04/24 09:03 Glucagon Inj 1 Mg Vial IM Q15MIN PRN BG <70, and no IV access Heparin Sodium (Porcine) 5,000 unit 10/01/24 15:00 10/08/24 06:02 Heparin Sod Inj 5000 Unit/Ml Vial SC 10/15/24 14:59 5,000 unit Q8HR BERE Administration Dexmedetomidine/Sodium Chloride 400 mcg in 100 mls @ 3.86 mls/hr 10/05/24 09:19 10/08/24 06:00 Precedex Ivpb IV 11/04/24 09:18 0.6 mcg/kg/hr .Q24H PRN 11.58 mls/hr Per PROTOCOL Titration Protocol 0.2 MCG/KG/HR Trimethoprim/Sulfamethoxazole 520 mls @ 520 mls/hr 10/07/24 22:00 10/08/24 07:37 20 ml/ Dextrose IV 10/14/24 21:59 520 mls/hr Q8HR BREE Administration Magnesium Sulfate 2 gm in 50 mls @ 25 mls/hr 10/08/24 07:26 Magnesium Sulfate Ivpb IV 10/08/24 09:25 X1 ONE Potassium Chloride 10 meq in 100 mls @ 100 mls/hr 10/08/24 07:26 Kcl Ivpb IV 10/08/24 11:25 Q1H BREE Sodium Chloride 1,000 mls @ 500 mls/hr 10/08/24 07:43 Ns 0.45% IV 10/08/24 09:42 .Q2H ONE Dextrose/Sodium Chloride 1,000 mls @ 125 mls/hr 10/08/24 09:02 D5-1/2ns IV 11/07/24 08:57 .Q8H BREE Insulin Glargine 30 unit 10/07/24 09:00 Insulin Glargine (Lantus) 5 Unit/0.05 Ml (Per 5 Units) SC 11/06/24 08:59 QDAY BREE Insulin Human Lispro 10 unit 10/04/24 11:40 10/08/24 06:06 Insulin Lispro (Admelog) 1 Unit/0.01 Ml Unit SC 11/03/24 11:39 10 unit TID BREE Administration Insulin Human Lispro 0 unit 10/04/24 12:00 10/08/24 06:06 Insulin Lispro (Admelog) 1 Unit/0.01 Ml Unit SC 11/03/24 11:59 4 unit Q6HR BREE Administration Protocol Lorazepam 1 mg 10/07/24 16:00 10/07/24 20:56 Lorazepam 2 Mg/Ml Vial IVP 10/12/24 15:59 1 mg Q2HR PRN Administration AGITATION Pantoprazole Sodium 40 mg 10/09/24 09:00 Pantoprazole Inj 40 Mg Vial IVP 11/08/24 08:59 QDAY [facility] Pharmacy Consult 1 each 10/01/24 09:00 Pharmacy Renal Dose Adjustment 1 Ea XX 10/31/24 08:59 QDAY PRN CONSULT Plan 43 year old male with PMH of DM2, alcohol use disorder, admitted to the ICU for DKA, acute hypoxic respiratory failure and alcohol withdrawal. [employer] Problem: Acute encephalopathy - improving DDx: Alcohol withdrawal vs metabolic vs septic vs ICU delirium Diagnostic Test:CIWA score, Head CT negative. Treatment Plan: Will continue precedex and titrate down as patient becomes more cooperative Patient has home medications with several SSRIs, will restart them once its safer to have patient swallow Treatment Review: will continue reorientation as patient metabolises the sedatives and will likely downgrade in 24-48 hours. CVS Problem: distributive/septic shock - resolved DDx: distributive due to phenobarbital Problem: sinus bradycardia, SVT, resolved DDx: sinus bradycardia due to hypoventilation and SVT after levophed with epinephrine Treatment Review: Patient was cardioverted and started on amiodarone, SVT resolved. Amiodarone was discontinued. PULM Problem: Acute hypoxic respiratory failure DDx: STM pneumonia Diagnostic Test:Sputum cultures first grew strep agalactiae from an unreliable sputum sample. Repeated sputum cultures 10/03/2024 grew Stenotrophomonas maltophilia sensitive to bactrim CXR today showed persistent pneumonia bilaterally, there were no overnight fevers Treatment Plan: extubated. Discontinued vanco, Started bactrim RENAL VEL - improving ATN due to shock Patient's baseline creatinine is 1.0 and his climbed up to 4.6 with BUN of 80 Patient urinating well on his own. Will continue to follow renal panel and urine output. Appreciate nephrology recommendations Problem: Metabolic acidosis - resolved DDx: Anion gap from DKA, improving and from decreased renal clearance due to VEL, ATN Hypernatremia Sodium climbed up to the 154 likely concentrated Gave a 1L bolus of 1/2 NS and increased d51/2 NS to 125 cc/hr Will follow-up with repeat renal panel and continue to monitor urine output GI 1 episode of melena - resolved Likely erosive gastritis vs esophagitis vs UGIB Patient had a BM that was dark and possitive for FOBT on 10/04/2024. Hg is stable at 10 today without any more signs of bleeding. PPI 40 IV Qday, Will trend Hg daily ENDO Problem: DKA- resolved, Hx of DM 2 Diagnostic Test: blood glucose, A1c 12.8, Patient BG have increased to the 200s Treatment Plan: Restart lantus 30 and lispro boluses with sliding scale HEME Problem: Leukocytosis DDx: stress from withdrawal, infection Diagnostic Test: Treatment Plan: continue antibiotics (see ID) Treatment Review: ID Problem: Septic shock due to UTI DDx: Stenotrophomonas maltophilia pneumonia Diagnostic Test: CXR showed worsening left base pna, sputum on 10/03/24 grew the stenotrophomonas Treatment Plan: Continue empiric antibiotics ceftriaxone (Until 10/08/24) Continue bactrim 10/07- Treatment Review: patient is saturating well now that he is extubated and is clearing his secretions with strong coughs. Will continue to monitor for signs of worsening infection Health Maintenance Diet and fluids: will re evaluate swallow screen once more cooperative, d51/2 ns at 125 cc/hr for now DVT prophylaxis: heparin GI prophylaxis: PPI 40 IV Qday Lines: OG, ET, D/C mejias, D/C arterial and central line CODE STATUS: FULL I discussed patient's care with attending physician, Dr Lion Bennett PGY3
[2024-10-08] MEDS: Magnesium Sulfate 2 GM Ivpb 2 GM/50 ML BAG IV (09:13)
[2024-10-08] MEDS: POTASSIUM CHL 10 mEq IVPB 10 MEQ/100 ML BAG 100 MEQ IV ×8 (09:13→17:15)
[2024-10-08] MEDS: INSULIN GLARGINE (Lantus) 5 UNIT/0.05 ML (PER 5 UNITS) 30 UNIT SC (09:15)
[2024-10-08] MEDS: SODIUM CHLORIDE 0.45 % 1,000 ML 500 ML IV (09:27)
[2024-10-08] MEDS: DEXTROSE 5%-0.45% NS 1,000 ML 125 ML IV ×2 (11:34→20:04)
[2024-10-08 13:11] LABS: Albumin, Serum 3.6 gm/dL (3.5-5.0); Anion Gap 12 (7-16); BUN/Creatinine Ratio 11 Ratio (12-20); Blood Urea Nitrogen 15 mg/dL (9-23); Calcium 7.9 mg/dL (8.3-10.6); Calcium (Corrected) 8.2 mg/dL (8.5-10.1); Carbon Dioxide 31.3 mMol/L (20.0-31.0); Chloride 108 mMol/L (98-107); Creatinine (Component) 1.4 mg/dL (0.6-1.3); Glucose 224 mg/dL (74-106); Osmolality,Calculated 307 (275-295); Phosphorous 2.9 mg/dL (2.4-5.1); Potassium 3.2 mMol/L (3.4-5.1); Sodium 151 mMol/L (136-145); eGFR > 60 See Note
[2024-10-08] MEDS: LORazepam 2 MG/ML VIAL 1 MG IVP (14:25)
--- NOTE | 2024-10-08 15:56 | PC.SS ---
Update: Patient has been extubated. Currently on 3L nasal cannula. NPO. Swallow evaluation conducted today.
[2024-10-09] VITALS (26 sets, daily range): BP systolic 100–151; BP diastolic 55–85; PULSE 65–99; RESP 12–47; TEMP 36.6–37.8; O2SAT 88–100; BMI 25.7
[2024-10-09] MEDS: DEXMEDETOMIDINE 400 MCG IVPB 400 MCG/100 ML BAG 15.44 MCG IV (00:28)
[2024-10-09] MEDS: LORazepam 2 MG/ML VIAL 1 MG IVP (00:35)
[2024-10-09] MEDS: DEXTROSE 5%-0.45% NS 1,000 ML 125 ML IV (04:23)
[2024-10-09] MEDS: HEPARIN SOD INJ 5000 UNIT/ML VIAL SC ×3 (05:25→22:00)
[2024-10-09] MEDS: INSULIN LISPRO (AdmeLOG) 1 UNIT/0.01 ML UNIT 10 UNIT SC ×2 (05:56→22:00)
[2024-10-09] MEDS: INSULIN LISPRO (AdmeLOG) 1 UNIT/0.01 ML UNIT SC ×2 (05:59→17:46)
[2024-10-09 06:46] LABS: Basophils # (Auto) 0.1 Thou/mm3 (0.0-0.2); Basophils % (Auto) 1 % (0-2.5); Eosinophils # (Auto) 0.2 Thou/mm3 (0.0-0.5); Eosinophils % (Auto) 1 % (0-10); Hematocrit 31.1 % (41.0-53.0); Hemoglobin 10.2 g/dL (13.5-16.0); Immature Granulocytes % (Auto) 2 % (0-0); Immature Granulocytes Auto 0.32 Thou/mm3 (0.00-0.00); Lymphocytes # (Auto) 3.1 Thou/mm3 (1.0-4.8); Lymphocytes % (Auto) 20 % (10-50); Mean Corpuscular HGB Conc 32.8 g/dl (31.0-37.0); Mean Corpuscular Hemoglobin 30.8 pg (25.0-35.0); Mean Corpuscular Volume 94 fL (80-100); Monocytes # (Auto) 3.7 Thou/mm3 (0.0-0.8); Monocytes % (Auto) 24 % (0-12); Neutrophils # (Auto) 7.9 Thou/mm3 (1.8-7.7); Neutrophils % (Auto) 52 % (37-80); Nucleated Red Blood Cell % 0 /100 WBC (0); Platelet Count 155 Thou/mm3 (140-440); Red Blood Count 3.31 Miln/mm3 (4.50-5.90); White Blood Count 15.3 Thou/mm3 (3.8-10.6)
--- NOTE | 2024-10-09 06:48 | XR_ITS ---
Examination: AP chest single view Technique: AP portable semiupright chest single view Date and time: October 09, 2024 0916 hrs. Comparison October 07, 2024 Indications: History hypoxic respiratory failure significant right lung pneumonia on chest film October 07, 2024 Findings: The patient has been extubated Mild prominence left ventricle Prominent vascular congestion Residual opacity in both lungs consistent with pneumonia and/or edema Impression: Prominent vascular congestion Residual pneumonia and/or edema in both lungs, clinical correlation advised
[2024-10-09] MEDS: DEXMEDETOMIDINE 400 MCG IVPB 400 MCG/100 ML BAG 19.3 MCG IV (07:10)
[2024-10-09] MEDS: DEXTROSE 5% IV ×2 (07:11→14:00)
[2024-10-09] MEDS: WATER IV ×2 (07:11→14:00)
[2024-10-09] MEDS: TMP IV ×2 (07:11→14:00)
[2024-10-09] MEDS: SMX IV ×2 (07:11→14:00)
[2024-10-09 07:24] LABS: Alanine Aminotransferase 12 U/L (10-49); Albumin, Serum 3.6 gm/dL (3.5-5.0); Albumin/Globulin Ratio 1.2 (1.2-2.2); Alkaline Phosphatase 103 U/L (46-116); Anion Gap 14 (7-16); Aspartate Amino Transferase 26 U/L (0-34); BUN/Creatinine Ratio 9 Ratio (12-20); Bilirubin,Total 0.5 mg/dL (0.3-1.2); Blood Urea Nitrogen 11 mg/dL (9-23); Calcium 7.7 mg/dL (8.3-10.6); Carbon Dioxide 26.7 mMol/L (20.0-31.0); Chloride 106 mMol/L (98-107); Creatinine (Component) 1.2 mg/dL (0.6-1.3); Estimated Creatinine Clearance 72.4 mL/min (>60); Globulin 2.9 gm/dL (2.3-3.5); Glucose 154 mg/dL (74-106); Magnesium 1.2 mg/dL (1.6-2.6); Osmolality,Calculated 294 (275-295); Phosphorous 3.9 mg/dL (2.4-5.1); Potassium 3.2 mMol/L (3.4-5.1); Sodium 147 mMol/L (136-145); Total Protein 6.5 gm/dL (5.7-8.2); eGFR > 60 See Note
--- NOTE | 2024-10-09 07:29 | ESPR_ITS ---
<Statement entered by Robinson Rodriguez MD - 10/10/24 08:45> alcohol withdrawal improving. may have underlying psychosis and will start antipsychotics Transfer to telemetry Cumulative time spent in management of patient is 35 min Documentation for date of: 10/09/24 Subjective Subjective Interval history: Patient is a 43-year-old male with past medical history significant for hypertension, diabetes, alcohol use disorder, and pancreatitis who presented with acute encephalopathy. Patient emergent department was found to be altered with moderate agitation. Required multiple doses of Ativan for potential alcohol withdrawal syndrome. Patient also found to have significant diabetic ketoacidosis with potential underlying infection as precipitant. Notably patient has been drinking heavily for the last 3 to 4 days and was found altered by family who brought him into. He is unable to provide any additional history at this time. Unclear when was last drink. He typically drinks beer. Patient was staying with his parents last few days though family at bedside is unable to corroborate what may have changed. Arcelia? was able to relate that about 1 month ago he did have a seizure after he tried to cut back on alcohol. Patient's course in ED complicated by impending respiratory failure and arrest. Patient had severe bradycardia though he did not lose his pulse. Required 1 mg of atropine and 1 mg of epinephrine with maintenance of circulation but subsequently requiring intubation for airway protection and ventilatory support. Patient started on vasopressor support with Levophed and given 2 amp of bicarb to compensate for metabolic acidosis secondary to DKA. Patient's course further complicated by SVT with initial failed cardioversion. Amiodarone was subsequently given as likely 150 mg bolus with reattempt at cardioversion with 250 J which returned rhythm to sinus tachycardia. Patient without evidence of focal neurologic deficit. Pupillary reflex remains intact. Not sedated after the use of etomidate and rocuronium with follow-up Versed for patient's comfort. Remained stable on fentanyl drip at this point unable to provide any additional history. 10/02/2024: Overnight, patient had fever of 101. He patient was agitated and was started on propofol. This morning, vasopressin discotninued. During SAT and SBT, he was agitated and so was placed back on sedation. Labs show hypophosphatemia so insulin drip was discontinued and phosphate repleted. Oliguric overnight. Patient with metabolic acidosis likely improving from a DKA standpoint but remains acidotic from acute renal injury. ABG shows acidosis is adequately compensated. Overall, patient's mentation not improved from alcohol withdrawal so will keep on ventilator for airway protection. Will increase phenobarbital to 130mg TID with phenobarbital pushes, to not exceed 20-30cc/kg of TBW (1520- 2280mg) 10/03/2024: Overnight patient's insulin drip was DCd and he received 15 additional units of lantus. Patient is maxed out on fentanyl and propofol. There was a concern about patient being very sensitive to Benzos which made him hypoxic due to decreased respiratory drive and subsequently bradycardic and therefore fentanyl was chosen for sedation and phenobarbital was used. We will wean off of fentanyl drip and transition to versed drip as patient seems to be tolerating versed now and he is intubated. Patient's glucose remains in the 300s and his bicarb still bellow 20, we will restart on insulin drip for better metabolic control. Patient's urine output has slowly improved over night to 500cc all night which is better than the previous day. Nephrology was consulted. Patient is edematous. Nephrology will try bumex. Will continue to monitor renal function closely. Will continue phenobarbital and wean off. 10/04/2024: Patient was seen and examined in the ICU today. There were no major overnight events and patient had a better glycemic control overnight on the drip. We discontinued the insulin drip and gave lantus 43 units bolus and started sliding scale insulin. Will start short acting boluses at 10 TID. Patient failed SAT trial as we attempted to decrease propofol and patient begun waking up but unable to follow commands and he was tachycardic and tachypneic. Will increase versed infusion rate and increase phenobarbital to 260 TID and re evaluate tomorrow. Patient's unrine output has been great overnight with 300- 400cc/hr and nephrology added an additional 2mg bumax today. Createnine is tredning down to 3.6 today and patient will likely not need dialysis at this time. Patient had a dark stool today that was positive for fecal occult blood. His hemoglobin has dropped however it is likely dilutional as he has gotten over 10 litters of fluids. Will continue to monitor hemoglobin now that we have D/C de insulin drip and fluids and transitioned to tube feeds and free water flushes. 10/05/2024: Patient seen and examined in the ICU today. There were no major overnight events patient continues to be intubated this morning. He had a temperature of 100. At bedside patient seems to have increasing secretions from his ET tube that were foul-smelling. Sputum secretions that were initially obtained.On 10/01/2024 was not a good sample and grew strep agalactiae and yeast. Repeat secretions on 10/03/24 does show GPC's so will await the final results of that. Will add vancomycin empirically. Patient's x-ray showed improvement today with better area aeration in bilateral lung whittaker. His urine output is adequate at about 200 cc/h. We discontinued the IV fluids yesterday and patient's sodium was 151 today. We are currently at a rate of 100 cc/h on the free water flushes and will add to 50 bolus flushes every 8 hours. Will repeat a renal panel this afternoon. Creatinine function continues to improve at that is 3.1 today. Lantus was increased to 45. Patient did not have any more tarry dark stools and his hemoglobin has been stable at 10. Patient's spontaneous awakening trial continues to be difficult as he begins biting on the vent and not following commands when Versed is decreased. Phenobarbital is up 260 3 times daily. Will add Precedex and attempt to decrease propofol and will decrease Versed gradually as tolerated. 10/06/2024: Patient seen and examined in the ICU today. Over night patient had good urine output however he needed to be straight cath 4 times. His propofol was stopped at 15:00 and his versed was stopped at 6:00 am this morning. Precedex was at 1.0 and patient was waking up, opening his eyes to voice and trying to mouth however he did not trace with his eyes as they were rolling back and patient was not following commands to squeeze hands. Patient was given a push of versed and placed back on versed drip which immediately sedated him. Versed drip was stopped and we will manage with pushes instead to allow for washout. Patient's Saturation is dropping to the low 90s on the same vent settings. Given his increased secretions there is concern for worsening of his PNA. Phenobarbital was decreased to 130mg TID lest evening as patient was becoming bradycardic with the oversedation. Will continues vanco and WALKER gutierrez on 10/08/24 to complete 7 day treatment for UTI. Will increase water flushes to 150cc/hr as his sodium continues to be 151. 10/07/2024: Patient was seen and examined in the ICU today. Overnight the versed pushes were prolonged in timing and his last one was at 2:30 am. This morning he was awake and able to follow commands on precedex only. Patient was placed on SBT and he successfully passed the trial and was subsequently extubated at around 9 am this morning. Patient was placed on a nasal cannula and patient remained saturating well taking deep slow breaths. His sputum cultures obtained on 10/03/24 grew Stenotrophomonas maltophilia which was sensitive to bactrim. Given patient had fevers during his stay and his chest imaging does show extensive pneumonia, we switched patient from vancomycin to Bactrim. Will discontinue phenobarbital today and continue monitoring patient as we reorient him. Discontinued folate and thiamine. Will talk to social work about resources for alcohol cessation. Patient may be downgraded to floors in the next 24-48 hours. 10/08/24: Patient was seen and examined in the ICU today. Overnight there were no major events. There were no reported temperatures however they were not recorded. He had three large voids and 5 bowel movements. He is awake and alert only to self this morning. He refused to answer other question and was not cooperative with the nurse swallow eval. He is calm and easily reoriented. Ammonia was 34 and he is on small dose of precedex. Will continue to titrate precedex down and have family help reorient patient as he might have ICU delirium. The sodium continues to be elevated at 154 and patient seems dry with thickened secretions. Will give a bolus of 1/2 NS and increase the D51/2 NS. White count continued to elevate to 17.4 this morning. He continues to be on Bactrim. Will monitor for any new fevers. 10/09/24: Patient was seen and examined in the ICU today. Overnight patient received another dose of ativan. This morning patient is much more awake and alert. We will wean him off of precedex and restarted his escitalopram 10mg po qday today. Will place patient on Phenobarbital 60mg TID and ativan as needed. Patient passed swallow eval and was started on full liquid diet. Downgraded the patient to floors. Exam Vital Signs Temp Pulse Resp BP Pulse Ox O2 Del Method O2 Flow Rate 97.9 F 87 47 H 121/72 92 L Oxy Mask 15 10/09/24 04:00 10/09/24 07:00 10/09/24 07:00 10/09/24 07:00 10/09/24 07:00 10/09/24 05:00 10/09/24 05:00 FiO2 35 10/07/24 08:00 Narrative Exam Constitutional: Well nourished, in no acute distress ENMT: Moist Mucous Membranes, No trauma or injury. Neck: Supple to palpation, No JVD CVS: RRR, S1 and S2 present, no murmurs, rubs or gallops . RESP: CTAB, no SOB, no wheezing. No respiratory Distress. GI: Normal BS, Nontender/Nondistended. MSK: Full range of motion, No trauma or deformities or masses. Skin: Warm to touch, Dry. No rashes or lesions. No hematomas. Tattoos noted Neuro: AAOx1. Much more awake and alert. Objective Labs 10/09/24 05:15 10/09/24 05:15 Labs: Laboratory Results - last 24 hr 10/08/24 10/08/24 10/09/24 07:57 12:19 05:15 WBC 15.3 H RBC 3.31 L Hgb 10.2 L Hct 31.1 L MCV 94 MCH 30.8 MCHC 32.8 RDW Std Deviation 46.0 H Plt Count 155 D Neut % (Auto) 52 Lymph % (Auto) 20 Dewitt % (Auto) 24 H Eos % (Auto) 1 Baso % (Auto) 1 Neut # (Auto) 7.9 H Lymph # (Auto) 3.1 Dewitt # (Auto) 3.7 H Eos # (Auto) 0.2 Baso # (Auto) 0.1 Immature Gran # (Auto) 0.32 H Absolute Nucleated RBC 0.00 Immature Gran % 2 H Nucleated RBC % 0 Sodium 151 H 147 H Potassium 3.2 L 3.2 L Chloride 108 H 106 Carbon Dioxide 31.3 H 26.7 Anion Gap 12 14 BUN 15 11 Creatinine 1.4 H 1.2 Estim Creat Clear Calc 62.0 72.4 eGFR > 60 > 60 BUN/Creatinine Ratio 11 L 9 L Glucose 224 H 154 H D Calculated Osmolality 307 H 294 Calcium 7.9 L 7.7 L Corrected Calcium 8.2 L 8.0 L Phosphorus 2.9 3.9 Magnesium 1.2 L Total Bilirubin 0.5 AST 26 ALT 12 Alkaline Phosphatase 103 D Ammonia 34 H Total Protein 6.5 Albumin 3.6 3.6 Globulin 2.9 Albumin/Globulin Ratio 1.2 ABG Interpretation ABG results: 10/01/24 10/02/24 10/02/24 11:00 05:24 12:05 ABG pH 7.05 L* 7.32 L D ABG pCO2 46 29 L D ABG pO2 70 L 129 H D ABG HCO3 13 L 15 L ABG O2 Saturation 93 100 H ABG Base Excess -17 L -10 L VBG pH 7.21 L VBG pCO2 26 L VBG pO2 176 H VBG Base Excess -16 L 10/02/24 10/03/24 10/03/24 21:00 00:40 04:59 ABG pH 7.42 D ABG pCO2 34 ABG pO2 141 H ABG HCO3 22 ABG O2 Saturation 100 H ABG Base Excess -2 VBG pH 7.30 L 7.33 VBG pCO2 33 L 31 L VBG pO2 74 H D 65 H VBG Base Excess -9 L -9 L 10/03/24 10/03/24 10/03/24 05:51 08:23 11:50 ABG pH ABG pCO2 ABG pO2 ABG HCO3 ABG O2 Saturation ABG Base Excess VBG pH 7.33 7.45 7.41 VBG pCO2 38 26 L D 29 L VBG pO2 45 D 129 H D 156 H D VBG Base Excess -6 L -5 L -5 L 10/03/24 10/04/24 10/05/24 17:37 07:30 04:15 ABG pH 7.51 H ABG pCO2 34 ABG pO2 75 L D ABG HCO3 27 H ABG O2 Saturation 97 ABG Base Excess 4 H VBG pH 7.43 7.40 VBG pCO2 30 L 35 L VBG pO2 154 H 56 D VBG Base Excess -4 L -3 10/05/24 06:49 ABG pH 7.45 ABG pCO2 37 ABG pO2 60 L ABG HCO3 25 ABG O2 Saturation 92 ABG Base Excess 1 VBG pH VBG pCO2 VBG pO2 VBG Base Excess Quality Measures Quality Measures none Assessment & Plan Assessment Current Active Medications: Generic Name Dose Route Start Last Admin Trade Name Tiffanie PRN Reason Stop Dose Admin Acetaminophen 650 mg 10/01/24 21:35 10/02/24 01:47 Acetaminophen 325 Mg Tablet PO 10/31/24 21:34 650 mg Q6HR PRN Administration FEVER >101 Dextrose 25 ml 10/04/24 09:03 Dextrose 50%-Water Inj 50 Ml Syringe IV 11/03/24 09:02 Q15MIN PRN BG 50-70 responsive npo pt Dextrose 50 ml 10/04/24 09:03 Dextrose 50%-Water Inj 50 Ml Syringe IV 11/03/24 09:02 Q15MIN PRN BG <50 OR BG <70 & pt unresponsive Glucagon 1 mg 10/04/24 09:03 Glucagon Inj 1 Mg Vial IM Q15MIN PRN BG <70, and no IV access Heparin Sodium (Porcine) 5,000 unit 10/01/24 15:00 10/09/24 05:25 Heparin Sod Inj 5000 Unit/Ml Vial SC 10/15/24 14:59 5,000 unit Q8HR BREE Administration Dexmedetomidine/Sodium Chloride 400 mcg in 100 mls @ 3.86 mls/hr 10/05/24 09:19 10/09/24 07:10 Precedex Ivpb IV 11/04/24 09:18 1 mcg/kg/hr .Q24H PRN 19.3 mls/hr Per PROTOCOL Administration Protocol 0.2 MCG/KG/HR Trimethoprim/Sulfamethoxazole 520 mls @ 520 mls/hr 10/07/24 22:00 10/09/24 07:11 20 ml/ Dextrose IV 10/14/24 21:59 520 mls/hr Q8HR BREE Administration Dextrose/Sodium Chloride 1,000 mls @ 125 mls/hr 10/08/24 09:02 10/09/24 04:23 D5-1/2ns IV 11/07/24 08:57 125 mls/hr .Q8H BREE Administration Insulin Glargine 30 unit 10/07/24 09:00 10/08/24 09:15 Insulin Glargine (Lantus) 5 Unit/0.05 Ml (Per 5 Units) SC 11/06/24 08:59 30 unit QDAY BREE Administration Insulin Human Lispro 10 unit 10/04/24 11:40 10/09/24 05:56 Insulin Lispro (Admelog) 1 Unit/0.01 Ml Unit SC 11/03/24 11:39 10 unit TID BREE Administration Insulin Human Lispro 0 unit 10/04/24 12:00 10/09/24 05:59 Insulin Lispro (Admelog) 1 Unit/0.01 Ml Unit SC 11/03/24 11:59 2 unit Q6HR BREE Administration Protocol Lorazepam 1 mg 10/07/24 16:00 10/09/24 00:35 Lorazepam 2 Mg/Ml Vial IVP 10/12/24 15:59 1 mg Q2HR PRN Administration AGITATION Pantoprazole Sodium 40 mg 10/09/24 09:00 Pantoprazole Inj 40 Mg Vial IVP 11/08/24 08:59 QDAY [facility] Pharmacy Consult 1 each 10/01/24 09:00 Pharmacy Renal Dose Adjustment 1 Ea XX 10/31/24 08:59 QDAY PRN CONSULT Plan 43 year old male with PMH of DM2, alcohol use disorder, admitted to the ICU for DKA, acute hypoxic respiratory failure and alcohol withdrawal. [employer]ENT Problem: Acute encephalopathy - improving DDx: Alcohol withdrawal vs metabolic vs septic vs ICU delirium Diagnostic Test:CIWA score, Head CT negative. Treatment Plan: Discontinued precedex. Will retart low dose phenobarbital 60mg TID Restarted escitalopram 10mg PO qday Treatment Review: will continue reorientation and downgrade patient to floors CVS Problem: distributive/septic shock - resolved DDx: distributive due to phenobarbital Problem: sinus bradycardia, SVT, resolved DDx: sinus bradycardia due to hypoventilation and SVT after levophed with epinephrine Treatment Review: Patient was cardioverted and started on amiodarone, SVT resolved. Amiodarone was discontinued. PULM Problem: Acute hypoxic respiratory failure DDx: STM pneumonia Diagnostic Test:Sputum cultures first grew strep agalactiae from an unreliable sputum sample. Repeated sputum cultures 10/03/2024 grew Stenotrophomonas maltophilia sensitive to bactrim CXR today showed persistent pneumonia bilaterally, there were no overnight fevers Treatment Plan: extubated 10/07/24. Continue bactrim 10/07- RENAL VEL - Resolved ATN due to shock Patient's baseline creatinine is 1.0 and his climbed up to 4.6 with BUN of 80 Patient urinating well on his own. Will continue to follow renal panel and urine output. Appreciate nephrology recommendations Problem: Metabolic acidosis - resolved DDx: Anion gap from DKA, improving and from decreased renal clearance due to VEL, ATN Hypernatremia Sodium climbed up to the 154 likely concentrated D/Cd fluids. Encourage PO water intake Will follow-up with repeat renal panel GI 1 episode of melena - resolved Likely erosive gastritis vs esophagitis vs UGIB Patient had a BM that was dark and positive for FOBT on 10/04/2024. Hg is stable at 10 today without any more signs of bleeding. PPI 40 IV Qday, Will trend Hg daily ENDO Problem: DKA- resolved, Hx of DM 2 Diagnostic Test: blood glucose, A1c 12.8, Patient BG have increased to the 200s Treatment Plan: Restart lantus 30 and lispro boluses with sliding scale HEME Problem: Leukocytosis DDx: infection Diagnostic Test: Treatment Plan: continue antibiotics (see ID) Treatment Review: ID Problem: Septic shock due to UTI DDx: Stenotrophomonas maltophilia pneumonia Diagnostic Test: CXR showed worsening left base pna, sputum on 10/03/24 grew the stenotrophomonas Treatment Plan: Continue empiric antibiotics ceftriaxone (Until 10/08/24) Continue bactrim 10/07- Treatment Review: Will continue to monitor for signs of worsening infection Health Maintenance Diet and fluids: Full Liquid DVT prophylaxis: heparin GI prophylaxis: PPI 40 IV Qday Lines: PIV CODE STATUS: FULL I discussed patient's care with attending physician, Dr Michael Bennett PGY3
[2024-10-09 07:57] LABS: Path Review Blood Smear Sent to Pathologist
[2024-10-09] MEDS: INSULIN GLARGINE (Lantus) 5 UNIT/0.05 ML (PER 5 UNITS) 30 UNIT SC (08:44)
[2024-10-09] MEDS: PANTOPRAZOLE INJ 40 MG VIAL IVP (08:45)
[2024-10-09] MEDS: ESCITALOPRAM OXALATE 10 MG TABLET PO (08:51)
--- NOTE | 2024-10-09 09:50 | EKG_ITS ---
[facility] Test Date: 2024-10-09 Pat Name: TARYN GREY [facility] Gender[facility] Assistant Dean: FLORA : 1980 Requested By: Gumaro Nathan Order Number: [id number] Reading MD: Gumaro Nathan Measurements Intervals [place] Rate: 81 P: 7 NV: 136 QRS: -2 QRSD: 86 T: 35 QT: 270 QTc: 315 Interpretive Statements SINUS RHYTHM NONSPECIFIC T-WAVE ABNORMALITY Compared to ECG 03/03/2023 06:53:09 T-wave abnormality now present Sinus tachycardia no longer present /store/S0/[id number]
--- NOTE | 2024-10-09 11:08 | PC.SS ---
Update: Patient on oxymask currently on 10L. Patient is on clear liquid diet. Receiving light sedation, remains drowsy. Potential ICU downgrade today.
[2024-10-09] MEDS: Magnesium Sulfate 2 GM Ivpb 2 GM/50 ML BAG IV (11:10)
[2024-10-09] MEDS: SODIUM CHLORIDE 0.9% IVP ×2 (13:28→22:01)
[2024-10-09] MEDS: [UNRECOGNIZED DRUG - OTHER] IVP ×2 (13:28→22:01)
[2024-10-09] MEDS: PHENOBARBITAL 60 MG IVP ×2 (13:28→22:01)
--- NOTE | 2024-10-09 15:01 | PD.RESPRO ---
Documentation for date of: 10/09/24 Subjective Subjective Interval history: Patient is a 43-year-old male with past medical history of hypertension, DM2, alcohol use disorder, and pancreatitis who was downgraded to the medical floors on 10/09/2024 after being admitted to the ICU on 10/01/2024. Patient was admitted due to alcohol withdrawal, acute hypoxic respiratory failure, and DKA. Throughout hospital course patient was intubated on 10/01/2024 before being successfully extubated on 10/07/2024. Patient's hospital course was initially complicated given that he had to be cardioverted due to SVT shortly after getting 1 mg of atropine and 1 mg of epinephrine due to bradycardia. Throughout the ICU admission patient was intubated and on insulin drip for his DKA. He was also placed on phenobarbital for his alcohol withdrawal. He was tried multiple times to be extubated, but multiple times he was not able to be extubated given that he was still not being able to follow commands. Patient grew strep agalactiae and Lidya parapsilosis on initial cultures from the sputum on 10/01/2024, but afterwards on 10/03/2024 grew stenotrophomonas maltophilia. Patient was also desaturating due to increased accretions and these were the cultures that last grew Stenotrophomonas maltophilia. Patient was placed on multiple antibiotics but at this time patient is currently on Bactrim. Patient is on phenobarbital 60 mg IV 3 times daily. Patient was seen and examined at bedside this afternoon. No acute overnight events. Patient was doing okay and had no new complaints. Exam Vital Signs Temp Pulse Resp BP Pulse Ox O2 Del Method O2 Flow Rate 98.7 F 88 26 H 126/67 94 L Oxy Mask 14 10/09/24 08:05 10/09/24 14:00 10/09/24 14:00 10/09/24 14:00 10/09/24 14:00 10/09/24 05:00 10/09/24 07:38 FiO2 35 10/07/24 08:00 Narrative Exam General: A/O x3, no acute distress Eyes: PERRL, EOMI. Anicteric, vision grossly intact. Ears: No ear pain, no ear discharge, Hearing grossly intact. Nose: No nasal discharge. Mouth/Throat: Dry mucous membranes, no redness, no lesions. Neck: Neck supple, non-tender, no cervical lymphadenopathy. Lungs: Clear JAYA to auscultation and percussion, No accessory muscle use. Cardio: Normal S1/S2, regular rhythm, no murmurs, no JV Abdomen: Soft, non-tender, no palpable masses, peristalsis present, no guarding or rebound. Extremities: Symmetrical, no significant deformities, no peripheral edema , non-tender, peripheral pulses presents. Skin: No rashes, no lesions, warm to touch. Neuro: No focal neurological deficits. motor and sensory intact. Psych: Cooperative, but slowed response. Objective Labs 10/09/24 05:15 10/09/24 05:15 Labs: Laboratory Results - last 24 hr 10/09/24 05:15 WBC 15.3 H RBC 3.31 L Hgb 10.2 L Hct 31.1 L MCV 94 MCH 30.8 MCHC 32.8 RDW Std Deviation 46.0 H Plt Count 155 D Neut % (Auto) 52 Lymph % (Auto) 20 [place] % (Auto) 24 H Eos % (Auto) 1 Baso % (Auto) 1 Neut # (Auto) 7.9 H Lymph # (Auto) 3.1 [place] # (Auto) 3.7 H Eos # (Auto) 0.2 Baso # (Auto) 0.1 Immature Gran # (Auto) 0.32 H Absolute Nucleated RBC 0.00 Immature Gran % 2 H Nucleated RBC % 0 Smear Path Review Sent to Pathologist Sodium 147 H Potassium 3.2 L Chloride 106 Carbon Dioxide 26.7 Anion Gap 14 BUN 11 Creatinine 1.2 Estim Creat Clear Calc 72.4 eGFR > 60 BUN/Creatinine Ratio 9 L Glucose 154 H D Calculated Osmolality 294 Calcium 7.7 L Corrected Calcium 8.0 L Phosphorus 3.9 Magnesium 1.2 L Total Bilirubin 0.5 AST 26 ALT 12 Alkaline Phosphatase 103 D Total Protein 6.5 Albumin 3.6 Globulin 2.9 Albumin/Globulin Ratio 1.2 ABG Interpretation ABG results: 10/01/24 10/02/24 10/02/24 11:00 05:24 12:05 ABG pH 7.05 L* 7.32 L D ABG pCO2 46 29 L D ABG pO2 70 L 129 H D ABG HCO3 13 L 15 L ABG O2 Saturation 93 100 H ABG Base Excess -17 L -10 L VBG pH 7.21 L VBG pCO2 26 L VBG pO2 176 H VBG Base Excess -16 L 10/02/24 10/03/24 10/03/24 21:00 00:40 04:59 ABG pH 7.42 D ABG pCO2 34 ABG pO2 141 H ABG HCO3 22 ABG O2 Saturation 100 H ABG Base Excess -2 VBG pH 7.30 L 7.33 VBG pCO2 33 L 31 L VBG pO2 74 H D 65 H VBG Base Excess -9 L -9 L 10/03/24 10/03/24 10/03/24 05:51 08:23 11:50 ABG pH ABG pCO2 ABG pO2 ABG HCO3 ABG O2 Saturation ABG Base Excess VBG pH 7.33 7.45 7.41 VBG pCO2 38 26 L D 29 L VBG pO2 45 D 129 H D 156 H D VBG Base Excess -6 L -5 L -5 L 10/03/24 10/04/24 10/05/24 17:37 07:30 04:15 ABG pH 7.51 H ABG pCO2 34 ABG pO2 75 L D ABG HCO3 27 H ABG O2 Saturation 97 ABG Base Excess 4 H VBG pH 7.43 7.40 VBG pCO2 30 L 35 L VBG pO2 154 H 56 D VBG Base Excess -4 L -3 10/05/24 06:49 ABG pH 7.45 ABG pCO2 37 ABG pO2 60 L ABG HCO3 25 ABG O2 Saturation 92 ABG Base Excess 1 VBG pH VBG pCO2 VBG pO2 VBG Base Excess Quality Measures Quality Measures none Assessment & Plan Assessment Current Active Medications: Generic Name Dose Route Start Last Admin Trade Name Tiffanie PRN Reason Stop Dose Admin Acetaminophen 650 mg 10/01/24 21:35 10/02/24 01:47 Acetaminophen 325 Mg Tablet PO 10/31/24 21:34 650 mg Q6HR PRN Administration FEVER >101 Phenobarbital Sodium 60 mg/ 0 mg 10/09/24 14:00 10/09/24 13:28 Sodium Chloride 12 ml IVP 10/23/24 13:59 60 mg TID BREE Administration Dextrose 25 ml 10/04/24 09:03 Dextrose 50%-Water Inj 50 Ml Syringe IV 11/03/24 09:02 Q15MIN PRN BG 50-70 responsive npo pt Dextrose 50 ml 10/04/24 09:03 Dextrose 50%-Water Inj 50 Ml Syringe IV 11/03/24 09:02 Q15MIN PRN BG <50 OR BG <70 & pt unresponsive Escitalopram Oxalate 10 mg 10/09/24 09:00 10/09/24 08:51 Escitalopram Oxalate 10 Mg Tablet PO 11/08/24 08:59 10 mg QDAY BREE Administration Glucagon 1 mg 10/04/24 09:03 Glucagon Inj 1 Mg Vial IM Q15MIN PRN BG <70, and no IV access Heparin Sodium (Porcine) 5,000 unit 10/01/24 15:00 10/09/24 13:29 Heparin Sod Inj 5000 Unit/Ml Vial SC 10/15/24 14:59 5,000 unit Q8HR BREE Administration Trimethoprim/Sulfamethoxazole 520 mls @ 520 mls/hr 10/07/24 22:00 10/09/24 14:00 20 ml/ Dextrose IV 10/09/24 15:30 520 mls/hr Q8HR BREE Administration Magnesium Sulfate 4 gm in 50 mls @ 12.5 mls/hr 10/09/24 15:00 Magnesium Sulfate Ivpb IV 10/09/24 18:59 X1 ONE Insulin Glargine 30 unit 10/07/24 09:00 10/09/24 08:44 Insulin Glargine (Lantus) 5 Unit/0.05 Ml (Per 5 Units) SC 11/06/24 08:59 30 unit QDAY [facility] Administration Insulin Human Lispro 10 unit 10/04/24 11:40 10/09/24 13:29 Insulin Lispro (Admelog) 1 Unit/0.01 Ml Unit SC 11/03/24 11:39 Not Given TID [facility] Insulin Human Lispro 0 unit 10/04/24 12:00 10/09/24 13:29 Insulin Lispro (Admelog) 1 Unit/0.01 Ml Unit SC 11/03/24 11:59 Not Given Q6HR [facility] Protocol Lorazepam 1 mg 10/09/24 13:32 Lorazepam 2 Mg/Ml Vial IVP 10/12/24 15:59 Q3HR PRN AGITATION Pantoprazole Sodium 40 mg 10/09/24 09:00 10/09/24 08:45 Pantoprazole Inj 40 Mg Vial IVP 11/08/24 08:59 40 mg QDAY [facility] Administration Pharmacy Consult 1 each 10/01/24 09:00 Pharmacy Renal Dose Adjustment 1 Ea XX 10/31/24 08:59 QDAY PRN CONSULT Potassium Chloride 20 meq 10/09/24 15:00 Potassium Chloride 20 Meq Tabcr PO 10/09/24 15:01 X1 ONE Trimethoprim/Sulfamethoxazole 40 ml 10/09/24 22:00 Trimethoprim 160 Mg/Sulfa 800 Mg Susp 20 Ml Udc GT 10/16/24 21:59 Q8HR [facility] Plan 43-year-old male with past medical history of hypertension, DM2, alcohol use disorder, and pancreatitis who was downgraded to the medical floors on 10/09/2024 after being admitted to the ICU on 10/01/2024. Patient was admitted due to alcohol withdrawal, acute hypoxic respiratory failure, and DKA. #Acute hypoxic respiratory failure #Community-acquired pneumonia #Stenotrophomonas maltophilia #Strep agalactiae #Lidya parapsilosis Patient came in with acute hypoxic respiratory failure was intubated on 10/01/2024 and successfully extubated on 10/07/2024 Patient is sputum cultures did grow the above-mentioned organisms. Patient received multiple courses of antibiotics including vancomycin. Patient's RBCs are downtrending Patient is currently saturating well on OxyMask. Plan: Will continue with Bactrim O2 administration as required Will continue to monitor #Acute encephalopathy, improving #Alcohol withdrawal #Hx of alcohol use disorder Patient came in due to alcohol withdrawal and he was initially encephalopathic Today patient is AO x 3, but still very slow to respond. Plan: Will continue with phenobarbital 60 mg 3 times daily for today and tomorrow will titrate down to twice daily. Lorazepam 1 mg IV every 3 as needed for agitation. Will continue to monitor #Hx of DM2 #DKA, resolved Patient came in initially with DKA and was placed on DKA protocol Patient is A1c 12.8 on 10/02/2024 Plan: Glargine 30 units daily Lispro 10 units 3 times daily ISS Hypoglycemia protocol ordered #VEL, improving Patient given with an VEL, creatinine was 5.2 Patient's baseline creatinine is around 1 Creatinine today is 1.2 Plan: Renally dose medication Avoid nephrotoxic agents Nephrology consulted, appreciate recommendations #Electrolyte imbalance #Hypokalemia #Hypomagnesemia #Hypocalcemia Patient's potassium today was 3.2, magnesium 1.2, and calcium 7.7 Plan: Repleted potassium with 60 mEq and magnesium with 6 mg We will continue repletion necessary #Normocytic normochromic anemia Patient's hemoglobin 10.2 today from 13.5 initially This is most likely hemodilutional as patient got around 10 L of IV fluids throughout the hospital stay. Plan: Will transfuse hemoglobin less than 7 Will continue to monitor #SVT, resolved #Shock, resolved Hospital Maintenance: Disposition: downgraded 10/09/2024, titrating down phenobarb. Diet: clear liquid DVT ppx: Heparin 5000 SC Q12H GI ppx: Protonix . Code status: full. Case disclosed with Attending Dr. Alfonso Henry PGY1 Disclaimer: This note was dictated by speech recognition and even though it was carefully revised there may still be minor errors in hardscape foreman due to voice recognition software. Attending Provider Attestation/Addendum I reviewed labs, imaging, EKG, home medications and prior available records. Face to face evaluation was performed by me. I have personally examined the patient and discussed assessment and plan with the IM team. I reviewed the resident note and agree with the plan with exceptions as below. DKA, resolved Type 2 diabetes mellitus Alcohol abuse Alcohol withdrawal Acute encephalopathy Acute hypoxic respiratory failure, s/p intubation to protect airways, now extubated Community-acquired pneumonia: Stenotrophomonas versus Streptococcus group B Leukocytosis, downtrending SVT status post cardioversion Hypernatremia Hypokalemia Hypomagnesemia He is downgraded from ICU Continue p.o. Bactrim Continue CIWA protocol Continue phenobarbital Avoid alcohol use Continue insulin glargine plus sliding scale insulin. Monitor fingersticks Replete electrolytes as needed and follow-up potassium and magnesium levels
[2024-10-09] MEDS: Magnesium Sulfate 4 GM Ivpb 4 GM/50 ML BAG IV (15:21)
[2024-10-09] MEDS: POTASSIUM CHLORIDE 20 mEq TABCR PO (15:21)
[2024-10-09] MEDS: ACETAMINOPHEN 325 MG TABLET 650 MG PO (18:47)
[2024-10-09] MEDS: guaiFENesin/DM TABLET 1 EACH PO (21:46)
[2024-10-09] MEDS: TRIMETHOPRIM 160 MG/SULFA 800 MG SUSP 20 ML UDC 40 ML PO (22:46)
[2024-10-10] VITALS (7 sets, daily range): BP systolic 98–118; BP diastolic 56–61; PULSE 75–90; RESP 14–35; TEMP 36.2–37.2; O2SAT 91–96; BMI 25.0
[2024-10-10 05:44] LABS: Basophils % (Auto) 0 % (0-2.5); Eosinophils # (Auto) 0.1 Thou/mm3 (0.0-0.5); Eosinophils % (Auto) 1 % (0-10); Hematocrit 30.9 % (41.0-53.0); Hemoglobin 10.3 g/dL (13.5-16.0); Immature Granulocytes % (Auto) 2 % (0-0); Immature Granulocytes Auto 0.21 Thou/mm3 (0.00-0.00); Lymphocytes # (Auto) 1.9 Thou/mm3 (1.0-4.8); Lymphocytes % (Auto) 20 % (10-50); Mean Corpuscular HGB Conc 33.3 g/dl (31.0-37.0); Mean Corpuscular Hemoglobin 30.5 pg (25.0-35.0); Mean Corpuscular Volume 91 fL (80-100); Monocytes # (Auto) 1.5 Thou/mm3 (0.0-0.8); Monocytes % (Auto) 16 % (0-12); Neutrophils # (Auto) 5.9 Thou/mm3 (1.8-7.7); Neutrophils % (Auto) 61 % (37-80); Nucleated Red Blood Cell % 0 /100 WBC (0); Platelet Count 200 Thou/mm3 (140-440); Red Blood Count 3.38 Miln/mm3 (4.50-5.90); White Blood Count 9.6 Thou/mm3 (3.8-10.6)
[2024-10-10] MEDS: TRIMETHOPRIM 160 MG/SULFA 800 MG SUSP 20 ML UDC 40 ML PO ×3 (06:05→22:42)
[2024-10-10] MEDS: SODIUM CHLORIDE 0.9% IVP ×2 (06:06→21:48)
[2024-10-10] MEDS: PHENOBARBITAL 60 MG IVP ×2 (06:06→21:48)
[2024-10-10] MEDS: [UNRECOGNIZED DRUG - OTHER] IVP ×2 (06:06→21:48)
[2024-10-10] MEDS: HEPARIN SOD INJ 5000 UNIT/ML VIAL SC ×3 (06:13→21:49)
[2024-10-10] MEDS: INSULIN LISPRO (AdmeLOG) 1 UNIT/0.01 ML UNIT 10 UNIT SC (06:13)
[2024-10-10 06:16] LABS: Alanine Aminotransferase 19 U/L (10-49); Albumin, Serum 3.7 gm/dL (3.5-5.0); Albumin/Globulin Ratio 1.2 (1.2-2.2); Alkaline Phosphatase 100 U/L (46-116); Anion Gap 14 (7-16); Aspartate Amino Transferase 41 U/L (0-34); BUN/Creatinine Ratio 6 Ratio (12-20); Bilirubin,Total 0.4 mg/dL (0.3-1.2); Blood Urea Nitrogen 7 mg/dL (9-23); Calcium 7.8 mg/dL (8.3-10.6); Carbon Dioxide 25.3 mMol/L (20.0-31.0); Chloride 101 mMol/L (98-107); Creatinine (Component) 1.1 mg/dL (0.6-1.3); Estimated Creatinine Clearance 78.9 mL/min (>60); Globulin 3.2 gm/dL (2.3-3.5); Glucose 207 mg/dL (74-106); Magnesium 1.9 mg/dL (1.6-2.6); Osmolality,Calculated 283 (275-295); Phosphorous 2.9 mg/dL (2.4-5.1); Potassium 3.2 mMol/L (3.4-5.1); Sodium 140 mMol/L (136-145); Total Protein 6.9 gm/dL (5.7-8.2); eGFR > 60 See Note
--- NOTE | 2024-10-10 07:05 | ESPR_ITS ---
Documentation for date of: 10/10/24 Subjective Subjective Interval history: Overnight, no acute events reported. Patient's b/l wrist restraints are removed. Patient seen and examined at bedside. Patient was seen using a oxymask getting a breathing treatment, and will order a small PO dose of ativan to help with his anxiety. Otherwise, patient will remain on CIWA, and will wean his phenobarbital to BID and will continue with IV Lorazepam IV 1mg Q3HR. Exam Vital Signs Temp Pulse Resp BP Pulse Ox O2 Del Method O2 Flow Rate 98.9 F 90 26 H 118/60 96 Oxy Mask 10 10/10/24 04:00 10/10/24 06:16 10/10/24 06:16 10/10/24 04:00 10/10/24 06:16 10/10/24 04:00 10/10/24 06:16 FiO2 35 10/07/24 08:00 Narrative Exam General: Alet and awake. Well nourished and well developed. In mild acute distress in the setting of acute agitation/anxiety HEENT: NC/AT, PEERLA, MMM, neck nontender Lungs: Clear JAYA to auscultation and percussion, No accessory muscle use. Cardio: Normal S1/S2, regular rhythm, no murmurs, no JV Abdomen: Soft, non-tender, no palpable masses, BS+ Extremities: Symmetrical, no significant deformities, no peripheral edema , non-tender, peripheral pulses presents. Skin: No rashes, no lesions, warm to touch. Neuro: No focal neurological deficits. motor and sensory intact. Objective Labs 10/10/24 04:32 10/10/24 04:32 Labs: Laboratory Results - last 24 hr 10/09/24 10/10/24 05:15 04:32 WBC 9.6 D RBC 3.38 L Hgb 10.3 L Hct 30.9 L MCV 91 MCH 30.5 MCHC 33.3 RDW Std Deviation 43.0 Plt Count 200 D Neut % (Auto) 61 Lymph % (Auto) 20 [place] % (Auto) 16 H Eos % (Auto) 1 Baso % (Auto) 0 Neut # (Auto) 5.9 Lymph # (Auto) 1.9 [place] # (Auto) 1.5 H Eos # (Auto) 0.1 Baso # (Auto) 0.0 Immature Gran # (Auto) 0.21 H Absolute Nucleated RBC 0.00 Immature Gran % 2 H Nucleated RBC % 0 Smear Path Review Sent to Pathologist Sodium 147 H 140 Potassium 3.2 L 3.2 L Chloride 106 101 Carbon Dioxide 26.7 25.3 Anion Gap 14 14 BUN 11 7 L Creatinine 1.2 1.1 Estim Creat Clear Calc 72.4 78.9 eGFR > 60 > 60 BUN/Creatinine Ratio 9 L 6 L Glucose 154 H D 207 H D Calculated Osmolality 294 283 Calcium 7.7 L 7.8 L Corrected Calcium 8.0 L 8.0 L Phosphorus 3.9 2.9 Magnesium 1.2 L 1.9 Total Bilirubin 0.5 0.4 AST 26 41 H ALT 12 19 Alkaline Phosphatase 103 D 100 Total Protein 6.5 6.9 Albumin 3.6 3.7 Globulin 2.9 3.2 Albumin/Globulin Ratio 1.2 1.2 ABG Interpretation ABG results: 10/01/24 10/02/24 10/02/24 11:00 05:24 12:05 ABG pH 7.05 L* 7.32 L D ABG pCO2 46 29 L D ABG pO2 70 L 129 H D ABG HCO3 13 L 15 L ABG O2 Saturation 93 100 H ABG Base Excess -17 L -10 L VBG pH 7.21 L VBG pCO2 26 L VBG pO2 176 H VBG Base Excess -16 L 10/02/24 10/03/24 10/03/24 21:00 00:40 04:59 ABG pH 7.42 D ABG pCO2 34 ABG pO2 141 H ABG HCO3 22 ABG O2 Saturation 100 H ABG Base Excess -2 VBG pH 7.30 L 7.33 VBG pCO2 33 L 31 L VBG pO2 74 H D 65 H VBG Base Excess -9 L -9 L 10/03/24 10/03/24 10/03/24 05:51 08:23 11:50 ABG pH ABG pCO2 ABG pO2 ABG HCO3 ABG O2 Saturation ABG Base Excess VBG pH 7.33 7.45 7.41 VBG pCO2 38 26 L D 29 L VBG pO2 45 D 129 H D 156 H D VBG Base Excess -6 L -5 L -5 L 10/03/24 10/04/24 10/05/24 17:37 07:30 04:15 ABG pH 7.51 H ABG pCO2 34 ABG pO2 75 L D ABG HCO3 27 H ABG O2 Saturation 97 ABG Base Excess 4 H VBG pH 7.43 7.40 VBG pCO2 30 L 35 L VBG pO2 154 H 56 D VBG Base Excess -4 L -3 10/05/24 06:49 ABG pH 7.45 ABG pCO2 37 ABG pO2 60 L ABG HCO3 25 ABG O2 Saturation 92 ABG Base Excess 1 VBG pH VBG pCO2 VBG pO2 VBG Base Excess Quality Measures Quality Measures none Assessment & Plan Assessment Current Active Medications: Generic Name Dose Route Start Last Admin Trade Name Freq PRN Reason Stop Dose Admin Acetaminophen 650 mg 10/09/24 18:46 10/09/24 18:47 Acetaminophen 325 Mg Tablet PO 10/31/24 21:34 650 mg Q6HR PRN Administration PAIN OR FEVER > 100.4 Phenobarbital Sodium 60 mg/ 0 mg 10/09/24 14:00 10/10/24 06:06 Sodium Chloride 12 ml IVP 10/23/24 13:59 60 mg TID BREE Administration Dextrose 25 ml 10/04/24 09:03 Dextrose 50%-Water Inj 50 Ml Syringe IV 11/03/24 09:02 Q15MIN PRN BG 50-70 responsive npo pt Dextrose 50 ml 10/04/24 09:03 Dextrose 50%-Water Inj 50 Ml Syringe IV 11/03/24 09:02 Q15MIN PRN BG <50 OR BG <70 & pt unresponsive Escitalopram Oxalate 10 mg 10/09/24 09:00 10/09/24 08:51 Escitalopram Oxalate 10 Mg Tablet PO 11/08/24 08:59 10 mg QDAY BREE Administration Glucagon 1 mg 10/04/24 09:03 Glucagon Inj 1 Mg Vial IM Q15MIN PRN BG <70, and no IV access Guaifenesin/Dextromethorphan 1 each 10/09/24 20:43 10/09/24 21:46 Guaifenesin/Dm Tablet PO 11/08/24 20:42 1 each Q4HR PRN Administration COUGH Heparin Sodium (Porcine) 5,000 unit 10/01/24 15:00 10/10/24 06:13 Heparin Sod Inj 5000 Unit/Ml Vial SC 10/15/24 14:59 5,000 unit Q8HR BREE Administration Insulin Glargine 30 unit 10/07/24 09:00 10/09/24 08:44 Insulin Glargine (Lantus) 5 Unit/0.05 Ml (Per 5 Units) SC 11/06/24 08:59 30 unit QDAY B[facility] Administration Insulin Human Lispro 10 unit 10/04/24 11:40 10/10/24 06:13 Insulin Lispro (Admelog) 1 Unit/0.01 Ml Unit SC 11/03/24 11:39 10 unit TID BREE Administration Insulin Human Lispro 0 unit 10/04/24 12:00 10/10/24 06:02 Insulin Lispro (Admelog) 1 Unit/0.01 Ml Unit SC 11/03/24 11:59 Not Given Q6HR BREE Protocol Lorazepam 1 mg 10/09/24 13:32 Lorazepam 2 Mg/Ml Vial IVP 10/12/24 15:59 Q3HR PRN AGITATION Pantoprazole Sodium 40 mg 10/09/24 09:00 10/09/24 08:45 Pantoprazole Inj 40 Mg Vial IVP 11/08/24 08:59 40 mg QDAY BREE Administration Pharmacy Consult 1 each 10/01/24 09:00 Pharmacy Renal Dose Adjustment 1 Ea XX 10/31/24 08:59 QDAY PRN CONSULT Trimethoprim/Sulfamethoxazole 40 ml 10/09/24 22:00 10/10/24 06:05 Trimethoprim 160 Mg/Sulfa 800 Mg Susp 20 Ml Udc PO 10/16/24 21:59 40 ml Q8HR BREE Administration Plan 43-year-old male with past medical history of hypertension, DM2, alcohol use disorder, and pancreatitis who was downgraded to the medical floors on 10/09/2024 after being admitted to the ICU on 10/01/2024. Patient was admitted due to alcohol withdrawal, acute hypoxic respiratory failure, and DKA. #Acute hypoxic respiratory failure #Community-acquired pneumonia #Stenotrophomonas maltophilia #Strep agalactiae #Lidya parapsilosis Patient came in with acute hypoxic respiratory failure was intubated on 10/01/2024 and successfully extubated on 10/07/2024 Patient is sputum cultures did grow the above-mentioned organisms. Patient received multiple courses of antibiotics including vancomycin. Patient's RBCs are downtrending Patient is currently saturating well on OxyMask. Plan: Will continue with Bactrim O2 administration as required Will continue to monitor #Acute encephalopathy, improving #Alcohol withdrawal #Hx of alcohol use disorder #Anxiety Patient came in due to alcohol withdrawal and he was initially encephalopathic Today patient is AO x 3, but still very slow to respond. Plan: Phenobarbital 60 mg twice daily. Lorazepam 1 mg IV every 3 as needed for agitation, and PO Ativan for CIWA score 2-6 and acute anxiety CIWA Protocol with Thiamine and Folic acid Will continue to monitor #Hx of DM2-stable #DKA, resolved Patient came in initially with DKA and was placed on DKA protocol Patient is A1c 12.8 on 10/02/2024 Plan: Glargine 30 units daily Lispro 10 units 3 times daily ISS Hypoglycemia protocol ordered #VEL, improving Patient given with an VEL, creatinine was 5.2 Patient's baseline creatinine is around 1 Creatinine today is 1.2 Plan: Renally dose medication Avoid nephrotoxic agents Nephrology consulted, appreciate recommendations #Electrolyte imbalance #Hypokalemia #Hypomagnesemia #Hypocalcemia Patient's potassium today was 3.2, magnesium 1.2, and calcium 7.7 Plan: We will continue repletion necessary #Normocytic normochromic anemia Patient's hemoglobin 10.2 today from 13.5 initially This is most likely hemodilutional as patient got around 10 L of IV fluids throughout the hospital stay. Plan: Will transfuse hemoglobin less than 7 Will continue to monitor #SVT, resolved #Shock, resolved Hospital Maintenance: Disposition: downgraded 10/09/2024, titrating down phenobarb. Diet: clear liquid DVT ppx: Heparin 5000 SC Q12H GI ppx: Protonix . Code status: full. Patient's care and plan discussed with my attending, Dr. Hamilton. Clara Capone, PGY-2 Attending Provider Attestation/Addendum I reviewed labs, imaging, EKG, home medications and prior available records. Face to face evaluation was performed by me. I have personally examined the patient and discussed assessment and plan with the IM team. I reviewed the resident note and agree with the plan with exceptions as below. DKA, resolved Type 2 diabetes mellitus Alcohol abuse Alcohol withdrawal Acute encephalopathy Acute hypoxic respiratory failure, s/p intubation to protect airways, now extubated Community-acquired pneumonia: Stenotrophomonas versus Streptococcus group B Leukocytosis, downtrending SVT status post cardioversion Hypernatremia Hypokalemia Hypomagnesemia He is downgraded from ICU Continue p.o. Bactrim Continue CIWA protocol Continue phenobarbital Remove restraints Avoid alcohol use WBC is downtrending Continue insulin glargine plus sliding scale insulin. Monitor fingersticks Replete electrolytes as needed and follow-up potassium and magnesium levels Ordered PT evaluation
[2024-10-10] MEDS: PANTOPRAZOLE INJ 40 MG VIAL IVP (07:14)
[2024-10-10] MEDS: INSULIN GLARGINE (Lantus) 5 UNIT/0.05 ML (PER 5 UNITS) 30 UNIT SC (07:14)
[2024-10-10] MEDS: ESCITALOPRAM OXALATE 10 MG TABLET PO (07:15)
[2024-10-10] MEDS: FOLIC ACID 1 MG TABLET PO ×2 (08:33→21:48)
[2024-10-10] MEDS: POTASSIUM CHLORIDE 20 mEq TABCR 40 MEQ PO (08:33)
[2024-10-10] MEDS: THIAMINE 100 MG TABLET PO ×2 (08:33→21:48)
[2024-10-10] MEDS: Magnesium Sulfate 2 GM Ivpb 2 GM/50 ML BAG IV (08:33)
[2024-10-10] MEDS: LORazepam 0.5 MG TABLET PO (08:33)
--- NOTE | 2024-10-10 08:50 | PCS.ST ---
INSPECTOR CIRCUITRY NEGATIVE attempted swallow treatment to advance current diet. Pt refused trials due to being in pain and lack of appetite. INSPECTOR CIRCUIT[employer] NEGATIVE will return later to attempt additional PO trials.
--- NOTE | 2024-10-10 16:45 | PC.NURSE ---
[facility]24 [facility] 0900 to 1600.
[2024-10-10] MEDS: guaiFENesin/DM TABLET 1 EACH PO (23:42)
[2024-10-11] VITALS (8 sets, daily range): BP systolic 99–121; BP diastolic 56–70; PULSE 77–88; RESP 12–21; TEMP 36.1–37.2; O2SAT 92–98; BMI 25.6
[2024-10-11] MEDS: TRIMETHOPRIM 160 MG/SULFA 800 MG SUSP 20 ML UDC 40 ML PO ×2 (05:12→13:14)
[2024-10-11] MEDS: HEPARIN SOD INJ 5000 UNIT/ML VIAL SC ×2 (05:13→13:21)
--- NOTE | 2024-10-11 05:44 | PC.NURSE ---
pt complaining of nausea, Dr. Suazo was made aware, waiting for new orders.
[2024-10-11] MEDS: ONDANSETRON INJ 2 MG/ML INJ 2 ML 4 MG IV ×2 (05:53→15:28)
[2024-10-11 06:59] LABS: Basophils # (Auto) 0.1 Thou/mm3 (0.0-0.2); Basophils % (Auto) 1 % (0-2.5); Eosinophils # (Auto) 0.2 Thou/mm3 (0.0-0.5); Eosinophils % (Auto) 2 % (0-10); Immature Granulocytes % (Auto) 3 % (0-0); Immature Granulocytes Auto 0.25 Thou/mm3 (0.00-0.00); Lymphocytes # (Auto) 2.2 Thou/mm3 (1.0-4.8); Lymphocytes % (Auto) 26 % (10-50); Mean Corpuscular HGB Conc 32.6 g/dl (31.0-37.0); Mean Corpuscular Hemoglobin 30.8 pg (25.0-35.0); Mean Corpuscular Volume 94 fL (80-100); Monocytes % (Auto) 12 % (0-12); Neutrophils # (Auto) 4.9 Thou/mm3 (1.8-7.7); Neutrophils % (Auto) 57 % (37-80); Nucleated Red Blood Cell % 0 /100 WBC (0); Platelet Count 232 Thou/mm3 (140-440); RDW Standard Deviation 43.8 fL (35.1-43.9); Red Blood Count 2.86 Miln/mm3 (4.50-5.90); White Blood Count 8.6 Thou/mm3 (3.8-10.6)
[2024-10-11 07:09] LABS: Hemoglobin 8.8 g/dL (13.5-16.0)
[2024-10-11 07:43] LABS: Alanine Aminotransferase 15 U/L (10-49); Albumin, Serum 3.3 gm/dL (3.5-5.0); Albumin/Globulin Ratio 1.1 (1.2-2.2); Alkaline Phosphatase 79 U/L (46-116); Anion Gap 10 (7-16); Aspartate Amino Transferase 25 U/L (0-34); BUN/Creatinine Ratio 6 Ratio (12-20); Bilirubin,Total 0.4 mg/dL (0.3-1.2); Blood Urea Nitrogen 6 mg/dL (9-23); Calcium 7.7 mg/dL (8.3-10.6); Calcium (Corrected) 8.3 mg/dL (8.5-10.1); Carbon Dioxide 25.5 mMol/L (20.0-31.0); Chloride 102 mMol/L (98-107); Globulin 2.9 gm/dL (2.3-3.5); Glucose 139 mg/dL (74-106); Magnesium 1.7 mg/dL (1.6-2.6); Osmolality,Calculated 273 (275-295); Phosphorous 2.3 mg/dL (2.4-5.1); Potassium 3.7 mMol/L (3.4-5.1); Sodium 137 mMol/L (136-145); Total Protein 6.2 gm/dL (5.7-8.2); eGFR > 60 See Note
[2024-10-11] MEDS: Magnesium Sulfate 2 GM Ivpb 2 GM/50 ML BAG IV (08:36)
[2024-10-11] MEDS: FOLIC ACID 1 MG TABLET PO (08:36)
[2024-10-11] MEDS: ESCITALOPRAM OXALATE 10 MG TABLET PO (08:36)
[2024-10-11] MEDS: NAPH,KPH MBDB 1 PACKET (1.5 GM) PO (08:36)
[2024-10-11] MEDS: FUROSEMIDE INJ 10 MG/ML 4ML VIAL 40 MG IVP (08:36)
[2024-10-11] MEDS: PANTOPRAZOLE INJ 40 MG VIAL IVP (08:36)
[2024-10-11] MEDS: SODIUM CHLORIDE 0.9% IVP (08:53)
[2024-10-11] MEDS: [UNRECOGNIZED DRUG - OTHER] IVP (08:53)
[2024-10-11] MEDS: PHENOBARBITAL 60 MG IVP (08:53)
[2024-10-11] MEDS: THIAMINE 100 MG TABLET PO (08:55)
[2024-10-11] MEDS: ACETAMINOPHEN 325 MG TABLET 650 MG PO (08:55)
[2024-10-11] MEDS: INSULIN GLARGINE (Lantus) 5 UNIT/0.05 ML (PER 5 UNITS) 30 UNIT SC (09:22)
--- NOTE | 2024-10-11 10:45 | PC.NURSE ---
patient's room air SPO2 at rest 91%, patient's room air Sp02 86% with exercise, recovery test: Sp02 94% on O2 2L via nasal cannula with exercise.
--- NOTE | 2024-10-11 11:05 | ESPR_ITS ---
Documentation for date of: 10/11/24 Subjective Subjective Interval history: Patient was seen and examined at bedside this morning. No acute overnight events. Patient does seem a little bit better today and he stated that he feels better even though he feels tired. Did a walk test today by the nurse and stated that the patient's O2 sats dropped to 86 therefore patient would benefit from home O2. Patient is still pending physical therapy. Otherwise no other complaints. Exam Vital Signs Temp Pulse Resp BP Pulse Ox O2 Del Method O2 Flow Rate 98.9 F 79 17 99/56 L 92 L Nasal Cannula 6 10/11/24 07:55 10/11/24 08:36 10/11/24 07:55 10/11/24 08:36 10/11/24 07:55 10/11/24 07:55 10/11/24 07:55 FiO2 35 10/07/24 08:00 Narrative Exam General: A/O x3, no acute distress Eyes: PERRL, EOMI. Anicteric, vision grossly intact. Ears: No ear pain, no ear discharge, Hearing grossly intact. Nose: No nasal discharge. Mouth/Throat: Dry mucous membranes, no redness, no lesions. Neck: Neck supple, non-tender, no cervical lymphadenopathy. Lungs: Clear JAYA to auscultation and percussion, No accessory muscle use. Cardio: Normal S1/S2, regular rhythm, no murmurs, no JV Abdomen: Soft, non-tender, no palpable masses, peristalsis present, no guarding or rebound. Extremities: Symmetrical, no significant deformities, no peripheral edema , non-tender, peripheral pulses presents. Skin: No rashes, no lesions, warm to touch. Neuro: No focal neurological deficits. motor and sensory intact. Psych: Cooperative, appropriate mood Objective Labs 10/11/24 05:02 10/11/24 05:02 Labs: Laboratory Results - last 24 hr 10/11/24 05:02 WBC 8.6 RBC 2.86 L Hgb 8.8 L Hct 27.0 L MCV 94 MCH 30.8 MCHC 32.6 RDW Std Deviation 43.8 Plt Count 232 D Neut % (Auto) 57 Lymph % (Auto) 26 Guthrie % (Auto) 12 Eos % (Auto) 2 Baso % (Auto) 1 Neut # (Auto) 4.9 Lymph # (Auto) 2.2 Guthrie # (Auto) 1.0 H Eos # (Auto) 0.2 Baso # (Auto) 0.1 Immature Gran # (Auto) 0.25 H Absolute Nucleated RBC 0.00 Immature Gran % 3 H Nucleated RBC % 0 Sodium 137 Potassium 3.7 D Chloride 102 Carbon Dioxide 25.5 Anion Gap 10 BUN 6 L Creatinine 1.0 Estim Creat Clear Calc 90.0 eGFR > 60 BUN/Creatinine Ratio 6 L Glucose 139 H D Calculated Osmolality 273 L Calcium 7.7 L Corrected Calcium 8.3 L Phosphorus 2.3 L Magnesium 1.7 Total Bilirubin 0.4 AST 25 ALT 15 Alkaline Phosphatase 79 D Total Protein 6.2 Albumin 3.3 L Globulin 2.9 Albumin/Globulin Ratio 1.1 L ABG Interpretation ABG results: 10/01/24 10/02/24 10/02/24 11:00 05:24 12:05 ABG pH 7.05 L* 7.32 L D ABG pCO2 46 29 L D ABG pO2 70 L 129 H D ABG HCO3 13 L 15 L ABG O2 Saturation 93 100 H ABG Base Excess -17 L -10 L VBG pH 7.21 L VBG pCO2 26 L VBG pO2 176 H VBG Base Excess -16 L 10/02/24 10/03/24 10/03/24 21:00 00:40 04:59 ABG pH 7.42 D ABG pCO2 34 ABG pO2 141 H ABG HCO3 22 ABG O2 Saturation 100 H ABG Base Excess -2 VBG pH 7.30 L 7.33 VBG pCO2 33 L 31 L VBG pO2 74 H D 65 H VBG Base Excess -9 L -9 L 10/03/24 10/03/24 10/03/24 05:51 08:23 11:50 ABG pH ABG pCO2 ABG pO2 ABG HCO3 ABG O2 Saturation ABG Base Excess VBG pH 7.33 7.45 7.41 VBG pCO2 38 26 L D 29 L VBG pO2 45 D 129 H D 156 H D VBG Base Excess -6 L -5 L -5 L 10/03/24 10/04/24 10/05/24 17:37 07:30 04:15 ABG pH 7.51 H ABG pCO2 34 ABG pO2 75 L D ABG HCO3 27 H ABG O2 Saturation 97 ABG Base Excess 4 H VBG pH 7.43 7.40 VBG pCO2 30 L 35 L VBG pO2 154 H 56 D VBG Base Excess -4 L -3 10/05/24 06:49 ABG pH 7.45 ABG pCO2 37 ABG pO2 60 L ABG HCO3 25 ABG O2 Saturation 92 ABG Base Excess 1 VBG pH VBG pCO2 VBG pO2 VBG Base Excess Quality Measures Quality Measures none Assessment & Plan Assessment Current Active Medications: Generic Name Dose Route Start Last Admin Trade Name Freq PRN Reason Stop Dose Admin Acetaminophen 650 mg 10/09/24 18:46 10/11/24 08:55 Acetaminophen 325 Mg Tablet PO 10/31/24 21:34 650 mg Q6HR PRN Administration PAIN OR FEVER > 100.4 Phenobarbital Sodium 60 mg/ 0 mg 10/11/24 09:00 10/11/24 08:53 Sodium Chloride 6 ml IVP 10/25/24 08:59 60 mg QDAY BREE Administration Dextrose 25 ml 10/04/24 09:03 Dextrose 50%-Water Inj 50 Ml Syringe IV 11/03/24 09:02 Q15MIN PRN BG 50-70 responsive npo pt Dextrose 50 ml 10/04/24 09:03 Dextrose 50%-Water Inj 50 Ml Syringe IV 11/03/24 09:02 Q15MIN PRN BG <50 OR BG <70 & pt unresponsive Escitalopram Oxalate 10 mg 10/09/24 09:00 10/11/24 08:36 Escitalopram Oxalate 10 Mg Tablet PO 11/08/24 08:59 10 mg QDAY BREE Administration Folic Acid 1 mg 10/10/24 09:00 10/11/24 08:36 Folic Acid 1 Mg Tablet PO 10/15/24 08:59 1 mg BID BREE Administration Glucagon 1 mg 10/04/24 09:03 Glucagon Inj 1 Mg Vial IM Q15MIN PRN BG <70, and no IV access Guaifenesin/Dextromethorphan 1 each 10/09/24 20:43 10/10/24 23:42 Guaifenesin/Dm Tablet PO 11/08/24 20:42 1 each Q4HR PRN Administration COUGH Heparin Sodium (Porcine) 5,000 unit 10/01/24 15:00 10/11/24 05:13 Heparin Sod Inj 5000 Unit/Ml Vial SC 10/15/24 14:59 5,000 unit Q8HR BREE Administration Insulin Glargine 30 unit 10/07/24 09:00 10/11/24 09:22 Insulin Glargine (Lantus) 5 Unit/0.05 Ml (Per 5 Units) SC 11/06/24 08:59 30 unit QDAY BREE Administration Insulin Human Lispro 0 unit 10/04/24 12:00 10/11/24 05:09 Insulin Lispro (Admelog) 1 Unit/0.01 Ml Unit SC 11/03/24 11:59 Not Given Q6HR BREE Protocol Insulin Human Lispro 10 unit 10/11/24 12:00 Insulin Lispro (Admelog) 1 Unit/0.01 Ml Unit SC 11/10/24 11:59 TIDWM BREE Lorazepam 1 mg 10/09/24 13:32 Lorazepam 2 Mg/Ml Vial IVP 10/12/24 15:59 Q3HR PRN AGITATION Lorazepam 0.5 mg 10/10/24 08:12 Lorazepam 0.5 Mg Tablet PO 10/15/24 08:11 Q4HR PRN CIWA Score 2-6 Ondansetron HCl 4 mg 10/11/24 05:44 10/11/24 05:53 Ondansetron Inj 2 Mg/Ml Inj 2 Ml IV 11/10/24 05:43 4 mg Q6HR PRN Administration NAUSEA OR VOMITING Protocol Pantoprazole Sodium 40 mg 10/09/24 09:00 10/11/24 08:36 Pantoprazole Inj 40 Mg Vial IVP 11/08/24 08:59 40 mg QDAY BREE Administration Pharmacy Consult 1 each 10/01/24 09:00 Pharmacy Renal Dose Adjustment 1 Ea XX 10/31/24 08:59 QDAY PRN CONSULT Thiamine HCl 100 mg 10/10/24 09:00 10/11/24 08:55 Thiamine 100 Mg Tablet PO 10/15/24 08:59 100 mg BID BREE Administration Trimethoprim/Sulfamethoxazole 40 ml 10/09/24 22:00 10/11/24 05:12 Trimethoprim 160 Mg/Sulfa 800 Mg Susp 20 Ml Udc PO 10/16/24 21:59 40 ml Q8HR BREE Administration Plan 43-year-old male with past medical history of hypertension, DM2, alcohol use disorder, and pancreatitis who was downgraded to the medical floors on 10/09/2024 after being admitted to the ICU on 10/01/2024. Patient was admitted due to alcohol withdrawal, acute hypoxic respiratory failure, and DKA. #Acute hypoxic respiratory failure #Community-acquired pneumonia #Stenotrophomonas maltophilia #Strep agalactiae #Lidya parapsilosis Patient came in with acute hypoxic respiratory failure was intubated on 10/01/2024 and successfully extubated on 10/07/2024 Patient is sputum cultures did grow the above-mentioned organisms. Patient received multiple courses of antibiotics including vancomycin. Patient's RBCs are downtrending Patient is currently saturating well on OxyMask. Plan: Will continue with Bactrim O2 administration as required Will require home O2 upon DC Will continue to monitor #Acute encephalopathy, improving #Alcohol withdrawal #Hx of alcohol use disorder #Anxiety Patient came in due to alcohol withdrawal and he was initially encephalopathic Today patient is AO x 3, but still very slow to respond. Plan: Phenobarbital 60 mg daily today to wean off. Lorazepam 1 mg IV every 3 as needed for agitation, and PO Ativan for CIWA score 2-6 and acute anxiety CIWA Protocol with Thiamine and Folic acid Will continue to monitor #Hx of DM2-stable #DKA, resolved Patient came in initially with DKA and was placed on DKA protocol Patient is A1c 12.8 on 10/02/2024 Plan: Glargine 30 units daily Lispro 10 units 3 times daily with meals ISS Hypoglycemia protocol ordered #VEL, improving Patient given with an VEL, creatinine was 5.2 Patient's baseline creatinine is around 1 Creatinine today is 1 Plan: Renally dose medication Avoid nephrotoxic agents Nephrology consulted, appreciate recommendations #Electrolyte imbalance #Hypokalemia #Hypomagnesemia #Hypocalcemia #Hypophosphatemia Patient's potassium today was 3.7, magnesium 1.7, phos 2.3, and calcium 7.7 Plan: Mg 2gm x1 and neutra phos x1 We will continue repletion necessary #Normocytic normochromic anemia Patient's hemoglobin 8.8 today from 13.5 initially This is most likely hemodilutional as patient got around 10 L of IV fluids throughout the hospital stay. Plan: Will transfuse hemoglobin less than 7 Will continue to monitor #SVT, resolved #Shock, resolved Hospital Maintenance: Disposition: pending PT Diet: carb consistent low DVT ppx: Heparin 5000 SC Q12H GI ppx: Protonix . Code status: full. Case disclosed with Attending Dr. Alfonso Henry PGY1 Disclaimer: This note was dictated by speech recognition and even though it was carefully revised there may still be minor errors in property field adjuster due to voice recognition software. Attending Provider Attestation/Addendum I reviewed labs, imaging, EKG, home medications and prior available records. Face to face evaluation was performed by me. I have personally examined the patient and discussed assessment and plan with the IM team. I reviewed the resident note and agree with the plan with exceptions as below. DKA, resolved Type 2 diabetes mellitus Alcohol abuse Alcohol withdrawal Acute encephalopathy Acute hypoxic respiratory failure, s/p intubation to protect airways, now extubated Community-acquired pneumonia: Stenotrophomonas versus Streptococcus group B Leukocytosis, downtrending SVT status post cardioversion Hypernatremia Hypokalemia Hypomagnesemia He is downgraded from ICU Continue p.o. Bactrim Weaned off phenobarbital Removed restraints Avoid alcohol use WBC is downtrending Continue insulin glargine plus sliding scale insulin. Monitor fingersticks Monitor electrolyte level as outpatient Ordered PT evaluation: No further PT needed Time spent is 40 minutes. More than 50% of the time was spent on patient education and coordination of care.
--- NOTE | 2024-10-11 11:08 | PC.SS ---
SS follow up note; SS was informed by Dr. Perry that patient was needing home 02. SS submitted 02 Referral through [employer] platform.
[2024-10-11] MEDS: INSULIN LISPRO (AdmeLOG) 1 UNIT/0.01 ML UNIT SC (11:50)
--- NOTE | 2024-10-11 13:40 | PD.RESDS ---
Planned Discharge Date 10/11/24 DS: Providers Provider Date of admission: 10/01/24 08:15 Primary care physician: Physician No Primary/Family Admitting Provider: Miguel Ángel Arroyo MD Attending Provider on Admission: Robinson Rodriguez MD Consults: 10/01/24 11:02 Referral Registered Dietitian Routine Comment: 10/03/24 10:12 Consult to Nephrology Routine Comment: Consulting Provider: Tl Rodriguez 10/08/24 07:05 Referral Speech Therapy Routine Comment: 10/11/24 10:49 Referral Physical Therapy Routine Comment: Physician Instructions: Attending Provider on DC: Gallito Hamilton MD Discharging Provider: Gallito Hamilton MD DS: Diagnosis Problem List Completed Was Problem List Reviewed/Reconciled?: Yes Hospital Course Hospital Course Hospital course: 43-year-old male with past medical history of hypertension, DM2, alcohol use disorder, and pancreatitis who was downgraded to the medical floors on 10/09/2024 after being admitted to the ICU on 10/01/2024. Patient was admitted due to alcohol withdrawal, acute hypoxic respiratory failure, and DKA. Throughout hospital course patient was intubated on 10/01/2024 before being successfully extubated on 10/07/2024. Patient's hospital course was initially complicated given that he had to be cardioverted due to SVT shortly after getting 1 mg of atropine and 1 mg of epinephrine due to bradycardia. Throughout the ICU admission patient was intubated and on insulin drip for his DKA. He was also placed on phenobarbital for his alcohol withdrawal. He was tried multiple times to be extubated, but multiple times he was not able to be extubated given that he was still not being able to follow commands. Patient grew strep agalactiae and Lidya parapsilosis on initial cultures from the sputum on 10/01/2024, but afterwards on 10/03/2024 grew stenotrophomonas maltophilia. Patient was also desaturating due to increased accretions and these were the cultures that last grew Stenotrophomonas maltophilia. Patient was placed on multiple antibiotics but at this time patient is currently on Bactrim. Patient was placed on phenobarbital 60 mg IV 3 times daily and was titrated down to 1 daily on the day of discharge. At the time of discharge patient was stable enough to be discharged home as physical therapy saw the patient did not recommend long-term facility and patient had declined home health. Discharge plan: Please follow-up with primary care physician within 1 week upon discharge Please continue taking Bactrim until 10/16/2024. We have started you on insulin glargine 30 units daily. We have also started you on insulin sliding scale with meals. We have held your amlodipine 10 mg daily given that your blood pressure has been stable and on the lower end throughout hospital admission therefore please follow-up with primary care physician before restarting it. We have stopped your Synjardy at this time. Strongly encouraged to abstain from using any alcohol or any other illicit drugs. Please come back to the ER if symptoms persist or worsen Insulin sliding scale instructions as follows: Blood glucose Insulin units 131-180 2 units 181-240 4 units 241-300 6 units 301-350 8 units 351-400 10 units 400+ 12 units and call your primary care physician Problem list: #Acute hypoxic respiratory failure #Community-acquired pneumonia #Stenotrophomonas maltophilia #Strep agalactiae #Lidya parapsilosis #Acute encephalopathy, resolved #Alcohol withdrawal #Hx of alcohol use disorder #Anxiety #Hx of DM2 #DKA, resolved #VEL, resolved #Electrolyte imbalance #Hypokalemia #Hypomagnesemia #Hypocalcemia #Hypophosphatemia #Normocytic normochromic anemia #SVT, resolved #Shock, resolved Case disclosed with Attending Dr. Alfonso Henry PGY1 Disclaimer: This note was dictated by speech recognition and even though it was carefully revised there may still be minor errors in electronic prepress technician due to voice recognition software. Status at Discharge Overall status at discharge: patient is progressing back to baseline Time Spent with Patient Time attestation: Total time spent providing and/or coordinating discharge services:>35 min Time spent: Greater than 30 minutes Exam Vital Signs Temp Pulse Resp BP Pulse Ox O2 Del Method O2 Flow Rate 98.4 F 82 20 113/63 97 Nasal Cannula 6 10/11/24 12:00 10/11/24 12:00 10/11/24 12:00 10/11/24 12:00 10/11/24 12:00 10/11/24 12:00 10/11/24 12:00 FiO2 35 10/07/24 08:00 Narrative Exam General: A/O x3, no acute distress Eyes: PERRL, EOMI. Anicteric, vision grossly intact. Ears: No ear pain, no ear discharge, Hearing grossly intact. Nose: No nasal discharge. Mouth/Throat: Dry mucous membranes, no redness, no lesions. Neck: Neck supple, non-tender, no cervical lymphadenopathy. Lungs: Clear JAYA to auscultation and percussion, No accessory muscle use. Cardio: Normal S1/S2, regular rhythm, no murmurs, no JV Abdomen: Soft, non-tender, no palpable masses, peristalsis present, no guarding or rebound. Extremities: Symmetrical, no significant deformities, no peripheral edema , non-tender, peripheral pulses presents. Skin: No rashes, no lesions, warm to touch. Neuro: No focal neurological deficits. motor and sensory intact. Psych: Cooperative, appropriate mood Discharge Plan Plan Patient Disposition: HOME (Self Care) Care Plan Goals: Please follow-up with primary care physician within 1 week upon discharge Please continue taking Bactrim until 10/16/2024. We have started you on insulin glargine 30 units daily. We have also started you on insulin sliding scale with meals. We have held your amlodipine 10 mg daily given that your blood pressure has been stable and on the lower end throughout hospital admission therefore please follow-up with primary care physician before restarting it. We have stopped your Synjardy at this time. Strongly encouraged to abstain from using any alcohol or any other illicit drugs. Please come back to the ER if symptoms persist or worsen Insulin sliding scale instructions as follows: Blood glucose Insulin units 131-180 2 units 181-240 4 units 241-300 6 units 301-350 8 units 351-400 10 units 400+ 12 units and call your primary care physician Prescriptions/Referrals Prescriptions/Med Rec: New insulin glargine [Lantus U-100 Insulin] 100 unit/mL Solution 30 unit SCi QDAY 30 Days Qty: 9 0RF folic acid 1 mg Tablet 1 mg PO BID 30 Days Qty: 60 0RF escitalopram oxalate 10 mg Tablet 10 mg PO QDAY 30 Days Qty: 30 0RF insulin lispro [Admelog SoloStar U-100 Insulin] 100 unit/mL insulin pen 1 sliding scale dose subcut USEASDIRECTD Qty: 15 0RF (DME) FreeStyle Mandy 3 Plus Sensor Device See Rx Instructions .Route Qty: 2 0RF Rx Instructions: As directed (DME) FreeStyle Mandy 3 [place] Misc See Rx Instructions .Route Qty: 1 0RF Rx Instructions: As directed sulfamethoxazole-trimethoprim [Bactrim DS] 800-160 mg tablet 1 tab PO TID Qty: 17 0RF Continued ondansetron 8 mg Tablet,Disintegrating 8 mg PO Q12H PRN (Reason: Nausea) Held amlodipine 10 mg Tablet 10 mg PO QDAY Hold Instructions: Resume on 10/18/24. Hold until follow up with your primary care physician Discontinued Synjardy 12.5-1,000 mg tablet 1 tab PO BIDWMEAL Patient Comments: TAKE 1 TABLET BY MOUTH TWICE A DAY Referrals: No Primary/Family,Physician [Primary Care Provider] - Patient/Caregiver Discharge Instructions Meds to Beds: No Other Discharge Activity Instructions:: Please follow-up with primary care physician within 1 week upon discharge Please continue taking Bactrim until 10/16/2024. We have started you on insulin glargine 30 units daily. We have also started you on insulin sliding scale with meals. We have held your amlodipine 10 mg daily given that your blood pressure has been stable and on the lower end throughout hospital admission therefore please follow-up with primary care physician before restarting it. We have stopped your Synjardy at this time. Strongly encouraged to abstain from using any alcohol or any other illicit drugs. Please come back to the ER if symptoms persist or worsen Insulin sliding scale instructions as follows: Blood glucose Insulin units 131-180 2 units 181-240 4 units 241-300 6 units 301-350 8 units 351-400 10 units 400+ 12 units and call your primary care physician Education Materials: Diabetes and Drinking Alcohol, Insulin How to Use and Where to Inject, Diabetes: Meal Planning, Diabetic Ketoacidosis Print Language: Nauruan Stand Alone Forms: Kristina Award Info., Patient Portal Info Letter Discharge Order Discharge Orders: Discharge (Routine); Ordered 10/11/24 Ordered By: Mango Henry Quality Discharge Quality Measures VTE prophylaxis Attestestation Attestation I reviewed labs, imaging, EKG, home medications and prior available records. Face to face evaluation was performed by me. I have personally examined the patient and discussed assessment and plan with the IM team. I reviewed the resident note and agree with the plan with exceptions as below. DKA, resolved Type 2 diabetes mellitus Alcohol abuse Alcohol withdrawal Acute encephalopathy Acute hypoxic respiratory failure, s/p intubation to protect airways, now extubated Community-acquired pneumonia: Stenotrophomonas versus Streptococcus group B Leukocytosis, downtrending SVT status post cardioversion Hypernatremia Hypokalemia Hypomagnesemia He is downgraded from ICU Continue p.o. Bactrim Weaned off phenobarbital Removed restraints Avoid alcohol use WBC is downtrending Continue insulin glargine plus sliding scale insulin. Monitor fingersticks Monitor electrolyte level as outpatient Ordered PT evaluation: No further PT needed Time spent is 40 minutes. More than 50% of the time was spent on patient education and coordination of care.
== END 2024-10-11 15:55 | disposition home or self-care (01) | DRG 420 ==
LOC: SERX 07:50 → SERHOLD 09:06 → S2SX 10-04 05:36 → S2NX 10-10 16:40
PROVIDERS: Internal Medicine; Student in an Organized Health Care Education/Training Program; Admitting Provider Internal Medicine Critical Care Medicine; Emergency Provider Emergency Medicine; Visit Provider Internal Medicine
DX: E10.11 Type 1 diabetes mellitus with ketoacidosis with coma (principal); I10 Essential (primary) hypertension; E78.5 Hyperlipidemia, unspecified; N39.0 Urinary tract infection, site not specified; J18.9 Pneumonia, unspecified organism; D64.9 Anemia, unspecified; E83.39 Other disorders of phosphorus metabolism; E83.42 Hypomagnesemia; E83.51 Hypocalcemia; E86.1 Hypovolemia; E87.0 Hyperosmolality and hypernatremia; E87.1 Hypo-osmolality and hyponatremia; E87.5 Hyperkalemia; E87.6 Hypokalemia; E87.70 Fluid overload, unspecified; F10.239 Alcohol dependence with withdrawal, unspecified; F41.9 Anxiety disorder, unspecified; G93.41 Metabolic encephalopathy; I48.91 Unspecified atrial fibrillation; J96.01 Acute respiratory failure with hypoxia; I47.10 Supraventricular tachycardia, unspecified; K85.90 Acute pancreatitis without necrosis or infection, unspecified; R57.1 Hypovolemic shock; N17.0 Acute kidney failure with tubular necrosis; Z78.1 Physical restraint status; R57.8 Other shock; Z79.4 Long term (current) use of insulin; Z91.199 Patient's noncompliance with other medical treatment and regimen due to unspecified reason
CPT/HCPCS: 36415; 36600; 70450; 71045; 80048; 80053; 80061; 80069; 80307; 80320; 80329; 81001; 82010; 82140; 82803; 83036; 83605; 83690; 83735; 84100; 84145; 84300; 84439; 84443; 84478; 84484; 85025; 85610; 85730; 87040; 87077; 87081; 87106; 87186; 87205; 92526; 92610; 93005; 94002; 94003; 96361; 96365; 96367; 97162; 99291; A4216; J0171; J0283; J0456; J0461; J0613; J0696; J1644; J1815; J1938; J2060; J2250; J2251; J2405; J2470; J2560; J2598; J2704; J3010; J3370; J3411; J3475; J3480; J3490; J7030; J7040; J7042; J7050; J7060; J7120; J7121; J7999; A9270; G0480; S0039